=== PATIENT | male | born 1955 | race Caucasian/White ===

== ENCOUNTER → 2024-02-01 | Outpatient (CLI) | payer MEDICARE, SELFPAY ==
[2024-02-01 12:58] LABS: ALB/GLOB Ratio 1.1 RATIO (0.9-2.4); AST(SGOT) 21 U/L (15-37); Alanine Aminotransfer ALT/SGPT 21 U/L (16-61); Albumin, Serum 3.7 g/dL (3.2-5.0); Alkaline Phosphatase 78 U/L (45-117); Anion Gap 8 (5-15); BUN 16 mg/dL (7-18); BUN/Creat Ratio 15.5 RATIO (10-20); Calcium,Total 9.4 mg/dL (8.5-10.1); Chloride 104 mmol/L (98-107); Creatinine, Serum 1.03 mg/dL (0.70-1.30); EST Glomerular Filtration Rate 76 mL/min (>60); Est Glom Filt Rate - Afr Amer 92 mL/min (>60); Globulin 3.3 g/dL (2.2-4.2); Glucose 179 mg/dL (74-106); PSA,Total- Diagnostic 0.05 ng/mL (0.0-4.0); Potassium 4.8 mmol/L (3.5-5.1); Sodium Level 139 mmol/L (136-145)
== END | disposition home or self-care (01) ==
LOC: BIMLAB 09:24
PROVIDERS: PCP Family Medicine; Visit Provider Family Medicine
DX: C61 Malignant neoplasm of prostate (principal); E11.9 Type 2 diabetes mellitus without complications
CPT/HCPCS: 36415; 80053; 84153

== ENCOUNTER → 2024-11-14 | Outpatient (CLI) | payer MEDICARE, SELFPAY ==
[2024-11-14 13:26] LABS: Cholesterol 179 mg/dL (<=200); High Density Lipoprotein 81 mg/dL; Low Density Lipoprotein Calc. 87 mg/dL; Triglycerides 54 mg/dL; Very Low Density Lipoprotein 11 mg/dL (5-40)
[2024-11-14 13:30] LABS: ALB/GLOB Ratio 1.4 RATIO (0.9-2.4); AST(SGOT) 35 U/L (<=37); Alanine Aminotransfer ALT/SGPT 36 U/L (<=46); Albumin, Serum 4.3 g/dL (3.4-4.8); Alkaline Phosphatase 103 U/L (40-129); Anion Gap 11 (5-15); BUN 16 mg/dL (4-19); BUN/Creat Ratio 18.5 RATIO (10-20); Calcium,Total 9.2 mg/dL (7.6-11.0); Carbon Dioxide 23.4 mmol/L (21.0-32.0); Chloride 103 mmol/L (98-108); Creatinine, Serum 0.88 mg/dL (0.70-1.20); EST Glomerular Filtration Rate 94 (>60); Globulin 3.1 g/dL (2.2-4.2); Glucose 186 mg/dL (70-99); Potassium 4.5 mmol/L (3.3-5.1); Protein, Total 7.4 g/dL (5.9-8.4); Sodium Level 137 mmol/L (133-145); Total Bilirubin 0.53 mg/dL (0.00-1.30)
== END | disposition home or self-care (01) ==
LOC: BIMLAB 10:29
PROVIDERS: Physician Assistant; PCP Family Medicine; Referring Provider Family Medicine; Visit Provider Family Medicine
DX: E03.9 Hypothyroidism, unspecified (principal); E11.9 Type 2 diabetes mellitus without complications; Z79.4 Long term (current) use of insulin
CPT/HCPCS: 36415; 80053; 80061; 84439; 84443

== ENCOUNTER → 2025-02-13 | Outpatient (CLI) | payer MEDICARE, SELFPAY ==
[2025-02-13 17:16] LABS: PSA,Total- Diagnostic 0.23 ng/mL (0.00-4.00)
--- OUTSIDE RECORDS SUMMARY | 2025-02-13 23:16 | XMS RPT_ITS | CCD ---
Author Organization [facility] Care Team Providers Care Rn Clinical Research Name Role Phone Wojciech CARRION, Nahun Carrillo Primary Care Provider [phone] URIEL BARRAGAN Referring Unavailable WOJCIECH, NAHUN Carrillo Primary Care Unavailable Wojciech CARRION, Nahun Carrillo Primary Care Provider [phone] NAHUN JEFFREY Primary Care Unavailable KAMRAN GORDON JR Referring Unavaila LEIGH Miramontes Attending Unavailable WOJCIECH, NAHUN Carrillo Primary Care Unavailable WOJCIECH, NAHUN Carrillo Primary Care Unavailable KAMRAN GORDON JR Referring Unavaila ble NAHUN JEFFREY Attending Unavailable WOJCIECH, NAHUN Carrillo Primary Care Unavailable WOJCIECH, NAHUN Carrillo Referring Unavailable WOJCIECH, NAHUN Carrillo Primary Care Unavailable WOJCIECH, NAHUN Carrillo Primary Care Unavailable KAMRAN GORDON JR Referring Unavaila ble WOJCIECH, NAHUN Carrillo Primary Care Unavailable WOJCIECH, NAHUN Carrillo Attending Unavailable WOJCIECH, NAHUN Carrillo Primary Care Unavailable WOJCIECH, NAHUN Carrillo Attending Unavailable WOJCIECH, NAHUN Carrillo Primary Care Unavailable WOJCIECH, NAHUN Carrillo Referring Unavailable WOJCIECH, NAHUN Carrillo Primary Care Unavailable URIEL BARRAGAN Referring Unavailable WOJCIECH, NAHUN Carrillo Primary Care Unavailable URIEL BARRAGAN Referring Unavailable NAHUN JEFFREY Attending Unavailable WOJCIECH, NAHUN Carrillo Primary Care Unavailable WOJCIECH, NAHUN Carrillo Referring Unavailable WOJCIECH, NAHUN Carrillo Primary Care Unavailable KAMRAN GORDON JR Attending Unavaila KAMRAN Grullon JR Referring Unavaila ble KAMRAN GORDON JR Admitting Unavaila ble WOJCIECH, NAHUN Carrillo Primary Care Unavailable KAMRAN GORDON JR Attending Unavaila ble JEFFREY, NAHUN Carrillo Primary Care Unavailable WOJCIECH, NAHUN Carrillo Primary Care Unavailable GANGEL JR, KAMRAN GENE Attending Unavaila ble WOJCIECH, JESSICA Primary Care Unavailable HEIDI JR, KAMRAN GENE Attending Unavaila ble HEIDI JR, KAMRAN GENE Referring Unavaila ble WOJCIECH, JESSICA Primary Care Unavailable HEIDI JR, KAMRAN GENE Attending Unavaila ble JEFFREY, JESSICA Primary Care Unavailable Mohit Pittman DO Primary Care Provider Zain TERRY, Dr. Mohit Castro Primary Care Provider Dr. Mohit Pittman DO Attending Provider [phone] Dr. Mohit Pittman DO Referring Provider [phone] Brown, Mohit R Referring Unavailable Brown, Mohit R Attending Unavailable Brown, Mohit R Primary Care Unavailable Brown, Mohit R Referring Unavailable Brown, Mohit R Attending Unavailable Brown, Mohit R Primary Care Unavailable Brown, Mohit R Referring Unavailable Brown, Mohit R Attending Unavailable Brown, Mohit R Primary Care Unavailable Brown, Mohit R Referring Unavailable Brown, Mohit R Attending Unavailable Zain, Mohit Castro Primary Care Unavailable Zain TERRY, Dr. Mohit Castro Primary Care Provider [phone] Dr. Mohit Pittman DO Attending Provider [phone] Dr. Mohit Pittman DO Referring Provider [phone] Allergies Allergy Classification Reported Allergen(s) Allergy Type Date of Onset Reaction(s) Facility (20 sources) peanut; Translations: [PEANUTS] Food Intolerance 3 Vomiting [facility] Work Phone: (9 sources) Penicillins; Translations: [PENICILLINS] Drug Intolerance 3 Other: See Comments [facility] Work Phone: (20 sources) tamsulosin; Translations: [TAMSULOSIN] Drug Allergy 0 Mental Status Change [facility] Work Phone: (20 sources) Bee Sting; Translations: [BEE STING] Allergy to substance 3 Anaphylaxis, Angioedema [facility] Work Phone: (20 sources) Penicillins Drug Intolerance 3 Other: See Comments [facility] Work Phone: (20 sources) empagliflozin; Translations: [EMPAGLIFLOZIN] Drug Allergy 3 Other: See Comments [facility] (2 sources) Penicillins Propensity to adverse reactions 5 headaches [facility] (1 source) Penicillins Drug allergy (disorder) 5 [facility] Repository Medications Current Medications Medication Drug Class(es) Dates Sig (Normalized) Sig (Original) acetaminophen 325 mg / oxyCODONE hydrochloride 5 mg oral tablet (4 sources) Opioid Agonist Start: 11-30-2022 End: 12-05-2022 take 1 tablet by mouth every six hours as needed oxyCODONE-acetam inophen (PERCOCET) 5-325 mg tablet Indications: Prostate cancer (HCC) Take 1 tablet by mouth every 6 hours as needed for up to 5 days. 20 tablet 0 11/30/2022 12/05/2022 Active Comment on above: Take 1 tablet by michelle th every 6 hours as needed for up to 5 days. amLODIPine 10 mg oral tablet (20 sources) Dihydropyridine Calcium Channel Gabbi Start: 06-07-2023 End: 11-28-2024 take 1 tablet by mouth once daily Amlodipine 10 mg tablet Active 10 mg PO daily November 28, 2024 8:27am Start: 12-29-2021 End: 01-05-2023 take 1 tablet by mouth once daily amLODIPine (NORVASC) 10 mg tablet Indications: Essential hypertension Take 1 tablet by mouth once daily. 90 tablet 3 01/05/2023 Active Start: 11-03-2021 End: 12-29-2021 take 2 tablets by mouth once daily amLODIPine (NORVASC) 5 mg tablet Indications: Essential hypertension Take 2 tablets by mouth once daily. 3 11/03/2021 12/29/2021 Discontinued Comment on above: Take 2 tablets by mo uth once daily. Take 1 tablet by michelle th once daily. atorvastatin 20 mg oral tablet (20 sources) HMG-CoA Reductase Inhibitor Start: 4 End: 5 take 1 tablet by mouth at bedtime Atorvastatin 20 mg tablet Active 20 mg PO AT BEDTIME November 28, 2024 8:27am Start: 01-05-2023 End: 10-21-2023 take 1 tablet by mouth once daily at bedtime for hyperlipidemia atorvastatin (LIPITOR) 20 mg tablet Indications: Familial combined hyperlipidemia Take 1 tablet by mouth daily at bedtime. For cholesterol. 90 tablet 1 10/22/2023 Active Comment on above: Take 1 tablet by michelle th daily at bedtime. For cholesterol. Blood-Glucose Meter (ONETOUCH ULTRA2 METER) monitoring kit (20 sources) Start: 06-27-2021 Blood-Glucose Meter (ONETOUCH ULTRA2 METER) monitoring kit 1 Each as needed. One Touch Meter Kit Diagnosis: Type 2 DM - Uncontrolled E11.65 1 Each 06/27/2021 Active Start: 06-27-2021 Blood-Glucose Meter (ONETOUCH ULTRA2 METER) monitoring kit 1 Each as needed. One Touch Meter Kit Diagnosis: Type 2 DM - Uncontrolled E11.65 1 Each 0 06/27/2021 Active Comment on above: 1 Each as needed. On e Touch Meter Kit Diagnosis: Type 2 DM - Uncontrolled E11.65 docusate sodium 100 mg oral capsule (8 sources) Start: 2022 End: 2022 take 1 capsule by mouth twice daily docusate sodium (COLACE) 100 mg capsule Take 1 capsule by mouth twice daily. 60 capsule 0 11/30/2022 12/30/2022 Active Comment on above: Take 1 capsule by mo [facility] twice daily. 0.5 ml dulaglutide 1.5 mg/ml auto-injector (5 sources) GLP-1 Receptor Agonist Start: 2022 End: 2022 inject 0.75 mg by subcutaneous injection every week dulaglutide (TRULICITY) 0.75 mg/0.5 mL pen injector Indications: Type 2 diabetes mellitus with hyperglycemia, without long-term current use of insulin (HCC) Inject 0.75 mg subcutaneously one time a week. Inject dose once per week. Discard Pen After 4 Each 5 01/05/2023 03/20/2023 Discontinued Comment on above: Inject 0.75 mg subcu taneously one time a week. Inject dose once per week. Discard Pen After 2 ml gentamicin 40 mg/ml injection (1 source) Start: 2021 End: 2021 gentamicin 40 mg/mL 127 mg injection glimepiride 4 mg oral tablet (20 sources) Sulfonylurea Start: 2021 End: 2022 take 1 tablet by mouth once daily at mealtime glimepiride (AMARYL) 4 mg tablet Indications: 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d by mild nonproliferative retinopathy without macular edema, without long-term current use of insulin ([facility]) Take 1 tablet by mouth every evening. With food. 0 08/06/2022 03/20/2023 Discontinued (Clinical Decision) Start: 06-24-2020 End: 05-07-2022 take 1 tablet by mouth twice daily at mealtime glimepiride (AMARYL) 4 mg tablet Take 1 tablet by mouth twice daily with meals. 180 tablet 3 12/29/2021 05/07/2022 Discontinued Comment on above: Take 1 tablet by michelle th twice daily with meals. Take 1 tablet by michelle th daily with breakfast. Take 1 tablet by michelle th every evening. With food. 3 ml insulin glargine 100 unt/ml pen injector (20 sources) Insulin Analog Start: 02-01-2024 End: 01-30-2025 Insulin Glargine (Lantus Solostar U-100 Insulin) 100 unit/mL (3 mL) insulin pen Active 15 U SC EVERY EVENING 3 January 30, 2025 9:26am Start: 12-23-2023 End: 02-01-2024 Insulin Glargine (Lantus Hue ostar U-100 Insulin) 100 unit/mL (3 mL) insulin pen Discontinued 10 U SC EVERY EVENING 3 January 26, 2024 5:09pm February 01, 2024 9:35am Start: 04-14-2023 End: 04-19-2024 inject 10 [IU] by subcutaneous injection once daily at bedtime insulin glargine (LANTUS SOLOSTAR U-100 INSULIN) 100 unit/mL (3 mL) Indications: Type 2 diabetes mellitus with hyperglycemia, without long-term current use of insulin (HCC) Inject 10 Units subcutaneously daily at bedtime. 9 mL 1 10/22/2023 Active Start: 03-12-2023 End: 10-11-2023 inject 10 [IU] by subcutaneous injection once daily at bedtime insulin glargine (LANTUS SOLOSTAR U-100 INSULIN) 100 unit/mL (3 mL) Indications: Type 2 diabetes mellitus with hyperglycemia, without long-term current use of insulin (HCC) Inject 10 Units subcutaneously daily at bedtime. 9 mL 1 04/14/2023 10/11/2023 Active Comment on above: Inject 10 Units subc utaneously daily at bedtime. 3 ml insulin lispro 100 unt/ml pen injector (20 sources) Insulin Analog Start: 12-01-2023 End: 01-30-2025 Insulin Lispro 100 unit/mL insulin pen Active 0 .ROUTE .COMPLEX January 30, 2025 12:58pm INJECT 5 UNITSUNDER THE SKIN WITH BREAKFAST AND LUNCH, 20 UNITS UNDER THE SKIN WITH DINNER Start: 04-13-2023 End: 04-19-2024 inject 5 [IU] by subcutaneous injection once daily at breakfast, then inject 5 [IU] by subcutaneous injection once daily at lunch, then inject 10 [IU] by subcutaneous injection once daily at dinner insulin lispro (HUMALOG KWIKPEN INSULIN) 100 unit/mL Indications: Type 2 diabetes mellitus with hyperglycemia, without long-term current use of insulin (HCC) Inject 5 Units subcutaneously daily with breakfast AND 5 Units daily with lunch AND 10 Units daily with dinner. 18 mL 1 10/22/2023 Active Start: 03-20-2023 inject 10 [IU] by casper bcutaneous injection once daily at dinner insulin lispro (HUMALOG KWIKPEN INSULIN) 100 unit/mL Indications: Type 2 diabetes mellitus with hyperglycemia, without long-term current use of insulin (HCC) Inject 10 Units subcutaneously daily with dinner. 15 mL 2 03/20/2023 Active Comment on above: Inject 10 Units subc utaneously daily with dinner. Inject 5 Units subcu taneously daily with breakfast AND 5 Units daily with lunch AND 10 Units daily with dinner. isopropyl alcohol 0.7 ml/ml medicated pad (20 sources) Start: 02-13-2025 Alcohol Swabs (Bd Alcohol Swabs) pads, medicated Active NMA TOPICAL THREE TIMES A DAY February 13, 2025 11:37am As directed 3 times daily dx: E11.9 Insulin dependent Start: 12-01-2023 End: 02-13-2025 Alcohol Swabs (Bd Alcohol Sw abs) pads, medicated Discontinued NMA TOPICAL TWICE A DAY December 01, 2023 12:00am February 13, 2025 11:37am Start: 04-14-2023 alcohol swabs (ALCOHOL PADS) Test blood sugar(s) 4 times daily. Dx: Type 2 DM - Controlled E11.9 Insulin: yes 300 Each 1 04/14/2023 Active Start: 04-03-2022 End: 04-14-2023 alcohol swabs (ALCOHOL PADS) Test blood sugar(s) 2 times daily. Dx: Type 2 DM - Controlled E11.9 Insulin: No 200 Each 1 04/03/2022 04/14/2023 Discontinued Comment on above: Test blood sugar(s) 2 times daily. Dx: Type 2 DM - Controlled E11.9 Insulin: No Test blood sugar(s) 4 times daily. Dx: Type 2 DM - Controlled E11.9 Insulin: yes levoFLOXacin 500 mg oral tablet (1 source) Quinolone Antimicrobial Start: 12-03-19 End: 12-03-19 levoFLOXacin 500 mg tab(s) (LEVAQUIN) levothyroxine sodium 0.025 mg oral tablet (20 sources) l-Thyroxine Start: 09-13-19 End: 11-29-19 take 1 tablet by mouth once daily Levothyroxine (Synthroid) 25 mcg tablet Active 25 ug PO DAILY November 28, 2024 8:28am Comment on above: Take 1 tablet by michelle th daily before breakfast. LORazepam 0.5 mg oral tablet (4 sources) Benzodiazepine Start: 11-30-19 End: 12-06-19 LORazepam (ATIVAN) 0.5 mg Indications: Anxiety about health One tablet one hour prior to procedure. Repeat 30 minutes prior to procedure as needed. Do not start before November 29, 2021. 2 tablet 0 11/29/2021 12/05/2021 Active Comment on above: One tablet one hour prior to procedure. Repeat 30 minutes prior to procedure as needed. Do not start before November 29, 2021. one touch ultra 2 pen injector (3 sources) Start: 02-14-20 one touch ultra 2 pen injector Active 0 .Route .MEDSUPPLY February 13, 2025 11:36am As directed As directed 3 times daily dx: E11.9 Insulin dependent Start: 09-21-2024 End: 02-13-2025 one touch ultra 2 pen inject or Discontinued 0 .Route .MEDSUPPLY September 21, 2024 1:00am February 13, 2025 11:37am As directed Start: 09-21-2024 one touch ultr a 2 pen injector Active 0 .Route .MEDSUPPLY September 21, 2024 1:00am As directed 24 hr oxybutynin chloride 10 mg extended release oral tablet (14 sources) Cholinergic Muscarinic Antagonist Start: 12-01-2022 End: 03-20-2023 take 1 tablet by mouth once daily oxybutynin ER (DITROPAN XL) 10 mg 24 hr tablet Indications: Urinary incontinence, unspecified type Take 1 tablet by mouth once daily. 0 01/05/2023 03/20/2023 Discontinued Comment on above: Take 1 tablet by michelle th once daily for 14 days. Take 1 tablet by michelle th once daily. Semaglutide (8 sources) Start: 11-29-2024 Semaglutide (Ozempic) 0.25 mg or 0.5 mg (2 mg/3 mL) pen injector Active 0.25 mg SC EVERY WEEK 3 November 29, 2024 12:40pm 0.25 mg once per week Start: 11-28-2024 End: 11-29-2024 Semaglutide (Ozempic) 0.25 m g or 0.5 mg (2 mg/3 mL) pen injector Discontinued 0.25 mg SC EVERY WEEK 3 November 28, 2024 8:27am November 29, 2024 12:40pm 0.25 mg once per week Start: 01-26-2024 End: 11-28-2024 Semaglutide (Ozempic) 0.25 m g or 0.5 mg (2 mg/3 mL) pen injector Discontinued 0.25 mg SC EVERY WEEK 3 January 26, 2024 5:09pm November 28, 2024 8:28am 0.25 mg once per week Start: 01-26-2024 Semaglutide (O zempic) 0.25 mg or 0.5 mg (2 mg/3 mL) pen injector Active 0.25 mg SC EVERY WEEK 3 January 26, 2024 5:09pm 0.25 mg once per week Start: 12-23-2023 End: 01-26-2024 Semaglutide (Ozempic) 0.25 m g or 0.5 mg (2 mg/3 mL) pen injector Discontinued 0.25 mg SC EVERY WEEK 3 December 23, 2023 10:22am January 26, 2024 5:10pm 0.25 mg once per week Start: 12-01-2023 End: 12-23-2023 Semaglutide (Ozempic) 0.25 m g or 0.5 mg (2 mg/3 mL) pen injector Discontinued mg SC December 01, 2023 12:00am December 23, 2023 10:24am semaglutide (OZEMPIC) 0.25 m g or 0.5 mg (2 mg/3 mL) pen (7 sources) Start: 11-22-2023 semaglutide (O ZEMPIC) 0.25 mg or 0.5 mg (2 mg/3 mL) pen Indications: Type 2 diabetes mellitus with hyperglycemia, without long-term current use of insulin (HCC) Inject 0.25 mg subcutaneously one time a week. Ordering for 1 box with 1 rf. 5 Each 1 11/22/2023 Active Start: 11-11-2023 End: 11-22-2023 semaglutide (OZEMPIC) 0.25 m g or 0.5 mg (2 mg/3 mL) pen Indications: Type 2 diabetes mellitus with hyperglycemia, without long-term current use of insulin (HCC) Inject 0.25 mg subcutaneously one time a week. 12 mL 1 11/11/2023 11/22/2023 Discontinued Start: 11-11-2023 semaglutide (O ZEMPIC) 0.25 mg or 0.5 mg (2 mg/3 mL) pen Indications: Type 2 diabetes mellitus with hyperglycemia, without long-term current use of insulin (HCC) Inject 0.25 mg subcutaneously one time a week. 12 mL 1 11/11/2023 Active Comment on above: Inject 0.25 mg subcu taneously one time a week. Inject 0.25 mg subcu taneously one time a week. Ordering for 1 box with 1 rf. sildenafil 100 mg oral tablet (20 sources) Phosphodiesterase 5 Inhibitor Start: 12-01-19 End: 11-15-19 take 1 tablet by mouth once as needed Sildenafil 100 mg tablet Active 100 mg PO ONCE as needed for intercourse November 14, 2024 10:24am Start: 10-17-2020 End: 05-14-2023 take 1 tablet by mouth once daily as needed sildenafil (VIAGRA) 100 mg tablet Indications: ED (erectile dysfunction) of organic origin Take 1 tablet PO daily as needed for erectile dysfunction 20 tablet 1 05/14/2023 Active Comment on above: Take 1 tablet PO yovanny ly as needed for erectile dysfunction Completed/Discontinued Medications Medication Drug Class(es) Dates Sig (Normalized) Sig (Original) empagliflozin 10 mg oral tablet (20 sources) Sodium-Glucose Cotransporter 2 Inhibitor Start: 05-07-2022 End: 01-05-2023 take 1 tablet by mouth once daily, then take 1 tablet by mouth once daily in the morning empagliflozin (JARDIANCE) 10 mg tablet Indications: 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d by mild nonproliferative retinopathy without macular edema, without long-term current use of insulin (HCC) Take 1 tablet by mouth once daily. Take 1 tablet once daily in the morning 90 tablet 1 06/02/2022 01/05/2023 Discontinued (Side Effects) Comment on above: Take 1 tablet by michelle th once daily. Take 1 tablet once daily in the morning iv contrast (will be provided with radiology test) (8 sources) Start: 12-05-2021 End: 08-06-2022 iv contrast (will be provided with radiology test) MRI Prostate Inject, intravenously, once for 1 dose. No IV access, insert saline lock prior to the beginning of sedation, infusion, injection of imaging exam. Discontinue saline lock post exam. If Pt. has a central line or IVAD, may access for administration according to line specific nursing protocol. Once exam is complete flush line and de-access according to line specific nursing protocol in the MR contrast administration guidelines link. 1 Each 0 12/05/2021 08/06/2022 Discontinued Start: 12-05-2021 iv contrast (w ill be provided with radiology test) MRI Prostate Inject, intravenously, once for 1 dose. No IV access, insert saline lock prior to the beginning of sedation, infusion, injection of imaging exam. Discontinue saline lock post exam. If Pt. has a central line or IVAD, may access for administration according to line specific nursing protocol. Once exam is complete flush line and de-access according to line specific nursing protocol in the MR contrast administration guidelines link. 1 Each 0 12/05/2021 Active Comment on above: MRI Prostate Inject, intravenously, once for 1 dose. No IV access, insert saline lock prior to the beginning of sedation, infusion, injection of imaging exam. Discontinue saline lock post exam. If Pt. has a central line or IVAD, may access for administration according to line specific nursing protocol. Once exam is complete flush line and de-access according to line specific nursing protocol in the MR contrast administration guidelines link. 24 hr metFORMIN hydrochloride 500 mg extended release oral tablet (20 sources) Biguanide Start: 12-01-2023 End: 05-03-2024 Metformin 500 mg tablet extended release 24 hr Discontinued 1000 mg PO .QID December 01, 2023 10:23am May 03, 2024 9:31am Start: 06-07-2023 End: 12-01-2023 Metformin 500 mg tablet exte nded release 24 hr Discontinued 1000 mg PO TWICE A DAY December 01, 2023 12:00am December 01, 2023 10:23am Start: 10-07-2021 End: 08-06-2022 take 2 tablets by mouth twice daily before mealtime metFORMIN ER (GLUCOPHAGE XR) 500 mg 24 hr tablet Indications: 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d by mild nonproliferative retinopathy without macular edema, without long-term current use of insulin (HCC) Take 2 tablets by mouth twice daily before meals. 360 tablet 3 08/06/2022 Active Comment on above: Take 2 tablets by mo [facility] twice daily before meals. Take 2 tablets by mo [facility] two times a day before meals. pravastatin sodium 40 mg oral tablet (20 sources) HMG-CoA Reductase Inhibitor Start: 2 End: 3 take 1 tablet by mouth once daily pravastatin (PRAVACHOL) 40 mg tablet Take 1 tablet by mouth once daily. 90 tablet 3 08/06/2022 01/05/2023 Discontinued (Changing Therapy/Dosage Form) Comment on above: Take 1 tablet by [facility] once daily. Problems Active Problems Problem Classification Problem Date Documented Date Episodic/Chronic Cancer of prostate (20 sources) Malignant tumor of prostate; Translations: [Malignant neoplasm of prostate] Onset: 12-04-2022 Chronic Cancer of prostate (7 sources) History of malignant neoplasm of prostate; Translations: [Personal history of malignant neoplasm of prostate] Onset: 11-14-2024 08-08-2024 Episodic Diabetes mellitus with complications (20 sources) Type 2 diabetes mellitus; Translations: [Type 2 diabetes mellitus with mild nonproliferative diabetic retinopathy without macular edema, bilateral] Onset: 02-08-2017 Resolved: 07-17-2020 02-27-2019 Chronic Diabetes mellitus without complication (7 sources) Diabetes mellitus; Translations: [Type 2 diabetes mellitus without complications] Onset: 09-05-2014 Resolved: 07-17-2020 10-21-2015 Chronic Disorders of lipid metabolism (20 sources) Familial combined hyperlipidemia; Translations: [Other hyperlipidemia] Onset: 07-29-2015 07-29-2015 Chronic Essential hypertension (20 sources) Hypertensive disorder; Translations: [Essential (primary) hypertension] Onset: 09-05-2014 Resolved: 10-21-2015 Chronic Genitourinary symptoms and ill-defined conditions (20 sources) Urinary incontinence; Translations: [Unspecified urinary incontinence] Onset: 01-05-2023 Chronic Other aftercare (1 source) exterminator (current) use of insulin; Translations: [exterminator (current) use of insulin] Onset: 11-14-2024 Episodic Other male genital disorders (20 sources) Secondary erectile dysfunction; Translations: [Male erectile dysfunction, unspecified] Onset: 10-18-2020 10-18-2020 Chronic Other male genital disorders (6 sources) Male erectile dysfunction, unspecified; Translations: [Erectile dysfunction] Onset: 11-14-2024 11-14-2024 Chronic Thyroid disorders (20 sources) Acquired hypothyroidism; Translations: [Hypothyroidism, unspecified] Onset: 10-21-2015 10-21-2015 Chronic Past or Other Problems Problem Classification Problem Date Documented Da te Episodic/Chronic Allergic reactions (2 sources) Contact dermatitis due to Genus Toxicodendron; Translations: [Unspecified contact dermatitis due to plants, except food] Onset: 03-16-2018 Resolved: 07-17-2020 07-17-2020 Episodic Immunizations and screening for infectious disease (4 sources) Needs influenza immunization; Translations: [Encounter for immunization] Onset: 08-08-2024 Episodic Nonspecific chest pain (2 sources) Atypical chest pain; Translations: [Other chest pain] Onset: 09-05-2014 Resolved: 10-21-2015 10-21-2015 Episodic Other and unspecified benign neoplasm (20 sources) History of polyp of colon; Translations: [Personal history of colonic polyps] Onset: 02-20-2016 02-20-2016 Episodic Other connective tissue disease (20 sources) Adhesive capsulitis of left shoulder; Translations: [Adhesive capsulitis of left shoulder] Onset: 05-07-2022 Resolved: 05-13-2023 Episodic Other screening for suspected conditions (not mental disorders or infectious disease) (20 sources) Raised prostate specific antigen; Translations: [Elevated prostate specific antigen [PSA]] Onset: 09-26-2019 Resolved: 12-04-2022 07-18-2020 Episodic Residual codes; unclassified (20 sources) Family history of ischemic heart disease; Translations: [Family history of ischemic heart disease and other diseases of the circulatory system] Onset: 09-05-2014 09-05-2014 Episodic Unclassified (2 sources) Type 2 diabetes mellitus without complication; Translations: [Uncontrolled type 2 diabetes mellitus without complication, without long-term current use of insulin] Onset: 03-16-2018 Resolved: 07-17-2020 07-17-2020 Results Test Name Value Interpretation Reference Range Facility T4 Free Directon 11-15-2024 T4 FREE DIRECT 1.50 ng/dL High 0.76-1.46 [facility] Comment on above: Performed By: #### L [id number] #### [facility] [place], [address] Anion gap in Serum or Plasma Ordered By: Mohit Pittman on 11-14-2024 Anion gap [Moles/Vol] 11 mmol/L - [facility] BUN/creatinine ratioOrdered By: Mohit Pittman on 11-14-2024 Urea nitrogen/Creatinine [Mass ratio] 18.5 mg/mg - [facility] Bilirubin, totalOrdered By: Mohit Pittman on 11-14-2024 Bilirubin [Mass/Vol] 0.53 mg/dL 0.00-1.30 [facility] Calculated very low density lipoprotein (VLDL) cholesterol measurementOrdered By: Mohit Pittman on 11-14-2024 Calculated very low density lipoprotein (VLDL) cholesterol measurement 11 mg/dL - [facility] VLDL Cholesterol 11 mg/dL - [facility] Carbon dioxide, total [Moles /volume] in Central venous bloodOrdered By: Mohit Pittman on 11-14-2024 CO2 [Moles/Vol] 23.4 mmol/L 21.0-32.0 [facility] Chloride assayOrdered By: Do teresa Pittman on 11-14-2024 Chloride [Moles/Vol] 103 mmol/L 98-108 [facility] Comprehensive Metabolic Prof ilon 11-14-2024 Albumin [Mass/Vol] 4.3 g/dL Normal 3.4-4.8 [facility] Comment on above: Performed By: #### L 501.9520, L500.4100, L500.4050 #### [facility] [address] [place], [address] Albumin/Globulin [Mass ratio] 1.4 {ratio} Normal 0.9-2.4 [facility] Comment on above: Performed By: #### L 501.9520, L500.4100, L500.4050 #### [facility] [address] [place], [address] ALK PHOS 103 U/L Normal 40-129 [facility] Comment on above: Performed By: #### L 501.9520, L500.4100, L500.4050 #### [facility] [address] [place], [address] ALT [Catalytic activity/Vol] 36 U/L Normal <=46 [facility] Comment on above: Performed By: #### L 501.9520, L500.4100, L500.4050 #### [facility] [address] [place], [address] AST [Catalytic activity/Vol] 35 U/L Normal <=37 [facility] Comment on above: Performed By: #### L 501.9520, L500.4100, L500.4050 #### [facility] [address] [place], [address] Bilirubin [Mass/Vol] 0.53 mg/dL Normal 0.00-1.30 [facility] Comment on above: Performed By: #### L 501.9520, L500.4100, L500.4050 #### [facility] [address] [place], [address] BUN/CRE 18.5 RATIO Normal 10-20 [facility] Comment on above: Performed By: #### L 501.9520, L500.4100, L500.4050 #### [facility] [address] [place], [address] Calcium [Mass/Vol] 9.2 mg/dL Normal 7.6-11.0 [facility] Comment on above: Performed By: #### L 501.9520, L500.4100, L500.4050 #### [facility] [address] [place], [address] Chloride [Moles/Vol] 103 mmol/L Normal 98-108 [facility] Comment on above: Performed By: #### L 501.9520, L500.4100, L500.4050 #### [facility] [address] [place], [address] CO2 [Moles/Vol] 23.4 mmol/L Normal 21.0-32.0 [facility] Comment on above: Performed By: #### L 501.9520, L500.4100, L500.4050 #### [facility] [address] [place], [address] Creatinine [Mass/Vol] 0.88 mg/dL Normal 0.70-1.20 [facility] Comment on above: Performed By: #### L 501.9520, L500.4100, L500.4050 #### [facility] [address] [place], [address] GAP 11 Normal 5-15 [facility] Comment on above: Performed By: #### L 501.9520, L500.4100, L500.4050 #### [facility] [address] [place], [address] GFR/1.73 sq M.predicted among non-blacks MDRD (S/P/Bld) [Vol rate/Area] 94 mL/min/{1.73_m2} Normal >60 [facility] Comment on above: Result Comment: mL/m in/1.73m2 CKD-EPI Creatinine Equation (2020) Performed By: #### L 501.9520, L500.4100, L500.4050 #### [facility] [address] [place], [address] Globulin (S) [Mass/Vol] 3.1 g/dL Normal 2.2-4.2 [facility] Comment on above: Performed By: #### L 501.9520, L500.4100, L500.4050 #### [facility] [address] [place], [address] Glucose [Mass/Vol] 186 mg/dL High 70-99 [facility] Comment on above: Performed By: #### L 501.9520, L500.4100, L500.4050 #### [facility] [address] [place], [address] Potassium [Moles/Vol] 4.5 mmol/L Normal 3.3-5.1 [facility] Comment on above: Performed By: #### L 501.9520, L500.4100, L500.4050 #### [facility] [address] [place], [address] Sodium [Moles/Vol] 137 mmol/L Normal 133-145 [facility] Comment on above: Performed By: #### L 501.9520, L500.4100, L500.4050 #### [facility] [address] [place], [address] T PROT 7.4 g/dL Normal 5.9-8.4 [facility] Comment on above: Performed By: #### L 501.9520, L500.4100, L500.4050 #### [facility] [address] [place], [address] Urea nitrogen [Mass/Vol] 16 mg/dL Normal 4-19 [facility] Comment on above: Performed By: #### L 501.9520, L500.4100, L500.4050 #### [facility] [address] [place], [address] GFR/1.73 sq M.predicted arturo g non-blacks MDRD (S/P/Bld) [Vol rate/Area]Ordered By: Mohit Pittman on 11-14-2024 Estimated GFR (MDRD) Non-Af Amer 94 >60 [facility] Comment on above: mL/min/1.73m2 CKD-EP I Creatinine Equation (2020) Glomerular filtration rate ( GFR) estimation/1.73 sq m using serum, plasma, or whole bOrdered By: Mohit Pittman on 11-14-2024 GFR/1.73 sq M.predicted among non-blacks MDRD (S/P/Bld) [Vol rate/Area] 94 mL/min/{1.73_m2} >60 [facility] Comment on above: mL/min/1.73m2 CKD-EP I Creatinine Equation (2020) Internal Medicine Office Vis gayathri 11-14-2024 Internal Medicine Office Visit [facility] [address] [place] [address] [place] [address] OFFICE VISIT Date of Service: 11/14/24 MR#: [id number] Acct: [id number] Name: TUAN VALLEJO Rep #: [id number] : 1955 Provider: Dr. Mohit proctor, DO Age/Sex: 69/M Location: [facility] Status: Signed Intake Vital Signs 08/08/24 10:32 11/14/24 10:03 Height 5 ft 7 in 5 ft 7 in Weight: 175 lb 174 lb 2 oz BMI 27.3 27.2 BP 122/74 H 154/78 H Blood Pressure Location Lt brachial Rt brachial Position Sitting Sitting Respiration 14 16 Pulse 57 L 77 Pulse Source Monitor Monitor Temp 97.5 F L 96 F L Temp Source Temporal Temporal Pulse Oximetry (%) 97 96 Oxygen Delivery Method room air room air Intake Visit Reasons: 3 M FU Chief Complaint: follow up Receptionist Airline Lounge Required: No Accompanied by: Self Is patient in pain?: No Allergies Penicillins Adverse Reaction (Mild, Verified 11/14/24 09:57) headaches Medications ???Medication ???Instructions ???Recorded ???Confirmed ???Type alcohol swabs (BD Alcohol Swabs) pad topical BID 12/01/23 11/14/24 History semaglutide 0.25 mg or 0.5 mg (2 0.25 mg (0.368 mL) subcut QWEEK 4 01/26/24 11/14/24 Rx mg/3 mL) subcutaneous pen injector weeks #3 mL (Ozempic) amlodipine 10 mg tablet 10 mg PO QDAY #90 tabs 06/02/24 Rx atorvastatin 20 mg tablet 20 mg PO QHS cholesterol #90 tabs 06/05/24 11/14/24 Rx pen needle, diabetic 32 gauge x #1,200 ea 06/29/24 11/14/24 Rx 5/32 (BD Sirisha 2nd Gen Pen Needle) insulin glargine 100 unit/mL (3 15 unit (0.15 mL) subcut QPM DMII 07/11/24 11/14/24 Rx mL) subcutaneous pen (Lantus (E11.9) #3 mL Solostar U-100 Insulin) insulin lispro 100 unit/mL 5 unit (0.05 mL) subcut TIDWMEAL 1 09/13/23 11/14/24 Rx subcutaneous pen DMII #15 mL lancets 33 gauge (OneTouch Delica #100 ea 08/08/24 11/14/24 Rx Plus Lancet) blood sugar diagnostic (OneTouch #300 ea 08/31/24 11/14/24 Rx Ultra Test strips) one touch ultra 2 pen injector #1 ea 09/21/24 11/14/24 Rx levothyroxine 25 mcg tablet 25 mcg PO DAILY #30 TABLETS 11/14/24 Rx (Synthroid) sildenafil 100 mg tablet 100 mg PO ONCE PRN intercourse #20 11/14/24 11/14/24 Rx tabs Have you fallen in the past year?: No PFSH Medical History Prostate cancer High cholesterol High blood pressure Diabetes Skin cancer Surgical History H/O prostatectomy H/O hernia repair Family History Father Cancer lung Myocardial infarction Diabetes Brother Cancer lung Diabetes Mother Diabetes Sister Diabetes Social History housing: house current occupational status: retired Smoking Status: Former smoker Tobacco: How many years used: 22 alcohol intake: never substance use type: does not use what type of physical activity do you participate in: walking and weight training frequency: 5-6 times per week duration: 30-45 minutes/day seatbelt use: always do you feel safe at home: Yes HPI HPI Chief Complaint: follow up Details: TUAN VALLEJO, is a 69 M who presents to the office today for a regular diabetic checkup. He checks his sugars many times a day, exercises on a regular basis and is quite faithful in following his diet. In reviewing his glucose meter his average blood sugars in the last 2 weeks are 125, showing exceptional blood sugar control. ROS Const Constitutional: No body ache, excessive sweating, fatigue, fever(s), frequent falls, headache(s), snoring, weakness, weight change, sleep problems or change in appetite Eyes Eyes: No blurry vision, change in vision, eye pain or Light sensitivity ENT ENT: No abnormal hearing, ear or mastoid pain, tinnitus, nasal congestion, headache(s), neck pain or sore throat Resp Respiratory: No cough, shortness of breath, snoring or wheezing Cardio Cardiology: No chest pain at rest, chest pain with exertion, excessive sweating, shortness of breath, dyspnea on exertion, lightheadedness, orthopnea or palpitations Gastro GI: No abdominal pain, change in bowel habits, constipation, cramping, diarrhea, nausea/dyspepsia or vomiting Genitourinary Male: No burning urination, painful urination, urinary incontinence, urinary frequency or blood in urine Musc Musculoskeletal: No abnormal gait, joint pain, back pain, limited range of motion, neck pain, numbness, stiffness, tingling or Arthritis Skin Skin: No dry skin, redness, lesions, itchy eyes, rash or wounds Neuro Neurology: No abnormal gait, abnormal hearing, abnormal speech, dizziness, weakness, frequent falls, headache(s), memory loss, numbness or tingling Psych Psychiatri (more content not included)... Normal [facility] LDL calc ser/plasOrdered By: Mohit Pittman on 11-14-2024 Cholesterol in LDL [Mass/Vol] 87 mg/dL [facility] Comment on above: Gxaylzpgys=845-056 m g/dL & Higher Izgt=115 mg/dL or greater LDL Cholesterol, Calculated 87 mg/dL [facility] Comment on above: Enbtstssjb=356-162 m g/dL & Higher Fpri=322 mg/dL or greater Laboratory - Chemistry and C hemistry - challengeOrdered By: Mohit Pittman on 11-14-2024 AST [Catalytic activity/Vol] 35 U/L <38 [facility] - Hematology and Cell countsOrdered By: Mohit Pittman on 11-14-2024 HbA1c (Bld) [Mass fraction] 6.7 % High 4.2-6.3 [facility] Lipid Profileon 11-14-2024 CHOL:HDL 2.20 Normal [facility] Comment on above: Performed By: #### L 501.9520, L500.4100, L500.4050 #### [facility] [address] [place], [address] Cholesterol [Mass/Vol] 179 mg/dL Normal <=200 [facility] Comment on above: Result Comment: Chol esterol level, Desirable <200 mg/dL Borderline high cholesterol 200-239 mg/dL High cholesterol >=240 mg/dL Recommendations of the NCEP Adult Treatment Panel for the following risk-cutoff thresholds for the [place] population. Performed By: #### L 501.9520, L500.4100, L500.4050 #### [facility] [address] [place], [address] Cholesterol in HDL [Mass/Vol] 81 mg/dL Normal [facility] Comment on above: Result Comment: Amanda onal Cholesterol Education Program (NCEP) guidelines: <40 mg/dL: Low HDL-cholesterol (major risk factor for CHD) >= 60 mg/dL: High HDL-cholesterol (negative risk factor for CHD) HDL-cholesterol is affected by a number of factors, e.g. smoking, exercise, hormones, sex and age. Performed By: #### L 501.9520, L500.4100, L500.4050 #### [facility] [address] [place], [address] Cholesterol in LDL [Mass/Vol] 87 mg/dL Normal [facility] Comment on above: Result Comment: Bord dqoken=022-485 mg/dL Higher Bsxf=373 mg/dL or greater Performed By: #### L 501.9520, L500.4100, L500.4050 #### [facility] [address] [place], [address] Cholesterol in VLDL [Mass/Vol] 11 mg/dL Normal 5-40 [facility] Comment on above: Performed By: #### L 501.9520, L500.4100, L500.4050 #### [facility] [address] [place], [address] Triglyceride [Mass/Vol] 54 mg/dL Normal [facility] Comment on above: Result Comment: The drugs N-Acetylcysteine and Metamizole may falsely depress this assay. Normal range: <150 mg/dL Borderline High: 150-199 mg/dL High: 200-499 mg/dL Very High: >500 mg/dL Performed By: #### L 501.9520, L500.4100, L500.4050 #### [facility] [address] [place], [address] Potassium (Unsp spec) [Mass/ Vol]Ordered By: Mohit Pittman on 11-14-2024 Potassium [Moles/Vol] 4.5 mmol/L 3.3-5.1 [facility] Potassium measurement (mass/ volume)Ordered By: Mohit Pittman on 11-14-2024 Potassium (Unsp spec) [Mass/Vol] 4.5 mmol/L 3.3-5.1 [facility] Screening total cholesterol/ high density lipoprotein (HDL) cholesterol ratioOrdered By: Mohit Pittman on 11-14-2024 Cholesterol.total/Cho lesterol in HDL [Mass ratio] 2.20 {ratio} [facility] Serum creatinine measurement (mass/volume)Ordered By: Mohit Pittman on 11-14-2024 Creatinine [Mass/Vol] 0.88 mg/dL 0.70-1.20 [facility] Serum globulin measurementOr dered By: Mohit Pittman on 11-14-2024 Globulin (S) [Mass/Vol] 3.1 g/dL 2.2-4.2 [facility] Serum glucose measurement (m ass/volume)Ordered By: Mohit Pittman on 11-14-2024 Glucose [Mass/Vol] 186 mg/dL High 70-99 [facility] Serum or plasma alanine alcazar otransferase (ALT) measurementOrdered By: Mohit Pittman on 11-14-2024 ALT [Catalytic activity/Vol] 36 U/L <47 [facility] Serum or plasma albumin klaus urement (mass/volume)Ordered By: Mohit Pittman on 11-14-2024 Albumin [Mass/Vol] 4.3 g/dL 3.4-4.8 [facility] Serum or plasma albumin/glob ulin mass ratioOrdered By: Mohit Pittman 11-14-2024 Albumin/Globulin [Mass ratio] 1.4 {ratio} 0.9-2.4 [facility] Serum or plasma alkaline william sphatase measurementOrdered By: Mohit Pittman 11-14-2024 ALP [Catalytic activity/Vol] 103 U/L 40-129 [facility] Serum or plasma calcium klaus urement (mass/volume)Ordered By: Mohit Pittman on 11-14-2024 Calcium [Mass/Vol] 9.2 mg/dL 7.6-11.0 [facility] Serum or plasma cholesterol in HDL measurement (mass/volume)Ordered By: Mohit Pittman on 11-14-2024 Cholesterol in HDL [Mass/Vol] 81 mg/dL >40 [facility] Comment on above: National Cholesterol Education Program (NCEP) guidelines:<40 mg/dL: Low HDL-cholesterol (major risk factor for CHD)>= 60 mg/dL: High HDL-cholesterol (negative risk factor for CHD)HDL-cholesterol is affected by a number of factors, e.g. smoking, exercise, hormones, sex and age. Serum or plasma cholesterol measurement (mass/volume)Ordered By: Mohit Pittman on 11-14-2024 Cholesterol [Mass/Vol] 179 mg/dL <201 [facility] Comment on above: Cholesterol level, D esirable <200 mg/dLBorderline high cholesterol 200-239 mg/dLHigh cholesterol >=240 mg/dLRecommendations of the NCEP Adult Treatment Panel for the following risk-cutoff thresholds for the [place] population. Serum or plasma urea nitroge n measurement (mass/volume)Ordered By: Mohit Pittman on 11-14-2024 Urea nitrogen [Mass/Vol] 16 mg/dL 4-19 [facility] Sodium levelOrdered By: Andrew Pittman on 11-14-2024 Sodium [Moles/Vol] 137 mmol/L 133-145 [facility] T4 freeOrdered By: Ruslan griffin on 11-14-2024 Free T4 [Mass/Vol] 1.50 ng/dL High 0.76-1.46 [facility] TSH DL <= 0.005 mIU/L QnOrde red By: Mohit Pittman on 11-14-2024 Thyroid Stimulating Hormone (TSH) 1.180 uIU/mL 0.300-4.200 [facility] TSH Qn 1.180 uIU/mL 0.300-4.200 [facility] Thyroid Stim Hormone (TSH)on 11-14-2024 TSH 1.180 uIU/mL Normal 0.300-4.200 [facility] Comment on above: Performed By: #### L 501.9574, L500.4100, L500.4050 #### [facility] [address] [place], [address] Total proteinOrdered By: Edward Pittman on 11-14-2024 Protein [Mass/Vol] 7.4 g/dL 5.9-8.4 [facility] Triglycerides measurementOrd ered By: Mohit Pittman on 11-14-2024 Triglyceride [Mass/Vol] 54 mg/dL <199 [facility] Comment on above: The drugs N-Acetylcy steine and Metamizole may falsely depress this assay. Normal range: <150 mg/dLBorderline High: 150-199 mg/dLHigh: 200-499 mg/dLVery High: >500 mg/dL Internal Medicine Office Vis gayathri 08-08-2024 Internal Medicine Office Visit [facility] [address] [place] [address] OFFICE VISIT Date of Service: 08/08/24 MR#: [id number] Acct: [id number] Name: TUAN VALLEJO Rep #: [id number] : 1955 Provider: Dr. Mohit Arvizu own, DO Age/Sex: 69/M Location: [facility] Status: Signed Intake Vital Signs 05/03/24 09:32 08/08/24 10:32 Height 5 ft 7 in 5 ft 7 in Weight: 170 lb 175 lb BMI 26.6 27.3 BP 130/82 H 122/74 H Blood Pressure Location Lt brachial Lt brachial Position Sitting Sitting Respiration 16 14 Pulse 68 57 L Pulse Source Monitor Monitor Temp 97.2 F L 97.5 F L Temp Source Temporal Temporal Pulse Oximetry (%) 97 97 Oxygen Delivery Method room air room air Intake Visit Reasons: 3 m Chief Complaint: follow up on diabetes Receptionist Airline Lounge Required: No Is patient in pain?: No Allergies Penicillins Adverse Reaction (Mild, Verified 08/08/24 10:21) headaches Medications ???Medication ???Instructions ???Recorded ???Confirmed ???Type alcohol swabs (BD Alcohol Swabs) pad topical BID 12/01/23 08/08/24 History sildenafil 100 mg tablet 100 mg PO PRN intercourse 12/01/23 08/08/24 History semaglutide 0.25 mg or 0.5 mg (2 0.25 mg (0.368 mL) subcut QWEEK 4 01/26/24 08/08/24 Rx mg/3 mL) subcutaneous pen injector weeks #3 mL (Ozempic) amlodipine 10 mg tablet 10 mg PO QDAY #90 tabs 06/02/24 08/08/24 Rx blood sugar diagnostic (OneTouch #200 ea 06/02/24 08/08/24 Rx Ultra Test strips) atorvastatin 20 mg tablet 20 mg PO QHS cholesterol #90 tabs 06/05/24 08/08/24 Rx levothyroxine 25 mcg tablet 25 mcg PO QDAY #90 tabs 06/27/24 08/08/24 Rx (Synthroid) pen needle, diabetic 32 gauge x #1,200 ea 06/29/24 08/08/24 Rx /32 (BD Sirisha 2nd Gen Pen Needle) insulin glargine 100 unit/mL (3 15 unit (0.15 mL) subcut QPM DMII 07/11/24 08/08/24 Rx mL) subcutaneous pen (Lantus (E11.9) #3 mL Solostar U-100 Insulin) insulin lispro 100 unit/mL 5 unit (0.05 mL) subcut TIDWMEAL 07/14/24 08/08/24 Rx subcutaneous pen DMII #15 mL lancets 33 gauge (OneTouch Delica #100 ea 08/08/24 08/08/24 Rx Plus Lancet) Have you fallen in the past year?: No PFSH Medical History Prostate cancer High cholesterol High blood pressure Diabetes Skin cancer Surgical History H/O prostatectomy H/O hernia repair Family History Father Cancer lung Myocardial infarction Diabetes Brother Cancer lung Diabetes Mother Diabetes Sister Diabetes Social History housing: house current occupational status: retired Smoking Status: Former smoker Tobacco: How many years used: 22 alcohol intake: never substance use type: does not use what type of physical activity do you participate in: walking and weight training frequency: 5-6 times per week duration: 30-45 minutes/day seatbelt use: always do you feel safe at home: Yes HPI HPI Chief Complaint: follow up on diabetes Details: TUAN VALLEJO, is a 69 M who presents to the office today for ROS Const Constitutional: No body ache, chills, excessive sweating, fatigue, fever(s), frequent falls, headache(s), snoring, weakness, sleep problems or change in appetite Eyes Eyes: No blurry vision, change in vision, eye pain or Light sensitivity ENT ENT: No abnormal hearing, ear or mastoid pain, tinnitus, nasal congestion, headache(s), neck pain or sore throat Resp Respiratory: No cough, shortness of breath, snoring or wheezing Cardio Cardiology: No chest pain at rest, chest pain with exertion, excessive sweating, shortness of breath, dyspnea on exertion, lightheadedness, orthopnea or palpitations Gastro GI: No abdominal pain, change in bowel habits, constipation, cramping, diarrhea, nausea/dyspepsia or vomiting Genitourinary Male: No burning urination, painful urination, urinary incontinence or urinary frequency Musc Musculoskeletal: No abnormal gait, joint pain, back pain, limited range of motion, neck pain or numbness Skin Skin: No dry skin, redness, lesions, itchy eyes, rash or wounds Neuro Neurology: No abnormal gait, abnormal hearing, weakness, frequent falls, headache(s), memory loss or numbness Psych Psychiatric: No anxiety, No change in appetite, No depression, No memory loss and No Thoughts of harming yourself/Others Endo Endocrine: No cold intolerance, excessive sweating, fatigue, flushing, heat intolerance, increased thirst/drinking or increased hunger Aller/Imm Allergy/Immunologic: No itchy eyes, seasonal allergy symptoms, hives or wheezing Stephane/Lymp Hematologic/Lymphatic: No easy bleeding, easy bruising, e (more content not included)... Normal [facility] - Hematology and Cell countson 08-08-2024 HbA1c (Bld) [Mass fraction] 6.0 % 4.2-6.3 [facility] Internal Medicine Office Vis itoana cristina 05-03-2024 Internal Medicine Office Visit [facility] [address] [place] [address] [place] [address] OFFICE VISIT Date of Service: 05/03/24 MR#: [id number] Acct: [id number] Name: TUAN VALLEJO Rep #: [id number] : 1955 Provider: Dr. Mohit proctor, DO Age/Sex: 69/M Location: [facility] Status: Signed Intake Vital Signs 02/01/24 08:57 05/03/24 09:32 Height 5 ft 7 in 5 ft 7 in Weight: 168 lb 170 lb BMI 26.3 26.6 BP 140/80 H 130/82 H Blood Pressure Location Lt brachial Lt brachial Position Sitting Sitting Respiration 14 16 Pulse 62 68 Pulse Source Monitor Monitor Temp 98.6 F 97.2 F L Temp Source Temporal Temporal Pulse Oximetry (%) 98 97 Oxygen Delivery Method room air room air Intake Visit Reasons: 3 M FU Chief Complaint: follow up on diabetes Receptionist Airline Lounge Required: No Is patient in pain?: No Allergies Penicillins Adverse Reaction (Mild, Verified 05/03/24 09:24) headaches Medications ???Medication ???Instructions ???Recorded ???Confirmed ???Type alcohol swabs (BD Alcohol Swabs) pad topical BID 12/01/23 05/03/24 History sildenafil 100 mg tablet 100 mg PO PRN intercourse 12/01/23 05/03/24 History atorvastatin 20 mg tablet 20 mg PO QHS cholesterol 12/23/23 05/03/24 History lancets 33 gauge (OneTouch Deljack #100 ea 12/23/23 05/03/24 Rx Plus Lancet) levothyroxine 25 mcg tablet 25 mcg PO QDAY #90 tabs 12/23/23 05/03/24 Rx (Synthroid) pen needle, diabetic 32 gauge x #1,200 ea 12/23/23 05/03/24 History (BD Sirisha 2nd Gen Pen Needle) semaglutide 0.25 mg or 0.5 mg (2 0.25 mg (0.368 mL) subcut QWEEK 4 01/26/24 05/03/24 Rx mg/3 mL) subcutaneous pen injector weeks #3 mL (Ozempic) insulin glargine 100 unit/mL (3 15 unit (0.15 mL) subcut QPM DMII 02/01/24 05/03/24 Rx mL) subcutaneous pen (Lantus (E11.9) #3 mL Solostar U-100 Insulin) amlodipine 10 mg tablet 10 mg PO QDAY #90 tabs 03/31/24 05/03/24 Rx blood sugar diagnostic (OneTouch #200 ea 03/31/24 05/03/24 Rx Ultra Test strips) insulin lispro 100 unit/mL 5 unit (0.05 mL) subcut TIDWMEAL 05/03/24 05/03/24 Rx subcutaneous pen DMII #15 mL Have you fallen in the past year?: No Nurse's Note: needs refills on rian needles 3 box of 90, synthroid, norvasc, and atorvastatin. dc'd metformin pharmacy told him to stop taking it and it was messing his stomach up. [facility] Medical History Prostate cancer High cholesterol High blood pressure Diabetes Skin cancer Surgical History H/O prostatectomy H/O hernia repair Family History Father Cancer lung Myocardial infarction Diabetes Brother Cancer lung Diabetes Mother Diabetes Sister Diabetes Social History housing: house current occupational status: retired Smoking Status: Former smoker Tobacco: How many years used: 22 alcohol intake: never substance use type: does not use what type of physical activity do you participate in: walking and weight training frequency: 5-6 times per week duration: 30-45 minutes/day seatbelt use: always do you feel safe at home: Yes HPI HPI Chief Complaint: follow up on diabetes Details: TUAN VALLEJO, is a 69 M who presents to the office today for a diabetic recheck. This patient truly follows a good diabetic diet. He comes carbohydrates and he has a very varied diet including fruits and vegetables and protein but all in limited quantities. In addition to that he is physically very active walks a lot works out at the gym and when I check his monitor his average blood sugars are 130. ROS Const Constitutional: No body ache, chills, excessive sweating, fatigue, fever(s), frequent falls, headache(s), snoring, weakness, sleep problems or change in appetite Eyes Eyes: No blurry vision, change in vision, eye pain or Light sensitivity ENT ENT: No abnormal hearing, ear or mastoid pain, tinnitus, nasal congestion, headache(s), neck pain or sore throat Resp Respiratory: No cough, shortness of breath, snoring or wheezing Cardio Cardiology: No chest pain at rest, chest pain with exertion, excessive sweating, shortness of breath, dyspnea on exertion, lightheadedness, orthopnea or palpitations Gastro GI: No abdominal pain, change in bowel habits, constipation, cramping, diarrhea, nausea/dyspepsia or vomiting Genitourinary Male: No burning urination, painful urination, urinary incontinence or urinary frequency Musc Musculoskeletal: No abnormal gait, joint pain, back pain, limited range of motion, neck pain or numbness Skin Skin: No dry skin, redness, lesions, itchy eyes, rash or wounds Neuro Neurology: No abnorma (more content not included)... Normal [facility] Office Vis iton 03-15-2024 Internal Medicine Office Visit [facility] [address] [place] [address] [place] [address] OFFICE VISIT Date of Service: 05/03/24 MR#: [id number] Acct: [id number] Name: TUAN VALLEJO Rep #: [id number] : 1955 Provider: Dr. Mohit proctor, DO Age/Sex: 69/M Location: [facility] Status: Signed Intake Vital Signs 02/01/24 08:57 Height 5 ft 7 in Weight: 168 lb BMI 26.3 BP 140/80 H Blood Pressure Location Lt brachial Position Sitting Respiration 14 Pulse 62 Pulse Source Monitor Temp 98.6 F Temp Source Temporal Pulse Oximetry (%) 98 Oxygen Delivery Method room air Intake Visit Reasons: 3 M FU Chief Complaint: follow up on diabetes Allergies Penicillins Adverse Reaction (Mild, Verified 02/01/24 08:51) headaches Have you fallen in the past year?: No PFSH Medical History Prostate cancer High cholesterol High blood pressure Diabetes Skin cancer Surgical History H/O prostatectomy H/O hernia repair Family History Father Cancer lung Myocardial infarction Diabetes Brother Cancer lung Diabetes Mother Diabetes Sister Diabetes Social History housing: house current occupational status: retired Smoking Status: Former smoker Tobacco: How many years used: 22 alcohol intake: never substance use type: does not use what type of physical activity do you participate in: walking and weight training frequency: 5-6 times per week duration: 30-45 minutes/day seatbelt use: always do you feel safe at home: Yes HPI HPI Chief Complaint: follow up on diabetes Details: TUAN VALLEJO, is a 69 M who presents to the office today for Coding Level of Care Code No Charge Diagnoses Type 2 diabetes mellitus E11.9 Assessment and Plan Assessment and Plan (1) Type 2 diabetes mellitus: Status: Acute Clinical Quality Measures Falls Risk Screening/Assistive Devices Have you fallen in the past year?: No 04/19/24 0835 Date Mohit Pittman DO [facility] Signature: Date (if applicable) [facility]: [facility] TUAN VALLEJO ([id number]) 1955 M Date Time Provider Department 11/18/23 8:00 AM KAMRAN GORDON JR [facility] During your visit today, we recorded the following information about you: Pulse Blood pressure 69/minute 150/92 Kamran Gordon Jr., MD 11/18/2023 9:34 AM Signed ESTABLISHED PATIENT OFFICE VISIT HPI Tuan Vallejo is a 68 year old male who presents s/p RALP with bilateral PLND on 11/30/22 who presents for postoperative follow up visit. On 12/07/22, patient had his Allred catheter removed. 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 States that he is having issues with incontinence. Going through 3 pads everyday. Worse with physical activity. Denies any issues with erections. 04/01/23 - 3 months sp ralp. Doing great. + arabella but improving. Psa 0.02. no fever. No uti. 06/30/23 - 6 months sp ralp. Psa 0.02. arabella much improved. Still some leakage with exercise. No erections. No fever. Co urgency 11/18/23 - 1 yr sp ralp. Psa <0.03. min arabella. No fever. No uti. Feels well otherwise. LAB: Creatinine Date Value Ref Range Status 11/05/2023 0.90 0.73 - 1.22 mg/dL Final PSA (ng/mL) Date Value 09/09/2023 0.03 06/17/2023 0.02 03/29/2023 0.02 12/31/2022 0.14 08/03/2022 32.22 10/27/2021 12.95 07/13/2020 6.02 04/06/2020 6.23 09/26/2019 4.04 PSA Screening (ng/mL) Date Value 03/27/2019 4.05 Glucose, Urine (mg/dL) Date Value 03/27/2019 50 Bilirubin, Urine (no units) Date Value 03/27/2019 Negative Ketones, Urine (no units) Date Value 03/27/2019 Negative Specific [place], Ur (no units) Date Value 03/27/2019 1.014 Hemoglobin/Blood,Ur ( ) Date Value 03/27/2019 Negative pH, Urine (no units) Date Value 03/27/2019 6.0 Protein, Urine (mg/dL) Date Value 03/27/2019 Negative Nitrites (no units) Date Value 03/27/2019 Negative WBC, Urine (/HPF) Date Value 03/27/2019 0-5 MEDICATIONS: semaglutide (OZEMPIC) 0.25 mg or 0.5 mg (2 mg/3 mL) pen Inject 0.25 mg subcutaneously one time a week. insulin lispro (HUMALOG KWIKPEN INSULIN) 100 unit/mL Inject 5 Units subcutaneously daily with breakfast AND 5 Units daily with lunch AND 10 Units daily with dinner. atorvastatin (LIPITOR) 20 mg tablet Take 1 tablet by mouth daily at bedtime. For cholesterol. insulin glargine (LANTUS SOLOSTAR U-100 INSULIN) 100 unit/mL (3 mL) Inject 10 Units subcutaneously daily at bedtime. metFORMIN ER (GLUCOPHAGE XR) 500 mg 24 hr tablet Take 2 tablets by mouth two times a day before meals. levothyroxine (SYNTHROID) 25 mcg tablet Take 1 tablet by mouth daily before breakfast. amLODIPine (NORVASC) 10 mg tablet Take 1 tablet by mouth once daily. sildenafil (VIAGRA) 100 mg tablet Take 1 tablet PO daily as needed for erectile dysfunction Insulin Monaca, Disposable, (BD ULTRA-FINE SIRISHA PEN NEEDLE) 32 gauge x 32 Use one needle for each dose. 4x/day. blood sugar diagnostic (BLOOD GLUCOSE TEST) test strip Pt has One Touch Ultra Meter. Test blood sugar(s) 3 times daily. Dx: Type 2 DM - Controlled E11.9 Insulin: Yes blood sugar diagnostic (BLOOD GLUCOSE TEST) test strip Pt has One Touch Ultra Meter. Test blood sugar(s) 4 times daily. Dx: Type 2 DM - Controlled E11.9 Insulin: Yes lancets (ONETOUCH DELICA LANCETS) 30 gauge testing 4 times daily DX E11.65 Insulin Yes blood sugar diagnostic (BLOOD GLUCOSE TEST) test strip Patient has one touch ultra glucometer. Test blood sugar(s) 4 times daily. Dx: Type 2 DM - Controlled E11.9 Insulin: yes alcohol swabs (ALCOHOL PADS) Test blood sugar(s) 4 times daily. Dx: Type 2 DM - Controlled E11.9 Insulin: yes Blood-Glucose Meter (ONETOUCH ULTRA2 METER) monitoring kit 1 Each as needed. One Touch Meter Kit Diagnosis: Type 2 DM - Uncontrolled E11.65 REVIEW OF SYSTEMS Review of Systems Constitutional: Negative. Respiratory: Negative. Cardiovascular: Negative. Gastrointestinal: Negative. Genitourinary: Negative. Skin: Negative. Neurological: Negative. Psychiatric/Behavioral: Negative. HISTORIES PAST MEDICAL HISTORY Diagnosis Date Acquired hypothyroidism 10/21/2015 Adhesive capsulitis of left shoulder 05/07/2022 Arthritis Back pain ED (erectile dysfunction) of organic origin 10/18/2020 Essential hypertension 09/05/2014 Familial combined hyperlipidemia 07/29/2015 Onychomycosis of multiple toenails with type 2 diabetes mellitus (HCC) (HCC) 02/08/2017 Personal history of colonic polyps 02/20/2016 Prostate cancer (HCC) PSA elevation 09/26/2019 Skin cancer unknown type 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d by mild nonproliferative retinopathy without macular edema, without long-term current use of insulin ([facility]) 02/27/2019 Exam 02/10/[address] Fuentes. Type 2 diabetes mellitus without complication ([facility]) 07/29/2015 FAMILY HISTORY Problem Relation (more content not included)... Normal [facility] UA DIP, URINE (POC)on 2023 BILIRUBIN UA (POCT) Negative Negative [facility] CLARITY UA (POCT) [facility] COLOR UA (POCT) Yellow [facility] GLUCOSE UA (POCT) Negative Negative mg/dL [facility] Hemoglobin Ql (U) Negative Negative [facility] KETONE UA (POCT) Negative Negative mg/dL [facility] LEUKOCYTES UA (POCT) Negative Negative [facility] NITRITE UA (POCT) Negative Negative [facility] PH UA (POCT) 5.5 4.5 - 8.0 [facility] Protein Ql (U) Trace Abnormal Negative mg/dL [facility] SPECIFIC GRAVITY UA (POCT) 1.020 1.005 - 1.030 [facility] UROBILINOGEN UA (POCT) 0.2 E.U./dL Normal E.U./dL [facility] CNPNon 11-12-2023 DAMIÁNN Telephone (UROLAE) TUAN VALLEJO ([id number]) 1955 M Date Time Provider Department 11/12/23 KAMRAN GORDON JR During your visit today, we recorded the following information about you: Solomon Gilbert MA 11/12/2023 10:13 AM Signed Pt spouse called in saying pt is having lower back pain 7 out of 10. No fever no chill. Pt spouse called in asking do you wanna order any imaging before up coming appointment, pt has appointment with you on 11-18-2023. Please advise DAYNA Cannon Michael Gene Jr., MD 11/12/2023 10:29 AM Signed Nothing for me Have them call pcp and ask Solomon Gilbert MA 11/12/2023 11:34 AM Signed Spoke with pt spouse message released Allergies As of Date: 11/12/2023 Noted Allergy Reaction BEE STING 02/24/2013 10 - Anaphylaxis 18 - Angioedema PEANUTS 02/24/2013 11 - Vomiting TAMSULOSIN 07/17/2020 1 - Mental Status Change PENICILLINS 02/24/2013 14 - Other: See Comments Comments: headaches- childhood JARDIANCE (EMPAGLIFLOZIN) 11/13/2022 14 - Other: See Comments Comments: Dizziness and lightheadedness Date Reviewed: 11/11/2023 Reviewed by: Joan Townsend LPN - Fully Assessed Reason for Visit: Patient Update [1234] Orders [681] Prescriptions as of 11/12/2023 - semaglutide (OZEMPIC) 0.25 mg or 0.5 mg (2 mg/3 mL) pen Inject 0.25 mg subcutaneously one time a week. - insulin lispro (HUMALOG KWIKPEN INSULIN) 100 unit/mL Inject 5 Units subcutaneously daily with breakfast AND 5 Units daily with lunch AND 10 Units daily with dinner. - atorvastatin (LIPITOR) 20 mg tablet Take 1 tablet by mouth daily at bedtime. For cholesterol. - insulin glargine (LANTUS SOLOSTAR U-100 INSULIN) 100 unit/mL (3 mL) Inject 10 Units subcutaneously daily at bedtime. - metFORMIN ER (GLUCOPHAGE XR) 500 mg 24 hr tablet Take 2 tablets by mouth two times a day before meals. - levothyroxine (SYNTHROID) 25 mcg tablet Take 1 tablet by mouth daily before breakfast. - amLODIPine (NORVASC) 10 mg tablet Take 1 tablet by mouth once daily. - sildenafil (VIAGRA) 100 mg tablet Take 1 tablet PO daily as needed for erectile dysfunction - Insulin Monaca, Disposable, (BD ULTRA-FINE SIRISHA PEN NEEDLE) 32 gauge x 5/32 Use one needle for each dose. 4x/day. - blood sugar diagnostic (BLOOD GLUCOSE TEST) test strip Pt has One Touch Ultra Meter. Test blood sugar(s) 3 times daily. Dx: Type 2 DM - Controlled E11.9 Insulin: Yes - blood sugar diagnostic (BLOOD GLUCOSE TEST) test strip Pt has One Touch Ultra Meter. Test blood sugar(s) 4 times daily. Dx: Type 2 DM - Controlled E11.9 Insulin: Yes - lancets (ONETOUCH DELICA LANCETS) 30 gauge testing 4 times daily DX E11.65 Insulin Yes - blood sugar diagnostic (BLOOD GLUCOSE TEST) test strip Patient has one touch ultra glucometer. Test blood sugar(s) 4 times daily. Dx: Type 2 DM - Controlled E11.9 Insulin: yes - alcohol swabs (ALCOHOL PADS) Test blood sugar(s) 4 times daily. Dx: Type 2 DM - Controlled E11.9 Insulin: yes - Blood-Glucose Meter (ONETOUCH ULTRA2 METER) monitoring kit 1 Each as needed. One Touch Meter Kit Diagnosis: Type 2 DM - Uncontrolled E11.65 Problem List As Of Date 11/12/2023 Noted Resolved Diabetes (HCC) [E11.9] 09/05/2014 10/21/2015 Essential hypertension [I10] 09/05/2014 Atypical chest pain [R07.89] 09/05/2014 10/21/2015 Family history of ischemic heart disease [Z82.4*09/05/2014 Familial combined hyperlipidemia [E78.49] 07/29/2015 Essential hypertension [I10] 07/29/2015 10/21/2015 Type 2 diabetes mellitus without complication (*07/29/2015 07/17/2020 Acquired hypothyroidism [E03.9] 10/21/2015 Personal history of colonic polyps [Z86.010] 02/20/2016 Onychomycosis of multiple toenails with type 2 *02/08/2017 07/17/2020 Well adult exam [Z00.00] 06/07/2017 07/17/2020 Uncontrolled type 2 diabetes mellitus without c*03/16/2018 07/17/2020 Rhus dermatitis [L25.5] 03/16/2018 07/17/2020 Type 2 diabetes mellitus without complication, *09/16/2018 07/17/2020 Type 2 diabetes mellitus with hyperglycemia, wi*02/27/2019 PSA elevation [R97.20] 09/26/2019 12/04/2022 ED (erectile dysfunction) of organic origin [N5*10/18/2020 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] 05/07/2022 05/13/2023 Preop testing [Z01.818] 11/13/2022 01/05/2023 Prostate cancer (HCC) [C61] 12/04/2022 Urinary incontinence [R32] 01/05/2023 Encounter Status:Closed by SOLOMON GILBERT on 11/12/23 [facility] Gabe 11-11-2023 CNOV Office Visit (INTMWS ) TUAN VALLEJO ([id number]) 1955 M Date Time Provider Department 11/11/23 1:40 PM NAHUN JEFFREY INTMWS During your visit today, we recorded the following information about you: Temperature Pulse Respiration Blood pressure 97.6 degrees 64/minute 18/minute 164/84 Weight 76.1 kg Nahun Jeffrey MD 11/11/2023 4:14 PM Signed This note was created using [employer]. Subjective Tuan Vallejo is a 68 year old male was here for follow up with his . Diabetes, hypertension, and weight were all up. He stopped Trulicity few months ago, because his glucose was not coming down, and the injection site hurt. Review of Systems Constitutional: Positive for unexpected weight change. Negative for fatigue and fever. Respiratory: Negative for cough and shortness of breath. Cardiovascular: Negative for chest pain, palpitations and leg swelling. Gastrointestinal: Negative for abdominal pain, constipation, diarrhea, nausea and vomiting. Genitourinary: Negative for difficulty urinating and dysuria. Neurological: Negative for dizziness and headaches. ACTIVE PROBLEM LIST Essential Hypertension Family History of Ischemic Heart Disease Familial Combined Hyperlipidemia Acquired Hypothyroidism Personal History of Colonic Polyps Type 2 Diabetes Mellitus With Hyperglycemia, Without Long-Term Current Use of Insulin (Hcc) Ed (Erectile Dysfunction) of Organic Origin Prostate Cancer (Hcc) Urinary Incontinence Social History Tobacco Use Smoking status: Former Packs/day: 2.00 Years: 35.00 Additional pack years: 0.00 Total pack years: 70.00 Types: Cigarettes Quit date: 02/24/2002 Years since quittin.7 Smokeless tobacco: Never Tobacco comments: started 8 years old Vaping Use Vaping Use: Never used Substance Use Topics Alcohol use: Yes Alcohol/week: 7.0 standard drinks of alcohol Types: 7 Glasses of Wine (5oz) per week Comment: Pt drinks 1 glass of wine a day Drug use: No Current Outpatient Medications Medication Sig insulin lispro (HUMALOG KWIKPEN INSULIN) 100 unit/mL Inject 5 Units subcutaneously daily with breakfast AND 5 Units daily with lunch AND 10 Units daily with dinner. atorvastatin (LIPITOR) 20 mg tablet Take 1 tablet by mouth daily at bedtime. For cholesterol. insulin glargine (LANTUS SOLOSTAR U-100 INSULIN) 100 unit/mL (3 mL) Inject 10 Units subcutaneously daily at bedtime. metFORMIN ER (GLUCOPHAGE XR) 500 mg 24 hr tablet Take 2 tablets by mouth two times a day before meals. levothyroxine (SYNTHROID) 25 mcg tablet Take 1 tablet by mouth daily before breakfast. amLODIPine (NORVASC) 10 mg tablet Take 1 tablet by mouth once daily. sildenafil (VIAGRA) 100 mg tablet Take 1 tablet PO daily as needed for erectile dysfunction Insulin Monaca, Disposable, (BD ULTRA-FINE SIRISHA PEN NEEDLE) 32 gauge x 5/32 Use one needle for each dose. 4x/day. lancets (Hyasynth BioUCH DELICA LANCETS) 30 gauge testing 4 times daily DX E11.65 Insulin Yes blood sugar diagnostic (BLOOD GLUCOSE TEST) test strip Patient has one touch ultra glucometer. Test blood sugar(s) 4 times daily. Dx: Type 2 DM - Controlled E11.9 Insulin: yes alcohol swabs (ALCOHOL PADS) Test blood sugar(s) 4 times daily. Dx: Type 2 DM - Controlled E11.9 Insulin: yes Blood-Glucose Meter (ONETOUCH ULTRA2 METER) monitoring kit 1 Each as needed. One Touch Meter Kit Diagnosis: Type 2 DM - Uncontrolled E11.65 blood sugar diagnostic (BLOOD GLUCOSE TEST) test strip Pt has One Touch Ultra Meter. Test blood sugar(s) 3 times daily. Dx: Type 2 DM - Controlled E11.9 Insulin: Yes blood sugar diagnostic (BLOOD GLUCOSE TEST) test strip Pt has One Touch Ultra Meter. Test blood sugar(s) 4 times daily. Dx: Type 2 DM - Controlled E11.9 Insulin: Yes No current facility-administered medications for this visit. Objective BP (P) 162/82 (BP Site: Left Arm, BP Position: Sitting, BP Cuff Size: Large Adult) Pulse (P) 64 Temp 36.4 ?C (97.6 ?F) (Temporal) Resp 18 Wt 76.1 kg (167 lb 12.8 oz) BMI 26.28 kg/m? Physical Exam Constitutional: General: He is not in acute distress. Appearance: He is not ill-appearing. Eyes: General: No scleral icterus. Conjunctiva/sclera: Conjunctivae normal. Cardiovascular: Rate and Rhythm: Normal rate and regular rhythm. Heart sounds: No murmur heard. No gallop. Pulmonary: Effort: No respiratory distress. Breath sounds: No wheezing or rales. Abdominal: Tenderness: There is no abdominal tenderness. Musculoskeletal: Right lower leg: No edema. Left lower leg: No edema. Neurological: Mental Status: He is alert. Feet:Shoes and socks removed, No deformities, ulcers, calluses, normal distal pulses, and sensitive to 10 gm monofilament Glucose meter data or glucose log was reviewed for the past month. Range: 111-258. Average: 144. Patient was testing BID. (more content not included)... Normal [facility] ALBUMIN/CREAT RATIO RND URon 11-05-2023 Albumin DL <= 20 mg/L (U) [Mass/Vol] 180.0 mg/L Normal [facility] Comment on above: Order Comment: Kasia pulido Type: BLOOD SPECIMEN Ordering Facility: [facility] Address: [address] [place] [address] Performed By: #### 2 857-1 #### [facility] CLIA [id number] [address] [facility] [address] [place] Albumin/Creatinine (U) [Mass ratio] 132 mg/g High <30 [facility] Comment on above: Order Comment: Kasia pulido Type: BLOOD SPECIMEN Ordering Facility: [facility] Address: [address] [place] [address] Result Comment: Adul t Male and Female Nephrotic Criteria: <30 mg/g is considered normal to mildly increased 30-300 mg/g is considered moderately increased >300 mg/g is considered severely increased KDIGO. (2013). KDIGO 2012 Clinical Practice Guideline for the Evaluation and Management of Chronic Kidney Disease. Official Journal of the International Society of Nephrology, 3(1), 1-150. Performed By: #### 2 857-1 #### [facility] CLIA [id number] [address] [place] [address] [place] Creatinine (U) [Mass/Vol] 136.4 mg/dL Normal 20.0-300.0 [facility] Comment on above: Order Comment: Speci men Type: BLOOD SPECIMEN Ordering Facility: [facility] Address: [address] [address] Performed By: #### 2 857-1 #### [facility] CLIA [id number] [address] [place] [address] [place] CBC panel Auto (Bld)on 11-04 Erythrocyte distribution width (RBC) [Ratio] 12.3 % Normal 11.5-15.0 [facility] Comment on above: Order Comment: Speci men Type: BLOOD SPECIMEN Ordering Facility: [facility] Address: [address] [address] Performed By: #### 2 857-1 #### [facility] CLIA [id number] [address] [place] [address] [place] Hematocrit (Bld) [Volume fraction] 43.5 % Normal 39.0-51.0 [facility] Comment on above: Order Comment: Speci men Type: BLOOD SPECIMEN Ordering Facility: [facility] Address: [address] [address] Performed By: #### 2 857-1 #### [facility] CLIA [id number] [address] [place] [address] [place] Hemoglobin (Bld) [Mass/Vol] 14.3 g/dL Normal 13.0-17.0 [facility] Comment on above: Order Comment: Speci men Type: BLOOD SPECIMEN Ordering Facility: [facility] Address: [address] Performed By: #### 2 857-1 #### [facility] CLIA [id number] [address] [place] [address] MCH (RBC) [Entitic mass] 31.9 pg Normal 26.0-34.0 [facility] Comment on above: Order Comment: Speci men Type: BLOOD SPECIMEN Ordering Facility: [facility] Address: [address] Performed By: #### 2 857-1 #### [facility] CLIA [id number] [address] [place] [address] [place] MCHC (RBC) [Mass/Vol] 32.9 g/dL Normal 30.5-36.0 [facility] Comment on above: Order Comment: Speci men Type: BLOOD SPECIMEN Ordering Facility: [facility] Address: [address] Performed By: #### 2 857-1 #### [facility] CLIA [id number] [address] [place] [address] [place] MCV (RBC) [Entitic vol] 97.1 fL Normal 80.0-100.0 [facility] Comment on above: Order Comment: Speci men Type: BLOOD SPECIMEN Ordering Facility: [facility] Address: [address] Performed By: #### 2 857-1 #### [facility] CLIA [id number] [address] [place] [address] [place] Nucleated RBC (Bld) [#/Vol] 10*3/uL Normal <0.01 [facility] Comment on above: Order Comment: Speci men Type: BLOOD SPECIMEN Ordering Facility: [facility] Address: [address] Performed By: #### 2 857-1 #### [facility] CLIA [id number] [address] [place] [address] [place] Platelet mean volume (Bld) [Entitic vol] 10.3 fL Normal 9.0-12.7 [facility] Comment on above: Order Comment: Speci men Type: BLOOD SPECIMEN Ordering Facility: [facility] Address: [address] [place], [place] [address] Performed By: #### 2 857-1 #### [facility] CLIA [id number] [address] [place] [address] [place] Platelets (Bld) [#/Vol] 265 10*3/uL Normal 150-400 [facility] Comment on above: Order Comment: Speci men Type: BLOOD SPECIMEN Ordering Facility: [facility] Address: [address] [place], [place] [address] Performed By: #### 2 857-1 #### [facility] CLIA [id number] [address] [place] [address] [place] RBC (Bld) [#/Vol] 4.48 10*6/uL Normal 4.20-6.00 [facility] Comment on above: Order Comment: Speci men Type: BLOOD SPECIMEN Ordering Facility: [facility] Address: [address] [place], [place] [address] Performed By: #### 2 857-1 #### [facility] CLIA [id number] [address] [place] [address] [place] WBC (Bld) [#/Vol] 5.27 10*3/uL Normal 3.70-11.00 [facility] Comment on above: Order Comment: Speci men Type: BLOOD SPECIMEN Ordering Facility: [facility] Address: [address] [place], [place] [address] Performed By: #### 2 857-1 #### [facility] CLIA [id number] [address] [place] [address] [place] Comprehensive metabolic 2000 panelon 03-01-2024 Albumin [Mass/Vol] 4.2 g/dL Normal 3.9-4.9 [facility] Comment on above: Order Comment: Speci men Type: BLOOD SPECIMENOrdering Facility: [facility] Address: [address] [place] [address] Performed By: #### 2 4323-8, 3016-3, 39622-7 ####[facility] [id number] [place] [address] [place] ALP [Catalytic activity/Vol] 94 U/L Normal 38-113 [facility] Comment on above: Order Comment: Speci men Type: BLOOD SPECIMENOrdering Facility: [facility] Address: [address] [place] [address] Performed By: #### 2 4323-8, 3016-3, 26092-0 ####[facility] [id number] [place] [address] [place] ALT [Catalytic activity/Vol] 16 U/L Normal 10-54 [facility] Comment on above: Order Comment: Speci men Type: BLOOD SPECIMENOrdering Facility: [facility] Address: [address] [place] [address] Performed By: #### 2 4323-8, 3016-3, 45084-6 ####[facility] [id number] [place] [address] [place] Anion gap [Moles/Vol] 9 mmol/L Normal 9-18 [facility] Comment on above: Order Comment: Speci men Type: BLOOD SPECIMENOrdering Facility: [facility] Address: [address] [place] [address] Performed By: #### 2 4323-8, 3016-3, 76008-8 ####[facility] [id number] [place] [id number] [place] AST [Catalytic activity/Vol] 22 U/L Normal 14-40 [facility] Comment on above: Order Comment: Speci men Type: BLOOD SPECIMENOrdering Facility: [facility] Address: [address] [place] [address] Performed By: #### 2 4323-8, 3015-3, 31625-4 ####[facility] [id number] [address] [address] [place] Bilirubin [Mass/Vol] 0.4 mg/dL Normal 0.2-1.3 [facility] Comment on above: Order Comment: Speci men Type: BLOOD SPECIMENOrdering Facility: [facility] Address: [address] [place] [address] Performed By: #### 2 4323-8, 3015-3, 27388-0 ####[facility] [id number] [place] [address] [place] Calcium [Mass/Vol] 9.6 mg/dL Normal 8.5-10.2 [facility] Comment on above: Order Comment: Speci men Type: BLOOD SPECIMENOrdering Facility: [facility] Address: [address] [place] [address] Performed By: #### 2 4323-8, 3, ####[facility] [id number] [place] [id number] [place] Chloride [Moles/Vol] 106 mmol/L High 97-105 [facility] Comment on above: Order Comment: Speci men Type: BLOOD SPECIMENOrdering Facility: [facility] Address: [address] [place] [address] Performed By: #### 2 4323-8, 3, ####[facility] [id number] [address] [address] [place] CO2 [Moles/Vol] 27 mmol/L Normal 22-30 [facility] Comment on above: Order Comment: Speci men Type: BLOOD SPECIMENOrdering Facility: [facility] Address: [address] [place] [address] Performed By: #### 2 4323-8, 6-3, 75207-1 ####[facility] [id number] [address] [address] [place] Creatinine [Mass/Vol] 0.90 mg/dL Normal 0.73-1.22 [facility] Comment on above: Order Comment: Thuyi men Type: BLOOD SPECIMENOrdering Facility: [facility] Address: [address] [place] [address] Performed By: #### 2 4323-8, 3015-3, ####[facility]IA [id number] [place] [address] [place] Creatinine and Glomerular filtration rate.predicted panel (S/P/Bld) 94 mL/min/1.73m??? Normal >=60 [facility] Comment on above: Order Comment: Kasia tess Type: BLOOD SPECIMENOrdering Facility: [facility] Address: [address] [place] [address] Result Comment: Katerina mated Glomerular Filtration Rate (eGFR) is calculated using the 2020 CKD-EPI creatinine equation. This equation utilizes serum creatinine, sex, and age as parameters. The creatinine assay has traceable calibration to isotope dilution-mass spectrometry. Refer to KDIGO guidelines for clinical interpretation. In patients with unstable renal function, e.g. those with acute kidney injury, the eGFR may not accurately reflect actual GFR. Performed By: #### 2 4323-8, 3015-3, ####[facility] [id number] [place] [id number] [place] Glucose [Mass/Vol] 132 mg/dL High 74-99 [facility] Comment on above: Order Comment: Kasia pulido Type: BLOOD SPECIMENOrdering Facility: [facility] Address: [address] [place] [address] Result Comment: The [place] Diabetes Association (ADA) provides guidance for cutoff values for fasting glucose and random glucose. The ADA defines fasting as no caloric intake for at least 8 hours. Fasting plasma glucose results between 100 to 125 mg/dL indicate increased risk for diabetes (prediabetes). Fasting plasma glucose results greater than or equal to 126 mg/dL meet the criteria for diagnosis of diabetes. In the absence of unequivocal hyperglycemia, results should be confirmed by repeat testing. In a patient with classic symptoms of hyperglycemia or hyperglycemic crisis, random plasma glucose results greater than or equal to 200 mg/dL meet the criteria for diagnosis of diabetes. Reference: Standards of Medical Care in Diabetes 2016, [place] Diabetes Association. Diabetes Care. 2016.39(Suppl 1). Performed By: #### 2 4323-8, 3016-3, 48725-3 ####[facility]IA [id number] [place] [address] [place] Potassium [Moles/Vol] 4.3 mmol/L Normal 3.7-5.1 [facility] Comment on above: Order Comment: Speci men Type: BLOOD SPECIMENOrdering Facility: [facility] Address: [address] [place] [address] Performed By: #### 2 4323-8, 3015-3, 78731-7 ####[facility]IA [id number] [place] [address] [place] Protein [Mass/Vol] 7.2 g/dL Normal 6.3-8.0 [facility] Comment on above: Order Comment: Speci men Type: BLOOD SPECIMENOrdering Facility: [facility] Address: [address] [place] [id number] Performed By: #### 2 4323-8, 6-3, 93718-8 ####[facility]IA [id number] [place] [address] [place] Sodium [Moles/Vol] 142 mmol/L Normal 136-144 [facility] Comment on above: Order Comment: Speci men Type: BLOOD SPECIMENOrdering Facility: [facility] Address: [address] [place] [address] Performed By: #### 2 4323-8, 3016-3, 52103-1 ####[facility] [id number] [place] [address] [place] Urea nitrogen [Mass/Vol] 15 mg/dL Normal 9-24 [facility] Comment on above: Order Comment: Kasia pulido Type: BLOOD SPECIMENOrdering Facility: [facility] Address: [address] [place] [address] Performed By: #### 2 4323-8, 3016-3, 63903-4 ####[facility] [id number] [place] [address] [place] HbA1c (Bld)on 11-05-2023 Average glucose Estimated from glycated hemoglobin (Bld) [Mass/Vol] 123 mg/dL Normal [facility] Comment on above: Order Comment: Kasia [facility] Type: BLOOD SPECIMEN Order[facility] Address: [address] [place] [address] Result Comment: eAG: (Estimated average glucose) is a calculated value from HgbA1c and is indirect sales representative of the average blood glucose level in the last 2-3 month period. Performed By: #### 5 5454-3 #### [facility] CLIA [id number] [address] [place] [address] [place] HbA1c (Bld) [Mass fraction] 5.9 % High 4.3-5.6 [facility] Comment on above: Order Comment: Kasia pulido Type: BLOOD SPECIMEN Ordering Facility: [facility] Address: [address] [place] [address] Result Comment: Amer [place] Diabetes Association guidelines indicate that patients with HgbA1c in the range 5.7-6.4% are at increased risk for development of diabetes, and intervention by lifestyle modification may be beneficial. HgbA1c greater or equal to 6.5% is considered diagnostic of diabetes. Performed By: #### 5 5454-3 #### [facility] CLIA [id number] [address] [place] [address] [place] Lipid 1996 panelon 4 Cholesterol [Mass/Vol] 194 mg/dL Normal <200 [facility] Comment on above: Order Comment: Thuyi men Type: BLOOD SPECIMENOrdering Facility: [facility] Address: [address] [place] [address] Result Comment: <200 mg/dL, Desirable 200-239 mg/dL, Borderline high >239 mg/dL, High Performed By: #### 2 4323-8, 3016-3, 35995-2 ####[facility] [id number] [place] [address] [place] Cholesterol in HDL [Mass/Vol] 73 mg/dL Normal >39 [facility] Comment on above: Order Comment: Kasia pulido Type: BLOOD SPECIMENOrdering Facility: [facility] Address: [address] [place] [address] Result Comment: 40-5 9 mg/dL, Acceptable >59 mg/dL, High: Negative risk factor for coronary heart disease <40 mg/dL, Low: Positive risk factor for coronary heart disease Performed By: #### 2 4323-8, 3016-3, 39585-8 ####[facility] [id number] [place] [address] [place] Cholesterol in LDL [Mass/Vol] 107 mg/dL High <100 [facility] Comment on above: Order Comment: Speci men Type: BLOOD SPECIMENOrdering Facility: [facility] Address: [address] [place] [address] Result Comment: <100 mg/dL, Optimal 100-129 mg/dL, Near optimal/above optimal 130-159 mg/dL, Borderline high 160-189 mg/dL, High >189 mg/dL, Very high Secondary prevention optimal LDL Cholesterol levels are recommended to be < 70 mg/dL Performed By: #### 2 4323-8, 3016-3, 53435-5 ####[facility] [id number] [place] [id number] [place] Cholesterol in LDL/Cholesterol in HDL [Mass ratio] 1.47 {ratio} Normal <2.54 [facility] Comment on above: Order Comment: Kasia tess Type: BLOOD SPECIMENOrdering Facility: [facility] Address: [address] [place] [address] Result Comment: Keny hughes: 1. National Cholesterol Education Program ATP III Guideline At-A-Glance Quick Desk Reference: National Heart, Lung, and Blood Waldo. National Institutes of Health. 2001: NIH Publication No. 01-3305. 2. An International Atherosclerosis Society position paper: global recommendations for the management of dyslipidemia: executive summary, Atherosclerosis. 2014: 232(2):410-413. Performed By: #### 2 4323-8, 3015-3, 11951-4 ####[facility] [id number] [address] [place] Cholesterol in VLDL [Mass/Vol] 14 mg/dL Normal <30 [facility] Comment on above: Order Comment: Kasia tess Type: BLOOD SPECIMENOrdering Facility: [facility] Address: [address] [place] [address] Performed By: #### 2 4323-8, 3015-3, 43435-9 ####[facility] [id number] [address] [place] Cholesterol non HDL [Mass/Vol] 121 mg/dL Normal <130 [facility] Comment on above: Order Comment: Thuyemma pulido Type: BLOOD SPECIMENOrdering Facility: [facility] Address: [address] [place] [address] Result Comment: <130 mg/dL, Optimal 130-159 mg/dL, Near optimal/above optimal 160-189 mg/dL, Borderline high 190-219 mg/dL, High >219 mg/dL, Very high Secondary prevention optimal non HDL Cholesterol levels are recommended to be <100 mg/dL Performed By: #### 2 4323-8, 6-3, 09868-8 ####[facility] [id number] [address] [place] Cholesterol.total/Cho lesterol in HDL [Mass ratio] 2.66 {ratio} Normal <5.10 [facility] Comment on above: Order Comment: Speci men Type: BLOOD SPECIMENOrdering Facility: [facility] Address: [address] [place] [address] Performed By: #### 2 4323-8, 3016-3, 71350-0 ####[facility] [id number] [address] [place] FASTING TIME 12 hrs Normal [facility] Comment on above: Order Comment: Speci men Type: BLOOD SPECIMENOrdering Facility: [facility] Address: [address] [place] [address] Performed By: #### 2 4323-8, 3015-3, 37283-5 ####[facility]CLIA [id number] [place] [address] [place] Triglyceride [Mass/Vol] 68 mg/dL Normal <150 [facility] Comment on above: Order Comment: Speci men Type: BLOOD SPECIMENOrdering Facility: [facility] Address: [address] [place] [address] Result Comment: <150 mg/dL, Normal 150-199 mg/dL, Borderline high 200-499 mg/dL, High >499 mg/dL, Very high Performed By: #### 2 4323-8, 6-3, 28067-9 ####[facility]IA [id number] [place] [address] [place] TSH SerPl-aCncon 11-05-2023 TSH Qn 1.590 m[IU]/L Normal 0.270-4.200 [facility] Comment on above: Order Comment: Speci men Type: BLOOD SPECIMENOrdering Facility: [facility] Address: [address] [place] [address] Performed By: #### 2 4323-8, 6-3, 41465-9 ####[facility]CLIA [id number] BETINA DECKERKINDRED HOSPITALJean-Pierre [id number] [place], [place] [id number] [place] Marcial 09-14-2023 RICARDO Telephone (AKURFL) SEDA VALLEJOON Biju ([id number]) 1955 M Date Time Provider Department 09/14/23 KAMRAN GORDON JR AKURF During your visit today, we recorded the following information about you: Bonnie Peterson 09/14/2023 8:40 AM Signed Pt has an appointment with Dr. Gordon next week and pt has some questions regarding his most recent lab work. Elke Newby OCCA 09/14/2023 9:09 AM Signed Called and spoke with pt's . Questions have been answered and appointment on 09/23/23 was confirmed. PATRICK Silverio Allergies As of Date: 09/14/2023 Noted Allergy Reaction BEE STING 02/24/2013 10 - Anaphylaxis 18 - Angioedema PEANUTS 02/24/2013 11 - Vomiting TAMSULOSIN 07/17/2020 1 - Mental Status Change PENICILLINS 02/24/2013 14 - Other: See Comments Comments: headaches- childhood JARDIANCE (EMPAGLIFLOZIN) 11/13/2022 14 - Other: See Comments Comments: Dizziness and lightheadedness Date Reviewed: 08/19/2023 Reviewed by: Leigh Lima, CLINICAL RESEARCH TECHNICIAN.AUTOMOTIVE GLASS TECHNICIAN - Fully Assessed Reason for Visit: Patient Question [8654] Prescriptions as of 09/14/2023 - metFORMIN ER (GLUCOPHAGE XR) 500 mg 24 hr tablet Take 2 tablets by mouth two times a day before meals. - levothyroxine (SYNTHROID) 25 mcg tablet Take 1 tablet by mouth daily before breakfast. - amLODIPine (NORVASC) 10 mg tablet Take 1 tablet by mouth once daily. - atorvastatin (LIPITOR) 20 mg tablet Take 1 tablet by mouth daily at bedtime. For cholesterol. - sildenafil (VIAGRA) 100 mg tablet Take 1 tablet PO daily as needed for erectile dysfunction - Insulin Monaca, Disposable, (BD ULTRA-FINE SIRISHA PEN NEEDLE) 32 gauge x 5/32 Use one needle for each dose. 4x/day. - blood sugar diagnostic (BLOOD GLUCOSE TEST) test strip Pt has One Touch Ultra Meter. Test blood sugar(s) 3 times daily. Dx: Type 2 DM - Controlled E11.9 Insulin: Yes - blood sugar diagnostic (BLOOD GLUCOSE TEST) test strip Pt has One Touch Ultra Meter. Test blood sugar(s) 4 times daily. Dx: Type 2 DM - Controlled E11.9 Insulin: Yes - lancets (Hyasynth BioUCH DELICA LANCETS) 30 gauge testing 4 times daily DX E11.65 Insulin Yes - insulin lispro (HUMALOG KWIKPEN INSULIN) 100 unit/mL Inject 5 Units subcutaneously daily with breakfast AND 5 Units daily with lunch AND 10 Units daily with dinner. - blood sugar diagnostic (BLOOD GLUCOSE TEST) test strip Patient has one touch ultra glucometer. Test blood sugar(s) 4 times daily. Dx: Type 2 DM - Controlled E11.9 Insulin: yes - alcohol swabs (ALCOHOL PADS) Test blood sugar(s) 4 times daily. Dx: Type 2 DM - Controlled E11.9 Insulin: yes - insulin glargine (LANTUS SOLOSTAR U-100 INSULIN) 100 unit/mL (3 mL) Inject 10 Units subcutaneously daily at bedtime. - Blood-Glucose Meter (ONETOUCH ULTRA2 METER) monitoring kit 1 Each as needed. 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] 07/29/2015 Essential hypertension [I10] 07/29/2015 10/21/2015 Type 2 diabetes mellitus without complication (*07/29/2015 07/17/2020 Acquired hypothyroidism [E03.9] 10/21/2015 Personal history of colonic polyps [Z86.010] 02/20/2016 Onychomycosis of multiple toenails with type 2 *02/08/2017 07/17/2020 Well adult exam [Z00.00] 06/07/2017 07/17/2020 Uncontrolled type 2 diabetes mellitus without c*03/16/2018 07/17/2020 Rhus dermatitis [L25.5] 03/16/2018 07/17/2020 Type 2 diabetes mellitus without complication, *09/16/2018 07/17/2020 Type 2 diabetes mellitus with hyperglycemia, wi*02/27/2019 PSA elevation [R97.20] 09/26/2019 12/04/2022 ED (erectile dysfunction) of organic origin [N5*10/18/2020 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] 05/07/2022 05/13/2023 Preop testing [Z01.818] 11/13/2022 01/05/2023 Prostate cancer (HCC) [C61] 12/04/2022 Urinary incontinence [R32] 01/05/2023 Encounter Status:Closed by BONNIE PETERSON on 09/14/23 Normal [facility] PSA SerPl-mCncon 09-09-2023 Prostate specific Ag [Mass/Vol] 0.03 ng/mL Normal <2.60 [facility] Comment on above: Order Comment: Speci men Type: BLOOD SPECIMENOrdering Facility: [facility] Address: [address] [place] [address] Result Comment: Tota l PSA test methodology used is the Electrochemiluminescence Immunoassay by [employer]. Total PSA values by differing methodologies cannot be interchanged. Performed By: #### 2 857-1 ####[facility]IA [id number] [place] [address] [place] CNPMarissa 07-01-2023 CNPN Telephone (UROLAE) TUAN VALLEJO ([id number]) 1955 M Date Time Provider Department 07/01/23 KAMRAN GORDON JR During your visit today, we recorded the following information about you: Bety Lake MA 07/01/2023 12:33 PM Signed Patient's called stating that she would like to speak to someone that knows exactly what the plans are for the patient's care from this point on. Says they were told in office by Dr. 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 She is requesting a call back from Dr. Esquivel's MA ([place]) so that he can explain more in depth due to being more closely involved. Please clarify with Patient's spouse. DAYNA Dinh Michael Gene Jr., MD 07/01/2023 1:17 PM Signed As stated yesterday - he may need radiation in the future, he does not need it now He is to try to do PFT Then fu in 3 months with a psa prior to reassess Mariluz Ewing RN 07/02/2023 9:05 AM Signed called back regarding explanation about radiation therapy. Dr Gordon's words that at this point he does not need any radiation and he will see PSA results in 3 months to determine course of action. Discussed pelvic floor therapy and that this most likely will be covered by insurance as it is therapy. went on about can they cancel the appointment in 3 months if his PSA is normal. They don't want to drive all the way to [place] and pay a co-pay for nothing. I told her that when they get the results then can ask if Dr. Gordon needs to see him in the office or can that visit be cancelled. I told her that cancer care is not something to blow off and need to keep on top of it. Verbalized understanding. Janelle Ewing RN Allergies As of Date: 07/01/2023 Noted Allergy Reaction BEE STING 02/24/2013 10 - Anaphylaxis 18 - Angioedema PEANUTS 02/24/2013 11 - Vomiting TAMSULOSIN 07/17/2020 1 - Mental Status Change PENICILLINS 02/24/2013 14 - Other: See Comments Comments: headaches- childhood JARDIANCE (EMPAGLIFLOZIN) 11/13/2022 14 - Other: See Comments Comments: Dizziness and lightheadedness Date Reviewed: 06/30/2023 Reviewed by: Kamran Gordon Jr., MD - Fully Assessed Reason for Visit: Patient Question [1477] Prescriptions as of 07/02/2023 - metFORMIN ER (GLUCOPHAGE XR) 500 mg 24 hr tablet Take 2 tablets by mouth two times a day before meals. - levothyroxine (SYNTHROID) 25 mcg tablet Take 1 tablet by mouth daily before breakfast. - amLODIPine (NORVASC) 10 mg tablet Take 1 tablet by mouth once daily. - atorvastatin (LIPITOR) 20 mg tablet Take 1 tablet by mouth daily at bedtime. For cholesterol. - sildenafil (VIAGRA) 100 mg tablet Take 1 tablet PO daily as needed for erectile dysfunction - Insulin Monaca, Disposable, (BD ULTRA-FINE SIRISHA PEN NEEDLE) 32 gauge x 5/32 Use one needle for each dose. 4x/day. - blood sugar diagnostic (BLOOD GLUCOSE TEST) test strip Pt has One Touch Ultra Meter. Test blood sugar(s) 3 times daily. Dx: Type 2 DM - Controlled E11.9 Insulin: Yes - blood sugar diagnostic (BLOOD GLUCOSE TEST) test strip Pt has One Touch Ultra Meter. Test blood sugar(s) 4 times daily. Dx: Type 2 DM - Controlled E11.9 Insulin: Yes - lancets (Hyasynth BioUCH DELICA LANCETS) 30 gauge testing 4 times daily DX E11.65 Insulin Yes - insulin lispro (HUMALOG KWIKPEN INSULIN) 100 unit/mL Inject 5 Units subcutaneously daily with breakfast AND 5 Units daily with lunch AND 10 Units daily with dinner. - blood sugar diagnostic (BLOOD GLUCOSE TEST) test strip Patient has one touch ultra glucometer. Test blood sugar(s) 4 times daily. Dx: Type 2 DM - Controlled E11.9 Insulin: yes - alcohol swabs (ALCOHOL PADS) Test blood sugar(s) 4 times daily. Dx: Type 2 DM - Controlled E11.9 Insulin: yes - insulin glargine (LANTUS SOLOSTAR U-100 INSULIN) 100 unit/mL (3 mL) Inject 10 Units subcutaneously daily at bedtime. - Blood-Glucose Meter (Hyasynth BioUCH ULTRA2 METER) monitoring kit 1 Each as needed. 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 Normal [facility] CNPN Telephone (UROLAG) TUAN VALLEJO ([id number]) 1955 M Date Time Provider Department 07/01/23 KAMRAN GORDON JR During your visit today, we recorded the following information about you: Charisma Nevarez RN 07/01/2023 8:30 AM Signed Pts spouse, Jennifer, called this morning. They are a little confused after the appointment yesterday. They are wanting to know why pt needs to have radiation now and his surgery was back in November. She also stated that they aren't able to get into PFT until September, and that is if pts insurance will cover it. Please advise. Jennifer gamble, . ISSA Cope Michael Gene Jr., MD 07/01/2023 9:25 AM Signed He does not need radiation now Ok to wait till September to do PFT Charisma Nevarez RN 07/01/2023 9:27 AM Signed Spoke with Jennifer and informed of the message below. Jennifer verbalized understanding. Charisma Nevarez RN Allergies As of Date: 07/01/2023 Noted Allergy Reaction BEE STING 02/24/2013 10 - Anaphylaxis 18 - Angioedema PEANUTS 02/24/2013 11 - Vomiting TAMSULOSIN 07/17/2020 1 - Mental Status Change PENICILLINS 02/24/2013 14 - Other: See Comments Comments: headaches- childhood JARDIANCE (EMPAGLIFLOZIN) 11/13/2022 14 - Other: See Comments Comments: Dizziness and lightheadedness Date Reviewed: 06/30/2023 Reviewed by: Kamran Gordon Jr., MD - Fully Assessed Reason for Visit: Patient Question [4517] Prescriptions as of 07/01/2023 - metFORMIN ER (GLUCOPHAGE XR) 500 mg 24 hr tablet Take 2 tablets by mouth two times a day before meals. - levothyroxine (SYNTHROID) 25 mcg tablet Take 1 tablet by mouth daily before breakfast. - amLODIPine (NORVASC) 10 mg tablet Take 1 tablet by mouth once daily. - atorvastatin (LIPITOR) 20 mg tablet Take 1 tablet by mouth daily at bedtime. For cholesterol. - sildenafil (VIAGRA) 100 mg tablet Take 1 tablet PO daily as needed for erectile dysfunction - Insulin Monaca, Disposable, (BD ULTRA-FINE SIRISHA PEN NEEDLE) 32 gauge x 5/32 Use one needle for each dose. 4x/day. - blood sugar diagnostic (BLOOD GLUCOSE TEST) test strip Pt has One Touch Ultra Meter. Test blood sugar(s) 3 times daily. Dx: Type 2 DM - Controlled E11.9 Insulin: Yes - blood sugar diagnostic (BLOOD GLUCOSE TEST) test strip Pt has One Touch Ultra Meter. Test blood sugar(s) 4 times daily. Dx: Type 2 DM - Controlled E11.9 Insulin: Yes - lancets (ONETOUCH DELICA LANCETS) 30 gauge testing 4 times daily DX E11.65 Insulin Yes - insulin lispro (HUMALOG KWIKPEN INSULIN) 100 unit/mL Inject 5 Units subcutaneously daily with breakfast AND 5 Units daily with lunch AND 10 Units daily with dinner. - blood sugar diagnostic (BLOOD GLUCOSE TEST) test strip Patient has one touch ultra glucometer. Test blood sugar(s) 4 times daily. Dx: Type 2 DM - Controlled E11.9 Insulin: yes - alcohol swabs (ALCOHOL PADS) Test blood sugar(s) 4 times daily. Dx: Type 2 DM - Controlled E11.9 Insulin: yes - insulin glargine (LANTUS SOLOSTAR U-100 INSULIN) 100 unit/mL (3 mL) Inject 10 Units subcutaneously daily at bedtime. - Blood-Glucose Meter (ONETOUCH ULTRA2 METER) monitoring kit 1 Each as needed. 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] 07/29/2015 Essential hypertension [I10] 07/29/2015 10/21/2015 Type 2 diabetes mellitus without complication (*07/29/2015 07/17/2020 Acquired hypothyroidism [E03.9] 10/21/2015 Personal history of colonic polyps [Z86.010] 02/20/2016 Onychomycosis of multiple toenails with type 2 *02/08/2017 07/17/2020 Well adult exam [Z00.00] 06/07/2017 07/17/2020 Uncontrolled type 2 diabetes mellitus without c*03/16/2018 07/17/2020 Rhus dermatitis [L25.5] 03/16/2018 07/17/2020 Type 2 diabetes mellitus without complication, *09/16/2018 07/17/2020 Type 2 diabetes mellitus with hyperglycemia, wi*02/27/2019 PSA elevation [R97.20] 09/26/2019 12/04/2022 ED (erectile dysfunction) of organic origin [N5*10/18/2020 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] 05/07/2022 05/13/2023 Preop testing [Z01.818] 11/13/2022 01/05/2023 Prostate cancer (HCC) [C61] 12/04/2022 Urinary incontinence [R32] 01/05/2023 Encounter Status:Closed by CHARISMA NEVAREZ [facility]/01/23 [facility] (AKURFL ) TUAN VALLEJO ([id number]) 1955 M Date Time Provider Department 06/30/23 1:45 PM KAMRAN GORDON JR During your visit today, we recorded the following information about you: Pulse Blood pressure 63/minute 122/80 Kamran Gordon Jr., MD 06/30/2023 2:06 PM Signed ESTABLISHED PATIENT OFFICE VISIT HPI Tuan Biju Genevieve is a 68 year old male who presents s/p RALP with bilateral PLND on 11/30/22 who presents for postoperative follow up visit. On 12/07/22, patient had his Allred catheter removed. 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 States that he is having issues with incontinence. Going through 3 pads everyday. Worse with physical activity. Denies any issues with erections. 04/01/23 - 3 months sp ralp. Doing great. + arabella but improving. Psa 0.02. no fever. No uti. 06/30/23 - 6 months sp ralp. Psa 0.02. arabella much improved. Still some leakage with exercise. No erections. No fever. Co urgency LAB: Creatinine Date Value Ref Range Status 05/04/2023 0.92 0.73 - 1.22 mg/dL Final PSA (ng/mL) Date Value 06/17/2023 0.02 03/29/2023 0.02 12/31/2022 0.14 08/03/2022 32.22 10/27/2021 12.95 07/13/2020 6.02 04/06/2020 6.23 09/26/2019 4.04 PSA Screening (ng/mL) Date Value 03/27/2019 4.05 Glucose, Urine (mg/dL) Date Value 03/27/2019 50 Bilirubin, Urine (no units) Date Value 03/27/2019 Negative Ketones, Urine (no units) Date Value 03/27/2019 Negative Specific [place], Ur (no units) Date Value 03/27/2019 1.014 Hemoglobin/Blood,Ur ( ) Date Value 03/27/2019 Negative pH, Urine (no units) Date Value 03/27/2019 6.0 Protein, Urine (mg/dL) Date Value 03/27/2019 Negative Nitrites (no units) Date Value 03/27/2019 Negative WBC, Urine (/HPF) Date Value 03/27/2019 0-5 MEDICATIONS: metFORMIN ER (GLUCOPHAGE XR) 500 mg 24 hr tablet Take 2 tablets by mouth two times a day before meals. levothyroxine (SYNTHROID) 25 mcg tablet Take 1 tablet by mouth daily before breakfast. amLODIPine (NORVASC) 10 mg tablet Take 1 tablet by mouth once daily. atorvastatin (LIPITOR) 20 mg tablet Take 1 tablet by mouth daily at bedtime. For cholesterol. sildenafil (VIAGRA) 100 mg tablet Take 1 tablet PO daily as needed for erectile dysfunction Insulin Monaca, Disposable, (BD ULTRA-FINE SIRISHA PEN NEEDLE) 32 gauge x 32 Use one needle for each dose. 4x/day. blood sugar diagnostic (BLOOD GLUCOSE TEST) test strip Pt has One Touch Ultra Meter. Test blood sugar(s) 3 times daily. Dx: Type 2 DM - Controlled E11.9 Insulin: Yes blood sugar diagnostic (BLOOD GLUCOSE TEST) test strip Pt has One Touch Ultra Meter. Test blood sugar(s) 4 times daily. Dx: Type 2 DM - Controlled E11.9 Insulin: Yes lancets (ONETOUCH DELICA LANCETS) 30 gauge testing 4 times daily DX E11.65 Insulin Yes insulin lispro (HUMALOG KWIKPEN INSULIN) 100 unit/mL Inject 5 Units subcutaneously daily with breakfast AND 5 Units daily with lunch AND 10 Units daily with dinner. blood sugar diagnostic (BLOOD GLUCOSE TEST) test strip Patient has one touch ultra glucometer. Test blood sugar(s) 4 times daily. Dx: Type 2 DM - Controlled E11.9 Insulin: yes alcohol swabs (ALCOHOL PADS) Test blood sugar(s) 4 times daily. Dx: Type 2 DM - Controlled E11.9 Insulin: yes insulin glargine (LANTUS SOLOSTAR U-100 INSULIN) 100 unit/mL (3 mL) Inject 10 Units subcutaneously daily at bedtime. Blood-Glucose Meter (ONETOUCH ULTRA2 METER) monitoring kit 1 Each as needed. One Touch Meter Kit Diagnosis: Type 2 DM - Uncontrolled E11.65 REVIEW OF SYSTEMS Review of Systems Constitutional: Negative. Respiratory: Negative. Cardiovascular: Negative. Gastrointestinal: Negative. Genitourinary: Negative. Skin: Negative. Neurological: Negative. Psychiatric/Behavioral: Negative. HISTORIES PAST MEDICAL HISTORY Diagnosis Date Acquired hypothyroidism 10/21/2015 Adhesive capsulitis of left shoulder 05/07/2022 Arthritis Back pain ED (erectile dysfunction) of organic origin 10/18/2020 Essential hypertension 09/05/2014 Familial combined hyperlipidemia 07/29/2015 Onychomycosis of multiple toenails with type 2 diabetes mellitus (HCC) 02/08/2017 Personal history of colonic polyps 02/20/2016 Prostate cancer ([facility]) PSA elevation 09/26/2019 Skin cancer unknown type 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d by mild nonproliferative retinopathy without macular edema, without long-term current use of insulin ([facility]) 02/27/2019 Exam 02/10/[address] Fuentes. Type 2 diabetes mellitus without complication ([facility]) 07/29/2015 FAMILY HISTORY Problem Relation Age of Onset Dementia Mother Kidney Disease Mother other (hypoglycemia) Mother Heart Father of [place] Diabetes Father Lung Cancer Father lung cancer Diabetes Sister Diabetes Sister Diabetes Brot (more content not included)... Normal [facility] UA DIP, URINE (POC)on 2022 BILIRUBIN UA (POCT) Negative Negative [facility] CLARITY UA (POCT) Clear [facility] COLOR UA (POCT) Yellow [facility] GLUCOSE UA (POCT) Negative Negative mg/dL [facility] Hemoglobin Ql (U) Negative Negative [facility] KETONE UA (POCT) Negative Negative mg/dL [facility] LEUKOCYTES UA (POCT) Negative Negative [facility] NITRITE UA (POCT) Negative [facility] ([facility]) 7.0 4.5 - 8.0 [facility] Protein Ql (U) Negative Negative mg/dL [facility] SPECIFIC GRAVITY UA (POCT) 1.020 1.005 - 1.030 [facility] UROBILINOGEN UA (POCT) 0.2 E.U./dL Normal E.U./dL [facility] PSA SerPl-mCncon 06-17-2023 Prostate specific Ag [Mass/Vol] 0.02 ng/mL Normal <2.60 [facility] Comment on above: Order Comment: Speci men Type: BLOOD SPECIMEN Ordering Facility: [facility] Address: [address] [place], [place] [id number] Result Comment: Tota l PSA test methodology used is the Electrochemiluminescence Immunoassay by [employer]. Total PSA values by differing methodologies cannot be interchanged. Performed By: #### 2 857-1 #### [facility] CLIA [id number] [facility] [id number] [place] [address] CNPMarissa 05-14-2023 [facility] Telephone (INTMWS) TUAN VALLEJO ([id number]) 1955 Date Time Provider Department 05/14/23 NAHUN JEFFREY INTWS During your visit today, we recorded the following information about you: Bonnie Miles 05/14/2023 12:13 PM Signed Jennifer is calling on behalf of Tuan. Sildenafil was called in for him yesterday for 5 tablets. However, the bloom for 5 was the same for the bloom for 20 tablet, which was prescribed before, so they are asking if the script can be changed for a quantity of 20. Please call her back at [phone] Allergies As of Date: 05/14/2023 Noted Allergy Reaction BEE STING 02/24/2013 10 - Anaphylaxis 18 - Angioedema PEANUTS 02/24/2013 11 - Vomiting TAMSULOSIN 07/17/2020 1 - Mental Status Change PENICILLINS 02/24/2013 14 - Other: See Comments Comments: headaches- childhood JARDIANCE (EMPAGLIFLOZIN) 11/13/2022 14 - Other: See Comments Comments: Dizziness and lightheadedness Date Reviewed: 05/13/2023 Reviewed by: Joan Townsend LPN - Fully Assessed Reason for Visit: Medication Request [138] Visit Diagnosis:ED (erectile dysfunction) of organic origin [N52.9] Order(s):sildenafil (VIAGRA) 100 mg tabletTake 1 tablet PO daily as needed for erectile dysfunctionDisp: 20 tabletRfl: 1 Prescriptions as of 05/14/2023 - sildenafil (VIAGRA) 100 mg tablet Take 1 tablet PO daily as needed for erectile dysfunction - Insulin Monaca, Disposable, (BD ULTRA-FINE SIRISHA PEN NEEDLE) 32 gauge x 32 Use one needle for each dose. 4x/day. - blood sugar diagnostic (BLOOD GLUCOSE TEST) test strip Pt has One Touch Ultra Meter. Test blood sugar(s) 3 times daily. Dx: Type 2 DM - Controlled E11.9 Insulin: Yes - blood sugar diagnostic (BLOOD GLUCOSE TEST) test strip Pt has One Touch Ultra Meter. Test blood sugar(s) 4 times daily. Dx: Type 2 DM - Controlled E11.9 Insulin: Yes - lancets ([employer] DELICA LANCETS) 30 gauge testing 4 times daily DX E11.65 Insulin Yes - insulin lispro (HUMALOG KWIKPEN INSULIN) 100 unit/mL Inject 5 Units subcutaneously daily with breakfast AND 5 Units daily with lunch AND 10 Units daily with dinner. - blood sugar diagnostic (BLOOD GLUCOSE TEST) test strip Patient has one touch ultra glucometer. Test blood sugar(s) 4 times daily. Dx: Type 2 DM - Controlled E11.9 Insulin: yes - alcohol swabs (ALCOHOL PADS) Test blood sugar(s) 4 times daily. Dx: Type 2 DM - Controlled E11.9 Insulin: yes - insulin glargine (LANTUS SOLOSTAR U-100 INSULIN) 100 unit/mL (3 mL) Inject 10 Units subcutaneously daily at bedtime. - amLODIPine (NORVASC) 10 mg tablet Take 1 tablet by mouth once daily. - atorvastatin (LIPITOR) 20 mg tablet Take 1 tablet by mouth daily at bedtime. For cholesterol. - levothyroxine (SYNTHROID) 25 mcg tablet Take 1 tablet by mouth daily before breakfast. - metFORMIN ER (GLUCOPHAGE XR) 500 mg 24 hr tablet Take 2 tablets by mouth twice daily before meals. - Blood-Glucose Meter (ONETOUCH ULTRA2 METER) monitoring kit 1 Each as needed. One Touch Meter Kit Diagnosis: Type 2 DM - Uncontrolled E11.65 Problem List As Of Date 05/14/2023 Noted Resolved Diabetes (HCC) [E11.9] 09/05/2014 10/21/2015 Essential hypertension [I10] 09/05/2014 Atypical chest pain [R07.89] 09/05/2014 10/21/2015 Family history of ischemic heart disease [Z82.4*09/05/2014 Familial combined hyperlipidemia [E78.49] 07/29/2015 Essential hypertension [I10] 07/29/2015 10/21/2015 Type 2 diabetes mellitus without complication (*07/29/2015 07/17/2020 Acquired hypothyroidism [E03.9] 10/21/2015 Personal history of colonic polyps [Z86.010] 02/20/2016 Onychomycosis of multiple toenails with type 2 *02/08/2017 07/17/2020 Well adult exam [Z00.00] 06/07/2017 07/17/2020 Uncontrolled type 2 diabetes mellitus without c*03/16/2018 07/17/2020 Rhus dermatitis [L25.5] 03/16/2018 07/17/2020 Type 2 diabetes mellitus without complication, *09/16/2018 07/17/2020 Type 2 diabetes mellitus with hyperglycemia, wi*02/27/2019 PSA elevation [R97.20] 09/26/2019 12/04/2022 ED (erectile dysfunction) of organic origin [N5*10/18/2020 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] 05/07/2022 05/13/2023 Preop testing [Z01.818] 11/13/2022 01/05/2023 Prostate cancer (HCC) [C61] 12/04/2022 Urinary incontinence [R32] 01/05/2023 Prescriptions ordered this encounter Disp Refills Start End SILDENAFIL 100 MG TABLET 20 t* 1 05/14/2023 Sig: Take 1 tablet PO daily as needed for erectile dysfunction Medications Discontinued During This Encounter Prescriptions - sildenafil (VIAGRA) 100 mg tablet (Discontinued) Take 1 tablet PO daily as needed for erectile dysfunction Encounter Status:Closed by NAHUN JEFFREY on 05/14/23 [facility] CNOVles 05-13-2023 CNOV Office Visit (INTMWS ) TUAN VALLEJO ([id number]) 1955 M Date Time Provider Department 05/13/23 1:00 PM NAHUN JEFFREY INTMWS During your visit today, we recorded the following information about you: Temperature Pulse Respiration Blood pressure 97.6 degrees 60/minute 16/minute 126/72 Weight Height 67.1 kg 1.702 m Nahun Jeffrey MD 05/13/2023 7:32 PM Signed Taun Vallejo is a 68 year old male here for a Medicare wellness visit. Health Risk Assessment In general, health is: Good Concerns with balance:Not at all Concerns with teeth or dentures:Not at all Concerns with sexual function:More than half the days Donie anxious, stressed, angry, irritable, lonely, isolated, or had thoughts of hurting themself: Not at all Has little interest or pleasure in doing things: Not at all Bothered by feeling down, depressed, or hopeless: Not at all Needs help with grocery shopping, cooking, housework, bathing, grooming, dressing, eating, sitting or standing, walking, using the toilet, handling finances, taking medications, using the telephone, or driving: No Following safety precautions in the home environment and vehicle: removed throw rugs from floors, installed grab bars in the bathroom, handrails in stairwells, having adequate lighting, wearing seatbelt at all times?: Yes Smokes cigarettes, vapes, or chew tobacco: No Eats healthy foods including fruits, vegetables, whole grains, and fiber-rich foods: More than half the days Number of days per week engages in exercise: 7 days Average alcohol consumption: 4 or more times a week Current Providers Specialists: I have reviewed specialist-related care of the patient in the medical record. Current care team: Patient Care Team: Nahun eJffrey MD as PCP - General (Internal Medicine) Outside specialists seen: Johnathon Fuentes OD. Dr. Rebekah Gordon urology. Medical/Family history review Reviewed and updated problem list, medical/surgical/family/soc ial history, medications, and allergies. Opioid use review Patient is not currently using opioids. Depression screening Depression Screening PHQ-2 Score 01/05/2023 0 Depression screening tool completed and reviewed. Based on score and interview, patient is not at risk for depression. Screening tool discussed with patient, and I recommended no further intervention at this time. Cognitive screening Mini Cog Score: 5 Functional Observation Was the patient's timed Up AND Go test unsteady or ? 12 seconds? No Advance Care Planning End of Life planning discussed, including patient's advanced directive wishes: Yes Measurements BP 126/72 Pulse 60 Temp (Src) 97.6 (Temporal) Resp 16 Ht 5' 7 (1.70m) Wt 148 lb (67.1kg) BMI 23.17 kg/(m2). Visual acuity (required for Welcome to Medicare): follows with optometry/ophthalmology and Right: 20/40 Left: 20/ 50 Both: 20/25 Hearing Evaluation: within normal limits Assessment/Plan Medicare annual wellness visit, subsequent (Z00.00) - Counseled on healthy diet and regular exercise - Fall avoidance - Vaccines recommended Pneumococcal and Influenza - Depression screening - Alcohol misuse screening and counseling Nahun Jeffrey MD 05/13/2023 7:32 PM Signed This note was created using [employer]. Subjective Tuan Vallejo is a 68 year old male. He still had urine incontinence and ED since prostate surgery. He was still trying Viagra, so far with no result. His diabetes mellitus, hypertension, and lipids were stable. Review of Systems Constitutional: Negative for fatigue and fever. Respiratory: Negative for cough and shortness of breath. Cardiovascular: Negative for chest pain, palpitations and leg swelling. Gastrointestinal: Negative for constipation, diarrhea, nausea and vomiting. Genitourinary: Negative for difficulty urinating and dysuria. Musculoskeletal: Negative. Neurological: Negative for dizziness and headaches. ACTIVE PROBLEM LIST Essential Hypertension Family History of Ischemic Heart Disease Familial Combined Hyperlipidemia Acquired Hypothyroidism Personal History of Colonic Polyps Type 2 Diabetes Mellitus With Hyperglycemia, Without Long-Term Current Use of Insulin (Hcc) Ed (Erectile Dysfunction) of Organic Origin Prostate Cancer (Hcc) Urinary Incontinence Current Outpatient Medications Medication Sig Insulin Monaca, Disposable, (BD ULTRA-FINE SIRISHA PEN NEEDLE) 32 gauge x /32 Use one needle for each dose. 4x/day. lancets (Hyasynth BioUCH DELApeniMED LANCETS) 30 gauge testing 4 times daily DX E11.65 Insulin Yes insulin lispro (HUMALOG KWIKPEN INSULIN) 100 unit/mL Inject 5 Units subcutaneously daily with breakfast AND 5 Units daily with lunch AND 10 Units daily with dinner. alcohol swabs (ALCOHOL PADS) Test blood sugar(s) 4 times daily. Dx: Type 2 DM - Controlled E11.9 Insulin: yes insulin glargine (LANTUS HUE (more content not included)... Normal [facility] Basic metabolic 2000 panelon 05-04-2023 Anion gap [Moles/Vol] 10 mmol/L Normal 9-18 [facility] Comment on above: Order Comment: Speci men Type: BLOOD SPECIMENOrdering Facility: [facility] Address: [address] [place] [address] Performed By: #### 2 4331-1, 01642-7 ####[facility] LABIA [id number] [place] [address] [place] Calcium [Mass/Vol] 9.4 mg/dL Normal 8.5-10.2 [facility] Comment on above: Order Comment: Speci men Type: BLOOD SPECIMENOrdering Facility: [facility] Address: [address] [address] Performed By: #### 2 4331-1, 13591-0 ####[facility] LABCLIA [id number] [place] [address] [place] Chloride [Moles/Vol] 106 mmol/L High 97-105 [facility] Comment on above: Order Comment: Speci men Type: BLOOD SPECIMENOrdering Facility: [facility] Address: [address] [address] Performed By: #### 2 4331-1, 45833-7 ####[facility] LABCLIA [id number] [address] [id number] [address] [place] CO2 [Moles/Vol] 26 mmol/L Normal 22-30 [facility] Comment on above: Order Comment: Speci men Type: BLOOD SPECIMENOrdering Facility: [facility] Address: [address] [place] [address] Performed By: #### 2 4331-1, 19679-1 ####[facility] LABCLIA [id number] [place] [address] [place] Creatinine [Mass/Vol] 0.92 mg/dL Normal 0.73-1.22 [facility] Comment on above: Order Comment: Speci men Type: BLOOD SPECIMENOrdering Facility: [facility] Address: [address] [place] [address] Performed By: #### 2 4331-1, 32764-0 ####[facility] LABCLIA [id number] [address] [facility] Creatinine and Glomerular filtration rate.predicted panel (S/P/Bld) 91 mL/min/1.73m??? Normal >=60 [facility] Comment on above: Order Comment: Kasia pulido Type: BLOOD SPECIMENOrdering Facility: [facility] Address: [address] [place] [address] Result Comment: Katerina mated Glomerular Filtration Rate (eGFR) is calculated using the 2020 CKD-EPI creatinine equation. This equation utilizes serum creatinine, sex, and age as parameters. The creatinine assay has traceable calibration to isotope dilution-mass spectrometry. Refer to KDIGO guidelines for clinical interpretation. In patients with unstable renal function, e.g. those with acute kidney injury, the eGFR may not accurately reflect actual GFR. Performed By: #### 2 4331-1, 47966-9 ####[facility] LABCLIA [id number] [place] [address] [place] Glucose [Mass/Vol] 81 mg/dL Normal 74-99 [facility] Comment on above: Order Comment: Speci men Type: BLOOD SPECIMENOrdering Facility: [facility] Address: [address] [id number] Result Comment: The [place] Diabetes Association (ADA) provides guidance for cutoff values for fasting glucose and random glucose. The ADA defines fasting as no caloric intake for at least 8 hours. Fasting plasma glucose results between 100 to 125 mg/dL indicate increased risk for diabetes (prediabetes). Fasting plasma glucose results greater than or equal to 126 mg/dL meet the criteria for diagnosis of diabetes. In the absence of unequivocal hyperglycemia, results should be confirmed by repeat testing. In a patient with classic symptoms of hyperglycemia or hyperglycemic crisis, random plasma glucose results greater than or equal to 200 mg/dL meet the criteria for diagnosis of diabetes. Reference: Standards of Medical Care in Diabetes 2016, [place] Diabetes Association. Diabetes Care. 2016.39(Suppl 1). Performed By: #### 2 4331-1, 53168-6 ####[facility] LABCLIA [id number] [place] [address] [place] Potassium [Moles/Vol] 5.0 mmol/L Normal 3.7-5.1 [facility] Comment on above: Order Comment: Speci men Type: BLOOD SPECIMENOrdering Facility: [facility] Address: [address] [address] Performed By: #### 2 4331-1, 31227-0 ####[facility] LABCLIA [id number] [place] [address] [place] Sodium [Moles/Vol] 142 mmol/L Normal 136-144 [facility] Comment on above: Order Comment: Speci men Type: BLOOD SPECIMENOrdering Facility: [facility] Address: [address] Performed By: #### 2 4331-1, 71570-9 ####[facility] LABCLIA [id number] [place] [address] [place] Urea nitrogen [Mass/Vol] 18 mg/dL Normal 9-24 [facility] Comment on above: Order Comment: Speci men Type: BLOOD SPECIMENOrdering Facility: [facility] Address: [address] [phone] Performed By: #### 2 4331-1, 35060-6 ####[facility] ROSALBA [id number] [address] [place] [address] [place] CNPMarissa 05-04-2023 CNPN Telephone (FAMPWS) TUAN VALLEJO ([id number]) 1955 M Date Time Provider Department 05/04/23 NAHUN JEFFREY FAMPWS During your visit today, we recorded the following information about you: Flores Dumont, ISSA 05/04/2023 1:36 PM Signed Pt's Jennifer calling as she states she got a phone call as well as a letter telling her that [facility] is needing prior authorizations on both the One Touch 30G lancets and One Touch test strips. [facility] phone # is [phone]. Bobbi Zheng Ma 05/04/2023 2:45 PM Signed Tried to complete PA through covermymeds but advised NDC # could not be found. Called [facility] and completed PA over the phone for test strips/lancets Test strips case # [id number] Lancets case # [id number] Jaclyn Scott Ma, LPN 05/05/2023 8:54 AM Signed Rec'd approved for onetouch delica plus 30 g lancet qty 200. Approved [id number] approved from to 04/29/24. Also rec'd approved for onetouch ultra test strip qty 200 approved from 02/02/23 to 05/03/2024. Approval number [id number]. This was sent to [employer]. Allergies As of Date: 05/04/2023 Noted Allergy Reaction BEE STING 02/24/2013 10 - Anaphylaxis 18 - Angioedema PEANUTS 02/24/2013 11 - Vomiting TAMSULOSIN 07/17/2020 1 - Mental Status Change PENICILLINS 02/24/2013 14 - Other: See Comments Comments: headaches- childhood JARDIANCE (EMPAGLIFLOZIN) 11/13/2022 14 - Other: See Comments Comments: Dizziness and lightheadedness Date Reviewed: 04/01/2023 Reviewed by: Kamran Gordon Jr., MD - Fully Assessed Reason for Visit: Insurance Authorization [[id number]] Visit Diagnosis:Type 2 diabetes mellitus with hyperglycemia, without long-term current use of insulin (HCC) [E11.65] Prescriptions as of 05/05/2023 - blood sugar diagnostic (BLOOD GLUCOSE TEST) test strip Pt has One Touch Ultra Meter. Test blood sugar(s) 3 times daily. Dx: Type 2 DM - Controlled E11.9 Insulin: Yes - blood sugar diagnostic (BLOOD GLUCOSE TEST) test strip Pt has One Touch Ultra Meter. Test blood sugar(s) 4 times daily. Dx: Type 2 DM - Controlled E11.9 Insulin: Yes - lancets (Hyasynth BioUCH DELICA LANCETS) 30 gauge testing 4 times daily DX E11.65 Insulin Yes - insulin lispro (HUMALOG KWIKPEN INSULIN) 100 unit/mL Inject 5 Units subcutaneously daily with breakfast AND 5 Units daily with lunch AND 10 Units daily with dinner. - blood sugar diagnostic (BLOOD GLUCOSE TEST) test strip Patient has one touch ultra glucometer. Test blood sugar(s) 4 times daily. Dx: Type 2 DM - Controlled E11.9 Insulin: yes - alcohol swabs (ALCOHOL PADS) Test blood sugar(s) 4 times daily. Dx: Type 2 DM - Controlled E11.9 Insulin: yes - insulin glargine (LANTUS SOLOSTAR U-100 INSULIN) 100 unit/mL (3 mL) Inject 10 Units subcutaneously daily at bedtime. - insulin needles, DISPOSABLE, 31 gauge x 5/16 Use one needle per dose 4 times a day - amLODIPine (NORVASC) 10 mg tablet Take 1 tablet by mouth once daily. - atorvastatin (LIPITOR) 20 mg tablet Take 1 tablet by mouth daily at bedtime. For cholesterol. - levothyroxine (SYNTHROID) 25 mcg tablet Take 1 tablet by mouth daily before breakfast. - metFORMIN ER (GLUCOPHAGE XR) 500 mg 24 hr tablet Take 2 tablets by mouth twice daily before meals. - sildenafil (VIAGRA) 100 mg tablet Take 1 tablet PO daily as needed for erectile dysfunction - Blood-Glucose Meter (ONETOUCH ULTRA2 METER) monitoring kit 1 Each as needed. One Touch Meter Kit Diagnosis: Type 2 DM - Uncontrolled E11.65 Problem List As Of Date 05/04/2023 Noted Resolved Diabetes (HCC) [E11.9] 09/05/2014 10/21/2015 Essential hypertension [I10] 09/05/2014 Atypical chest pain [R07.89] 09/05/2014 10/21/2015 Family history of ischemic heart disease [Z82.4*09/05/2014 Familial combined hyperlipidemia [E78.49] 07/29/2015 Essential hypertension [I10] 07/29/2015 10/21/2015 Type 2 diabetes mellitus without complication (*07/29/2015 07/17/2020 Acquired hypothyroidism [E03.9] 10/21/2015 Personal history of colonic polyps [Z86.010] 02/20/2016 Onychomycosis of multiple toenails with type 2 *02/08/2017 07/17/2020 Well adult exam [Z00.00] 06/07/2017 07/17/2020 Uncontrolled type 2 diabetes mellitus without c*03/16/2018 07/17/2020 Rhus dermatitis [L25.5] 03/16/2018 07/17/2020 Type 2 diabetes mellitus without complication, *09/16/2018 07/17/2020 Type 2 diabetes mellitus with hyperglycemia, wi*02/27/2019 PSA elevation [R97.20] 09/26/2019 12/04/2022 ED (erectile dysfunction) of organic origin [N5*10/18/2020 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] 05/07/2022 Preop testing [Z01.818] 11/13/2022 01/05/2023 Prostate cancer (HCC) [C61] 12/04/2022 Urinary incontinence [R32] 01/05/2023 Encounter Status:Closed by JACLYN METCALF LPN on 05/05/23 Normal [facility] HbA1c (Bld)on 05-04-2023 Average glucose Estimated from glycated hemoglobin (Bld) [Mass/Vol] 134 mg/dL Normal [facility] Comment on above: Order Comment: Speci men Type: BLOOD SPECIMEN [facility] Address: [address] [address] Result Comment: eAG: (Estimated average glucose) is a calculated value from HgbA1c and is indirect sales representative of the average blood glucose level in the last 2-3 month period. Performed By: #### 2 857-1 #### [facility] LAB CLIA [id number] [address] [place] [address] [place] HbA1c (Bld) [Mass fraction] 6.3 % High 4.3-5.6 [facility] Comment on above: Order Comment: Thuyi men Type: BLOOD SPECIMEN [facility] Address: [address] [place] [address] Result Comment: Amer [place] Diabetes Association guidelines indicate that patients with HgbA1c in the range 5.7-6.4% are at increased risk for development of diabetes, and intervention by lifestyle modification may be beneficial. HgbA1c greater or equal to 6.5% is considered diagnostic of diabetes. Performed By: #### 2 857-1 #### [facility] LAB CLIA [id number] [address] [place] [address] [place] Lipid 1996 panelon 3 Cholesterol [Mass/Vol] 184 mg/dL Normal <200 [facility] Comment on above: Order Comment: Speci men Type: BLOOD SPECIMENOrdering Facility: [facility] Address: [address] [place] [address] Result Comment: <200 mg/dL, Desirable 200-239 mg/dL, Borderline high >239 mg/dL, High Performed By: #### 2 4331-1, 73796-0 ####[facility] LABCLIA [id number] [place] [address] [place] Cholesterol in HDL [Mass/Vol] 74 mg/dL Normal >39 [facility] Comment on above: Order Comment: Thuyi men Type: BLOOD SPECIMENOrdering Facility: [facility] Address: [address] [place] [address] Result Comment: 40-5 9 mg/dL, Acceptable >59 mg/dL, High: Negative risk factor for coronary heart disease <40 mg/dL, Low: Positive risk factor for coronary heart disease Performed By: #### 2 4331-1, 34926-7 ####[facility] LABCLIA [id number] [address] [address] [place] Cholesterol in LDL [Mass/Vol] 98 mg/dL Normal <100 [facility] Comment on above: Order Comment: Speci men Type: BLOOD SPECIMENOrdering Facility: [facility] Address: [address] [place] [address] Result Comment: <100 mg/dL, Optimal 100-129 mg/dL, Near optimal/above optimal 130-159 mg/dL, Borderline high 160-189 mg/dL, High >189 mg/dL, Very high Secondary prevention optimal LDL Cholesterol levels are recommended to be < 70 mg/dL Performed By: #### 2 4331-1, 34313-8 ####[facility] LABCLIA [id number] [place] [address] [place] Cholesterol in LDL/Cholesterol in HDL [Mass ratio] 1.32 {ratio} Normal <2.54 [facility] Comment on above: Order Comment: Speci men Type: BLOOD SPECIMENOrdering Facility: [facility] Address: [address] [place] [address] Result Comment: Refe rence: 1. National Cholesterol Education Program ATP III Guideline At-A-Glance Quick Desk Reference: National Heart, Lung, and Blood Waldo. National Institutes of Health. 2001: NIH Publication No. 01-3305. 2. An International Atherosclerosis Society position paper: global recommendations for the management of dyslipidemia: executive summary, Atherosclerosis. 2014: 232(2):410-413. Performed By: #### 2 4331-1, 39119-3 ####[facility] LABCLIA [id number] [place] [address] [place] Cholesterol in VLDL [Mass/Vol] 12 mg/dL Normal <30 [facility] Comment on above: Order Comment: Speci men Type: BLOOD SPECIMENOrdering Facility: [facility] Address: [address] [address] Performed By: #### 2 4331-1, 88033-7 ####[facility] LABCLIA [id number] [place] [address] [place] Cholesterol non HDL [Mass/Vol] 110 mg/dL Normal <130 [facility] Comment on above: Order Comment: Speci men Type: BLOOD SPECIMENOrdering Facility: [facility] Address: [address] [address] Result Comment: <130 mg/dL, Optimal 130-159 mg/dL, Near optimal/above optimal 160-189 mg/dL, Borderline high 190-219 mg/dL, High >219 mg/dL, Very high Secondary prevention optimal non HDL Cholesterol levels are recommended to be <100 mg/dL Performed By: #### 2 433-1, 38290-8 ####[facility] LABCLIA [id number] [place] [address] [place] Cholesterol.total/Cho lesterol in HDL [Mass ratio] 2.49 {ratio} Normal <5.10 [facility] Comment on above: Order Comment: Speci men Type: BLOOD SPECIMENOrdering Facility: [facility] Address: [address] Performed By: #### 2 433-1, 20794-1 ####[facility] LABCLIA [id number] [place] [address] [place] FASTING TIME 17 hrs Normal [facility] Comment on above: Order Comment: Speci men Type: BLOOD SPECIMENOrdering Facility: [facility] Address: [address] Performed By: #### 2 433-1, 14597-9 ####[facility] LABCLIA [id number] [place] [address] [place] Triglyceride [Mass/Vol] 60 mg/dL Normal <150 [facility] Comment on above: Order Comment: Speci men Type: BLOOD SPECIMENOrdering Facility: [facility] Address: [address] [place] [address] Result Comment: <150 mg/dL, Normal 150-199 mg/dL, Borderline high 200-499 mg/dL, High >499 mg/dL, Very high Performed By: #### 2 4331-1, 99478-4 ####[facility] LABCLIA [id number] [address] [id number] [address] [facility] CNPNon 04-21-2023 CNPN Telephone (INTMWS) TUAN VALLEJO ([id number]) 1955 M Date Time Provider Department 04/21/23 NAHUN JEFFREY INTWS During your visit today, we recorded the following information about you: Barbie Meyer, ISSA 04/21/2023 10:24 AM Signed Pts called in and reports that [facility] called her and told him that they had been trying to reach the provider. They said there was information they needed and provider was not getting back to them. I told her he had sent all the medications in, he changed him to checking his BS 4x a day, and the lancets to the One Touch Delcia. She didn't know what they needed to know. She was going to call [facility] back and find out, and will call us back when she knows. The # they gave her was [phone], but they didn't know if it was a fax of phone. Did not know if providers office had received a fax from them. Barbie Meyer, ISSA 04/22/2023 9:16 AM Signed Called Pt to see if they had talked to pharmacy to see what else need to be sent. He said his had called them and he thinks they had everything they needed. He will have her call back if necessary. Allergies As of Date: 04/21/2023 Noted Allergy Reaction BEE STING 02/24/2013 10 - Anaphylaxis 18 - Angioedema PEANUTS 02/24/2013 11 - Vomiting TAMSULOSIN 07/17/2020 1 - Mental Status Change PENICILLINS 02/24/2013 14 - Other: See Comments Comments: headaches- childhood JARDIANCE (EMPAGLIFLOZIN) 11/13/2022 14 - Other: See Comments Comments: Dizziness and lightheadedness Date Reviewed: 04/01/2023 Reviewed by: Kamran Gordon Jr., MD - Fully Assessed Reason for Visit: Medication Problem [65] Prescriptions as of 04/22/2023 - lancets (Hyasynth BioUCH DELApeniMED LANCETS) 30 gauge testing 4 times daily DX E11.65 Insulin Yes - insulin lispro (HUMALOG KWIKPEN INSULIN) 100 unit/mL Inject 5 Units subcutaneously daily with breakfast AND 5 Units daily with lunch AND 10 Units daily with dinner. - blood sugar diagnostic (BLOOD GLUCOSE TEST) test strip Patient has one touch ultra glucometer. Test blood sugar(s) 4 times daily. Dx: Type 2 DM - Controlled E11.9 Insulin: yes - alcohol swabs (ALCOHOL PADS) Test blood sugar(s) 4 times daily. Dx: Type 2 DM - Controlled E11.9 Insulin: yes - insulin glargine (LANTUS SOLOSTAR U-100 INSULIN) 100 unit/mL (3 mL) Inject 10 Units subcutaneously daily at bedtime. - insulin needles, DISPOSABLE, 31 gauge x 5/16 Use one needle per dose 4 times a day - amLODIPine (NORVASC) 10 mg tablet Take 1 tablet by mouth once daily. - atorvastatin (LIPITOR) 20 mg tablet Take 1 tablet by mouth daily at bedtime. For cholesterol. - levothyroxine (SYNTHROID) 25 mcg tablet Take 1 tablet by mouth daily before breakfast. - metFORMIN ER (GLUCOPHAGE XR) 500 mg 24 hr tablet Take 2 tablets by mouth twice daily before meals. - sildenafil (VIAGRA) 100 mg tablet Take 1 tablet PO daily as needed for erectile dysfunction - Blood-Glucose Meter (Hyasynth BioUCH ULTRA2 METER) monitoring kit 1 Each as needed. 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] 07/29/2015 Essential hypertension [I10] 07/29/2015 10/21/2015 Type 2 diabetes mellitus without complication (*07/29/2015 07/17/2020 Acquired hypothyroidism [E03.9] 10/21/2015 Personal history of colonic polyps [Z86.010] 02/20/2016 Onychomycosis of multiple toenails with type 2 *02/08/2017 07/17/2020 Well adult exam [Z00.00] 06/07/2017 07/17/2020 Uncontrolled type 2 diabetes mellitus without c*03/16/2018 07/17/2020 Rhus dermatitis [L25.5] 03/16/2018 07/17/2020 Type 2 diabetes mellitus without complication, *09/16/2018 07/17/2020 Type 2 diabetes mellitus with hyperglycemia, wi*02/27/2019 PSA elevation [R97.20] 09/26/2019 12/04/2022 ED (erectile dysfunction) of organic origin [N5*10/18/2020 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] 05/07/2022 Preop testing [Z01.818] 11/13/2022 01/05/2023 Prostate cancer (HCC) [C61] 12/04/2022 Urinary incontinence [R32] 01/05/2023 Encounter Status:Closed by BARBIE MEYER on 04/22/23 [facility] Marcial 04-16-2023 [facility] Tele[facility] (INTMWS) TUAN VALLEJO ([id number]) 1955 M Date Time Provider Department 04/16/23 NAHUN JEFFREY During your visit today, we recorded the following information about you: Gina Bennett EMELYN 04/16/2023 10:56 AM Signed [facility] pharmacy calling the wrong lancets were sent to pharmacy for the patient. Patient uses One touch Delica lancets. Pending rx to file. Please advise Patient has been identified by name and date of : Pharmacy phones for refill(s): Requested Prescriptions Pending Prescriptions Disp Refills lancets (ONETOUCH DELICA LANCETS) 30 gauge 200 Each 3 Sig: testing 4 times daily DX E11.65 Insulin Yes Date of last office visit in primary care: 03/20/2023, has appt 05/13/2023 Last 2 Encounter Wt Readings: Date: Wt: 03/20/2023 62.6 kg (138 lb) 01/05/2023 64 kg (141 lb) Previous labs/tests for medication: Diabetes: Hemoglobin A1C (%) Date Value 08/03/2022 6.1 04/29/2022 6.0 10/27/2021 6.4 01/11/2021 7.0 Hemoglobin A1C (POCT) (%) Date Value 01/05/2023 6.2 05/06/2021 6.2 Please advise. Thank you. Gina Bennett EMELYN Allergies As of Date: 04/16/2023 Noted Allergy Reaction BEE STING 02/24/2013 10 - Anaphylaxis 18 - Angioedema PEANUTS 02/24/2013 11 - Vomiting TAMSULOSIN 07/17/2020 1 - Mental Status Change PENICILLINS 02/24/2013 14 - Other: See Comments Comments: headaches- childhood JARDIANCE (EMPAGLIFLOZIN) 11/13/2022 14 - Other: See Comments Comments: Dizziness and lightheadedness Date Reviewed: 04/01/2023 Reviewed by: Kamran Gordon Jr., MD - Fully Assessed Reason for Visit: wrong lancet rx sent to pharmacy [Other] Primary Visit Diagnosis:Type 2 diabetes mellitus with hyperglycemia, without long-term current use of insulin (HCC) [E11.65] Order(s):lancets (ONETOUCH DELICA LANCETS) 30 gaugetesting 4 times daily DX E11.65 Insulin YesDisp: 200 EachRfl: 3 Prescriptions as of 04/16/2023 - lancets (roomlinxTOUCH DELICA LANCETS) 30 gauge testing 4 times daily DX E11.65 Insulin Yes - insulin lispro (HUMALOG KWIKPEN INSULIN) 100 unit/mL Inject 5 Units subcutaneously daily with breakfast AND 5 Units daily with lunch AND 10 Units daily with dinner. - blood sugar diagnostic (BLOOD GLUCOSE TEST) test strip Patient has one touch ultra glucometer. Test blood sugar(s) 4 times daily. Dx: Type 2 DM - Controlled E11.9 Insulin: yes - alcohol swabs (ALCOHOL PADS) Test blood sugar(s) 4 times daily. Dx: Type 2 DM - Controlled E11.9 Insulin: yes - insulin glargine (LANTUS SOLOSTAR U-100 INSULIN) 100 unit/mL (3 mL) Inject 10 Units subcutaneously daily at bedtime. - insulin needles, DISPOSABLE, 31 gauge x 5/16 Use one needle per dose 4 times a day - amLODIPine (NORVASC) 10 mg tablet Take 1 tablet by mouth once daily. - atorvastatin (LIPITOR) 20 mg tablet Take 1 tablet by mouth daily at bedtime. For cholesterol. - levothyroxine (SYNTHROID) 25 mcg tablet Take 1 tablet by mouth daily before breakfast. - metFORMIN ER (GLUCOPHAGE XR) 500 mg 24 hr tablet Take 2 tablets by mouth twice daily before meals. - sildenafil (VIAGRA) 100 mg tablet Take 1 tablet PO daily as needed for erectile dysfunction - Blood-Glucose Meter (ONETOUCH ULTRA2 METER) monitoring kit 1 Each as needed. 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] 07/29/2015 Essential hypertension [I10] 07/29/2015 10/21/2015 Type 2 diabetes mellitus without complication (*07/29/2015 07/17/2020 Acquired hypothyroidism [E03.9] 10/21/2015 Personal history of colonic polyps [Z86.010] 02/20/2016 Onychomycosis of multiple toenails with type 2 *02/08/2017 07/17/2020 Well adult exam [Z00.00] 06/07/2017 07/17/2020 Uncontrolled type 2 diabetes mellitus without c*03/16/2018 07/17/2020 Rhus dermatitis [L25.5] 03/16/2018 07/17/2020 Type 2 diabetes mellitus without complication, *09/16/2018 07/17/2020 Type 2 diabetes mellitus with hyperglycemia, wi*02/27/2019 PSA elevation [R97.20] 09/26/2019 12/04/2022 ED (erectile dysfunction) of organic origin [N5*10/18/2020 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] 05/07/2022 Preop testing [Z01.818] 11/13/2022 01/05/2023 Prostate cancer (HCC) [C61] 12/04/2022 Urinary incontinence [R32] 01/05/2023 Prescriptions ordered this encounter Disp Refills Start End LANCETS 30 GAUGE 200 * 3 04/16/2023 Sig: testing 4 times daily DX E11.65 Insulin Yes Medications Discontinued During This Encounter Prescriptions - Lancets (ONETOUCH ULTRASOFT LANCETS) lancets (Discontinued) Test blood sugar(s) 4 times daily. Dx: Type 2 DM - Uncontrolled E11.65 , Insul (more content not included)... Normal [facility] Marcial 04-13-2023 [facility] Tele[facility] (FAMPWS) TUAN VALLEJO ([id number]) 1955 M Date Time Provider Department 04/13/23 LEIGH CLEMENTS During your visit today, we recorded the following information about you: Codi Ayala LPN 04/13/2023 10:29 AM Signed Pt is currently getting Humalog 10mg daily. Jennifer states pt's BS are high through out the day AND his insurance recommended that pt call to ask if he can use Humalog 3X daily with his 3 meals? Pt uses [facility]. Please notify pt/ with response. Leigh Weaver LPN, APRN.DAMIÁN 04/13/2023 10:52 AM Signed Start Humalog 5 units with breakfast and lunch and continue with Humalog 10 units with supper. Call for any low blood sugars Leigh Clements APRN.DAMIÁN Panda Soni Calvin 04/13/2023 10:59 AM Signed Left message to call office. 04/13/2023 10:59 AM Bere Stringer LPN 04/13/2023 12:25 PM Signed Pt's notified of Humalog dose. reports she needs a 3 month supply rx sent to [facility]. Please fill in quantity and refills to rx. Cassia Sandoval LPN, LPN 04/13/2023 12:32 PM Signed called back and needs to know how many times pt should check his sugar. He was doing this twice a day. He is now on medication three times a day. Do you want him to test three times a day. If he needs to do three times a day he will need more test strips sent to the Pharmacy, [facility]. asking for a 90 day supply of insulin and test strips. Please advise . Leigh Flores LPN, APRN.DAMIÁN 04/14/2023 7:39 AM Signed He can continue to check twice a day. He just had a 90 day supply of Humalog sent on 03/20 Leigh Clements APRN.Joan Torres LPN 04/14/2023 7:50 AM Signed Below left on identified vm. Joan Townsend LPN Allergies As of Date: 04/13/2023 Noted Allergy Reaction BEE STING 02/24/2013 10 - Anaphylaxis 18 - Angioedema PEANUTS 02/24/2013 11 - Vomiting TAMSULOSIN 07/17/2020 1 - Mental Status Change PENICILLINS 02/24/2013 14 - Other: See Comments Comments: headaches- childhood JARDIANCE (EMPAGLIFLOZIN) 11/13/2022 14 - Other: See Comments Comments: Dizziness and lightheadedness Date Reviewed: 04/01/2023 Reviewed by: Kamran Gordon Jr., MD - Fully Assessed Reason for Visit: Med Change Request [3823] Visit Diagnosis:Type 2 diabetes mellitus with hyperglycemia, without long-term current use of insulin (HCC) [E11.65] Order(s):insulin glargine (LANTUS SOLOSTAR U-100 INSULIN) 100 unit/mL (3 mL)Inject 10 Units subcutaneously daily at bedtime.Disp: 15 mLRfl: 0 insulin lispro (HUMALOG KWIKPEN INSULIN) 100 unit/mLInject 5 Units subcutaneously daily with breakfast AND 5 Units daily with lunch AND 10 Units daily with dinner.Disp: Rfl: Prescriptions as of 04/14/2023 - insulin glargine (LANTUS SOLOSTAR U-100 INSULIN) 100 unit/mL (3 mL) Inject 10 Units subcutaneously daily at bedtime. - insulin lispro (HUMALOG KWIKPEN INSULIN) 100 unit/mL Inject 5 Units subcutaneously daily with breakfast AND 5 Units daily with lunch AND 10 Units daily with dinner. - insulin needles, DISPOSABLE, (PEN NEEDLE) 31 gauge x 5/16 Use one needle per dose. 1 per day. - blood sugar diagnostic (BLOOD GLUCOSE TEST) test strip Patient has one touch ultra glucometer. Test blood sugar(s) 2 times daily. Dx: Type 2 DM - Controlled E11.9 Insulin: No - amLODIPine (NORVASC) 10 mg tablet Take 1 tablet by mouth once daily. - Lancets (ONETOUCH ULTRASOFT LANCETS) lancets Test blood sugar(s) 1-2 times daily. Dx: Type 2 DM - Uncontrolled E11.65 , Insulin: No - atorvastatin (LIPITOR) 20 mg tablet Take 1 tablet by mouth daily at bedtime. For cholesterol. - levothyroxine (SYNTHROID) 25 mcg tablet Take 1 tablet by mouth daily before breakfast. - metFORMIN ER (GLUCOPHAGE XR) 500 mg 24 hr tablet Take 2 tablets by mouth twice daily before meals. - sildenafil (VIAGRA) 100 mg tablet Take 1 tablet PO daily as needed for erectile dysfunction - alcohol swabs (ALCOHOL PADS) Test blood sugar(s) 2 times daily. Dx: Type 2 DM - Controlled E11.9 Insulin: No - Blood-Glucose Meter (ONETOUCH ULTRA2 METER) monitoring kit 1 Each as needed. 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 [facility] TUAN VAL[facility] ([id number]) 1955 M Date Time Provider Department 04/13/23 NAHUN JEFFREY During your visit today, we recorded the following information about you: Nivia Del Rosario RN 04/13/2023 5:18 PM Signed patients spouse is calling in stating that faxes should be coming from insurance co for patient to be able to get his rx for insulin via mail order pharmacy so it will be cheaper. please complete faxes and return to the insurnace/mail order pharmacy Flores Dumont RN 04/14/2023 11:19 AM Signed See refill encounter of 04/14. Insulin and supplies can be escripted to [facility] pharmacy. Allergies As of Date: 04/13/2023 Noted Allergy Reaction BEE STING 02/24/2013 10 - Anaphylaxis 18 - Angioedema PEANUTS 02/24/2013 11 - Vomiting TAMSULOSIN 07/17/2020 1 - Mental Status Change PENICILLINS 02/24/2013 14 - Other: See Comments Comments: headaches- childhood JARDIANCE (EMPAGLIFLOZIN) 11/13/2022 14 - Other: See Comments Comments: Dizziness and lightheadedness Date Reviewed: 04/01/2023 Reviewed by: Kamran Gordon Jr., MD - Fully Assessed Reason for Visit: Medication Update [9092] Cmt: insulin Prescriptions as of 04/14/2023 - insulin glargine (LANTUS SOLOSTAR U-100 INSULIN) 100 unit/mL (3 mL) Inject 10 Units subcutaneously daily at bedtime. - insulin lispro (HUMALOG KWIKPEN INSULIN) 100 unit/mL Inject 5 Units subcutaneously daily with breakfast AND 5 Units daily with lunch AND 10 Units daily with dinner. - insulin needles, DISPOSABLE, (PEN NEEDLE) 31 gauge x 5/16 Use one needle per dose. 1 per day. - blood sugar diagnostic (BLOOD GLUCOSE TEST) test strip Patient has one touch ultra glucometer. Test blood sugar(s) 2 times daily. Dx: Type 2 DM - Controlled E11.9 Insulin: No - amLODIPine (NORVASC) 10 mg tablet Take 1 tablet by mouth once daily. - Lancets (roomlinxTOUCH ULTRASOFT LANCETS) lancets Test blood sugar(s) 1-2 times daily. Dx: Type 2 DM - Uncontrolled E11.65 , Insulin: No - atorvastatin (LIPITOR) 20 mg tablet Take 1 tablet by mouth daily at bedtime. For cholesterol. - levothyroxine (SYNTHROID) 25 mcg tablet Take 1 tablet by mouth daily before breakfast. - metFORMIN ER (GLUCOPHAGE XR) 500 mg 24 hr tablet Take 2 tablets by mouth twice daily before meals. - sildenafil (VIAGRA) 100 mg tablet Take 1 tablet PO daily as needed for erectile dysfunction - alcohol swabs (ALCOHOL PADS) Test blood sugar(s) 2 times daily. Dx: Type 2 DM - Controlled E11.9 Insulin: No - Blood-Glucose Meter (ONETOUCH ULTRA2 METER) monitoring kit 1 Each as needed. 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] 07/29/2015 Essential hypertension [I10] 07/29/2015 10/21/2015 Type 2 diabetes mellitus without complication (*07/29/2015 07/17/2020 Acquired hypothyroidism [E03.9] 10/21/2015 Personal history of colonic polyps [Z86.010] 02/20/2016 Onychomycosis of multiple toenails with type 2 *02/08/2017 07/17/2020 Well adult exam [Z00.00] 06/07/2017 07/17/2020 Uncontrolled type 2 diabetes mellitus without c*03/16/2018 07/17/2020 Rhus dermatitis [L25.5] 03/16/2018 07/17/2020 Type 2 diabetes mellitus without complication, *09/16/2018 07/17/2020 Type 2 diabetes mellitus with hyperglycemia, wi*02/27/2019 PSA elevation [R97.20] 09/26/2019 12/04/2022 ED (erectile dysfunction) of organic origin [N5*10/18/2020 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] 05/07/2022 Preop testing [Z01.818] 11/13/2022 01/05/2023 Prostate cancer (HCC) [C61] 12/04/2022 Urinary incontinence [R32] 01/05/2023 Encounter Status:Closed by FLORES DUMONT on 04/14/23 [facility] Gabe 04-01-2023 CNOV Office Visit (AKURFL ) TUAN VALLEJO ([id number]) 1955 M Date Time Provider Department 04/01/23 2:45 PM GANGEL JR, KAMRAN GENE AKURFL During your visit today, we recorded the following information about you: Pulse Blood pressure Height 14/minute 130/80 1.702 m Kamran Gordon Jr., MD 04/02/2023 9:38 AM Signed ESTABLISHED PATIENT OFFICE VISIT HPI Tuan Vallejo is a 68 year old male who presents s/p RALP with bilateral PLND on 11/30/22 who presents for postoperative follow up visit. On 12/07/22, patient had his Allred catheter removed. 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 States that he is having issues with incontinence. Going through 3 pads everyday. Worse with physical activity. Denies any issues with erections. 04/01/23 - 3 months sp ralp. Doing great. + arabella but improving. Psa 0.02. no fever. No uti. LAB: Creatinine Date Value Ref Range Status 12/31/2022 0.91 0.73 - 1.22 mg/dL Final PSA (ng/mL) Date Value 03/29/2023 0.02 12/31/2022 0.14 08/03/2022 32.22 10/27/2021 12.95 07/13/2020 6.02 04/06/2020 6.23 09/26/2019 4.04 PSA Screening (ng/mL) Date Value 03/27/2019 4.05 Glucose, Urine (mg/dL) Date Value 03/27/2019 50 Bilirubin, Urine (no units) Date Value 03/27/2019 Negative Ketones, Urine (no units) Date Value 03/27/2019 Negative Specific [place], Ur (no units) Date Value 03/27/2019 1.014 Hemoglobin/Blood,Ur ( ) Date Value 03/27/2019 Negative pH, Urine (no units) Date Value 03/27/2019 6.0 Protein, Urine (mg/dL) Date Value 03/27/2019 Negative Nitrites (no units) Date Value 03/27/2019 Negative WBC, Urine (/HPF) Date Value 03/27/2019 0-5 MEDICATIONS: insulin lispro (HUMALOG KWIKPEN INSULIN) 100 unit/mL Inject 10 Units subcutaneously daily with dinner. insulin glargine (LANTUS SOLOSTAR U-100 INSULIN) 100 unit/mL (3 mL) Inject 10 Units subcutaneously daily at bedtime. amLODIPine (NORVASC) 10 mg tablet Take 1 tablet by mouth once daily. atorvastatin (LIPITOR) 20 mg tablet Take 1 tablet by mouth daily at bedtime. For cholesterol. levothyroxine (SYNTHROID) 25 mcg tablet Take 1 tablet by mouth daily before breakfast. metFORMIN ER (GLUCOPHAGE XR) 500 mg 24 hr tablet Take 2 tablets by mouth twice daily before meals. sildenafil (VIAGRA) 100 mg tablet Take 1 tablet PO daily as needed for erectile dysfunction insulin needles, DISPOSABLE, (PEN NEEDLE) 31 gauge x 5/16 Use one needle per dose. 1 per day. blood sugar diagnostic (BLOOD GLUCOSE TEST) test strip Patient has one touch ultra glucometer. Test blood sugar(s) 2 times daily. Dx: Type 2 DM - Controlled E11.9 Insulin: No Lancets (ONETOUCH ULTRASOFT LANCETS) lancets Test blood sugar(s) 1-2 times daily. Dx: Type 2 DM - Uncontrolled E11.65 , Insulin: No alcohol swabs (ALCOHOL PADS) Test blood sugar(s) 2 times daily. Dx: Type 2 DM - Controlled E11.9 Insulin: No Blood-Glucose Meter (ONETOUCH ULTRA2 METER) monitoring kit 1 Each as needed. One Touch Meter Kit Diagnosis: Type 2 DM - Uncontrolled E11.65 REVIEW OF SYSTEMS Review of Systems Constitutional: Negative. Respiratory: Negative. Cardiovascular: Negative. Gastrointestinal: Negative. Genitourinary: Negative. Skin: Negative. Neurological: Negative. Psychiatric/Behavioral: Negative. HISTORIES PAST MEDICAL HISTORY Diagnosis Date Acquired hypothyroidism 10/21/2015 Arthritis Back pain ED (erectile dysfunction) of organic origin 10/18/2020 Essential hypertension 09/05/2014 Familial combined hyperlipidemia 07/29/2015 Onychomycosis of multiple toenails with type 2 diabetes mellitus (HCC) 02/08/2017 Personal history of colonic polyps 02/20/2016 Prostate cancer ([facility]) PSA elevation 09/26/2019 Skin cancer unknown type 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d by mild nonproliferative retinopathy without macular edema, without long-term current use of insulin ([facility]) 02/27/2019 Exam 02/10/[address] Fuentes. Type 2 diabetes mellitus without complication ([facility]) 07/29/2015 FAMILY HISTORY Problem Relation Age of Onset Dementia Mother Kidney Disease Mother other (hypoglycemia) Mother Heart Father of [place] Diabetes Father Lung Cancer Father lung cancer Diabetes Sister Diabetes Sister Diabetes Brother type 1 diabetes Lung Cancer Brother No Known Problems Brother Diabetes Brother SOCIAL HISTORY Social History Tobacco Use Smoking status: Former Packs/day: 2.00 Years: 35.00 Total pack years: 70.00 Types: Cigarettes Quit date: 02/24/2002 Years since quittin.1 Smokeless tobacco: Never Tobacco comments: started 8 years old Vaping Use Vaping Use: Never used Substance Use Topics Alcohol use: Yes Alcohol/week: 17.5 standard drinks of alcohol Types: 7 Glasses of Wine (5oz) per week Comment: Pt drinks 1 glass of wine a d (more content not included)... Normal [facility] UA DIP, URINE (POC)on 2022 BILIRUBIN UA (POCT) Negative Negative [facility] CLARITY UA (POCT) Clear [facility] COLOR UA (POCT) Yellow [facility] GLUCOSE UA (POCT) Negative Negative mg/dL [facility] HEMOGLOBIN/BLOOD UA (POCT) Negative Negative [facility] KETONE UA (POCT) Negative Negative mg/dL [facility] LEUKOCYTES UA (POCT) Trace Abnormal Negative [facility] NITRITE UA (POCT) Negative Negative [facility] PH UA (POCT) 7.0 4.5 - 8.0 [facility] Protein Ql (U) Negative Negative mg/dL [facility] SPECIFIC GRAVITY UA (POCT) 1.020 1.005 - 1.030 [facility] UROBILINOGEN UA (POCT) 0.2 E.U./dL Normal E.U./dL [facility] PSA SerPl-ncon 03-29-2023 Prostate specific Ag [Mass/Vol] 0.02 ng/mL Normal <2.60 [facility] Comment on above: Order Comment: Speci men Type: BLOOD SPECIMEN Ordering Facility: [facility] Address: [address] [place], [place] [id number] Result Comment: Tota pablo PSA test methodology used is the Electrochemiluminescence Immunoassay by [employer]. Total PSA values by differing methodologies cannot be interchanged. Performed By: #### 2 [id number] #### [facility] CLIA [id number] [facility] [address] [place] CNOVon 03-20-2023 CNOV Office Visit (INTMWS ) TUAN VALLEJO ([id number]) 1955 M Date Time Provider Department 03/20/23 9:20 AM NAHUN JEFFREY INTMWS During your visit today, we recorded the following information about you: Pulse Respiration Blood pressure Weight 60/minute 16/minute 110/64 62.6 kg Nahun Jeffrey MD 03/20/2023 9:46 AM Signed This note was created using [employer]. Subjective Tuan Vallejo is a 68 year old male here with his . He wanted to increase the variety of his diet. His glucoses have been shooting up after his main meal which was dinner. Fasting glucoses have been good. We tried Trulicity, but he found the injection painful, and he lost his appetite. He started bedtime insulin and this was better tolerated. They were now interested in adding fast acting insulin. Review of Systems Constitutional: Positive for appetite change and unexpected weight change. Respiratory: Negative for shortness of breath. Cardiovascular: Negative for chest pain. Gastrointestinal: Negative for abdominal pain, diarrhea, nausea and vomiting. 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 insulin needles, DISPOSABLE, (PEN NEEDLE) 31 gauge x 5/16 Use one needle per dose. 1 per day. blood sugar diagnostic (BLOOD GLUCOSE TEST) test strip Patient has one touch ultra glucometer. Test blood sugar(s) 2 times daily. Dx: Type 2 DM - Controlled E11.9 Insulin: No amLODIPine (NORVASC) 10 mg tablet Take 1 tablet by mouth once daily. Lancets (ONETOUCH ULTRASOFT LANCETS) lancets Test blood sugar(s) 1-2 times daily. Dx: Type 2 DM - Uncontrolled E11.65 , Insulin: No atorvastatin (LIPITOR) 20 mg tablet Take 1 tablet by mouth daily at bedtime. For cholesterol. levothyroxine (SYNTHROID) 25 mcg tablet Take 1 tablet by mouth daily before breakfast. metFORMIN ER (GLUCOPHAGE XR) 500 mg 24 hr tablet Take 2 tablets by mouth twice daily before meals. glimepiride (AMARYL) 4 mg tablet Take 1 tablet by mouth every evening. With food. sildenafil (VIAGRA) 100 mg tablet Take 1 tablet PO daily as needed for erectile dysfunction alcohol swabs (ALCOHOL PADS) Test blood sugar(s) 2 times daily. Dx: Type 2 DM - Controlled E11.9 Insulin: No Blood-Glucose Meter (ONETOUCH ULTRA2 METER) monitoring kit 1 Each as needed. One Touch Meter Kit Diagnosis: Type 2 DM - Uncontrolled E11.65 oxybutynin ER (DITROPAN XL) 10 mg 24 hr tablet Take 1 tablet by mouth once daily. (Patient not taking: Reported on 03/20/2023) dulaglutide (TRULICITY) 0.75 mg/0.5 mL pen injector Inject 0.75 mg subcutaneously one time a week. Inject dose once per week. Discard Pen After (Patient not taking: Reported on 03/20/2023) No current facility-administered medications for this visit. Objective BP 110/64 (BP Site: Left Arm, BP Position: Sitting, BP Cuff Size: Large Adult) Pulse 60 Resp 16 Wt 62.6 kg (138 lb) BMI 21.61 kg/m? Physical Exam Constitutional: General: He is not in acute distress. Appearance: He is not ill-appearing. Pulmonary: Effort: Pulmonary effort is normal. Neurological: General: No focal deficit present. Mental Status: He is alert and oriented to person, place, and time. Gait: Gait normal. Glucose meter data or log was reviewed for the past month. Range: 99-434. Average: n/a. Patient was testing BID. Higher frequency of testing needed: yes. Reason: medication adjustment, uncontrolled DM, labile blood sugars. Assessment and Plan 1. Type 2 diabetes mellitus with hyperglycemia, without long-term current use of insulin ([facility]) - ICD9: 250.00, 790.29, ICD10: E11.65 Labile. Side effects from TRULICITY. - Stop glimepiride - Stop dulaglutide (Trulicity) - Start INSULIN LISPRO (U-100) 100 UNIT/ML SUBCUTANEOUS PEN. 10 units with supper. Call for hypoglycemia. - Continue METFORMIN ER and LANTUS at bedtime. Patient and spouse indicated understanding and willingness to follow recommendations. Nahun Jeffrey MD Allergies As of Date: 03/20/2023 Noted Allergy Reaction BEE STING 02/24/2013 10 - Anaphylaxis 18 - Angioedema PEANUTS 02/24/2013 11 - Vomiting TAMSULOSIN 07/17/2020 1 - Mental Status Change PENICILLINS 02/24/2013 14 - Other: See Comments Comments: headaches- childhood JARDIANCE (EMPAGLIFLOZIN) 11/13/2022 14 - Other: See Comments Comments: Dizziness and lightheadedness Date Reviewed: 03/20/2023 Re (more content not included)... [facility] TUAN VALLEJO ([id number]) 1955 Date Time Provider Department 03/15/23 NAHUN JEFFREY During your visit today, we recorded the following information about you: Yoana Wynn LPN 03/15/2023 8:25 AM Signed Pt's calling states pt never picked up trulicity because it does no Good . She states they are asking for a fast acting insulin.She also states when the Lantus solo star was just sent in it was sent in for ayaan 1 pen with no refills. Pt uses [facility] here in town. Christiana Miner RN 03/15/2023 10:28 AM Signed Patient's calls back, see telephone encounter for 03/12/2023 in regards to insulin requests. Christiana Miner RN Allergies As of Date: 03/15/2023 Noted Allergy Reaction BEE STING 02/24/2013 10 - Anaphylaxis 18 - Angioedema PEANUTS 02/24/2013 11 - Vomiting TAMSULOSIN 07/17/2020 1 - Mental Status Change PENICILLINS 02/24/2013 14 - Other: See Comments Comments: headaches- childhood JARDIANCE (EMPAGLIFLOZIN) 11/13/2022 14 - Other: See Comments Comments: Dizziness and lightheadedness Date Reviewed: 01/05/2023 Reviewed by: Joan Townsend LPN - Fully Assessed Reason for Visit: Refill Request [94] Prescriptions as of 03/15/2023 - insulin glargine (LANTUS SOLOSTAR U-100 INSULIN) 100 unit/mL (3 mL) Inject 10 Units subcutaneously daily at bedtime. - insulin needles, DISPOSABLE, (PEN NEEDLE) 31 gauge x 5/16 Use one needle per dose. 1 per day. - blood sugar diagnostic (BLOOD GLUCOSE TEST) test strip Patient has one touch ultra glucometer. Test blood sugar(s) 2 times daily. Dx: Type 2 DM - Controlled E11.9 Insulin: No - amLODIPine (NORVASC) 10 mg tablet Take 1 tablet by mouth once daily. - Lancets (ONETOUCH ULTRASOFT LANCETS) lancets Test blood sugar(s) 1-2 times daily. Dx: Type 2 DM - Uncontrolled E11.65 , Insulin: No - oxybutynin ER (DITROPAN XL) 10 mg 24 hr tablet Take 1 tablet by mouth once daily. - atorvastatin (LIPITOR) 20 mg tablet Take 1 tablet by mouth daily at bedtime. For cholesterol. - dulaglutide (TRULICITY) 0.75 mg/0.5 mL pen injector Inject 0.75 mg subcutaneously one time a week. Inject dose once per week. Discard Pen After - levothyroxine (SYNTHROID) 25 mcg tablet Take 1 tablet by mouth daily before breakfast. - metFORMIN ER (GLUCOPHAGE XR) 500 mg 24 hr tablet Take 2 tablets by mouth twice daily before meals. - glimepiride (AMARYL) 4 mg tablet Take 1 tablet by mouth every evening. With food. - sildenafil (VIAGRA) 100 mg tablet Take 1 tablet PO daily as needed for erectile dysfunction - alcohol swabs (ALCOHOL PADS) Test blood sugar(s) 2 times daily. Dx: Type 2 DM - Controlled E11.9 Insulin: No - Blood-Glucose Meter (ONETOUCH ULTRA2 METER) monitoring kit 1 Each as needed. One Touch Meter Kit Diagnosis: Type 2 DM - Uncontrolled E11.65 Problem List As Of Date 03/15/2023 Noted Resolved Diabetes (HCC) [E11.9] 09/05/2014 10/21/2015 Essential hypertension [I10] 09/05/2014 Atypical chest pain [R07.89] 09/05/2014 10/21/2015 Family history of ischemic heart disease [Z82.4*09/05/2014 Familial combined hyperlipidemia [E78.49] 07/29/2015 Essential hypertension [I10] 07/29/2015 10/21/2015 Type 2 diabetes mellitus without complication (*07/29/2015 07/17/2020 Acquired hypothyroidism [E03.9] 10/21/2015 Personal history of colonic polyps [Z86.010] 02/20/2016 Onychomycosis of multiple toenails with type 2 *02/08/2017 07/17/2020 Well adult exam [Z00.00] 06/07/2017 07/17/2020 Uncontrolled type 2 diabetes mellitus without c*03/16/2018 07/17/2020 Rhus dermatitis [L25.5] 03/16/2018 07/17/2020 Type 2 diabetes mellitus without complication, *09/16/2018 07/17/2020 Type 2 diabetes mellitus with hyperglycemia, wi*02/27/2019 PSA elevation [R97.20] 09/26/2019 12/04/2022 ED (erectile dysfunction) of organic origin [N5*10/18/2020 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] 05/07/2022 Preop testing [Z01.818] 11/13/2022 01/05/2023 Prostate cancer (HCC) [C61] 12/04/2022 Urinary incontinence [R32] 01/05/2023 Encounter Status:Closed by CHRISTIANA MINER on 03/15/23 [facility] Marcial 03-12-2023 [facility] Telephone (INTMWS) TUAN VALLEJO ([id number]) 1955 M Date Time Provider Department 03/12/23 NAHUN JEFFREY INTMWS During your visit today, we recorded the following information about you: Christiana Miner RN 03/12/2023 11:42 AM Signed Patient's calls and is concerned because patient's fasting blood sugars have been elevated. Patient was started on Trulicity on 01/05/2023. reports that patient has been eating salads and grilled chicken. Patient's fasting blood sugars have been 300s. Patient's family has a history of Diabetes. is concerned that Trulicity is not working for patient. Patient's brothers are diabetic and they had told patient and that patient should be on a long acting insulin such as Lantus to better control patient's blood sugars. asking if provider can send in order for insulin to [facility]. Please review and advise, ISSA Evangelista MD 03/12/2023 5:45 PM Signed Patient's request for medication is as follows Requested Prescriptions Signed Prescriptions Disp Refills insulin glargine (LANTUS SOLOSTAR U-100 INSULIN) 100 unit/mL (3 mL) 15 mL 0 Sig: Inject 10 Units subcutaneously daily at bedtime. Authorizing Provider: NAHUN JEFFREY insulin needles, DISPOSABLE, (PEN NEEDLE) 31 gauge x 5/16 50 Each 2 Sig: Use one needle per dose. 1 per day. Authorizing Provider: NAHUN JEFFREY Follow up with me or Leigh in 1-2 weeks.. MD Calvin Terrell Ma 03/15/2023 9:26 AM Signed Left message to call office. 03/15/2023 9:26 AM Christiana Miner RN 03/15/2023 10:27 AM Signed Patient's calls back and is notified that prescription was sent in to pharmacy as well as that patient needs to set up appointment to see provider in regards to discussing blood sugar issues. Appointment set up for 03/20/2023. is still concerned about patient's insulins. states that patient needs to either have Humalog or Novolog short acting insulins to help patient better control sugars. asking if provider can send in a prescription for this? Advised that this would be discussed during appointment. asking if this can be sent in prior to appointment? Please review and advise, ISSA Evangelista MD 03/15/2023 6:30 PM Signed No other medication changes till reevaluation. Bring glucose meter for appointment. Joan Townsend LPN 03/15/2023 6:38 PM Signed notified of below recommendation, verbalized understanding. Joan Townsend LPN Allergies As of Date: 03/12/2023 Noted Allergy Reaction BEE STING 02/24/2013 10 - Anaphylaxis 18 - Angioedema PEANUTS 02/24/2013 11 - Vomiting TAMSULOSIN 07/17/2020 1 - Mental Status Change PENICILLINS 02/24/2013 14 - Other: See Comments Comments: headaches- childhood JARDIANCE (EMPAGLIFLOZIN) 11/13/2022 14 - Other: See Comments Comments: Dizziness and lightheadedness Date Reviewed: 01/05/2023 Reviewed by: Joan Townsend LPN - Fully Assessed Reason for Visit: Patient Update [1234] Primary Visit Diagnosis:Type 2 diabetes mellitus with hyperglycemia, without long-term current use of insulin (HCC) [E11.65] Order(s):insulin glargine (LANTUS SOLOSTAR U-100 INSULIN) 100 unit/mL (3 mL)Inject 10 Units subcutaneously daily at bedtime.Disp: 15 mLRfl: 0 insulin needles, DISPOSABLE, (PEN NEEDLE) 31 gauge x 5/16Use one needle per dose. 1 per day.Disp: 50 EachRfl: 2 Prescriptions as of 03/15/2023 - insulin glargine (LANTUS SOLOSTAR U-100 INSULIN) 100 unit/mL (3 mL) Inject 10 Units subcutaneously daily at bedtime. - insulin needles, DISPOSABLE, (PEN NEEDLE) 31 gauge x 5/16 Use one needle per dose. 1 per day. - blood sugar diagnostic (BLOOD GLUCOSE TEST) test strip Patient has one touch ultra glucometer. Test blood sugar(s) 2 times daily. Dx: Type 2 DM - Controlled E11.9 Insulin: No - amLODIPine (NORVASC) 10 mg tablet Take 1 tablet by mouth once daily. - Lancets (ONETOUCH ULTRASOFT LANCETS) lancets Test blood sugar(s) 1-2 times daily. Dx: Type 2 DM - Uncontrolled E11.65 , Insulin: No - oxybutynin ER (DITROPAN XL) 10 mg 24 hr tablet Take 1 tablet by mouth once daily. - atorvastatin (LIPITOR) 20 mg tablet Take 1 tablet by mouth daily at bedtime. For cholesterol. - dulaglutide (TRULICITY) 0.75 mg/0.5 mL pen injector Inject 0.75 mg subcutaneously one time a week. Inject dose once per week. Discard Pen After - levothyroxine (SYNTHROID) 25 mcg tablet Take 1 tablet by mouth daily before breakfast. - metFORMIN ER (GLUCOPHAGE XR) 500 mg 24 hr tablet Take 2 tablets by mouth twice daily before meals. - glimepiride (AMARYL) 4 mg tablet Take 1 tablet by mouth every evening. With food. - sildenafil (VIAGRA) 100 mg tablet Take 1 tablet PO daily as needed for erectile dysfunction - alcohol swabs (ALCOHOL PADS) Test blood sugar(s) 2 times daily. (more content not included)... Normal [facility] CNOVon 01-05-2023 CNOV Office Visit (INTMWS ) TUAN VALLEJO Biju ([id number]) 1955 M Date Time Provider Department 01/05/23 8:40 AM NAHUN JEFFREY INTMWS During your visit today, we recorded the following information about you: Pulse Respiration Blood pressure Weight 76/minute 16/minute 126/70 64 kg Nahun Jeffrey MD 01/05/2023 9:34 AM Signed This note was created using [employer]. Subjective Tuan Vallejo is a 67 year old male. His glucose had been elevated since he was diagnosed with cancer. He tried Jardiance but had orthostatic dizziness that was intolerable. He was now on medication for urinary incontinence following prostate cancer surgery. Review of Systems Constitutional: Negative for chills and fever. Respiratory: Negative for shortness of breath. Cardiovascular: Negative for chest pain, palpitations and leg swelling. Gastrointestinal: Negative for abdominal pain, nausea and vomiting. Genitourinary: Negative for difficulty urinating. Psychiatric/Behavioral: Negative for dysphoric mood. 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 pravastatin (PRAVACHOL) 40 mg tablet Take 1 tablet by mouth once daily. levothyroxine (SYNTHROID) 25 mcg tablet Take 1 tablet by mouth daily before breakfast. blood sugar diagnostic (BLOOD GLUCOSE TEST) test strip Patient has one touch ultra glucometer. Test blood sugar(s) 2 times daily. Dx: Type 2 DM - Controlled E11.9 Insulin: No metFORMIN ER (GLUCOPHAGE XR) 500 mg 24 hr tablet Take 2 tablets by mouth twice daily before meals. glimepiride (AMARYL) 4 mg tablet Take 1 tablet by mouth every evening. With food. sildenafil (VIAGRA) 100 mg tablet Take 1 tablet PO daily as needed for erectile dysfunction alcohol swabs (ALCOHOL PADS) Test blood sugar(s) 2 times daily. Dx: Type 2 DM - Controlled E11.9 Insulin: No amLODIPine (NORVASC) 10 mg tablet Take 1 tablet by mouth once daily. Blood-Glucose Meter (ONETOUCH ULTRA2 METER) monitoring kit 1 Each as needed. One Touch Meter Kit Diagnosis: Type 2 DM - Uncontrolled E11.65 Lancets (ONETOUCH ULTRASOFT LANCETS) lancets Test blood sugar(s) 1-2 times daily. Dx: Type 2 DM - Uncontrolled E11.65 , Insulin: No empagliflozin (JARDIANCE) 10 mg tablet Take 1 tablet by mouth once daily. Take 1 tablet once daily in the morning (Patient not taking: No sig reported) No current facility-administered medications for this visit. Objective BP 126/70 (BP Site: Right Arm, BP Position: Sitting, BP Cuff Size: Large Adult) Pulse 76 Resp 16 Wt 64 kg (141 lb) BMI 22.08 kg/m? Physical Exam Constitutional: Appearance: He is not ill-appearing. Pulmonary: Effort: Pulmonary effort is normal. Musculoskeletal: Right lower leg: No edema. Left lower leg: No edema. Neurological: Mental Status: He is alert. Depression Screening 01/14/2021 05/07/2022 08/06/2022 01/05/2023 PHQ-2 Score 0 0 0 0 Depression screening tool completed and reviewed. Based on score and interview, patient is not at risk for depression. Screening tool discussed with patient, and I recommended no further intervention at this time. Component Latest Ref Rng AND Units 12/31/2022 Glucose 74 - 99 mg/dL 192 (H) BUN 9 - 24 mg/dL 22 Creatinine 0.73 - 1.22 mg/dL 0.91 Sodium 136 - 144 mmol/L 136 Potassium 3.7 - 5.1 mmol/L 4.7 Chloride 97 - 105 mmol/L 101 CO2 22 - 30 mmol/L 24 Anion Gap 9 - 18 mmol/L 11 Calcium 8.5 - 10.2 mg/dL 9.7 eGFR >=60 mL/min/1.73mA? 93 Cholesterol, Total <200 mg/dL 234 (H) Triglyceride <150 mg/dL 109 HDL Cholesterol >39 mg/dL 56 Non HDL Cholesterol <130 mg/dL 178 (H) Fasting Time hrs 13 VLDL Cholesterol <30 mg/dL 22 TC:HDL Ratio <5.10 4.18 LDL Cholesterol <100 mg/dL 156 (H) LDL:HDL Ratio <2.54 2.79 (H) Creatinine, Ur Random (UCRR) 20.0 - 300.0 mg/dL 123.1 Albumin, Urine Random mg/L 118.7 Albumin/Creat Ratio <30 mg/g 96 (H) TSH 0.270 - 4.200 mIU/L 2.160 PSA <2.60 ng/mL 0.14 Hemoglobin A1C (%) Date Value 10/27/2021 6.4 Hemoglobin A1C (POCT) (%) Date Value 01/05/2023 6.2 Assessment and Plan 1. Familial combined hyperlipidemia - ICD9: 272.2, ICD10: E78.49 (primary diagnosis) - DC Pravastatin. - ATORVASTATIN 20 MG TABLET - LIPID PANEL BASIC 2. Essential hypertension - ICD9: 401.9, ICD10: I10 - good control - AMLODIPINE 10 MG TABLET 3. Type 2 diabetes mellitus with hyperglycemia, without long-term current use of insulin ( (more content not included)... Normal [facility] HEMOGLOBIN A1C (POC)on 01-05 HbA1c (Bld) [Mass fraction] 6.2 % 4.2 - 5.6 % [facility] ALBUMIN/CREAT RATIO RND URon 12-31-2022 Albumin DL <= 20 mg/L (U) [Mass/Vol] 118.7 mg/L Normal [facility] Comment on above: Order Comment: Specemma pulido Type: BLOOD SPECIMEN Ordering Facility: [facility] Address: [address] [place] [address] Performed By: #### 2 857-1 #### [facility] CLIA [id number] [address] [place] [address] [place] Albumin/Creatinine (U) [Mass ratio] 96 mg/g High <30 [facility] Comment on above: Order Comment: Kasia pulido Type: BLOOD SPECIMEN Ordering Facility: [facility] Address: [address] [place] [address] Result Comment: Adul t Male and Female Nephrotic Criteria: <30 mg/g is considered normal to mildly increased 30-300 mg/g is considered moderately increased >300 mg/g is considered severely increased KDIGO. (2013). KDIGO 2012 Clinical Practice Guideline for the Evaluation and Management of Chronic Kidney Disease. Official Journal of the International Society of Nephrology, 3(1), 1-150. Performed By: #### 2 857-1 #### [facility] CLIA [id number] [address] [place] [address] [place] Creatinine (U) [Mass/Vol] 123.1 mg/dL Normal 20.0-300.0 [facility] Comment on above: Order Comment: Kasia pulido Type: BLOOD SPECIMEN Ordering Facility: [facility] Address: [address] [place] [address] Performed By: #### 2 857-1 #### [facility] CLIA [id number] [address] [id number] [place] Basic metabolic 2000 panelon 12-31-2022 Anion gap [Moles/Vol] 11 mmol/L Normal 9-18 [facility] Comment on above: Order Comment: Speci men Type: BLOOD SPECIMEN Ordering Facility: [facility] Address: [address] Performed By: #### 2 857-1 #### [facility] CLIA [id number] [address] [place] [address] [place] Calcium [Mass/Vol] 9.7 mg/dL Normal 8.5-10.2 [facility] Comment on above: Order Comment: Speci men Type: BLOOD SPECIMEN Ordering Facility: [facility] Address: [address] [place], [place] [address] Performed By: #### 2 857-1 #### [facility] CLIA [id number] [address] [place] [address] [place] Chloride [Moles/Vol] 101 mmol/L Normal 97-105 [facility] Comment on above: Order Comment: Speci men Type: BLOOD SPECIMEN Ordering Facility: [facility] Address: [address] [place], [place] [address] Performed By: #### 2 857-1 #### [facility] CLIA [id number] [address] [place] [address] [place] CO2 [Moles/Vol] 24 mmol/L Normal 22-30 [facility] Comment on above: Order Comment: Speci men Type: BLOOD SPECIMEN Ordering Facility: [facility] Address: [address] [place], [place] [address] Performed By: #### 2 857-1 #### [facility] CLIA [id number] [address] [id number] [place] Creatinine [Mass/Vol] 0.91 mg/dL Normal 0.73-1.22 [facility] Comment on above: Order Comment: Kasia pulido Type: BLOOD SPECIMEN Ordering Facility: [facility] Address: [address] [id number] Performed By: #### 2 857-1 #### [facility] CLIA [id number] [address] [place] [address] [place] ESTIMATED GLOMERULAR FILTRATION RATE 93 mL/min/1.73m??? Normal >=60 [facility] Comment on above: Order Comment: Kasia pulido Type: BLOOD SPECIMEN Ordering Facility: [facility] Address: [address] [id number] Result Comment: Katerina mated Glomerular Filtration Rate (eGFR) is calculated using the 2020 CKD-EPI creatinine equation. This equation utilizes serum creatinine, sex, and age as parameters. The creatinine assay has traceable calibration to isotope dilution-mass spectrometry. Refer to KDIGO guidelines for clinical interpretation. In patients with unstable renal function, e.g. those with acute kidney injury, the eGFR may not accurately reflect actual GFR. Performed By: #### 2 857-1 #### [facility] CLIA [id number] [address] [place] [address] [place] Glucose [Mass/Vol] 192 mg/dL High 74-99 [facility] Comment on above: Order Comment: Kasia pulido Type: BLOOD SPECIMEN Ordering Facility: [facility] Address: [address] [id number] Result Comment: The [place] Diabetes Association (ADA) provides guidance for cutoff values for fasting glucose and random glucose. The ADA defines fasting as no caloric intake for at least 8 hours. Fasting plasma glucose results between 100 to 125 mg/dL indicate increased risk for diabetes (prediabetes). Fasting plasma glucose results greater than or equal to 126 mg/dL meet the criteria for diagnosis of diabetes. In the absence of unequivocal hyperglycemia, results should be confirmed by repeat testing. In a patient with classic symptoms of hyperglycemia or hyperglycemic crisis, random plasma glucose results greater than or equal to 200 mg/dL meet the criteria for diagnosis of diabetes. Reference: Standards of Medical Care in Diabetes 2016, [place] Diabetes Association. Diabetes Care. 2016.39(Suppl 1). Performed By: #### 2 857-1 #### [facility] CLIA [id number] [facility] [place] [address] [place] Potassium [Moles/Vol] 4.7 mmol/L Normal 3.7-5.1 [facility] Comment on above: Order Comment: Speci men Type: BLOOD SPECIMEN Ordering Facility: [facility] Address: [address] [address] Performed By: #### 2 857-1 #### [facility] CLIA [id number] [address] [place] [address] [place] Sodium [Moles/Vol] 136 mmol/L Normal 136-144 [facility] Comment on above: Order Comment: Speci men Type: BLOOD SPECIMEN Ordering Facility: [facility] Address: [address] [place] [address] Performed By: #### 2 857-1 #### [facility] CLIA [id number] [address] [place] [address] [place] Urea nitrogen [Mass/Vol] 22 mg/dL Normal 9-24 [facility] Comment on above: Order Comment: Speci men Type: BLOOD SPECIMEN Ordering Facility: [facility] Address: [address] [place] [address] Performed By: #### 2 857-1 #### [facility] CLIA [id number] [address] [place] [address] [place] Lipid 1996 panelon 3 Cholesterol [Mass/Vol] 234 mg/dL High <200 [facility] Comment on above: Order Comment: Speci men Type: BLOOD SPECIMEN Ordering Facility: [facility] Address: [address] [address] Result Comment: <200 mg/dL, Desirable 200-239 mg/dL, Borderline high >239 mg/dL, High Performed By: #### 2 857-1 #### [facility] CLIA [id number] [address] Cholesterol in HDL [Mass/Vol] 56 mg/dL Normal >39 [facility] Comment on above: Order Comment: Kasia pulido Type: BLOOD SPECIMEN Ordering Facility: [facility] Address: [address] [address] Result Comment: 40-5 9 mg/dL, Acceptable >59 mg/dL, High: Negative risk factor for coronary heart disease <40 mg/dL, Low: Positive risk factor for coronary heart disease Performed By: #### 2 857-1 #### [facility] CLIA [id number] [address] Cholesterol in LDL [Mass/Vol] 156 mg/dL High <100 [facility] Comment on above: Order Comment: Kasia pulido Type: BLOOD SPECIMEN Ordering Facility: [facility] Address: [address] [address] Result Comment: <100 mg/dL, Optimal 100-129 mg/dL, Near optimal/above optimal 130-159 mg/dL, Borderline high 160-189 mg/dL, High >189 mg/dL, Very high Secondary prevention optimal LDL Cholesterol levels are recommended to be < 70 mg/dL Performed By: #### 2 857-1 #### [facility] CLIA [id number] [address] Cholesterol in LDL/Cholesterol in HDL [Mass ratio] 2.79 {ratio} High <2.54 [facility] Comment on above: Order Comment: Kasia tess Type: BLOOD SPECIMEN Ordering Facility: [facility] Address: [address] [address] Result Comment: Refangel hughes: 1. National Cholesterol Education Program ATP III Guideline At-A-Glance Quick Desk Reference: National Heart, Lung, and Blood Waldo. National Institutes of Health. 2001: NIH Publication No. 01-3305. 2. An International Atherosclerosis Society position paper: global recommendations for the management of dyslipidemia: executive summary, Atherosclerosis. 2014: 232(2):410-413. Performed By: #### 2 857-1 #### [facility] CLIA [id number] [address] [place] [address] [place] Cholesterol in VLDL [Mass/Vol] 22 mg/dL Normal <30 [facility] Comment on above: Order Comment: Speci men Type: BLOOD SPECIMEN Ordering Facility: [facility] Address: [address] [place] [address] Performed By: #### 2 857-1 #### [facility] CLIA [id number] [address] [place] [address] [place] Cholesterol non HDL [Mass/Vol] 178 mg/dL High <130 [facility] Comment on above: Order Comment: Speci men Type: BLOOD SPECIMEN Ordering Facility: [facility] Address: [address] [place] [address] Result Comment: <130 mg/dL, Optimal 130-159 mg/dL, Near optimal/above optimal 160-189 mg/dL, Borderline high 190-219 mg/dL, High >219 mg/dL, Very high Secondary prevention optimal non HDL Cholesterol levels are recommended to be <100 mg/dL Performed By: #### 2 857-1 #### [facility] CLIA [id number] [address] [place] [address] [place] Cholesterol.total/Cho lesterol in HDL [Mass ratio] 4.18 {ratio} Normal <5.10 [facility] Comment on above: Order Comment: Speci men Type: BLOOD SPECIMEN Ordering Facility: [facility] Address: [address] [address] Performed By: #### 2 857-1 #### [facility] CLIA [id number] [address] [place] [address] [place] FASTING TIME 13 hrs Normal [facility] Comment on above: Order Comment: Speci men Type: BLOOD SPECIMEN Ordering Facility: [facility] Address: [address] [place] [address] Performed By: #### 2 857-1 #### [facility] CLIA [id number] [address] [place] [address] [place] Triglyceride [Mass/Vol] 109 mg/dL Normal <150 [facility] Comment on above: Order Comment: Speci men Type: BLOOD SPECIMEN Ordering Facility: [facility] Address: [address] [place], [place] [address] Result Comment: <150 mg/dL, Normal 150-199 mg/dL, Borderline high 200-499 mg/dL, High >499 mg/dL, Very high Performed By: #### 2 857-1 #### [facility] CLIA [id number] [address] [place] [address] [place] PSA SerPl-mCncon 12-31-2022 Prostate specific Ag [Mass/Vol] 0.14 ng/mL Normal <2.60 [facility] Comment on above: Order Comment: Speci men Type: BLOOD SPECIMEN Ordering Facility: [facility] Address: [address] [place] [address] Result Comment: Tota l PSA test methodology used is the Electrochemiluminescence Immunoassay by [employer]. Total PSA values by differing methodologies cannot be interchanged. Performed By: #### 2 857-1 #### [facility] CLIA [id number] [address] [place] [address] [place] TSH SerPl-aCncon 12-31-2022 TSH Qn 2.160 m[IU]/L Normal 0.270-4.200 [facility] Comment on above: Order Comment: Speci men Type: BLOOD SPECIMENOrdering Facility: [facility] Address: [address] [place], [place] [address] Performed By: #### 3 016-3, 66289-3, 44197-0 ####[facility] [id number] [place] [address] [place] CNPNon 12-17-2022 CNPN Telephone (AKURFL) TUAN VALLEJO ([id number]) 1955 M Date Time Provider Department 12/17/22 HEIDI STOVALL, KAMRAN CABELLO During your visit today, we recorded the following information about you: Kamran Gordon Jr, MD 12/17/2022 11:32 PM Signed sent Allergies As of Date: 12/17/2022 Noted Allergy Reaction BEE STING 02/24/2013 10 - Anaphylaxis 18 - Angioedema PEANUTS 02/24/2013 11 - Vomiting TAMSULOSIN 07/17/2020 1 - Mental Status Change PENICILLINS 02/24/2013 14 - Other: See Comments Comments: headaches- childhood JARDIANCE (EMPAGLIFLOZIN) 11/13/2022 14 - Other: See Comments Comments: Dizziness and lightheadedness Date Reviewed: 12/09/2022 Reviewed by: Karman Gordon Jr., MD - Fully Assessed Reason for Visit: Orders [681] Order(s):oxybutynin ER (DITROPAN XL) 10 mg 24 hr tabletTake 1 tablet by mouth once daily for 14 days.Disp: 30 tabletRfl: 3 Prescriptions as of 12/17/2022 - oxybutynin ER (DITROPAN XL) 10 mg 24 hr tablet Take 1 tablet by mouth once daily for 14 days. - docusate sodium (COLACE) 100 mg capsule Take 1 capsule by mouth twice daily. - pravastatin (PRAVACHOL) 40 mg tablet Take 1 tablet by mouth once daily. - levothyroxine (SYNTHROID) 25 mcg tablet Take 1 tablet by mouth daily before breakfast. - blood sugar diagnostic (BLOOD GLUCOSE TEST) test strip Patient has one touch ultra glucometer. Test blood sugar(s) 2 times daily. Dx: Type 2 DM - Controlled E11.9 Insulin: No - metFORMIN ER (GLUCOPHAGE XR) 500 mg 24 hr tablet Take 2 tablets by mouth twice daily before meals. - glimepiride (AMARYL) 4 mg tablet Take 1 tablet by mouth every evening. With food. - empagliflozin (JARDIANCE) 10 mg tablet Take 1 tablet by mouth once daily. Take 1 tablet once daily in the morning - sildenafil (VIAGRA) 100 mg tablet Take 1 tablet PO daily as needed for erectile dysfunction - alcohol swabs (ALCOHOL PADS) Test blood sugar(s) 2 times daily. Dx: Type 2 DM - Controlled E11.9 Insulin: No - amLODIPine (NORVASC) 10 mg tablet Take 1 tablet by mouth once daily. - Blood-Glucose Meter (ONETOUCH ULTRA2 METER) monitoring kit 1 Each as needed. One Touch Meter Kit Diagnosis: Type 2 DM - Uncontrolled E11.65 - Lancets (ONETOUCH ULTRASOFT LANCETS) lancets Test blood sugar(s) 1-2 times daily. 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] 07/29/2015 Essential hypertension [I10] 07/29/2015 10/21/2015 Type 2 diabetes mellitus without complication (*07/29/2015 07/17/2020 Acquired hypothyroidism [E03.9] 10/21/2015 Personal history of colonic polyps [Z86.010] 02/20/2016 Onychomycosis of multiple toenails with type 2 *02/08/2017 07/17/2020 Well adult exam [Z00.00] 06/07/2017 07/17/2020 Uncontrolled type 2 diabetes mellitus without c*03/16/2018 07/17/2020 Rhus dermatitis [L25.5] 03/16/2018 07/17/2020 Type 2 diabetes mellitus without complication, *09/16/2018 07/17/2020 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*02/27/2019 PSA elevation [R97.20] 09/26/2019 12/04/2022 ED (erectile dysfunction) of organic origin [N5*10/18/2020 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] 05/07/2022 Preop testing [Z01.818] 11/13/2022 Prostate cancer (HCC) [C61] 12/04/2022 Prescriptions ordered this encounter Disp Refills Start End OXYBUTYNIN CHLORIDE ER 10 MG TABLET,* 30 t* 3 12/17/2022 12/31/2022 Route: ORAL Sig: Take 1 tablet by mouth once daily for 14 days. Medications Discontinued During This Encounter Prescriptions - oxybutynin ER (DITROPAN XL) 10 mg 24 hr tablet (Discontinued) Take 1 tablet by mouth once daily for 14 days. Encounter Status:Closed by KAMRAN GORDON on 12/17/22 [facility] 12-16-2022 RICARD[facility] Telephone (UROLAG) TUAN VALLEJO ([id number]) 1955 M Date Time Provider Department 12/16/22 KAMRAN GORDON JR During your visit today, we recorded the following information about you: Archana Addison MA 12/16/2022 11:14 AM Signed Pt called stating that he would like a refill of Oxybutynin 10mg/request has beenP sent to Dr Heidi Addison MA Allergies As of Date: 12/16/2022 Noted Allergy Reaction BEE STING 02/24/2013 10 - Anaphylaxis 18 - Angioedema PEANUTS 02/24/2013 11 - Vomiting TAMSULOSIN 07/17/2020 1 - Mental Status Change PENICILLINS 02/24/2013 14 - Other: See Comments Comments: headaches- childhood JARDIANCE (EMPAGLIFLOZIN) 11/13/2022 14 - Other: See Comments Comments: Dizziness and lightheadedness Date Reviewed: 12/09/2022 Reviewed by: Kamran Gordon Jr., MD - Fully Assessed Reason for Visit: Patient Question [8773] Cmt: Pt called stating that he would like a refill of Oxybutynin 10mg/request has beenP sent to Dr Gordon Prescriptions as of 12/16/2022 - oxybutynin ER (DITROPAN XL) 10 mg 24 hr tablet Take 1 tablet by mouth once daily for 14 days. - docusate sodium (COLACE) 100 mg capsule Take 1 capsule by mouth twice daily. - pravastatin (PRAVACHOL) 40 mg tablet Take 1 tablet by mouth once daily. - levothyroxine (SYNTHROID) 25 mcg tablet Take 1 tablet by mouth daily before breakfast. - blood sugar diagnostic (BLOOD GLUCOSE TEST) test strip Patient has one touch ultra glucometer. Test blood sugar(s) 2 times daily. Dx: Type 2 DM - Controlled E11.9 Insulin: No - metFORMIN ER (GLUCOPHAGE XR) 500 mg 24 hr tablet Take 2 tablets by mouth twice daily before meals. - glimepiride (AMARYL) 4 mg tablet Take 1 tablet by mouth every evening. With food. - empagliflozin (JARDIANCE) 10 mg tablet Take 1 tablet by mouth once daily. Take 1 tablet once daily in the morning - sildenafil (VIAGRA) 100 mg tablet Take 1 tablet PO daily as needed for erectile dysfunction - alcohol swabs (ALCOHOL PADS) Test blood sugar(s) 2 times daily. Dx: Type 2 DM - Controlled E11.9 Insulin: No - amLODIPine (NORVASC) 10 mg tablet Take 1 tablet by mouth once daily. - Blood-Glucose Meter (ONETOUCH ULTRA2 METER) monitoring kit 1 Each as needed. One Touch Meter Kit Diagnosis: Type 2 DM - Uncontrolled E11.65 - Lancets (ONETOUCH ULTRASOFT LANCETS) lancets Test blood sugar(s) 1-2 times daily. 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] 07/29/2015 Essential hypertension [I10] 07/29/2015 10/21/2015 Type 2 diabetes mellitus without complication (*07/29/2015 07/17/2020 Acquired hypothyroidism [E03.9] 10/21/2015 Personal history of colonic polyps [Z86.010] 02/20/2016 Onychomycosis of multiple toenails with type 2 *02/08/2017 07/17/2020 Well adult exam [Z00.00] 06/07/2017 07/17/2020 Uncontrolled type 2 diabetes mellitus without c*03/16/2018 07/17/2020 Rhus dermatitis [L25.5] 03/16/2018 07/17/2020 Type 2 diabetes mellitus without complication, *09/16/2018 07/17/2020 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*02/27/2019 PSA elevation [R97.20] 09/26/2019 12/04/2022 ED (erectile dysfunction) of organic origin [N5*10/18/2020 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] 05/07/2022 Preop testing [Z01.818] 11/13/2022 Prostate cancer (HCC) [C61] 12/04/2022 Encounter Status:Closed by ARCHANA ADDISON on 12/16/22 [facility] CNOVon 12-09-2022 CNOV Office Visit (AKURFL ) TUAN VALLEJO ([id number]) 1955 M Date Time Provider Department 12/09/22 12:30 PM KAMRAN GORDON JR AKURFL During your visit today, we recorded the following information about you: Blood pressure Weight Height 132/84 65.8 kg 1.702 m Kamran Gordon Jr, MD 12/09/2022 1:04 PM Signed ESTABLISHED PATIENT OFFICE VISIT HPI Tuan Ivy Genevieve is a 67 year old male s/p RALP with bilateral PLND on 11/30/22 who presents for postoperative follow up visit. On 12/07/22, patient had his Allred catheter removed. 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 States that he is having issues with incontinence. Going through 3 pads everyday. Worse with physical activity. Denies any issues with erections. MEDICATIONS: oxybutynin ER (DITROPAN XL) 10 mg 24 hr tablet Take 1 tablet by mouth once daily for 14 days. docusate sodium (COLACE) 100 mg capsule Take 1 capsule by mouth twice daily. pravastatin (PRAVACHOL) 40 mg tablet Take 1 tablet by mouth once daily. levothyroxine (SYNTHROID) 25 mcg tablet Take 1 tablet by mouth daily before breakfast. blood sugar diagnostic (BLOOD GLUCOSE TEST) test strip Patient has one touch ultra glucometer. Test blood sugar(s) 2 times daily. Dx: Type 2 DM - Controlled E11.9 Insulin: No metFORMIN ER (GLUCOPHAGE XR) 500 mg 24 hr tablet Take 2 tablets by mouth twice daily before meals. glimepiride (AMARYL) 4 mg tablet Take 1 tablet by mouth every evening. With food. sildenafil (VIAGRA) 100 mg tablet Take 1 tablet PO daily as needed for erectile dysfunction alcohol swabs (ALCOHOL PADS) Test blood sugar(s) 2 times daily. Dx: Type 2 DM - Controlled E11.9 Insulin: No amLODIPine (NORVASC) 10 mg tablet Take 1 tablet by mouth once daily. Blood-Glucose Meter (ONETOUCH ULTRA2 METER) monitoring kit 1 Each as needed. One Touch Meter Kit Diagnosis: Type 2 DM - Uncontrolled E11.65 Lancets (ONETOUCH ULTRASOFT LANCETS) lancets Test blood sugar(s) 1-2 times daily. Dx: Type 2 DM - Uncontrolled E11.65 , Insulin: No empagliflozin (JARDIANCE) 10 mg tablet Take 1 tablet by mouth once daily. Take 1 tablet once daily in the morning (Patient not taking: Reported on 12/09/2022) Review of Systems HISTORIES PAST MEDICAL HISTORY Diagnosis Date Acquired hypothyroidism 10/21/2015 Arthritis Back pain ED (erectile dysfunction) of organic origin 10/18/2020 Essential hypertension 09/05/2014 Familial combined hyperlipidemia 07/29/2015 Onychomycosis of multiple toenails with type 2 diabetes mellitus (HCC) 02/08/2017 Personal history of colonic polyps 02/20/2016 Prostate cancer (HCC) PSA elevation 09/26/2019 Skin cancer unknown type 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d by mild nonproliferative retinopathy without macular edema, without long-term current use of insulin (HCC) 02/27/2019 Exam 02/10/[address] Fuentes. Type 2 diabetes mellitus without complication ([facility]) 07/29/2015 FAMILY HISTORY Problem Relation Age of Onset Dementia Mother Kidney Disease Mother other (hypoglycemia) Mother Heart Father of [place] Diabetes Father Lung Cancer Father lung cancer Diabetes Sister Diabetes Sister Diabetes Brother type 1 diabetes Lung Cancer Brother No Known Problems Brother Diabetes Brother SOCIAL HISTORY Social History Tobacco Use Smoking status: Former Packs/day: 2.00 Years: 35.00 Pack years: 70.00 Types: Cigarettes Quit date: 02/24/2002 Years since quittin.8 Smokeless tobacco: Never Tobacco comments: started 8 years old Vaping Use Vaping Use: Never used Substance Use Topics Alcohol use: Yes Alcohol/week: 17.5 standard drinks Types: 7 Glasses of Wine (5oz) per week Comment: Pt drinks 1 glass of wine a day Drug use: No PHYSICAL EXAMINATION BP 132/84 Ht 170.2 cm (5' 7) Wt 65.8 kg (145 lb) BMI 22.71 kg/m? General appearance: Well appearing, alert, in no acute distress, and well-hydrated, well nourished Skin: Skin color, texture, turgor normal, no suspicious rashes or lesions HEENT: NCAT. Sclera anicteric. Respiratory: no increased work of breathing Cardiovascular: no cyanosis Gastrointestinal: Normal abdominal exam, Abdomen soft, non-tender ASSESSMENT 67 year old male with pT3b prostate cancer s/p RALP and PLND on 11/30/2022. PLAN -Reviewed pathologic stage of prostate cancer with patient and spouse; patient is at high-risk for requiring radiation therapy in the near future -Follow up in approximately 3 months with PSA prior Naseem Hayden PGY-3, Urology December 09, 2022 Pager #[phone] I saw and evaluated the patient. Discussed with resident and agree with resident's findings and plan as documented in the resident's note. Kamran Gordon Jr, MD Referring Provider: SELF [[id number]] Allergies As of Date: 12/09/2022 Noted Allergy Reaction BEE STING 02/24/2013 10 - Anaphy (more content not included)... Normal [facility] UA DIP, URINE (POC)on 2022 BILIRUBIN UA (POCT) Negative Negative [facility] CLARITY UA (POCT) Clear [facility] COLOR UA (POCT) Yellow [facility] GLUCOSE UA (POCT) Negative Negative mg/dL [facility] HEMOGLOBIN/BLOOD UA (POCT) Moderate Abnormal Negative [facility] KETONE UA (POCT) Negative Negative mg/dL [facility] LEUKOCYTES UA (POCT) Negative [facility] NITRITE UA (POCT) [facility] PH UA (POCT) 5.5 4.5 - 8.0 [facility] Protein Ql (U) 30 mg/dL Abnormal Negative mg/dL [facility] SPECIFIC GRAVITY UA (POCT) 1.025 1.005 - 1.030 [facility] UROBILINOGEN UA (POCT) 0.2 E.U./dL Normal E.U./dL [facility] CNNURSEon 12-07-2022 CNNURSE Nurse Visit (JULIANAURFL) TUAN VALLEJO ([id number]) 1955 M Date Time Provider Department 12/07/22 8:30 AM NURSE UROL [facility] During your visit today, we recorded the following information about you: Barbie Castro 12/07/2022 8:47 AM Signed Patient is in today for a catheter removal. Balloon deflated and catheter removed intact without difficulty. Patient has no co pain or discomfort after removal. Patient advised to continue drinking fluids. If patient starts having pain/discomfort, contact this office ([phone]) during normal working hours (08:00 to 16:00). If after working hours, go to the ED for assessment and treatment. Patient voiced understanding of all directions. Barbie Castro RN Referring Provider: SELF [[id number]] Allergies As of Date: 12/07/2022 Noted Allergy Reaction BEE STING 02/24/2013 10 - Anaphylaxis 18 - Angioedema PEANUTS 02/24/2013 11 - Vomiting TAMSULOSIN 07/17/2020 1 - Mental Status Change PENICILLINS 02/24/2013 14 - Other: See Comments Comments: headaches- childhood JARDIANCE (EMPAGLIFLOZIN) 11/13/2022 14 - Other: See Comments Comments: Dizziness and lightheadedness Date Reviewed: 11/30/2022 Reviewed by: Regi Adam RN - Fully Assessed Reason for Visit: Catheter Removal [2826] Primary Visit Diagnosis:Prostate cancer (HCC) [C61] Prescriptions as of 12/07/2022 - oxybutynin ER (DITROPAN XL) 10 mg 24 hr tablet Take 1 tablet by mouth once daily for 14 days. - docusate sodium (COLACE) 100 mg capsule Take 1 capsule by mouth twice daily. - pravastatin (PRAVACHOL) 40 mg tablet Take 1 tablet by mouth once daily. - levothyroxine (SYNTHROID) 25 mcg tablet Take 1 tablet by mouth daily before breakfast. - blood sugar diagnostic (BLOOD GLUCOSE TEST) test strip Patient has one touch ultra glucometer. Test blood sugar(s) 2 times daily. Dx: Type 2 DM - Controlled E11.9 Insulin: No - metFORMIN ER (GLUCOPHAGE XR) 500 mg 24 hr tablet Take 2 tablets by mouth twice daily before meals. - glimepiride (AMARYL) 4 mg tablet Take 1 tablet by mouth every evening. With food. - empagliflozin (JARDIANCE) 10 mg tablet Take 1 tablet by mouth once daily. Take 1 tablet once daily in the morning - sildenafil (VIAGRA) 100 mg tablet Take 1 tablet PO daily as needed for erectile dysfunction - alcohol swabs (ALCOHOL PADS) Test blood sugar(s) 2 times daily. Dx: Type 2 DM - Controlled E11.9 Insulin: No - amLODIPine (NORVASC) 10 mg tablet Take 1 tablet by mouth once daily. - Blood-Glucose Meter (ONETOUCH ULTRA2 METER) monitoring kit 1 Each as needed. One Touch Meter Kit Diagnosis: Type 2 DM - Uncontrolled E11.65 - Lancets (ONETOUCH ULTRASOFT LANCETS) lancets Test blood sugar(s) 1-2 times daily. 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] 07/29/2015 Essential hypertension [I10] 07/29/2015 10/21/2015 Type 2 diabetes mellitus without complication (*07/29/2015 07/17/2020 Acquired hypothyroidism [E03.9] 10/21/2015 Personal history of colonic polyps [Z86.010] 02/20/2016 Onychomycosis of multiple toenails with type 2 *02/08/2017 07/17/2020 Well adult exam [Z00.00] 06/07/2017 07/17/2020 Uncontrolled type 2 diabetes mellitus without c*03/16/2018 07/17/2020 Rhus dermatitis [L25.5] 03/16/2018 07/17/2020 Type 2 diabetes mellitus without complication, *09/16/2018 07/17/2020 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*02/27/2019 PSA elevation [R97.20] 09/26/2019 12/04/2022 ED (erectile dysfunction) of organic origin [N5*10/18/2020 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] 05/07/2022 Preop testing [Z01.818] 11/13/2022 Prostate cancer (HCC) [C61] 12/04/2022 Visit Notes: >> Barbie Castro Mon Dec 07, 2022 8:46 AM Status: Signed Patient is in today for a catheter removal. Balloon deflated and catheter removed intact without difficulty. Patient has no co pain or discomfort after removal. Patient advised to continue drinking fluids. If patient starts having pain/discomfort, contact this office ([phone]) during normal working hours (08:00 to 16:00). If after working hours, go to the ED for assessment and treatment. Patient voiced understanding of all directions. Barbie Castro RN Encounter Status:Closed by BABRIE CASTRO on 12/07/22 [facility] 12-04-2022 [facility] Tele[facility] (UROZootRockE) GENEVIEVETUAN ([id number]) 1955 M Date Time Provider Department 12/04/22 KAMRAN GORDON JR During your visit today, we recorded the following information about you: Mariluz Ewing RN 12/04/2022 11:21 AM Signed called because patient has bruising on his back behind left hip area. I instructed that this can happen from pooling of fluid from the surgery. Instructed to use warm heat in increments no longer than 20 minutes at a time. Patient denies fever or chills. Instructed to continue fluids. They were wondering if you were going to call about the pathology. I told them that because he knows he has prostate cancer that most likely you would wait the go over results and plan at the office appointment as patient needs time to heal so nothing can be started before that time. Verbalized understanding. Please advise. Janelle Gordon Jr, MD 12/04/2022 11:25 AM Signed Sounds good I will discuss pathology at fu visit Allergies As of Date: 12/04/2022 Noted Allergy Reaction BEE STING 02/24/2013 10 - Anaphylaxis 18 - Angioedema PEANUTS 02/24/2013 11 - Vomiting TAMSULOSIN 07/17/2020 1 - Mental Status Change PENICILLINS 02/24/2013 14 - Other: See Comments Comments: headaches- childhood JARDIANCE (EMPAGLIFLOZIN) 11/13/2022 14 - Other: See Comments Comments: Dizziness and lightheadedness Date Reviewed: 11/30/2022 Reviewed by: Regi Adam RN - Fully Assessed Reason for Visit: Patient Update [1234] Prescriptions as of 12/04/2022 - oxybutynin ER (DITROPAN XL) 10 mg 24 hr tablet Take 1 tablet by mouth once daily for 14 days. - docusate sodium (COLACE) 100 mg capsule Take 1 capsule by mouth twice daily. - oxyCODONE-acetaminophen (PERCOCET) 5-325 mg tablet Take 1 tablet by mouth every 6 hours as needed for up to 5 days. - pravastatin (PRAVACHOL) 40 mg tablet Take 1 tablet by mouth once daily. - levothyroxine (SYNTHROID) 25 mcg tablet Take 1 tablet by mouth daily before breakfast. - blood sugar diagnostic (BLOOD GLUCOSE TEST) test strip Patient has one touch ultra glucometer. Test blood sugar(s) 2 times daily. Dx: Type 2 DM - Controlled E11.9 Insulin: No - metFORMIN ER (GLUCOPHAGE XR) 500 mg 24 hr tablet Take 2 tablets by mouth twice daily before meals. - glimepiride (AMARYL) 4 mg tablet Take 1 tablet by mouth every evening. With food. - empagliflozin (JARDIANCE) 10 mg tablet Take 1 tablet by mouth once daily. Take 1 tablet once daily in the morning - sildenafil (VIAGRA) 100 mg tablet Take 1 tablet PO daily as needed for erectile dysfunction - alcohol swabs (ALCOHOL PADS) Test blood sugar(s) 2 times daily. Dx: Type 2 DM - Controlled E11.9 Insulin: No - amLODIPine (NORVASC) 10 mg tablet Take 1 tablet by mouth once daily. - Blood-Glucose Meter (ONETOUCH ULTRA2 METER) monitoring kit 1 Each as needed. One Touch Meter Kit Diagnosis: Type 2 DM - Uncontrolled E11.65 - Lancets (ONETOUCH ULTRASOFT LANCETS) lancets Test blood sugar(s) 1-2 times daily. 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] 07/29/2015 Essential hypertension [I10] 07/29/2015 10/21/2015 Type 2 diabetes mellitus without complication (*07/29/2015 07/17/2020 Acquired hypothyroidism [E03.9] 10/21/2015 Personal history of colonic polyps [Z86.010] 02/20/2016 Onychomycosis of multiple toenails with type 2 *02/08/2017 07/17/2020 Well adult exam [Z00.00] 06/07/2017 07/17/2020 Uncontrolled type 2 diabetes mellitus without c*03/16/2018 07/17/2020 Rhus dermatitis [L25.5] 03/16/2018 07/17/2020 Type 2 diabetes mellitus without complication, *09/16/2018 07/17/2020 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*02/27/2019 PSA elevation [R97.20] 09/26/2019 ED (erectile dysfunction) of organic origin [N5*10/18/2020 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] 05/07/2022 Preop testing [Z01.818] 11/13/2022 Encounter Status:Closed by MARILUZ EWING on 12/04/22 [facility] CNPNon 12-01-2022 CNPN Telephone (UROLMD) TUAN VALLEJO ([id number]) 1955 M Date Time Provider Department 12/01/22 KAMRAN GORDON JR UROLMD During your visit today, we recorded the following information about you: Kamran Gordon Jr, MD 12/01/2022 8:42 AM Signed [facility] or 11/30/22 Cath removal with nursing Wednesday Fu with ut 2-3 weeks Lashae Pazi PSS 12/01/2022 11:31 AM Signed Cath removal schedule with the nurse on 12/07/22. Follow up scheduled with Dr. Gordon on 12/24/22. Lashae Erin PSS Allergies As of Date: 12/01/2022 Noted Allergy Reaction BEE STING 02/24/2013 10 - Anaphylaxis 18 - Angioedema PEANUTS 02/24/2013 11 - Vomiting TAMSULOSIN 07/17/2020 1 - Mental Status Change PENICILLINS 02/24/2013 14 - Other: See Comments Comments: headaches- childhood JARDIANCE (EMPAGLIFLOZIN) 11/13/2022 14 - Other: See Comments Comments: Dizziness and lightheadedness Date Reviewed: 11/30/2022 Reviewed by: Regi Shandra Ailes, RN - Fully Assessed Reason for Visit: Appointment [186] Prescriptions as of 12/01/2022 - oxybutynin ER (DITROPAN XL) 10 mg 24 hr tablet Take 1 tablet by mouth once daily for 14 days. - docusate sodium (COLACE) 100 mg capsule Take 1 capsule by mouth twice daily. - oxyCODONE-acetaminophen (PERCOCET) 5-325 mg tablet Take 1 tablet by mouth every 6 hours as needed for up to 5 days. - pravastatin (PRAVACHOL) 40 mg tablet Take 1 tablet by mouth once daily. - levothyroxine (SYNTHROID) 25 mcg tablet Take 1 tablet by mouth daily before breakfast. - blood sugar diagnostic (BLOOD GLUCOSE TEST) test strip Patient has one touch ultra glucometer. Test blood sugar(s) 2 times daily. Dx: Type 2 DM - Controlled E11.9 Insulin: No - metFORMIN ER (GLUCOPHAGE XR) 500 mg 24 hr tablet Take 2 tablets by mouth twice daily before meals. - glimepiride (AMARYL) 4 mg tablet Take 1 tablet by mouth every evening. With food. - empagliflozin (JARDIANCE) 10 mg tablet Take 1 tablet by mouth once daily. Take 1 tablet once daily in the morning - sildenafil (VIAGRA) 100 mg tablet Take 1 tablet PO daily as needed for erectile dysfunction - alcohol swabs (ALCOHOL PADS) Test blood sugar(s) 2 times daily. Dx: Type 2 DM - Controlled E11.9 Insulin: No - amLODIPine (NORVASC) 10 mg tablet Take 1 tablet by mouth once daily. - Blood-Glucose Meter (ONETOUCH ULTRA2 METER) monitoring kit 1 Each as needed. One Touch Meter Kit Diagnosis: Type 2 DM - Uncontrolled E11.65 - Lancets (ONETOUCH ULTRASOFT LANCETS) lancets Test blood sugar(s) 1-2 times daily. 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] 07/29/2015 Essential hypertension [I10] 07/29/2015 10/21/2015 Type 2 diabetes mellitus without complication (*07/29/2015 07/17/2020 Acquired hypothyroidism [E03.9] 10/21/2015 Personal history of colonic polyps [Z86.010] 02/20/2016 Onychomycosis of multiple toenails with type 2 *02/08/2017 07/17/2020 Well adult exam [Z00.00] 06/07/2017 07/17/2020 Uncontrolled type 2 diabetes mellitus without c*03/16/2018 07/17/2020 Rhus dermatitis [L25.5] 03/16/2018 07/17/2020 Type 2 diabetes mellitus without complication, *09/16/2018 07/17/2020 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*02/27/2019 PSA elevation [R97.20] 09/26/2019 ED (erectile dysfunction) of organic origin [N5*10/18/2020 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] 05/07/2022 Preop testing [Z01.818] 11/13/2022 Encounter Status:Closed by KAMRAN GORDON on 12/01/22 [facility] Telephone (AKURFL) TUAN VALLEJO ([id number]) 1955 M Date Time Provider Department 12/01/22 KAMRAN GORDON JR GENE AKURFL During your visit today, we recorded the following information about you: Barbie Castro 12/01/2022 8:36 AM Signed Pt's called and states he is having severe bladder spasms after surgery yesterday. They would like a medication sent to [facility] in [place]. Pt encouraged to continue drinking fluids. ISSA Santiago Jr, MD 12/01/2022 8:44 AM Signed sent Barbie Castro 12/01/2022 8:52 AM Signed Pt called and notified of rx sent to pharmacy. Barbie Castro RN Allergies As of Date: 12/01/2022 Noted Allergy Reaction BEE STING 02/24/2013 10 - Anaphylaxis 18 - Angioedema PEANUTS 02/24/2013 11 - Vomiting TAMSULOSIN 07/17/2020 1 - Mental Status Change PENICILLINS 02/24/2013 14 - Other: See Comments Comments: headaches- childhood JARDIANCE (EMPAGLIFLOZIN) 11/13/2022 14 - Other: See Comments Comments: Dizziness and lightheadedness Date Reviewed: 11/30/2022 Reviewed by: Regi Adam RN - Fully Assessed Reason for Visit: Patient Question [9079] Order(s):oxybutynin ER (DITROPAN XL) 10 mg 24 hr tabletTake 1 tablet by mouth once daily for 14 days.Disp: 14 tabletRfl: 0 Prescriptions as of 12/01/2022 - oxybutynin ER (DITROPAN XL) 10 mg 24 hr tablet Take 1 tablet by mouth once daily for 14 days. - docusate sodium (COLACE) 100 mg capsule Take 1 capsule by mouth twice daily. - oxyCODONE-acetaminophen (PERCOCET) 5-325 mg tablet Take 1 tablet by mouth every 6 hours as needed for up to 5 days. - pravastatin (PRAVACHOL) 40 mg tablet Take 1 tablet by mouth once daily. - levothyroxine (SYNTHROID) 25 mcg tablet Take 1 tablet by mouth daily before breakfast. - blood sugar diagnostic (BLOOD GLUCOSE TEST) test strip Patient has one touch ultra glucometer. Test blood sugar(s) 2 times daily. Dx: Type 2 DM - Controlled E11.9 Insulin: No - metFORMIN ER (GLUCOPHAGE XR) 500 mg 24 hr tablet Take 2 tablets by mouth twice daily before meals. - glimepiride (AMARYL) 4 mg tablet Take 1 tablet by mouth every evening. With food. - empagliflozin (JARDIANCE) 10 mg tablet Take 1 tablet by mouth once daily. Take 1 tablet once daily in the morning - sildenafil (VIAGRA) 100 mg tablet Take 1 tablet PO daily as needed for erectile dysfunction - alcohol swabs (ALCOHOL PADS) Test blood sugar(s) 2 times daily. Dx: Type 2 DM - Controlled E11.9 Insulin: No - amLODIPine (NORVASC) 10 mg tablet Take 1 tablet by mouth once daily. - Blood-Glucose Meter (ONETOUCH ULTRA2 METER) monitoring kit 1 Each as needed. One Touch Meter Kit Diagnosis: Type 2 DM - Uncontrolled E11.65 - Lancets (ONETOUCH ULTRASOFT LANCETS) lancets Test blood sugar(s) 1-2 times daily. 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] 07/29/2015 Essential hypertension [I10] 07/29/2015 10/21/2015 Type 2 diabetes mellitus without complication (*07/29/2015 07/17/2020 Acquired hypothyroidism [E03.9] 10/21/2015 Personal history of colonic polyps [Z86.010] 02/20/2016 Onychomycosis of multiple toenails with type 2 *02/08/2017 07/17/2020 Well adult exam [Z00.00] 06/07/2017 07/17/2020 Uncontrolled type 2 diabetes mellitus without c*03/16/2018 07/17/2020 Rhus dermatitis [L25.5] 03/16/2018 07/17/2020 Type 2 diabetes mellitus without complication, *09/16/2018 07/17/2020 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*02/27/2019 PSA elevation [R97.20] 09/26/2019 ED (erectile dysfunction) of organic origin [N5*10/18/2020 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] 05/07/2022 Preop testing [Z01.818] 11/13/2022 Prescriptions ordered this encounter Disp Refills Start End OXYBUTYNIN CHLORIDE ER 10 MG TABLET,* 14 t* 0 12/01/2022 12/15/2022 Route: ORAL Sig: Take 1 tablet by mouth once daily for 14 days. Encounter Status:Closed by BARBIE CASTRO on 12/01/22 [facility] CNPN Telephone (AKURFL) TUAN VALLEJO ([id number]) 1955 M Date Time Provider Department 12/01/22 KAMRAN GORDON JR During your visit today, we recorded the following information about you: Bonnie Vela 12/01/2022 8:43 AM Signed December 01, 2022 8:41 AM Patients called to schedule post up and allred removal. Please advise. Bonnie Vela Allergies As of Date: 12/01/2022 Noted Allergy Reaction BEE STING 02/24/2013 10 - Anaphylaxis 18 - Angioedema PEANUTS 02/24/2013 11 - Vomiting TAMSULOSIN 07/17/2020 1 - Mental Status Change PENICILLINS 02/24/2013 14 - Other: See Comments Comments: headaches- childhood JARDIANCE (EMPAGLIFLOZIN) 11/13/2022 14 - Other: See Comments Comments: Dizziness and lightheadedness Date Reviewed: 11/30/2022 Reviewed by: Regi Adam RN - Fully Assessed Reason for Visit: Post Op [174] Prescriptions as of 12/01/2022 - docusate sodium (COLACE) 100 mg capsule Take 1 capsule by mouth twice daily. - oxyCODONE-acetaminophen (PERCOCET) 5-325 mg tablet Take 1 tablet by mouth every 6 hours as needed for up to 5 days. - pravastatin (PRAVACHOL) 40 mg tablet Take 1 tablet by mouth once daily. - levothyroxine (SYNTHROID) 25 mcg tablet Take 1 tablet by mouth daily before breakfast. - blood sugar diagnostic (BLOOD GLUCOSE TEST) test strip Patient has one touch ultra glucometer. Test blood sugar(s) 2 times daily. Dx: Type 2 DM - Controlled E11.9 Insulin: No - metFORMIN ER (GLUCOPHAGE XR) 500 mg 24 hr tablet Take 2 tablets by mouth twice daily before meals. - glimepiride (AMARYL) 4 mg tablet Take 1 tablet by mouth every evening. With food. - empagliflozin (JARDIANCE) 10 mg tablet Take 1 tablet by mouth once daily. Take 1 tablet once daily in the morning - sildenafil (VIAGRA) 100 mg tablet Take 1 tablet PO daily as needed for erectile dysfunction - alcohol swabs (ALCOHOL PADS) Test blood sugar(s) 2 times daily. Dx: Type 2 DM - Controlled E11.9 Insulin: No - amLODIPine (NORVASC) 10 mg tablet Take 1 tablet by mouth once daily. - Blood-Glucose Meter (ONETOUCH ULTRA2 METER) monitoring kit 1 Each as needed. One Touch Meter Kit Diagnosis: Type 2 DM - Uncontrolled E11.65 - Lancets (ONETOUCH ULTRASOFT LANCETS) lancets Test blood sugar(s) 1-2 times daily. 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] 07/29/2015 Essential hypertension [I10] 07/29/2015 10/21/2015 Type 2 diabetes mellitus without complication (*07/29/2015 07/17/2020 Acquired hypothyroidism [E03.9] 10/21/2015 Personal history of colonic polyps [Z86.010] 02/20/2016 Onychomycosis of multiple toenails with type 2 *02/08/2017 07/17/2020 Well adult exam [Z00.00] 06/07/2017 07/17/2020 Uncontrolled type 2 diabetes mellitus without c*03/16/2018 07/17/2020 Rhus dermatitis [L25.5] 03/16/2018 07/17/2020 Type 2 diabetes mellitus without complication, *09/16/2018 07/17/2020 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*02/27/2019 PSA elevation [R97.20] 09/26/2019 ED (erectile dysfunction) of organic origin [N5*10/18/2020 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] 05/07/2022 Preop testing [Z01.818] 11/13/2022 Encounter Status:Closed by VELASTEFBONNIE on 12/01/22 [facility] ANES POSTPROC EVALon 023 ANES POSTPROC EVAL HNO ID: [id number] Author: Naseem Finley MD Service: Anesthesiology Author Type: Physician Type: Anesthesia Postprocedure Evaluation Filed: 12/01/2022 7:50 AM Note Text: POST ANESTHESIA EVALUATION NOTE : 1955 Procedure Summary Date: 11/30/22 Room / Location: [facility] OR Anesthesia Start: 802 Anesthesia Stop: 1131 Procedures: XI ROBOTIC LAPAROSCOPIC RETROPUBIC RADICAL PROSTATECTOMY W/ NERVE SPARING (Prostate) XI ROBOTIC LAPAROSCOPIC SURGICAL W/BILATERAL TOTAL PELVIC LYMPHADENECTOMY (Bilateral: Pelvis) Diagnosis: Prostate cancer (HCC) (Prostate cancer (HCC) [C61]) Surgeons: Kamran Gordon Jr., MD Responsible Provider: Naseem Finley MD Anesthesia Type: general ASA Status: 3 Anesthesia Type: general Airway Type: ETT Last Vitals Vitals Value Taken Time BP 118/73 11/30/22 1400 Temp 36 ?C (96.8 ?F) 11/30/22 1230 HR SpO2 75 11/30/22 1404 Resp 19 11/30/22 1405 SpO2 96 % 11/30/22 1404 Vitals shown include unvalidated device data. Post Anesthesia Patient Status Anticipated Disposition: phase 2 then home. Neurological Status: aware and responsive. Pulmonary Status: breathing comfortably on room air Airway Control: returned to baseline unsupported. Cardiovascular Status: stable. Pain Management: clinically adequate Postoperative Hydration: acceptable. Intraoperative Events: no significant anesthesia events Post Operative Nausea/Vomiting Status: no significant post operative nausea or vomiting Recommendation: further care per PACU/ICU/floor team. Anesthesia Observations No Documentation SIGNATURE: Naseem Finley MD PATIENT NAME: Tuan Vallejo DATE: December 01, 2022 TIME: 7:49 AM CSN: [id number] [facility] ANES PRE-OPon 11-30-2022 ANES PRE-OP HNO ID: [id number] Author: Naseem Finley MD Service: Anesthesiology Author Type: Physician Type: Anesthesia Preprocedure Evaluation Filed: 11/30/2022 7:57 AM Note Text: ANESTHESIOLOGY DAY OF SURGERY NOTE : 1955 Procedure Information Date/Time: 11/30/22 0800 Procedures: XI ROBOTIC LAPAROSCOPIC RETROPUBIC RADICAL PROSTATECTOMY W/ NERVE SPARING (Prostate) XI ROBOTIC LAPAROSCOPIC SURGICAL W/BILATERAL TOTAL PELVIC LYMPHADENECTOMY (Bilateral: Pelvis) Location: [facility] / [facility] Surgeons: Kamran Gordon Jr., MD Estimated body mass index is 22.68 kg/m? as calculated from the following: Height as of 11/16/22: 170.2 cm (5' 7). Weight as of 11/16/22: 65.7 kg (144 lb 12.8 oz). Most recent hematocrit and potassium results: Hematocrit 43.7 11/16/2022 Potassium 5.2 11/16/2022 Relevant Problems CARDIO (+) Essential hypertension ENDO (+) Acquired hypothyroidism (+) 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d by mild nonproliferative retinopathy without macular edema, without long-term current use of insulin (HCC) NEURO-PSYCH (+) Personal history of colonic polyps Other (+) Adhesive capsulitis of left shoulder I - PHYSICAL EVALUATION AIRWAY Patient intubated: No. Tracheostomy tube not present Mallampati: II. TM distance: >3 FB. Neck ROM: full ROM without neurological symptoms. Mouth opening: adequate. Short neck: no. Thick neck: no Proctor present: no DENTAL Dental findings: edentulous. Additional exam findings: no II - ANESTHESIA PLAN ASA Score: 3 Anesthetic Plan: general Airway type: ETT NPO Status: adequate Beta Gabbi Monitoring Plan Monitoring plan: standard ASA. Post Procedure Analgesic Plan Postoperative analgesic plan: parenteral or oral opioids and multimodal analgesia. Informed Consent Anesthetic risks, benefits, alternatives, personnel and consent discussed: yes. Patient / Responsible Democrat agrees to proceed: yes Patient / Surrogate agrees to blood products: Yes Significant changes in the patient condition since the History and Physical, not otherwise documented in primary service progress note: no. Vitals Value Taken Time BP 155/90 11/30/22 07 Pulse 82 11/30/22 07 Resp 16 11/30/22 07 Temp 36 ?C (96.8 ?F) 11/30/22 07 SpO2 97 % 11/30/22702 Facility-Administered Medications as of 11/30/2022 Medication Dose Route Frequency - lidocaine 10 mg/mL (1 %) 1-2 mg injection (XYLOCAINE) 0.1-0.2 mL INTRADERMAL PRN - lactated ringers iv infusion 5-30 mL/hr INTRAVENOUS CONTINUOUS - NaCl 0.9% iv flush bag 20 mL INTRAVENOUS PRN - [COMPLETED] acetaminophen 975 mg tab(s) (TYLENOL) 975 mg ORAL Pre-Op Once - [COMPLETED] celecoxib 400 mg cap(s) (CeleBREX) 400 mg ORAL Pre-Op Once - [COMPLETED] gabapentin 300 mg cap(s) (NEURONTIN) 300 mg ORAL Pre-Op Once - vancomycin iv piggyback 1 g in D5W 200 mL (VANCOCIN) 1 g INTRAVENOUS Pre-Op Once - [START ON 12/01/2022] gentamicin 80 mg in NaCl (iso-osmotic) 100 mL 80 mg INTRAVENOUS Base Wad Operator Adjuster to OR Outpatient Medications as of 11/30/2022 Medication Sig - pravastatin (PRAVACHOL) 40 mg tablet Take 1 tablet by mouth once daily. - levothyroxine (SYNTHROID) 25 mcg tablet Take 1 tablet by mouth daily before breakfast. - metFORMIN ER (GLUCOPHAGE XR) 500 mg 24 hr tablet Take 2 tablets by mouth twice daily before meals. - glimepiride (AMARYL) 4 mg tablet Take 1 tablet by mouth every evening. With food. - amLODIPine (NORVASC) 10 mg tablet Take 1 tablet by mouth once daily. - blood sugar diagnostic (BLOOD GLUCOSE TEST) test strip Patient has one touch ultra glucometer. Test blood sugar(s) 2 times daily. Dx: Type 2 DM - Controlled E11.9 Insulin: No - empagliflozin (JARDIANCE) 10 mg tablet Take 1 tablet by mouth once daily. Take 1 tablet once daily in the morning (Patient not taking: Reported on 11/16/2022) - sildenafil (VIAGRA) 100 mg tablet Take 1 tablet PO daily as needed for erectile dysfunction - alcohol swabs (ALCOHOL PADS) Test blood sugar(s) 2 times daily. Dx: Type 2 DM - Controlled E11.9 Insulin: No - Blood-Glucose Meter (ONETOUCH ULTRA2 METER) monitoring kit 1 Each as needed. One Touch Meter Kit Diagnosis: Type 2 DM - Uncontrolled E11.65 - Lancets (ONETOUCH ULTRASOFT LANCETS) lancets Test blood sugar(s) 1-2 times daily. Dx: Type 2 DM - Uncontrolled E11.65 , Insulin: No I have interviewed and examined the patient. I have reviewed the medical record and/or the pre-anesthesia evaluation, pertinent labs, and test results. This contains updated information obtained within 48 hours of Surgery/Procedure. SIGNATURE: Naseem Finley MD PATIENT NAME: Tuan Vallejo DATE: November 30, 2022 TIME: 7:42 AM CSN: [id number] [facility] BRIEF OP NOTon 11-30-2022 BRIEF OP NOT HNO ID: [id number] Author: Donald Cheung MD Service: Urology Author Type: Resident Type: Brief Op Note Filed: 11/30/2022 12:18 PM Note Text: Attestation signed by Kamran Gordon Jr., MD at 11/30/2022 12:33 PM I was present for the entire procedure and directly participated in the critical and toussaint portions of the surgery. I was immediately available to provide assistance throughout the entire case. Kamran Gordon Jr, MD BRIEF OPERATIVE / PROCEDURE NOTE LOG ID: [id number] Surgery/Procedure Date: 11/30/2022 Incision/Procedure Start Time: 8:41 AM Incision Close/Procedure End Time: 11:19 AM Surgeon(s)/Proceduralist(s) and Staking Press Operator(s): Surgeon(s) and Role: * Kamran Gordon Jr., MD - Primary * Donald Cheung MD - Resident - Assisting Senior Grant Writer: Herminio Elena SA Procedure(s): Robotic assisted laparoscopic prostatectomy, bilateral pelvic lymph node dissection Anesthesia: General Findings: medium sized gland w/ small median lobe, floseal and snow applied to the pelvic gutters at the end Estimated Blood Loss: 150cc Specimens: prostate w/ seminal vesicles, bilateral pelvic lymph nodes Complications: None Pre-Op/Pre-Procedure Diagnosis: Prostate cancer Post-Op/Post-Procedure Diagnosis: Same SIGNATURE: Donald Cheung MD PATIENT NAME: Tuan Vallejo DATE: November 30, 2022 TIME: 12:16 PM PAGER/CONTACT #: [phone] [facility] OPERATIVE NOon 11-30-2022 OPERATIVE NO HNO ID: [id number] Author: Donald Cheung MD Service: Urology Author Type: Resident Type: Operative Report Filed: 11/30/2022 6:05 PM Note Text: Attestation signed by Kamran Gordon Jr., MD at 12/01/2022 8:29 AM I was present for the entire procedure and directly participated in the critical and toussaint portions of the surgery. I was immediately available to provide assistance throughout the entire case. Kamran Gordon Jr, MD OPERATIVE/PROCEDURE REPORT LOG ID: [id number] Surgery/Procedure Date: 11/30/2022 Incision/Procedure Start Time: 8:41 AM Incision Close/Procedure End Time: 11:19 AM Surgeon(s)/Proceduralist(s) and Staking Press Operator(s): Surgeon(s) and Role: * Kamran Gordon Jr., MD - Primary * Donald Cheung MD - Resident - Assisting Senior Grant Writer: Herminio Elena SA Procedure(s): XI ROBOTIC LAPAROSCOPIC RETROPUBIC RADICAL PROSTATECTOMY W/ NERVE SPARING on left XI ROBOTIC LAPAROSCOPIC SURGICAL W/BILATERAL TOTAL PELVIC LYMPHADENECTOMY Anesthesia: General Pre-Op/Pre-Procedure Diagnosis: Pre-Op Diagnosis Codes: * Prostate cancer (HCC) [C61] Post-Op/Post-Procedure Diagnosis: Same Estimated Blood Loss: 150 mls Specimens: prostate and lymph nodes Implantable Devices: None Drains: 20 fr allred catheter Complications: None Procedure Details: OPERATIVE INDICATIONS: The patient is a 67 year old gentleman who has been diagnosed with prostate cancer. 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 Various options were discussed and the patient elected to proceed with robotic radical prostatectomy and bilateral pelvic lymph node dissection after being described and understanding the risks, benefits and alternatives. OPERATIVE PROCEDURE: The patient was brought to the operating room. A time-out was called. All pressure points were padded. He was prepped and draped in the usual fashion for robotic radical prostatectomy. A Allred catheter was inserted into the bladder. A midline vertical incision was made 2 finger breadths about the umbilicus. A Veress needle was then inserted and pneumoperitoneum obtained to 20 mmHg. An 8mm port was then inserted and the 0 degree camera used to inspect the abdomen. There were no adhesions nor injuries. 4 additional 8mm ports (1 Airseal) and a 5mm conventions assistant port were then placed under direct vision. The patient was placed into Trendelenburg position and pneumo dropped to 12 mmHg. The robot was docked. The bladder was then dropped from the anterior abdominal wall after bilateral medial umbilical ligaments were cauterized. The prostate was then defatted. Endopelvic fascia was incised with cold cut and the levator muscles were dissected off of the prostate. Bilateral puboprostatic ligaments were incised and the superficial DVC was controlled with cautery. Next, attention was paid to the pelvic lymph nodes. Starting with the right side, the external iliac vein was identified and lymph nodes in the obturator fossa were dissected out. Care was taken to avoid injury to the obturator nerve. The same was performed on the left side and these were sent for pathology. Next, attention was paid to the bladder neck. The anterior bladder neck was incised down to the catheter. The balloon was deflated and catheter held anteriorly for better exposure. There was presence of a small median lobe. The mucosa was incised and median lobe dissected out. Dissection was carried out posteriorly and bilateral vas deferens were identified. These were cut and the seminal vesicles dissected out. The posterior plane was then created by incising Denonvillier's fascia. Dissection was carried out through perirectal fat towards the apex of the prostate. Bilateral pedicles were identified and controlled with a combination of electrocautery and hemolock clips. Dissection was continued both caudal and laterally along the prostate. A left sided intrafascial nerve sparing procedure was performed since the disease was all on the right side. The DVC was divided using electrocautery, the urethra was then transected, and the rectourethralis muscle was cut until the prostate was freed. #0 V-loc was then used to oversew the DVC. No evidence of any rectal injury identified. There was minimal bleeding at this point with pneumo at 5 mmHg so attention was paid to the urethrovesical anastomosis. First, a Patrice stitch was thrown just posterior to the urethra and bladder neck in order to bring the two closer together. Using the same 3-0 V-loc double armed suture, the anastomosis was completed in running fashion.The 20fr allred and 20 cc was instilled in the balloon under direct visualization, the anastomosis was tested and no ev (more content not included)... [facility] SURGICAL PATHOLOGYon 023 CASE REPORT [facility] Comment on above: Order Comment: Speci men Type: TISSUE SPECIMENOrdering Facility: [facility] Address: [address] [place] [phone] Result Comment: Surg [facility] Pathology Report Case: [id number] Authorizing Provider: Kamran Gordon Jr., Collected: 11/30/2022 10:52 AM Ordering Location: [facility] Received: 12/01/2022 06:09 AM Pathologist: Naseem Hassan MD Specimen: PROSTATE RADICAL PROSTATECTOMY, BILATERAL PELVIC LYMPH NODES INCLUDED Performed By: #### S ####[facility] LABORATORYCLIA [id number] [place] [address] [place] CLINICAL HISTORY [facility] Comment on above: Order Comment: Speci men Type: TISSUE SPECIMENOrdering Facility: [facility] Address: [address] [address] Result Comment: Pre- op diagnosis: Prostate cancer (HCC) [C61] Performed By: #### S ####[facility]ITAL[facility] [id number] [address] [place] DIAGNOSIS COMMENT [facility] Comment on above: Order Comment: Speci men Type: TISSUE SPECIMENOrdering Facility: [facility] Address: [address] [address] Result Comment: Ther e are atypical glands present at the right bladder neck margin; immunohistochemical stains reveal these glands to lack [id number] basal cells, consistent with invasive adenocarcinoma, though without significant P504s staining of the neoplastic glands. A multiplex p40/P504s dual stain was utilized. The case was reviewed by Dr. Ferny Pollard, who agrees with this assessment. Laboratory Developed Test (LDT) Disclaimer: Performance characteristics of immunohistochemical, immunofluorescent and chromogenic in-situ hybridization tests have been determined by the performing laboratory within [facility]???s [facility] Pathology and Laboratory Medicine [place] ([facility], [facility], [facility], [facility], [facility], or [facility]) in a manner consistent with CLIA requirements. One or more of these tests have not been cleared or approved by the FDA. [facility] is regulated under CLIA as qualified to perform high-complexity testing. These tests are used for clinical purposes. They should not be regarded as investigational or for research. Positive and negative controls stain appropriately. Performed By: #### S ####[facility] LABORATORYIA [id number] [address] OF [place] FINAL DIAGNOSIS [facility] Comment on above: Order Comment: Speci men Type: TISSUE SPECIMENOrdering Facility: [facility] Address: [address] [address] Result Comment: A. P rostate and bilateral pelvic lymph nodes, radical prostatectomy: - Prostatic acinar adenocarcinoma, Miguel score 3+4=7 (Grade group 2), (see comment and synoptic report). - There is non-focal extraprostatic extension (right anterior and lateral) and invasion of the right bladder neck and right seminal vesicle. - Tumor is present focally at the right bladder neck margin, (see comment). - Three (3) benign lymph nodes (0/3). Performed By: #### S ####[facility] LABORATORYCLIA [id number] [address] FINAL PERFORMING LAB [facility] Comment on above: Order Comment: Speci men Type: TISSUE SPECIMENOrdering Facility: [facility] Address: [address] [place] [address] Result Comment: Diag nostic interpretation performed at [facility], [address] [place] [address] CLIA# [id number] Special Programs Director: Aristeo Angel M.D. Performed By: #### S ####[facility] LABORATORYCLIA [id number] [address] GROSS DESCRIPTION Normal [facility] Comment on above: Order Comment: Speci men Type: TISSUE SPECIMENOrdering Facility: [facility] Address: [address] [place] [address] Result Comment: A. P ROSTATE RADICAL PROSTATECTOMY Received in formalin labeled as prostatectomy with bilateral pelvic lymph nodes is a specimen consists of a prostate gland with attached seminal vesicles and portions of vas deferens. It measures 5.0 cm (transversely) x 3.5 cm (anterior to posterior) x 4.0 cm (craniocaudally). It weighs 64 gm with attached seminal vesicles and 58 gms without seminal vesicles. The apex of the gland is inverted. The capsular surface is smooth with attached soft tissue along the posterior aspect. On palpation an area of firmness is not. The gland is inked blue on the right and yellow on the left. The gland is dipped in alcohol to fix the ink and is been fixed in formalin for 24 hours. After fixation, a bladder neck section is obtained and the gland was cut from apex to base transversely at 3 mm intervals. The cross-sections do reveal a mass lesion which is white, solid and measures 3.5 x 3.2 x 2.0 cm. The mass does extend to the periphery of the specimen in the right posterior portion of the gland 9 mm from the apex. Other firm masses are not present. Rubbery nodularity is present. The seminal vesicles are unremarkable. Segments of vas deferens are also unremarkable. Also received in the same container are multiple segments of yellow fibrofatty tissue aggregating to 5.5 x 4.0 x 1.0 cm. Palpation reveals 3 yellow firm nodules, resembling lymph nodes, ranging in size from 1.0-4.5 cm in greatest dimension. Premix Operator Concentrate sections are submitted in formalin as: A1-A2 apex right, perpendicular A3-A4 apex left, perpendicular A5-A6 bladder neck right, perpendicular A7-A8 bladder neck left, perpendicular A9-A23 sections of right side of gland from apex towards bladder neck A24-A34 sections of left side of gland from apex towards bladder neck A35- seminal vesicles right A36- seminal vesicles left A37- two possible lymph nodes A38- one lymph node bisected Gross examination performed at [facility], [address] [place] [address] CLIA#[id number] [facility] December 01, 2022 10:46 AM Performed By: #### S ####[facility] LABORATORYCLIA [id number] [place] [address] [place] SYNOPTIC REPORT Normal [facility] Comment on above: Order Comment: Speci men Type: TISSUE SPECIMENOrdering Facility: [facility] Address: [address] [place], [place] [id number] Result Comment: PROS PEÑALOZA GLAND: Radical Prostatectomy PROSTATE GLAND: RESECTION - All Specimens 8th Edition - Protocol posted: 07/16/2021 SPECIMEN Procedure: Radical prostatectomy TUMOR Histologic Type: Acinar adenocarcinoma Histologic Grade: Grade: Grade group 2 (Memphis Score 3 + 4 = 7) Minor Tertiary Pattern 5 (less than 5%): Not applicable Percentage of Pattern 4: Less than or equal to 5% Intraductal Carcinoma (IDC): Not identified Cribriform Glands: Not identified Treatment Effect: No known presurgical therapy TUMOR QUANTITATION: Estimated Percentage of Prostate Involved by Tumor: 21 - 30% Extraprostatic Extension (EPE): Present, nonfocal Location of Extraprostatic Extension: Right anterior Location of Extraprostatic Extension: Right lateral Urinary Bladder Neck Invasion: Present Seminal Vesicle Invasion: Present, right Lymphovascular Invasion: Not Identified Perineural Invasion: Present MARGINS Margin Status: Invasive carcinoma present at margin Linear Length of Margin(s) Involved by Carcinoma: Less than 3 mm (limited) Focality of Margin Involvement: Unifocal Margin(s) Involved by Invasive Carcinoma: Right bladder neck REGIONAL LYMPH NODES Regional Lymph Node Status: : All regional lymph nodes negative for tumor Number of Lymph Nodes Examined: 3 PATHOLOGIC STAGE CLASSIFICATION (pTNM, AJCC 8th Edition) Reporting of pT, pN, and (when applicable) pM categories is based on information available to the pathologist at the time the report is issued. As per the AJCC (Chapter 1, 8th Ed.) it is the managing physician???s responsibility to establish the final pathologic stage based upon all pertinent information, including but potentially not limited to this pathology report. Primary Tumor (pT): pT3b pN Category: pN0 Performed By: #### S ####[facility] LABORATORYCLIA [id number] [address] Marcial 11-25-2022 RICARDO Telephone (UROLMD) TUAN VALLEJO ([id number]) 1955 Date Time Provider Department 11/25/22 KAMRAN GORDON JR UROLMBiju During your visit today, we recorded the following information about you: Ced Valentine 11/25/2022 8:05 AM Signed called on behalf of the patient Requesting to speak with the office regarding the results of the bone scan Please contact patient and his , they can be reached at [phone] Bonnie Peterson 11/25/2022 9:17 AM Signed Pt called again and stated that she missed the call from this office and is returning the call. Please see note below. Thanks! Adrien Maki RN 11/25/2022 9:32 AM Signed Called patient and answered questions and they verbalized understanding. Allergies As of Date: 11/25/2022 Noted Allergy Reaction BEE STING 02/24/2013 10 - Anaphylaxis 18 - Angioedema PEANUTS 02/24/2013 11 - Vomiting TAMSULOSIN 07/17/2020 1 - Mental Status Change PENICILLINS 02/24/2013 14 - Other: See Comments Comments: headaches- childhood JARDIANCE (EMPAGLIFLOZIN) 11/13/2022 14 - Other: See Comments Comments: Dizziness and lightheadedness Date Reviewed: 11/19/2022 Reviewed by: Meagan Delacruz RT(R) - Partially Assessed Reason for Visit: Results [95] Prescriptions as of 11/25/2022 - pravastatin (PRAVACHOL) 40 mg tablet Take 1 tablet by mouth once daily. - levothyroxine (SYNTHROID) 25 mcg tablet Take 1 tablet by mouth daily before breakfast. - blood sugar diagnostic (BLOOD GLUCOSE TEST) test strip Patient has one touch ultra glucometer. Test blood sugar(s) 2 times daily. Dx: Type 2 DM - Controlled E11.9 Insulin: No - metFORMIN ER (GLUCOPHAGE XR) 500 mg 24 hr tablet Take 2 tablets by mouth twice daily before meals. - glimepiride (AMARYL) 4 mg tablet Take 1 tablet by mouth every evening. With food. - empagliflozin (JARDIANCE) 10 mg tablet Take 1 tablet by mouth once daily. Take 1 tablet once daily in the morning - sildenafil (VIAGRA) 100 mg tablet Take 1 tablet PO daily as needed for erectile dysfunction - alcohol swabs (ALCOHOL PADS) Test blood sugar(s) 2 times daily. Dx: Type 2 DM - Controlled E11.9 Insulin: No - amLODIPine (NORVASC) 10 mg tablet Take 1 tablet by mouth once daily. - Blood-Glucose Meter (ONETOUCH ULTRA2 METER) monitoring kit 1 Each as needed. One Touch Meter Kit Diagnosis: Type 2 DM - Uncontrolled E11.65 - Lancets (ONETOUCH ULTRASOFT LANCETS) lancets Test blood sugar(s) 1-2 times daily. 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] 07/29/2015 Essential hypertension [I10] 07/29/2015 10/21/2015 Type 2 diabetes mellitus without complication (*07/29/2015 07/17/2020 Acquired hypothyroidism [E03.9] 10/21/2015 Personal history of colonic polyps [Z86.010] 02/20/2016 Onychomycosis of multiple toenails with type 2 *02/08/2017 07/17/2020 Well adult exam [Z00.00] 06/07/2017 07/17/2020 Uncontrolled type 2 diabetes mellitus without c*03/16/2018 07/17/2020 Rhus dermatitis [L25.5] 03/16/2018 07/17/2020 Type 2 diabetes mellitus without complication, *09/16/2018 07/17/2020 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*02/27/2019 PSA elevation [R97.20] 09/26/2019 ED (erectile dysfunction) of organic origin [N5*10/18/2020 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 TECHNIQUE: 23.1 mCi technetium 99m MDP IV. Whole body planar imaging followed in 3-4 hours, both in anterior and posterior views. Additional static images of the skull, ribs, and pelvis were obtained. COMPARISON: No prior bone scans comparison. Correlation with prostate MR dated 09/22/2022 RESULT: Whole-body and static images show no abnormal focal or segmental uptake to suggest osseous metastases. Increased uptake within the bilateral acromioclavicular joints, sternoclavicular, thoracic and lumbar spine are likely due to degenerative/arthritic changes. IMPRESSION: No scintigraphic evidence of osseous metastatic disease. Mobile Web Application Developer: [email or web address] Transcribe Date/Time: Nov 19 2022 3:46P Dictated by : SABA CARLIN, DO This examination was interpreted and the report reviewed and electronically signed by: OFE RAHMAN MD on Nov 19 2022 5:54PM EST [id number] Normal [facility] MRI PROSTATE W/WO CONTRASTon 09-22-2022 MRI PROSTATE W/WO CONTRAST * * *Final Report* * * DATE OF EXAM: Sep 22 2022 9:21AM [facility] 0751 - MRI PROSTATE W/WO CONTRAST / PROCEDURE REASON: Elevated prostate specific antigen (PSA) * * * * Physician Interpretation * * * * EXAMINATION: MRI PELVIS WITHOUT AND WITH IV CONTRAST (MULTIPARAMETRIC PROSTATE MRI) IV CONTRAST CLINICAL HISTORY: 67 years old with elevated PSA Previous biopsy: Negative, 12/02/2021 PSA: 32.2 ng/mL (07/26/2022) ; Prior therapy: None. COMPARISON: None TECHNIQUE: Multiparametric MRI of the prostate and pelvis performed utilizing phase pelvic coil. Sequences obtained: multiplanar T2-WI with small FOV; Axial DWI with multiple B-values and creation of ADC-maps; DCE T1-weighted images through the prostate obtained before, during and after the administration of intravenous gadolinium; prostate dimensions and volume were obtained using a semi-automated software ([employer]). CONTRAST: IV: 12 cc of (Dotarem). RESULT: Prostate: Dimensions: 5.1 x 4.1 x 4.4 cm corresponding to a volume of approximately 50 cc. Post biopsy hemorrhage: Punctate T1 hyperintensities scattered in the posttraumatic parenchyma, likely post biopsy blood products. Peripheral zone: Linear and/or wedge-shaped T2/ADC map hypointensities (PI-RADS 2). Transition zone: There is transition zone hypertrophy. Suspicious focal abnormality discussed below. Lesion #1: Location: right apex/mid anterior transition zone Greatest dimension: 1.8-cm (series:6; image:17) T2-WI: Lenticular or non-circumscribed, homogenous, moderately hypointense focus/mass (score 5) DWI/ADC: Focal markedly hypointense on ADC and markedly hyperintense on high b-value DWI (score 5) DCE: Positive Extra-prostatic extension: Equivocal (capsule/AFM contact > or 1.5 cm, OR irregularity or bulge) PI-RADS assessment category: 5 Neurovascular bundle: Unremarkable. Seminal vesicles: Unremarkable. Adjacent Organ Involvement: Not applicable. Lymph nodes: No enlarged pelvic lymph nodes. Bladder: Unremarkable. Pelvic bones: No suspicious pelvic osseous lesions. Other Findings: An indeterminant 2.3 x 0.8 cm lobulated soft tissue nodule in the presacral region at approximately S3 level (3/17, 7/39) demonstrating intermediate T1 and T2 signal without restricted diffusion or enhancement, resembling red marrow signal, could represent a focus of extra osseous hematopoietic tissue?! IMPRESSION: 1. PIRADS 5 right transition zone prostatic lesion (very high likelihood of clinically significant cancer), with equivocal extraprostatic extension. 2. No suspicious lymphadenopathy. 3. Prostatomegaly. 4. Indeterminate nonenhancing presacral lobulated soft tissue lesion resembling the red marrow signal, may represent a focus of extraosseous hematopoiesis. Attention on follow-up is recommended. Number of targets created for MR/US fusion biopsy: Peripheral zone: 0 Transition zone: 1 If present, targets were numbered in order of level of suspicion for clinically significant prostate cancer (Memphis score 3 + 4 or higher). PI-RADS v2.1 Assessment Categories: PI-RADS 1: Clinically significant cancer is highly unlikely PI-RADS 2: Clinically significant cancer is unlikely PI-RADS 3: Clinically significant cancer is equivocal PI-RADS 4: Clinically significant cancer is likely PI-RADS 5: Clinically significant cancer is highly likely (V.) A copy of this report was faxed to the referring physician shortly after this dictation. Mobile Web Application Developer: PSCB Transcribe Date/Time: Sep 23 2022 11:15A Dictated by : MAGED SWIFT MD This examination was interpreted and the report reviewed and electronically signed by: MAGED SWIFT MD on Sep 23 2022 11:46AM EST [id number] Normal [facility] UA DIP, URINE (POC)on 2021 BILIRUBIN UA (POCT) Negative Negative [facility] CLARITY UA (POCT) Clear [facility] COLOR UA (POCT) Yellow [facility] GLUCOSE UA (POCT) Negative Negative mg/dL [facility] HEMOGLOBIN/BLOOD UA (POCT) Negative Negative [facility] KETONE UA (POCT) 40 mg/dL Abnormal Negative mg/dL [facility] LEUKOCYTES U[facility] (POCT) Negative [facility] NITRITE UA (POCT) Negative Negative [facility] PH UA (POCT) 5.5 4.5 - 8.0 [facility] Protein Ql (U) Trace Abnormal Negative mg/dL [facility] SPECIFIC GRAVITY UA (POCT) 1.025 1.005 - 1.030 [facility] UROBILINOGEN UA (POCT) 0.2 E.U./dL Normal E.U./dL [facility] Vital Signs Date Time Vital Sign Value Performing Clinician Facility 02-13-2025 11:39-0400 Body height 170.[address] Mohit Pittman DO Work Phone: [facility] 02-13-2025 11:39-0400 Body mass index (BMI) [Ratio] 26.4 kg/m2 Dr. Mohit Pittman DO Work Phone: [facility] 02-13-2025 11:39-0400 Body temperature 97.7 [degF] Dr. Mohit Pittman DO Work Phone: [facility] 02-13-2025 11:39-0400 Body weight 76.[address] Mohit Pittman DO Work Phone: [facility] 02-13-2025 11:39-0400 Diastolic blood pressure 64 mm[Hg] Dr. Mohit Pittman DO Work Phone: [facility] 02-13-2025 11:39-0400 Heart rate 62 /min Dr. Mohit Pittman DO Work Phone: [facility] 02-13-2025 11:39-0400 Respiratory rate 16 /min Dr. Mohit Pittman DO Work Phone: [facility] 02-13-2025 11:39-0400 SaO2% (BldA) [Mass fraction] 96 % Dr. Mohit Pittman DO Work Phone: [facility] 02-13-2025 11:39-0400 Systolic blood pressure 126 mm[Hg] Dr. Mohit Pittman DO Work Phone: [facility] 11-14-2024 10:03-0400 Body height 170.[address] Mohit Pittman DO Work Phone: [facility] 11-14-2024 10:03-0400 Body mass index (BMI) [Ratio] 27.2 kg/m2 Dr. Mohit Pittman DO Work Phone: [facility] 11-14-2024 10:03-0400 Body temperature 96 [degF] Dr. Mohit Pittman DO Work Phone: [facility] 11-14-2024 10:03-0400 Body weight 78.[address] Mohit Pittman DO Work Phone: [facility] 11-14-2024 10:03-0400 Diastolic blood pressure 78 mm[Hg] Dr. Mohit Pittman DO Work Phone: [facility] 11-14-2024 10:03-0400 Heart rate 77 /min Dr. Mohit Pittman DO Work Phone: [facility] 11-14-2024 10:03-0400 Respiratory rate 16 /min Dr. Mohit Pittman DO Work Phone: [facility] 11-14-2024 10:03-0400 SaO2% (BldA) [Mass fraction] 96 % Dr. Mohit Pittman DO Work Phone: [facility] 11-14-2024 10:03-0400 Systolic blood pressure 154 mm[Hg] Dr. Mohit Pittman DO Work Phone: [facility] 08-08-2024 10:32-0500 Body mass index (BMI) [Ratio] 27.3 kg/m2 Dr. Mohit Pittman DO Work Phone: [facility] 08-08-2024 10:32-0500 Body temperature 97.5 [degF] Dr. Mohit Pittman DO Work Phone: [facility] 08-08-2024 10:32-0500 Body weight 79.[address] Mohit Pittman DO Work Phone: [facility] 08-08-2024 10:32-0500 Diastolic blood pressure 74 mm[Hg] Dr. Mohit Pittman DO Work Phone: [facility] 08-08-2024 10:32-0500 Heart rate 57 /min Dr. Mohit Pittman DO Work Phone: [facility] 08-08-2024 10:32-0500 Respiratory rate 14 /min Dr. Mohit Pittman DO Work Phone: [facility] 08-08-2024 10:32-0500 SaO2% (BldA) [Mass fraction] 97 % Dr. Mohit Pittman DO Work Phone: [facility] 08-08-2024 10:32-0500 Systolic blood pressure 122 mm[Hg] Dr. Mohit Pittman DO Work Phone: [facility] 11-18-2023 07:48-0400 Diastolic blood pressure 92 mm[Hg] Kamran Gordon Jr., MD Work Phone: [facility] 11-18-2023 07:48-0400 Heart rate 69 /min Kamran Gordon Jr., MD Work Phone: [facility] 11-18-2023 07:48-0400 SaO2% (BldA) [Mass fraction] 96 % Kamran Gordon Jr., MD Work Phone: [facility] 11-18-2023 07:48-0400 Systolic blood pressure 150 mm[Hg] Kamran Gordon Jr., MD Work Phone: [facility] 11-11-2023 13:26-0500 Body temperature 97.59 [degF] Nahun Jeffrey MD Work Phone: [facility] 11-11-2023 13:26-0500 Body weight 76.11 kg Nahun Jeffrey MD Work Phone: [facility] 11-11-2023 13:26-0500 Diastolic blood pressure 84 mm[Hg] Nahun Jeffrey MD Work Phone: [facility] 11-11-2023 13:26-0500 Heart rate 64 /min Nahun Jeffrey MD Work Phone: [facility] 11-11-2023 13:26-0500 Respiratory rate 18 /min Nahun Jeffrey MD Work Phone: [facility] 11-11-2023 13:26-0500 Systolic blood pressure 164 mm[Hg] Nahun Jeffrey MD Work Phone: [facility] 06-30-2023 13:26-0400 Diastolic blood pressure 80 mm[Hg] Kamran Gordon Jr., MD Work Phone: [facility] 06-30-2023 13:26-0400 Heart rate 63 /min Kamran Gordon Jr., MD Work Phone: [facility] 06-30-2023 13:26-0400 SaO2% (BldA) [Mass fraction] 97 % Kamran Gordon Jr., MD Work Phone: [facility] 06-30-2023 13:26-0400 Systolic blood pressure 122 mm[Hg] Kamran Gordon Jr., MD Work Phone: [facility] 05-13-2023 12:57-0400 Body height 170.2 cm Nahun Jeffrey MD Work Phone: [facility] 05-13-2023 12:57-0400 Body temperature 97.59 [degF] Nahun Jeffrey MD Work Phone: [facility] 05-13-2023 12:57-0400 Body weight 67.13 kg Nahun Jeffrey MD Work Phone: [facility] 05-13-2023 12:57-0400 Diastolic blood pressure 72 mm[Hg] Nahun Jeffrey MD Work Phone: [facility] 05-13-2023 12:57-0400 Heart rate 60 /min Nahun Jeffrey MD Work Phone: [facility] 05-13-2023 12:57-0400 Respiratory rate 16 /min Nahun Jeffrey MD Work Phone: [facility] 05-13-2023 12:57-0400 Systolic blood pressure 126 mm[Hg] Nahun Jeffrey MD Work Phone: [facility] 04-01-2023 14:08-0400 Body height 170.2 cm Kamran Gordon Jr., MD Work Phone: [facility] 04-01-2023 14:08-0400 Diastolic blood pressure 80 mm[Hg] Kamran Gordon Jr., MD Work Phone: [facility] 04-01-2023 14:08-0400 Heart rate 14 /min Kamran Gordon Jr., MD Work Phone: [facility] 04-01-2023 14:08-0400 Systolic blood pressure 130 mm[Hg] Kamran Gordon Jr., MD Work Phone: [facility] 03-20-2023 09:11-0400 Body weight 62.6 kg Nahun Jeffrey MD Work Phone: [facility] 03-20-2023 09:11-0400 Diastolic blood pressure 64 mm[Hg] Nahun Jeffrey MD Work Phone: [facility] 03-20-2023 09:11-0400 Heart rate 60 /min Nahun Jeffrey MD Work Phone: [facility] 03-20-2023 09:11-0400 Respiratory rate 16 /min Nahun Jeffrey MD Work Phone: [facility] 03-20-2023 09:11-0400 Systolic blood pressure 110 mm[Hg] Nahun Jeffrey MD Work Phone: [facility] 01-05-2023 08:40-0400 Body weight 63.96 kg Nahun Jeffrey MD Work Phone: [facility] 01-05-2023 08:40-0400 Diastolic blood pressure 70 mm[Hg] Nahun Jeffrey MD Work Phone: [facility] 01-05-2023 08:40-0400 Heart rate 76 /min Nahun Jeffrey MD Work Phone: [facility] 01-05-2023 08:40-0400 Respiratory rate 16 /min Nahun Jeffrey MD Work Phone: [facility] 01-05-2023 08:40-0400 Systolic blood pressure 126 mm[Hg] Nahun Jeffrey MD Work Phone: [facility] 12-09-2022 12:07-0400 Body height 170.2 cm Kamran Gordon Jr., MD Work Phone: [facility] 12-09-2022 12:07-0400 Body weight 65.77 kg Kamran Gordon Jr., MD Work Phone: [facility] 12-09-2022 12:07-0400 Diastolic blood pressure 84 mm[Hg] Kamran Gordon Jr., MD Work Phone: [facility] 12-09-2022 12:07-0400 Systolic blood pressure 132 mm[Hg] Kamran Gordon Jr., MD Work Phone: [facility] 11-16-2022 09:35-0400 Body height 170.2 cm Pst 1 [facility] 11-16-2022 09:35-0400 Body temperature 98.1 [degF] Pst 1 [facility] 11-16-2022 09:35-0400 Body weight 65.68 kg Pst 1 [facility] 11-16-2022 09:35-0400 Diastolic blood pressure 75 mm[Hg] Pst 1 [facility] 11-16-2022 09:35-0400 Heart rate 74 /min Pst 1 [facility] 11-16-2022 09:35-0400 Respiratory rate 16 /min Pst 1 [facility] 11-16-2022 09:35-0400 SaO2% (BldA) [Mass fraction] 97 % Pst 1 [facility] 11-16-2022 09:35-0400 Systolic blood pressure 135 mm[Hg] Pst 1 [facility] 11-03-2022 10:59-0500 Body height 170.2 cm Uriel Barragan DO Work Phone: [facility] 11-03-2022 10:59-0500 Body weight 65.77 kg Uriel Barragan DO Work Phone: [facility] 11-03-2022 10:59-0500 Diastolic blood pressure 88 mm[Hg] Uriel Barragan DO Work Phone: [facility] 11-03-2022 10:59-0500 Systolic blood pressure 157 mm[Hg] Uriel Barragan DO Work Phone: [facility] 08-06-2022 09:33-0500 Body temperature 96.4 [degF] Nahun Jeffrey MD Work Phone: [facility] 08-06-2022 09:33-0500 Body weight 65.77 kg Nahun Jeffrey MD Work Phone: [facility] 08-06-2022 09:33-0500 Diastolic blood pressure 68 mm[Hg] Nahun Jeffrey MD Work Phone: [facility] 08-06-2022 09:33-0500 Heart rate 72 /min Nahun Jeffrey MD Work Phone: [facility] 08-06-2022 09:33-0500 Respiratory rate 16 /min Nahun Jeffrey MD Work Phone: [facility] 08-06-2022 09:33-0500 Systolic blood pressure 130 mm[Hg] Nahun Jeffrey MD Work Phone: [facility] 05-07-2022 09:22-0400 Body temperature 96.6 [degF] Nahun Jeffrey MD Work Phone: [facility] 05-07-2022 09:22-0400 Body weight 64.86 kg Nahun Jeffrey MD Work Phone: [facility] 05-07-2022 09:22-0400 Diastolic blood pressure 72 mm[Hg] Nahun Jeffrey MD Work Phone: [facility] 05-07-2022 09:22-0400 Heart rate 56 /min Nahun Jeffrey MD Work Phone: [facility] 05-07-2022 09:22-0400 Respiratory rate 56 /min Nahun Jeffrey MD Work Phone: [facility] 05-07-2022 09:22-0400 Systolic blood pressure 122 mm[Hg] Nahun Jeffrey MD Work Phone: [facility] 12-02-2021 08:25-0400 Body height 170.2 cm Salvadoryrkhadra LorenzoYung DO Work Phone: [facility] 12-02-2021 08:25-0400 Body weight 63.5 kg Jayram Yung DO Work Phone: [facility] 12-02-2021 08:25-0400 Diastolic blood pressure 76 mm[Hg] Jayram Yung DO Work Phone: [facility] 12-02-2021 08:25-0400 Systolic blood pressure 126 mm[Hg] Jayram Yung DO Work Phone: [facility] 12-01-2021 09:16-0400 Diastolic blood pressure 76 mm[Hg] Mi Nurse Work Phone: [facility] 12-01-2021 09:16-0400 Heart rate 62 /min Mi Nurse Work Phone: [facility] 12-01-2021 09:16-0400 Systolic blood pressure 124 mm[Hg] Mi Nurse Work Phone: [facility] Encounters Encounter Date Encounter Type Care Provider Facility Start: 02-13-2025 End: 02-13-[address] Mohit Pittman DO Work Phone: [facility] Work Phone: Start: 02-13-2025 End: 02-13-[address] Mohit Castro DO -[facility] Work Phone: Start: 11-14-2024 End: 11-14-[address] [facility] Work [facility]: Start: 11-14-2024 End: 11-14-[address] Mohit Pittman DO Work Phone: [facility] Work Phone: Start: 11-14-2024 End: 11-14-2024 ambulatory Mohit Pittman Facility:[facility] Start: 08-08-2024 End: 08-08-[address] [facility] Work Phone: Start: 08-08-2024 End: 08-08-2024 ambulatory Mohit Pittman Facility:[facility] Start: 06-01-2024 End: 06-02-2024 ambulatory Mohit Pittman DO Work Phone: [facility] Comment on above: Allied Health Visit (Medication Adherence Outreach ) Refill Request Start: 05-03-2024 End: 05-03-2024 ambulatory Mohit Pittman Facility:[facility] Start: 11-22-2023 Refill Nahun swanson MD Work Phone: [facility] Comment on above: Refill Request Start: 11-18-2023 End: 11-18-2023 ambulatory KAMRAN GORDON JR Facility:[facility] Start: 11-18-2023 End: 11-18-2023 Patient encounter procedure Kamran Gordon MD Work Phone: [facility] Comment on above: Prostate cancer (HCC ) (Primary Dx) Start: 11-12-2023 Telephone encounter Kamran Gordon MD Work Phone: Urology Comment on above: Patient Update; Orde rs Start: 11-11-2023 End: 11-11-2023 ambulatory NAHUN JEFFREY Facility:[facility] Start: 11-11-2023 End: 11-11-2023 Patient encounter procedure Nahun Jeffrey MD Work Phone: [facility] [place] Comment on above: Type 2 diabetes ronaldo itus with hyperglycemia, without long-term current use of insulin (HCC) (Primary Dx); Essential hypertension; Acquired hypothyroidism; Prostate cancer (HCC); Familial combined hyperlipidemia Start: 11-05-2023 End: 11-06-2023 ambulatory NAHUN JEFFREY Facility:[facility] Start: 10-21-2023 Refill Nahun swanson MD Work Phone: [facility] [place] Comment on above: Refill Request Start: 09-09-2023 End: 09-10-2023 ambulatory NAHUN JEFFREY Facility:[facility] Start: 08-19-2023 End: 08-19-2023 ambulatory LE[place] Facility:[facility] Start: 07-01-2023 Telephone encounter Kamran Gordon MD Work Phone: Urology Comment on above: Patient Question Start: 06-30-2023 End: 06-30-2023 ambulatory KAMRAN GORDON JR Facility:[facility] Start: 06-30-2023 End: 06-30-2023 Patient encounter procedure Kamran Gordon MD Work Phone: [facility] Comment on above: Prostate cancer (HCC ) (Primary Dx) Start: 06-17-2023 End: 06-18-2023 ambulatory NAHUN JEFFREY Facility:[facility] Start: 05-27-2023 Refill Nahun swanson MD Work Phone: [facility] [place] Comment on above: Refill Request Start: 05-21-2023 Refill Nahun swanson MD Work Phone: [facility] [place] Comment on above: Refill Request Start: 05-14-2023 Telephone encounter Nahun steinberg MD Work Phone: [facility] [place] Comment on above: Medication Request Start: 05-13-2023 End: 05-13-2023 ambulatory NAHUN JEFFREY Facility:[facility] Start: 05-13-2023 End: 05-13-2023 Patient encounter procedure Nahun Jeffrey MD Work Phone: [facility] [place] Comment on above: Medicare annual well ness visit, initial (Primary Dx); ED (erectile dysfunction) of organic origin; Need for influenza vaccination; Need for vaccination; Acquired hypothyroidism; Type 2 diabetes mellitus with hyperglycemia, without long-term current use of insulin (HCC); Essential hypertension Start: 05-05-2023 Refill Nahun swanson MD Work Phone: [facility] [place] Comment on above: Refill Request Start: 05-04-2023 End: 05-05-2023 ambulatory NAHUN JEFFREY Facility:[facility] Start: 04-26-2023 Refill Nahun swanson MD Work Phone: [facility] [place] Comment on above: Refill Request; Refi ll Request Start: 04-21-2023 Telephone encounter Nahun steinberg MD Work Phone: [facility] [place] Comment on above: Medication Problem Start: 04-16-2023 Telephone encounter Nahun steinberg MD Work Phone: [facility] [place] Comment on above: wrong lancet rx sent to pharmacy Start: 04-14-2023 Refill Nahun swanson MD Work Phone: [facility] [place] Comment on above: Refill Request Start: 04-14-2023 Refill Leigh Clements APRN, .CNP Work Phone: [facility] [place] Comment on above: Med Change Request Start: 04-12-2023 Refill Nahun swanson MD Work Phone: [facility] [place] Comment on above: Refill Request Start: 04-01-2023 End: 04-01-2023 ambulatory KAMRAN GORDON JR Facility:[facility] Start: 04-01-2023 End: 04-01-2023 Patient encounter procedure Kamran Gordon MD Work Phone: [facility] Comment on above: Prostate cancer (HCC ) (Primary Dx) Start: 03-29-2023 End: 03-30-2023 ambulatory NAHUN JEFFREY Facility:[facility] Start: 03-22-2023 Refill Nahun swanson MD Work Phone: [facility] [place] Comment on above: Refill Request Start: 03-20-2023 End: 03-20-2023 ambulatory NAHUN JEFFREY Facility:[facility] Start: 03-20-2023 End: 03-20-2023 Patient encounter procedure Nahun Jeffrey MD Work Phone: [facility] [place] Comment on above: Type 2 diabetes ronaldo itus with hyperglycemia, without long-term current use of insulin (HCC) (Primary Dx) Start: 03-15-2023 Telephone encounter Nahun steinberg MD Work Phone: [facility] [place] Comment on above: Refill Request Start: 03-12-2023 Telephone encounter Nahun steinberg MD Work Phone: [facility] [place] Comment on above: Patient Update Start: 02-04-2023 Refill Nahun swanson MD Work Phone: [facility] [place] Comment on above: Refill Request Start: 01-05-2023 End: 01-05-2023 ambulatory NAHUN JEFFREY Facility:[facility] Start: 01-05-2023 End: 01-05-2023 Patient encounter procedure Nahun Jeffrey MD Work Phone: [facility] [place] Comment on above: Familial combined hy perlipidemia (Primary Dx); Essential hypertension; Type 2 diabetes mellitus with hyperglycemia, without long-term current use of insulin (HCC); Urinary incontinence, unspecified type Start: 12-31-2022 End: 01-01-2023 ambulatory NAHUN JEFFREY Facility:[facility] Start: 12-17-2022 Telephone encounter Kamran Gordon MD Work Phone: [facility] Comment on above: Orders Start: 12-16-2022 Telephone encounter Kamran Gordon MD Work Phone: Urology Comment on above: Patient Question (Pt called stating that he would like a refill of Oxybutynin 10mg/request has beenP sent to Dr Gordon///) Refill Request (out of medication) Start: 12-09-2022 End: 12-09-2022 ambulatory KAMRAN GORDON JR Facility:[facility] Start: 12-09-2022 End: 12-09-2022 Patient encounter procedure Kamran Gordon MD Work Phone: [facility] Comment on above: Prostate cancer (HCC ) (Primary Dx) Start: 12-07-2022 End: 12-08-2022 ambulatory NAHUN JEFFREY Facility:[facility] Start: 12-04-2022 Telephone encounter Kamran Gordon MD Work Phone: Urology Comment on above: Patient Update Start: 12-01-2022 Telephone encounter Kamran Gordon MD Work Phone: [facility] Comment on above: Post Op Appointment Patient Question Start: 11-30-2022 End: 11-30-2022 ambulatory KAMRAN GORDON JR Facility:[facility] Start: 11-25-2022 Telephone encounter Kamran Gordon MD Work Phone: Urology Comment on above: Results Start: 11-19-2022 End: 11-19-2022 ambulatory JESSICA WOJCIECH Facility:[facility] Start: 11-16-2022 End: 11-16-2022 Admission to establishment [facility] [address] [facility] Start: 11-16-2022 End: 11-16-20[address] Pst 1 Pre Surgical Testing Comment on above: Preop testing (Prima ry Dx); Essential hypertension; Familial combined hyperlipidemia; 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d by mild nonproliferative retinopathy without macular edema, without long-term current use of insulin (HCC); Prostate cancer (HCC) [C61 (ICD-10-CM)] Start: 11-16-2022 End: 11-16-2022 Patient encounter status Pst 1 Pre Surgical Te sting Start: 11-13-2022 End: 01-05-2023 [facility] Work Phone: Start: 11-12-2022 ambulatory [facility] Work Phone: [facility] [employer] Comment on above: Medication Update (S tatin use review) Start: 11-10-2022 Telephone encounter Uriel davila DO Work Phone: Urology Comment on above: Imaging Question Start: 11-03-2022 End: 11-03-2022 Patient encounter procedure Uriel Barragan DO Work Phone: [facility] Comment on above: Prostate cancer (HCC ) (Primary Dx) Start: 10-23-2022 Telephone encounter Uriel davila DO Work Phone: Urology Comment on above: Results Start: 10-15-2022 Telephone encounter Mohit Baron MD Work Phone: [facility] Comment on above: Surgery Scheduled Start: 10-13-2022 End: 10-13-2022 ambulatory Mohit Baron MD Work Phone: [facility] Comment on above: PSA elevation (Prima ry Dx) Start: 10-13-2022 End: 10-13-2022 Telemedicine consultation with patient Mohit Baron MD Work Phone: [employer] Start: 10-01-2022 End: 10-01-2022 Patient encounter procedure Uriel Barragan DO Work Phone: Urology Comment on above: Elevated prostate sp ecific antigen (PSA) (Primary Dx) Start: 09-24-2022 Telephone encounter Uriel davila DO Work Phone: Urology Comment on above: Results Start: 09-22-2022 ambulatory URIEL BARRAGAN Facilit y:[id number] Start: 09-22-2022 End: 09-22-2022 Subsequent hospital visit by physician [facility] Work Phone: [facility] Comment on above: Elevated prostate sp ecific antigen (PSA) [R97.20] Start: 08-06-2022 End: 08-06-2022 Patient encounter procedure Nahun Jeffrey MD Work Phone: [facility] [place] Comment on above: PSA elevation (Prima ry Dx); Acquired hypothyroidism; 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d by mild nonproliferative retinopathy without macular edema, without long-term current use of insulin (HCC); Essential hypertension Start: 07-15-2022 Telephone encounter Nahun steinberg MD Work Phone: [facility] [place] Comment on above: Lab Orders Start: 06-01-2022 Refill Nahun swanson MD Work Phone: [facility] [place] Comment on above: Refill Request Start: 05-07-2022 End: 05-07-2022 Patient encounter procedure Nahun Jeffrey MD Work Phone: [facility] [place] Comment on above: Medicare annual well ness visit, initial (Primary Dx); ED (erectile dysfunction) of organic origin; Need for influenza vaccination; Essential hypertension; 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d by mild nonproliferative retinopathy without macular edema, without long-term current use of insulin (HCC); Acquired hypothyroidism; Adhesive capsulitis of left shoulder Start: 04-02-2022 Telephone encounter Nahun steinberg MD Work Phone: [facility] [place] Comment on above: Patient Question Start: 02-19-2022 Refill Nahun swanson MD Work Phone: [facility] [place] Comment on above: Refill Request Start: 12-29-2021 Refill Nahun swanson MD Work Phone: [facility] [place] Comment on above: Refill Request Start: 12-05-2021 Telephone encounter Uriel davila DO Work Phone: [facility] Comment on above: Results Start: 12-02-2021 End: 12-02-2021 Patient encounter procedure Uriel Barragan DO Work Phone: [facility] Comment on above: PSA elevation (Prima ry Dx) Start: 12-01-2021 Telephone encounter Nahun steinberg MD Work Phone: [facility] [place] Comment on above: Blood Pressure Check Start: 12-01-2021 End: 12-01-2021 Nursing evaluation of patient and report Mi Nurse Work Phone: [facility] [place] Comment on above: Hypertension goal BP (blood pressure) < 140/90 (Primary Dx) Start: 06-07-2017 End: 07-17-2020 Patient encounter status Mohit Pittman DO Work Phone: [facility] Procedures Date Procedure Procedure Detail Performing Clinician Start: 11-18-2023 Urnls dip stick/tabl et rgnt auto w/o microscopy Kamran Gordon MD Work Phone: Start: 06-30-2023 Urnls dip stick/tabl et rgnt auto w/o microscopy Kamran Gordon MD Work Phone: Start: 05-13-2023 INFLUENZA VACCINE, P RSV FREE, AGE 65+ YR, HIGH DOSE, QUADRIVALENT (FLUZONE HIGH-DOSE) Nahun Jeffrey MD Work Phone: Start: 04-01-2023 Urnls dip stick/tabl et rgnt auto w/o microscopy Kamran Gordon MD Work Phone: Start: 01-05-2023 Hemoglobin A1c/Hemoglobin.total in Blood Nahun Jeffrey MD Work Phone: Start: 12-09-2022 Urnls dip stick/tabl et rgnt auto w/o microscopy Kamran Gordon MD Work Phone: Start: 05-07-2022 INFLUENZA SEASONAL QUADRIVALENT HIGH DOSE AGE 65+ Nahun Jeffrey MD Work Phone: Start: 05-07-2022 Adult depression scr eening assessment Nahun Jeffrey MD Work Phone: Start: 12-02-2021 Us pelvic nonobstetr ic image dcmtn limited/f/u Uriel Barragan DO Work Phone: Start: 12-02-2021 Urnls dip stick/tabl et rgnt auto w/o microscopy Uriel Barragan DO Work Phone: Start: 01-14-2021 Adult depression scr eening assessment Mi Nurse Work Phone: Start: 03-11-2018 Colonoscopy Mi Nurse Work Phone: Plan of Treatment Date Care Activity Detail Author Start: 2031 RSV Vaccine (1 - 1-d ose 75+ series) RSV Vaccine (1 - 1-dose 75+ series) [facility] Start: 09-09-2028 Prostate specific antigen measurement Prostate Cancer Screening Discussion [facility] Start: 06-17-2028 Prostate Cancer Screening Discussion Prostate Cancer Screening Discussion [facility] Start: 03-29-2028 PROSTATE CANCER SCREENING DISCUSSION PROSTATE CANCER SCREENING DISCUSSION [facility] Start: 03-11-2028 Colonoscopy COLONOSCOPY [facility] Start: 03-11-2028 COLORECTAL CANCER SCREENING COLORECTAL CANCER SCREENING [facility] Start: 03-11-2028 Screening for malign ant neoplasm of colon [facility] Start: 01-01-2028 PROSTATE CANCER SCREENING DISCUSSION PROSTATE CANCER SCREENING DISCUSSION [facility] Start: 08-03-2027 PROSTATE CANCER SCREENING DISCUSSION PROSTATE CANCER SCREENING DISCUSSION [facility] Start: 10-27-2026 PROSTATE CANCER SCREENING DISCUSSION PROSTATE CANCER SCREENING DISCUSSION [facility] Start: 01-28-2026 Urine microalbumin profile [facility] Start: 11-10-2024 Annual PCP Team Welding [employer] katie Disease Visit Annual PCP Team Chronic Disease Visit [facility] Start: 11-10-2024 Covid-19 Vaccine () Covid-19 Vaccine () [facility] Comment on above: Postponed from 05/07 (Declined at this time) Start: 11-10-2024 Diabetic foot examination Diabetic Foot Exam [facility] Start: 11-04-2024 Hepatitis B screening Urine Al bumin:Creatinine Ratio [facility] Start: 11-04-2024 Hepatitis B surface antibody level LDL Cholesterol [facility] Start: 10-25-2024 Glaucoma screening Dilated Retinal E xam [facility] Start: 08-19-2024 Annual PCP Team Welding Machine [employer] katie Disease Visit Annual PCP Team Chronic Disease Visit [facility] Start: 05-20-2024 End: 08-19-2024 Prostate specific Ag [Mass/volume] in Serum or Plasma PSA/PROSTSPECAG DIAG Lab Routine Prostate cancer (HCC) Expected: 05/20/2024, Expires: 08/19/2024 [facility] Work Phone: Comment on above: Expected: 05/20/2024 , Expires: 08/19/2024 Start: 05-13-2024 ANNUAL PCP TEAM [employer] PL[employer] KATIE DISEASE VISIT ANNUAL PCP TEAM CHRONIC DISEASE VISIT [facility] Start: 05-13-2024 BP CONTROLLED (<130/80) BP CONTROLLE D (<130/80) [facility] Start: 05-07-2024 Covid-19 Vaccine () Covid-19 Vaccine () [facility] Start: 05-07-2024 Hemoglobin A1c measurement HbA1C [facility] Start: 05-07-2024 Influenza vaccination Influenza Vacc ine (#1) [facility] Start: 05-04-2024 Hepatitis B surface antibody level LDL CHOLESTEROL [facility] Start: 03-20-2024 ANNUAL PCP TEAM [place] PL[employer] KATIE DISEASE VISIT ANNUAL PCP TEAM CHRONIC DISEASE VISIT [facility] Start: 03-20-2024 BP CONTROLLED (<130/80) BP CONTROLLE D (<130/80) [facility] Start: 01-06-2024 ANNUAL PCP TEAM [place] PL[employer]NER KATIE DISEASE VISIT ANNUAL PCP TEAM CHRONIC DISEASE VISIT [facility] Start: 01-06-2024 BP CONTROLLED (<130/80) BP CONTROLLE D (<130/80) [facility] Start: 01-01-2024 Hepatitis B screening URINE AL BUMIN:CREATININE RATIO [facility] Start: 01-01-2024 Hepatitis B surface antibody level LDL CHOLESTEROL [facility] Start: 11-11-2023 End: 01-11-2024 ALBUMIN/CREAT RATIO RND UR ALBUMIN/CREAT RATIO RND UR Lab Routine Type 2 diabetes mellitus with hyperglycemia, without long-term current use of insulin (HCC) Expected: 11/11/2023, Expires: 01/11/2024 [facility] Work Phone: Comment on above: Expected: 11/11/2023 , Expires: 01/11/2024 Start: 11-11-2023 End: 01-11-2024 CBC panel - Blood by Automated count CBC Lab Routine Essential hypertension Expected: 11/11/2023, Expires: 01/11/2024 [facility] Work Phone: Comment on above: Expected: 11/11/2023 , Expires: 01/11/2024 Start: 11-11-2023 End: 01-11-2024 Comprehensive metabolic 2000 panel - Serum or Plasma COMP METABOLIC PANEL Lab Routine Type 2 diabetes mellitus with hyperglycemia, without long-term current use of insulin ([facility]) Expected: 11/11/2023, Expires: 01/11/2024 [facility] Work Phone: Comment on above: Expected: 11/11/2023 , Expires: 01/11/2024 Start: 11-11-2023 End: 01-11-2024 Hemoglobin A1c in Blood HGB A1C Lab Routine Type 2 diabetes mellitus with hyperglycemia, without long-term current use of insulin ([facility]) Expected: 11/11/2023, Expires: 01/11/2024 [facility] Work Phone: Comment on above: Expected: 11/11/2023 , Expires: 01/11/2024 Start: 11-11-2023 End: 01-11-2024 Lipid 1996 panel - Serum or Plasma LIPID PANEL BASIC Lab Routine Type 2 diabetes mellitus with hyperglycemia, without long-term current use of insulin ([facility]) Expected: 11/11/2023, Expires: 01/11/2024 [facility] Work Phone: Comment on above: Expected: 11/11/2023 , Expires: 01/11/2024 Start: 11-11-2023 End: 01-11-2024 Thyrotropin [Units/volume] in Serum or Plasma TSH BLD Lab Routine Acquired hypothyroidism Expected: 11/11/2023, Expires: 01/11/2024 [facility] Work Phone: Comment on above: Expected: 11/11/2023 , Expires: 01/11/2024 Start: 11-04-2023 Hemoglobin A1c measurement HbA1C [facility] Start: 11-04-2023 Hemoglobin A1c/Hemoglobin.total in Blood HBA1C [facility] Start: 10-16-2023 Glaucoma screening Dilated Retinal E xam [facility] Start: 10-16-2023 Hepatitis C antibody , confirmatory test DILATED RETINAL EXAM [facility] Start: 09-06-2023 Advance Directive Discussion Advance Directive Discussion [facility] Start: 09-06-2023 Depression Assessment Depression Ass essment [facility] Start: 08-06-2023 3 comp foot exam completed DIABETIC FOOT EXAM [facility] Start: 08-06-2023 ANNUAL PCP TEAM [employer] KATIE DISEASE VISIT ANNUAL PCP TEAM CHRONIC DISEASE VISIT [facility] Start: 08-06-2023 COVID-19 VACCINE (3 - Booster for [place] series) COVID-19 VACCINE (3 - Booster for [place] series) [facility] Comment on above: Postponed from 10/22 (Declined at this time) Start: 08-06-2023 Diabetic foot examination Diabetic Foot Exam [facility] Start: 07-08-2023 Hemoglobin A1c/Hemoglobin.total in Blood HBA1C [facility] Start: 07-02-2023 End: 09-01-2023 Prostate specific Ag [Mass/volume] in Serum or Plasma PSA/PROSTSPECAG DIAG Lab Routine Prostate cancer (HCC) Expected: 07/02/2023, Expires: 09/01/2023 [facility] Work Phone: Comment on above: Expected: 07/02/2023 , Expires: 09/01/2023 Start: 06-30-2023 End: 09-29-2023 Prostate specific Ag [Mass/volume] in Serum or Plasma PSA/PROSTSPECAG DIAG Lab Routine Prostate cancer (HCC) Expected: 06/30/2023, Expires: 09/29/2023 [facility] Work Phone: Comment on above: Expected: 06/30/2023 , Expires: 09/29/2023 Start: 05-08-2023 End: 07-08-2023 Basic metabolic 2000 panel - Serum or Plasma BASIC METABOLIC PNL Lab Routine Type 2 diabetes mellitus with hyperglycemia, without long-term current use of insulin (HCC) Expected: 05/08/2023, Expires: 07/08/2023 [facility] Work Phone: Comment on above: Expected: 05/08/2023 , Expires: 07/08/2023 Start: 05-08-2023 End: 07-08-2023 Hemoglobin A1c in Blood HGB A1C Lab Routine Type 2 diabetes mellitus with hyperglycemia, without long-term current use of insulin (HCC) Expected: 05/08/2023, Expires: 07/08/2023 [facility] Work Phone: Comment on above: Expected: 05/08/2023 , Expires: 07/08/2023 Start: 05-08-2023 End: 07-08-2023 Lipid 1996 panel - Serum or Plasma LIPID PANEL BASIC Lab Routine Familial combined hyperlipidemia Expected: 05/08/2023, Expires: 07/08/2023 [facility] Work Phone: Comment on above: Expected: 05/08/2023 , Expires: 07/08/2023 Start: 05-07-2023 Adult depression screening assessment DEPRESSION SCREENING [facility] Start: 05-07-2023 ANNUAL PCP TEAM [employer] KATIE DISEASE VISIT ANNUAL PCP TEAM CHRONIC DISEASE VISIT [facility] Start: 05-07-2023 BP CONTROLLED (<130/80) BP CONTROLLE D (<130/80) [facility] Start: 05-07-2023 Covid-19 Vaccine () Covid-19 Vaccine () [facility] Start: 05-07-2023 Influenza vaccination INFLUENZA (#1) [facility] Start: 04-29-2023 Hepatitis B surface antibody level LDL CHOLESTEROL [facility] Start: 03-10-2023 End: 05-10-2023 Prostate specific Ag [Mass/volume] in Serum or Plasma PSA/PROSTSPECAG DIAG Lab Routine Prostate cancer (HCC) Expected: 03/10/2023, Expires: 05/10/2023 [facility] Work Phone: Comment on above: Expected: 03/10/2023 , Expires: 05/10/2023 Start: 01-31-2023 Hemoglobin A1c/Hemoglobin.total in Blood HBA1C [facility] Start: 01-04-2023 End: 03-06-2023 ALBUMIN/CREAT RATIO RND UR ALBUMIN/CREAT RATIO RND UR Lab Routine 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d by mild nonproliferative retinopathy without macular edema, without long-term current use of insulin (HCC) Expected: 01/04/2023, Expires: 03/06/2023 [facility] Work Phone: Comment on above: Expected: 01/04/2023 , Expires: 03/06/2023 Start: 01-04-2023 End: 03-06-2023 Basic metabolic 2000 panel - Serum or Plasma BASIC METABOLIC PNL Lab Routine 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d by mild nonproliferative retinopathy without macular edema, without long-term current use of insulin (HCC) Expected: 01/04/2023, Expires: 03/06/2023 [facility] Work Phone: Comment on above: Expected: 01/04/2023 , Expires: 03/06/2023 Start: 01-04-2023 End: 03-06-2023 Lipid 1996 panel - Serum or Plasma LIPID PANEL BASIC Lab Routine 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d by mild nonproliferative retinopathy without macular edema, without long-term current use of insulin ([facility]) Expected: 01/04/2023, Expires: 03/06/2023 [facility] Work Phone: Comment on above: Expected: 01/04/2023 , Expires: 03/06/2023 Start: 01-04-2023 End: 03-06-2023 Thyrotropin [Units/volume] in Serum or Plasma TSH BLD Lab Routine Acquired hypothyroidism Expected: 01/04/2023, Expires: 03/06/2023 [facility] Work Phone: Comment on above: Expected: 01/04/2023 , Expires: 03/06/2023 Start: 12-09-2022 End: 02-08-2023 Prostate specific Ag [Mass/volume] in Serum or Plasma PSA/PROSTSPECAG DIAG Lab Routine Prostate cancer (HCC) Expected: 12/09/2022, Expires: 02/08/2023 [facility] Work Phone: Comment on above: Expected: 12/09/2022 , Expires: 02/08/2023 Start: 12-02-2022 BP CONTROLLED (<130/80) BP CONTROLLE D (<130/80) [facility] Start: 12-01-2022 BP CONTROLLED (<130/80) BP CONTROLLE D (<130/80) [facility] Start: 11-13-2022 End: 01-13-2023 CONFIRM BLOOD TYPE CONFIRM BLOOD TYPE Blood Bank Routine Preop testing Expected: 11/13/2022, Expires: 01/13/2023 [facility] Work Phone: Comment on above: Expected: 11/13/2022 , Expires: 01/13/2023 Start: 11-03-2022 ANNUAL PCP TEAM [employer] KATIE DISEASE VISIT ANNUAL PCP TEAM CHRONIC DISEASE VISIT [facility] Start: 10-30-2022 Hemoglobin A1c/Hemoglobin.total in Blood HBA1C [facility] Start: 10-27-2022 Hepatitis B screening URINE AL BUMIN:CREATININE RATIO [facility] Start: 10-27-2022 Hepatitis B surface antibody level LDL CHOLESTEROL [facility] Start: 09-06-2022 ADVANCE DIRECTIVE DISCUSSION ADVANCE DIRECTIVE DISCUSSION [facility] Start: 09-06-2022 DEPRESSION ASSESSMENT DEPRESSION ASS ESSMENT [facility] Start: 08-06-2022 End: 10-06-2022 Basic metabolic 2000 panel - Serum or Plasma BASIC METABOLIC PNL Lab Routine 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d by mild nonproliferative retinopathy without macular edema, without long-term current use of insulin (HCC) Expected: 08/06/2022, Expires: 10/06/2022 [facility] Work Phone: Comment on above: Expected: 08/06/2022 , Expires: 10/06/2022 Start: 08-06-2022 End: 10-06-2022 Hemoglobin A1c in Blood HGB A1C Lab Routine 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d by mild nonproliferative retinopathy without macular edema, without long-term current use of insulin (HCC) Expected: 08/06/2022, Expires: 10/06/2022 [facility] Work Phone: Comment on above: Expected: 08/06/2022 , Expires: 10/06/2022 Start: 08-06-2022 End: 10-06-2022 Prostate specific Ag [Mass/volume] in Serum or Plasma PSA/PROSTSPECAG DIAG Lab Routine Elevated PSA Expected: 08/06/2022 (Approximate), Expires: 10/06/2022 [facility] Work Phone: Comment on above: Expected: 08/06/2022 (Approximate), Expires: 10/06/2022 Start: 06-11-2022 FECAL OCCULT BLOOD FECAL OCCULT BLOO D [facility] Start: 06-11-2022 Screening for malign ant neoplasm of colon Fecal Occult Blood [facility] Start: 05-07-2022 Influenza vaccination INFLUENZA (#1) [facility] Start: 05-06-2022 PNEUMOCOCCAL: 65+ (2 - PCV) PNEUMOCOCCAL: 65+ (2 - PCV) [facility] Start: 04-26-2022 Hemoglobin A1c/Hemoglobin.total in Blood HBA1C [facility] Start: 01-14-2022 Adult depression screening assessment DEPRESSION SCREENING [facility] Start: 01-14-2022 BP CONTROLLED (<130/80) BP CONTROLLE D (<130/80) [facility] Start: 12-26-2021 COVID-19 VACCINE (3 - Booster for Anson series) COVID-19 VACCINE (3 - Booster for Anson series) [facility] Start: 12-05-2021 End: 02-04-2022 Prostate specific Ag [Mass/volume] in Serum or Plasma PSA/PROSTSPECAG DIAG Lab Routine Elevated prostate specific antigen (PSA) Expected: 12/05/2021, Expires: 02/04/2022 [facility] Work Phone: Comment on above: Expected: 12/05/2021 , Expires: 02/04/2022 Start: 11-29-2021 Hepatitis C antibody , confirmatory test DILATED RETINAL EXAM [facility] Start: 10-22-2021 COVID-19 VACCINE (3 - Booster for Anson series) COVID-19 VACCINE (3 - Booster for Anson series) [facility] Start: 09-06-2021 ADVANCE DIRECTIVE DISCUSSION ADVANCE DIRECTIVE DISCUSSION [facility] Start: 09-06-2021 DEPRESSION ASSESSMENT DEPRESSION ASS ESSMENT [facility] Start: 07-17-2021 3 comp foot exam completed DIABETIC FOOT EXAM [facility] Start: 2016 Hepatitis B Vaccine (1 of 3 - Risk 3-dose series) Hepatitis B Vaccine (1 of 3 - Risk 3-dose series) [facility] Start: 2016 RSV Vaccine (1 - 1-d ose 60+ series) RSV Vaccine (1 - 1-dose 60+ series) [facility] Start: 2001 COLOGUARD (FIT-DNA) COLOGUARD (FIT-D NA) [facility] Start: [address] [facility]: 2001 Screening for malign ant neoplasm of colon [facility] Start: 2001 SIGMOIDOSCOPY SIGMOIDOSCOPY [facility] Start: 1974 Anxiety Screening Anxiety Screening [facility] Start: 1974 Depression Screening Depression Scre ening [facility] End: 12-03-2023 Bone &/joint imaging whole body NM BONE WHOLE BODY Radiology Routine Prostate cancer (HCC) 1 Occurrences starting 11/03/2022 until 12/03/2023 [facility] Work Phone: Comment on above: 1 Occurrences starti ng 11/03/2022 until 12/03/2023 CONFIRM BLOOD TYPE CONFIRM BLOOD TYPE Blood Bank Routine Preop testing 11/16/2022 10:16 AM EDT [facility] Work Phone: End: 01-04-2023 Mri pelvis w/o & w/contrast material MRI PROSTATE WO/W IVCON Radiology Routine Elevated prostate specific antigen (PSA) 1 Occurrences starting 12/05/2021 until 01/04/2023 [facility] Work Phone: Comment on above: 1 Occurrences starti ng 12/05/2021 until 01/04/2023 End: 09-22-2022 Mri pelvis w/o & w/contrast material [facility] Work Phone: Comment on above: 1 Occurrences starti ng 09/22/2022 until 09/22/2022 Prostate specific antigen measurement [facility] SURGICAL PATHOLOGY SURGICAL PATH OLOGY Lab Routine PSA elevation Ordered: 12/01/2021 [facility] Work Phone: Comment on above: Ordered: 12/01/[address] [facility] [address] [facility] c [facility] c [facility] Immunizations Immunization Date Immunization Notes Care Provider Fa nathaniel 08-08-2024 Seasonal trivalent influenza vaccine, adjuvanted, preservative free Dr. Mohit Pittman DO Work Phone: [facility] 05-13-2023 influenza (HD-IIV4) vaccine, age 65+ yr, high dose, quadrivalent, PF (FLUZONE HIGH-DOSE) Nahun Jeffrey MD Work Phone: [facility] Work Phone: 05-13-2023 pneumococcal (PCV20) vaccine, 20 valent (PREVNAR 20) Nahun Jeffrey MD Work Phone: [facility] Work Phone: 05-13-2023 pneumococcal Conjuga te, unspecified formulation Nahun Jeffrey MD Work Phone: [facility] Work Phone: 05-13-2023 influenza virus vacc ine, unspecified formulation Mohit Pittman DO Work Phone: [facility] 05-07-2022 influenza, high-dose , quadrivalent vaccine (FLUZONE HIGH DOSE QUADRIVALENT) Nahun Jeffrey MD Work Phone: [facility] Work Phone: 11-03-2021 influenza, high-dose , quadrivalent vaccine (FLUZONE HIGH DOSE QUADRIVALENT) Mi Nurse Work Phone: [facility] Work Phone: 05-06-2021 pneumococcal polysaccharide vaccine, 23 valent Mi Nurse Work Phone: [facility] Work Phone: 07-17-2020 influenza, injectabl e, quadrivalent, contains preservative Mi Nurse Work Phone: [facility] Work Phone: 03-27-2019 zoster vaccine recombinant Mi Nurse Work Phone: [facility] 03-16-2018 zoster vaccine recombinant Mi Nurse Work Phone: [facility] Work Phone: 01-29-2016 pneumococcal polysaccharide vaccine, 23 valent Ks Nurse Work Phone: [facility] Work Phone: 01-29-2016 tetanus toxoid, redu koko diphtheria toxoid, and acellular pertussis vaccine, adsorbed Ks Nurse Work Phone: [facility] Work Phone: Payers Date Payer Category Payer Medicare [id number] 2024 Self-pay 2021 Unknown ANTHEM [facility] S AND BLUE [facility] ANTHEM [employer] O [id number] 2021-[facility] [phone] [address] [place] [address] [facility] [id number] 2021 Unknown [id number] 2021 Unknown [id number] Unknown [id number] Unknown [id number] Unknown [id number] Unknown [id number] Social History Date Type Detail Facility Start: 05-07-2022 End: 12-01-2023 Tobacco smoking status NMIS Ex-smoker [facility] Work Phone: Start: 02-24-1967 End: 02-24-2002 History of tobacco use Current smoker [facility] Work Phone: Start: 02-24-1967 End: 02-24-2002 History of tobacco use Cigarette Smoker [facility] Work Phone: Start: 12-01-2021 End: 11-18-2023 Alcohol intake Current drinker of alcohol (finding) [facility] Start: 12-01-2021 End: 04-01-2023 Alcohol intake [facility] Work Phone: Start: 07-17-2020 End: 05-07-2022 History SDOH Alcohol Frequency 5 [facility] Start: 07-17-2020 End: 05-07-2022 History SDOH Alcohol Std Drinks 1 [facility] Start: 02-24-2013 History SDOH Alcohol Comment Pt drinks 1 glass of wine a day [facility] Start: 07-17-2020 End: 05-07-2022 Tobacco Comment started 8 years old [facility] Start: 1955 Sex Assigned At Not on file [facility] Start: 11-11-2021 End: 08-06-2022 Exposure to SARS-CoV-2 (event) Not sure [facility] Start: 03-10-2022 End: 03-20-2022 Exposure to SARS-CoV-2 (event) Unable to assess [facility] Start: 05-07-2022 Tobacco use and exposure Smoke less tobacco non-user [facility] Work Phone: Start: 05-07-2022 History SDOH Alcohol Std Drinks 0 [facility] Start: 05-07-2022 History SDOH Physica l Activity DPW 7 [facility] Start: 05-07-2022 History SDOH Physica l Activity MPS 3 [facility] Start: 05-07-2022 End: 04-01-2023 Alcohol Use Disorder Identification Test - Consumption [AUDIT-C] [facility] Work Phone: How often to you hav e a drink containing alcohol? 4 or more times a week [facility] Work Phone: How many standard dr inks containing alcohol do you have on a typical day? Patient does not drink [facility] Work Phone: How often do you hav e 6 or more drinks on 1 occasion? Never [facility] Work Phone: How many standard dr inks containing alcohol do you have on a typical day? 1 or 2 [facility] Work Phone: Start: 11-22-2024 Sex Male (finding) [facility] Start: 1955 Sex Assigned At Male W [facility] Medical Equipment Procedure Code Equipment Code Equipment Origin al Text Equipment Identifier Dates [id number], [id number], [id number], [id number], [id number] Start: 06-27-2021 End: 05-06-2023 Comment on above: Patient has one touc h ultra glucometer. Test blood sugar(s) 2 times daily. Dx: Type 2 DM - Controlled E11.9 Insulin: No Test blood sugar(s) 1-2 times daily. Dx: Type 2 DM - Uncontrolled E11.65 , Insulin: No Use one needle per d ose. 1 per day. Patient has one touc h ultra glucometer. Test blood sugar(s) 4 times daily. Dx: Type 2 DM - Controlled E11.9 Insulin: yes Test blood sugar(s) 4 times daily. Dx: Type 2 DM - Uncontrolled E11.65 , Insulin: yes Use one needle per d ose. Use one needle per d ose 4 times a day testing 4 times moni y DX E11.65 Insulin Yes Pt has One Touch Ult ra Meter. Test blood sugar(s) 4 times daily. Dx: Type 2 DM - Controlled E11.9 Insulin: Yes Pt has One Touch Ult ra Meter. Test blood sugar(s) 3 times daily. Dx: Type 2 DM - Controlled E11.9 Insulin: Yes Use one needle for e ach dose. 4x/day. Blood Sugar Diagnostic (Onetouch Ultra Test) strip Start: 08-31-2024 Lancets (Onetouc h Delica Plus Lancet) [facility] Start: 08-08-2024 Pen Needle, Diabetic (Bd Sirisha 2nd Gen Pen Needle) 32 gauge x 5/32 needle Start: 06-29-2024 Blood Sugar Diagnostic (Onetouch Ultra Test) strip Start: 12-01-2023 End: 12-23-2023 Blood Sugar Diagnostic (Onetouch Ultra Test) strip Start: 12-23-2023 End: 01-04-2024 Blood Sugar Diagnostic (Onetouch Ultra Test) strip Start: 01-04-2024 End: 02-23-2024 Blood Sugar Diagnostic (Onetouch Ultra Test) strip Start: 02-23-2024 End: 02-23-2024 Blood Sugar Diagnostic (Onetouch Ultra Test) strip Start: 02-23-2024 End: 03-15-2024 Blood Sugar Diagnostic (Onetouch Ultra Test) strip Start: 03-15-2024 End: 03-31-2024 Blood Sugar Diagnostic (Onetouch Ultra Test) strip Start: 03-31-2024 End: 06-02-2024 Blood Sugar Diagnostic (Onetouch Ultra Test) strip Start: 06-02-2024 End: 08-31-2024 Lancets (Onetouc h Delica Plus Lancet) 33 gauge misc Start: 12-23-2023 End: 08-08-2024 Lancets misc Start: 12-01-2023 End: 12-23-2023 Pen Needle, Diabetic (Bd Sirisha 2nd Gen Pen Needle) 32 gauge x 5/32 needle Start: 12-01-2023 End: 12-23-2023 Pen Needle, Diabetic (Bd Sirisha 2nd Gen Pen Needle) 32 gauge x 5/32 needle Start: 12-23-2023 End: 06-29-2024 Pen Needle, Diabetic (Bd Ultra-Fine Short Pen Needle) 31 gauge x 5/16 needle Start: 12-01-2023 End: 12-23-2023 Blood Sugar Diagnostic (Onetouch Ultra Test) strip Start: 02-13-2025 Lancets (Onetouc h Delica Plus Lancet) 33 gauge misc Start: 01-10-2025 Pen Needle, Diabetic 32 gauge x 5/32 needle Start: 02-13-2025 Blood Sugar Diagnostic (Onetouch Ultra Test) strip Start: 12-01-2023 End: 12-23-2023 Blood Sugar Diagnostic (Onetouch Ultra Test) strip Start: 02-13-2025 End: 02-13-2025 Blood Sugar Diagnostic (Onetouch Ultra Test) strip Start: 12-23-2023 End: 01-04-2024 Blood Sugar Diagnostic (Onetouch Ultra Test) strip Start: 01-04-2024 End: 02-23-2024 Blood Sugar Diagnostic (Onetouch Ultra Test) strip Start: 02-23-2024 End: 02-23-2024 Blood Sugar Diagnostic (Onetouch Ultra Test) strip Start: 02-23-2024 End: 03-15-2024 Blood Sugar Diagnostic (Onetouch Ultra Test) strip Start: 03-15-2024 End: 03-31-2024 Blood Sugar Diagnostic (Onetouch Ultra Test) strip Start: 03-31-2024 End: 06-02-2024 Blood Sugar Diagnostic (Onetouch Ultra Test) strip Start: 06-02-2024 End: 08-31-2024 Blood Sugar Diagnostic (Onetouch Ultra Test) strip Start: 08-31-2024 End: 01-30-2025 Blood Sugar Diagnostic (Onetouch Ultra Test) strip Start: 01-30-2025 End: 02-13-2025 Lancets (Onetouc h Delica Plus Lancet) 33 gauge misc Start: 08-08-2024 End: 01-10-2025 Lancets (Onetouc h Delica Plus Lancet) 33 gauge misc Start: 12-23-2023 End: 08-08-2024 Lancets misc Start: 12-01-2023 End: 12-23-2023 Pen Needle, Diabetic (Bd Sirisha 2nd Gen Pen Needle) 32 gauge x 5/32 needle Start: 12-01-2023 End: 12-23-2023 Pen Needle, Diabetic (Bd Sirisha 2nd Gen Pen Needle) 32 gauge x 5/32 needle Start: 12-23-2023 End: 06-29-2024 Pen Needle, Diabetic (Bd Sirisha 2nd Gen Pen Needle) 32 gauge x 5/32 needle Start: 06-29-2024 End: 01-30-2025 Pen Needle, Diabetic (Bd Ultra-Fine Short Pen Needle) 31 gauge x 5/16 needle Start: 12-01-2023 End: 12-23-2023 Pen Needle, Diabetic 32 gauge x 5/32 needle Start: 01-30-2025 End: 02-13-2025 Clinical Notes 09-16-2018 to 11-14-2024 Note Date & Type Note Facility 11-14-2024 Evaluation note Diagnosis Onset Date Resolution Erectile dysfunction acute Herminio 2024 9:56am History of prostate cancer chronic November 14, 2024 9:56am Hypothyroid chronic November 14, 9:56am Type 2 diabetes mellitus chronic November 14, 2024 9:56am Erectile dysfunction acute February 13, 2025 11:23am History of prostate cancer chronic February 13, 2025 11:23am Hypothyroid chronic February 13 11:23am Type 2 diabetes mellitus chronic February 13, 2025 11:23am [facility] Work Phone: [phone]) 925-373112-03-2024 Evaluation note* Diagnosis Onset Date Resolution Status Admit Date History of prostate cancer chronic August 08, 2024 10:38am Hypothyroid chronic August 08, 2024 10:38am Type 2 diabetes mellitus chronic August 08, 2024 10:38am Erectile dysfunction acute Herminio 2024 9:56am History of prostate cancer chronic November 14, 2024 9:56am Hypothyroid chronic November 14, 9:56am Type 2 diabetes mellitus chronic November 14, 2024 9:56am [facility] Work Phone: 1(475) 221-774509-27-2024 Telephone encounter Note* Telephone Encounter - Yoana Wynn LPN - 06/02/2024 8:23 AM EDT Pt notified of such. [facility]09-27-2024 Miscellaneous Notes* Telephone Encounter - Yoana Wynn LPN - 06/02/2024 8:23 AM EDT Pt notified of such. * Telephone Encounter - Leigh Lima APRN.CNP - 06/02/2024 6:45 AM EDT Patient changed PCP to Dr. Mohit Pittman, patient will need to contact him for refills Leigh Lima APRN.CNP * Telephone Encounter - Alba Neri - 06/01/2024 2:09 PM EDT Patient reviewed for Population Health Medication Adherence Pended the following prescription(s) for review. Requested Prescriptions Pending Prescriptions Disp Refills atorvastatin (LIPITOR) 20 mg tablet 90 tablet 1 Sig: Take 1 tablet by mouth daily at bedtime. For cholesterol. No future appointments. Please review and refill if appropriate. Thank you. Alba Neri June 01, 2024 2:09 PM documented in this encounter[facility] Telephone encounter Note * Telephone Encounter - Leigh Lima APRN.CNP - 06/02/2024 6:45 AM EDT Patient changed PCP to Dr. Mohit Pittman, patient will need to contact him for refills Leigh Lima APRN.CNP [facility]09-26-2024 Telephone encounter Note* Telephone Encounter - Alba Neri - 06/01/2024 2:09 PM EDT Patient reviewed for Population Health Medication Adherence Pended the following prescription(s) for review. Requested Prescriptions Pending Prescriptions Disp Refills atorvastatin (LIPITOR) 20 mg tablet 90 tablet 1 Sig: Take 1 tablet by mouth daily at bedtime. For cholesterol. No future appointments. Please review and refill if appropriate. Thank you. Alba Neri June 01, 2024 2:09 PM [facility]09-26-2024 History of Present illness Narrative* Alba Neri - 06/01/2024 2:03 PM EDT Tuan Vallejo is identified through a medication adherence outreach initiative based on pharmacy claims data from [employer] (insurer) for Non-insulin DM medication(s) and Statin medication(s). Patient is reviewed 06/01/24 due to medication adherence concerns with the following medications (name, strength, sig): ozempic inj, 2mg/3ml, inject 0.25mg once weekly, atorvastatin 20mg, take 1 tablet daily Per data/report, last fill date and days supply: ozempic due 05/11/24, atorvastatin due 04/17/24 Per reconcile dispense, last fill date and days supply: ozempic filled 06/01/24 for 56 days, atorvastatin filled 01/18/24 for 90 days Per call to pharmacy, last picked up date and days supply: n/a Any need for new prescription (I.e. out of refills on most recent prescription) YES/NO/Active: Yes (atorvastatin out of refills) Outcome of review/outreach: (choose outcome source and status) - Filled later than 7 days after Next fill date per reconcile dispense Sent refill request to PCP for atorvastatin Alba Neri documented in this encounterProm[facility]03-[facility]24 Miscellaneous Notes* Telephone Encounter - Bere Stringer LPN - 11/22/2023 11:53 AM EDT Pt's is calling to report pt only got 1 pen of ozempic from the pharmacy. reports usuallythey get a box at a time and it is the same cost/co-pay. asking for new order to go to [facility]. Patient has been identified by name and date of : Yes, Provider Wojciech Spouse phones for refill(s): Requested Prescriptions Pending Prescriptions Disp Refills semaglutide (OZEMPIC) 0.25 mg or 0.5 mg (2 mg/3 mL) pen 5 Each 1 Sig: Inject 0.25 mg subcutaneously one time a week. Ordering for 1 box with 1 rf. Date of last office visit in primary care: 11/11/23 Date of next office visit in primary care: 01/11/24 Please advise. Thank you. Bere Stringer LPN. documented in this encounterPromedica [facility] Hospital03-14-2024 NoteHNO ID: [id number] Author: KAMRAN GORDON JR, MD Service: ? Author Type: Physician Type: Progress Notes Filed: 11/18/2023 09:34 Note Text: ESTABLISHED PATIENT OFFICE VISIT HPI Tuan Vallejo is a 68 year old male who presents s/p RALP with bilateral PLND on 11/30/22 who presents for postoperative follow up visit. On 12/07/22, patient had his Allred catheter removed. 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 States that he is having issues with incontinence. Going through 3 pads everyday. Worse with physical activity. Denies any issues with erections. 04/01/23 - 3 months sp ralp. Doing great. + arabella but improving. Psa 0.02. no fever. No uti. 06/30/23 - 6 months sp ralp. Psa 0.02. arabella much improved. Still some leakage with exercise. No erections. No fever. Co urgency 11/18/23 - 1 yr sp ralp. Psa <0.03. min arabella. No fever. No uti. Feels well otherwise. LAB: Creatinine Date Value Ref Range Status 11/05/2023 0.90 0.73 - 1.22 mg/dL Final PSA (ng/mL) Date Value 09/09/2023 0.03 06/17/2023 0.02 03/29/2023 0.02 12/31/2022 0.14 08/03/2022 32.22 10/27/2021 12.95 07/13/2020 6.02 04/06/2020 6.23 09/26/2019 4.04 PSA Screening (ng/mL) Date Value 03/27/2019 4.05 Glucose, Urine (mg/dL) Date Value 03/27/2019 50 Bilirubin, Urine (no units) Date Value 03/27/2019 Negative Ketones, Urine (no units) Date Value 03/27/2019 Negative Specific [place], Ur (no units) Date Value 03/27/2019 1.014 Hemoglobin/Blood,Ur ( ) Date Value 03/27/2019 Negative pH, Urine (no units) Date Value 03/27/2019 6.0 Protein, Urine (mg/dL) Date Value 03/27/2019 Negative Nitrites (no units) Date Value 03/27/2019 Negative WBC, Urine (/HPF) Date Value 03/27/2019 0-5 MEDICATIONS: semaglutide (OZEMPIC) 0.25 mg or 0.5 mg (2 mg/3 mL) pen Inject 0.25 mg subcutaneously one time a week. insulin lispro (HUMALOG KWIKPEN INSULIN) 100 unit/mL Inject 5 Units subcutaneously daily with breakfast AND 5 Units daily with lunch AND 10 Units daily with dinner. atorvastatin (LIPITOR) 20 mg tablet Take 1 tablet by mouth daily at bedtime. For cholesterol. insulin glargine (LANTUS SOLOSTAR U-100 INSULIN) 100 unit/mL (3 mL) Inject 10 Units subcutaneously daily at bedtime. metFORMIN ER (GLUCOPHAGE XR) 500 mg 24 hr tablet Take 2 tablets by mouth two times a day before meals. levothyroxine (SYNTHROID) 25 mcg tablet Take 1 tablet by mouth daily before breakfast. amLODIPine (NORVASC) 10 mg tablet Take 1 tablet by mouth once daily. sildenafil (VIAGRA) 100 mg tablet Take 1 tablet PO daily as needed for erectile dysfunction Insulin [place], Disposable, (BD ULTRA-FINE SIRISHA PEN NEEDLE) 32 gauge x Use one needle for each dose. 4x/day. blood sugar diagnostic (BLOOD GLUCOSE TEST) test strip Pt has One Touch Ultra Meter. Test blood sugar(s) 3 times daily. Dx: Type 2 DM - Controlled E11.9 Insulin: Yes blood sugar diagnostic (BLOOD GLUCOSE TEST) test strip Pt has One Touch Ultra Meter. Test blood sugar(s) 4 times daily. Dx: Type 2 DM - Controlled E11.9 Insulin: Yes lancets (ONETOUCH DELICA LANCETS) 30 gauge testing 4 times daily DX E11.65 Insulin Yes blood sugar diagnostic (BLOOD GLUCOSE TEST) test strip Patient has one touch ultra glucometer. Test blood sugar(s) 4 times daily. Dx: Type 2 DM - Controlled E11.9 Insulin: yes alcohol swabs (ALCOHOL PADS) Test blood sugar(s) 4 times daily. Dx: Type 2 DM - Controlled E11.9 Insulin: yes Blood-Glucose Meter (ONETOUCH ULTRA2 METER) monitoring kit 1 Each as needed. One Touch Meter Kit Diagnosis: Type 2 DM - Uncontrolled E11.65 REVIEW OF SYSTEMS Review of Systems Constitutional: Negative. Respiratory: Negative. Cardiovascular: Negative. Gastrointestinal: Negative. Genitourinary: Negative. Skin: Negative. Neurological: Negative. Psychiatric/Behavioral: Negative. HISTORIES PAST MEDICAL HISTORY Diagnosis Date Acquired hypothyroidism 10/21/2015 Adhesive capsulitis of left shoulder 05/07/2022 Arthritis Back pain ED (erectile dysfunction) of organic origin 10/18/2020 Essential hypertension 09/05/2014 Familial combined hyperlipidemia 07/29/2015 Onychomycosis of multiple toenails with type 2 diabetes mellitus (HCC) ([facility]) 02/08/2017 Personal history of colonic polyps 02/20/2016 Prostate cancer ([facility]) PSA elevation 09/26/2019 Skin cancer unknown type 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d by mild nonproliferative retinopathy without macular edema, without long-term current use of insulin ([facility]) 02/27/2019 Exam 02/10/[address] Fuentes. Type 2 diabetes mellitus without complication ([facility]) 07/29/2015 FAMILY HISTORY Problem Relation Age of Onset Dementia Mother Kidney Disease Mother other (hypoglycemia) Mother Heart Father of [place] Diabetes Father Lung Cancer Father lung cancer Diabetes Sister Diabetes Sister Diabetes Brother type 1 diabetes Lung (more content not included)...[facility]03-14-2024 History of Present illness Narrative* Kamran Gordon Jr., MD - 11/18/2023 9:33 AM EDT ESTABLISHED PATIENT OFFICE VISIT HPI Tuan Vallejo is a 68 year old male who presents s/p RALP with bilateral PLND on 11/30/22 who presents for postoperative follow up visit. On 12/07/22, patient had his Allred catheter removed. 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 States that he is having issues with incontinence. Going through 3 pads everyday. Worse with physical activity. Denies any issues with erections. 04/01/23 - 3 months sp ralp. Doing great. + arabella but improving. Psa 0.02. no fever. No uti. 06/30/23 - 6 months sp ralp. Psa 0.02. arabella much improved. Still some leakage with exercise. No erections. No fever. Co urgency 11/18/23 - 1 yr sp ralp. Psa <0.03. min arabella. No fever. No uti. Feels well otherwise. LAB: Creatinine Date Value Ref Range Status 11/05/2023 0.90 0.73 - 1.22 mg/dL Final PSA (ng/mL) Date Value 09/09/2023 0.03 06/17/2023 0.02 03/29/2023 0.02 12/31/2022 0.14 08/03/2022 32.22 10/27/2021 12.95 07/13/2020 6.02 04/06/2020 6.23 09/26/2019 4.04 PSA Screening (ng/mL) Date Value 03/27/2019 4.05 Glucose, Urine (mg/dL) Date Value 03/27/2019 50 Bilirubin, Urine (no units) Date Value 03/27/2019 Negative Ketones, Urine (no units) Date Value 03/27/2019 Negative Specific [place], Ur (no units) Date Value 03/27/2019 1.014 Hemoglobin/Blood,Ur ( ) Date Value 03/27/2019 Negative pH, Urine (no units) Date Value 03/27/2019 6.0 Protein, Urine (mg/dL) Date Value 03/27/2019 Negative Nitrites (no units) Date Value 03/27/2019 Negative WBC, Urine (/HPF) Date Value 03/27/2019 0-5 MEDICATIONS: semaglutide (OZEMPIC) 0.25 mg or 0.5 mg (2 mg/3 mL) pen Inject 0.25 mg subcutaneously one time a week. insulin lispro (HUMALOG KWIKPEN INSULIN) 100 unit/mL Inject 5 Units subcutaneously daily with breakfast AND 5 Units daily with lunch AND 10 Units daily with dinner. atorvastatin (LIPITOR) 20 mg tablet Take 1 tablet by mouth daily at bedtime. For cholesterol. insulin glargine (LANTUS SOLOSTAR U-100 INSULIN) 100 unit/mL (3 mL) Inject 10 Units subcutaneously daily at bedtime. metFORMIN ER (GLUCOPHAGE XR) 500 mg 24 hr tablet Take 2 tablets by mouth two times a day before meals. levothyroxine (SYNTHROID) 25 mcg tablet Take 1 tablet by mouth daily before breakfast. amLODIPine (NORVASC) 10 mg tablet Take 1 tablet by mouth once daily. sildenafil (VIAGRA) 100 mg tablet Take 1 tablet PO daily as needed for erectile dysfunction Insulin Monaca, Disposable, (BD ULTRA-FINE SIRISHA PEN NEEDLE) 32 gauge x 32 Use one needle for each dose. 4x/day. blood sugar diagnostic (BLOOD GLUCOSE TEST) test strip Pt has One Touch Ultra Meter. Test blood sugar(s) 3 times daily. Dx: Type 2 DM - Controlled E11.9 Insulin: Yes blood sugar diagnostic (BLOOD GLUCOSE TEST) test strip Pt has One Touch Ultra Meter. Test blood sugar(s) 4 times daily. Dx: Type 2 DM - Controlled E11.9 Insulin: Yes lancets (ONETOUCH DELICA LANCETS) 30 gauge testing 4 times daily DX E11.65 Insulin Yes blood sugar diagnostic (BLOOD GLUCOSE TEST) test strip Patient has one touch ultra glucometer. Testblood sugar(s) 4 times daily. Dx: Type 2 DM - Controlled E11.9 Insulin: yes alcohol swabs (ALCOHOL PADS) Test blood sugar(s) 4 times daily. Dx: Type 2 DM - Controlled E11.9 Insulin: yes Blood-Glucose Meter (ONETOUCH ULTRA2 METER) monitoring kit 1 Each as needed. One Touch Meter Kit Diagnosis: Type 2 DM - Uncontrolled E11.65 REVIEW OF SYSTEMS Review of Systems Constitutional: Negative. Respiratory: Negative. Cardiovascular: Negative. Gastrointestinal: Negative. Genitourinary: Negative. Skin: Negative. Neurological: Negative. Psychiatric/Behavioral: Negative. HISTORIES PAST MEDICAL HISTORY Diagnosis Date Acquired hypothyroidism 10/21/2015 Adhesive capsulitis of left shoulder 05/07/2022 Arthritis Back pain ED (erectile dysfunction) of organic origin 10/18/2020 Essential hypertension 09/05/2014 Familial combined hyperlipidemia 07/29/2015 Onychomycosis of multiple toenails with type 2 diabetes mellitus (HCC) ([facility]) 02/08/2017 Personal history of colonic polyps 02/20/2016 Prostate cancer ([facility]) PSA elevation 09/26/2019 Skin cancer unknown type 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d by mild nonproliferative retinopathy without macular edema, without long-term current use of insulin ([facility]) 02/27/2019 Exam 02/10/[address] Fuentes. Type 2 diabetes mellitus without complication ([facility]) 07/29/2015 FAMILY HISTORY Problem Relation Age of Onset Dementia Mother Kidney Disease Mother other (hypoglycemia) Mother Heart Father of [place] Diabetes Father Lung Cancer Father lung cancer Diabetes Sister Diabetes Sister Diabetes Brother type 1 diabetes Lung Cancer Brother No Known Problems Brother Diabetes Brother SOCIAL HISTORY Social History Tobacco Use Smoking status: Former Packs/day: 2.00 Years: 35.00 Additional pack years: 0.00 Total pack years: 70.00 Types: Cigarettes Quit date: 02/24/2002 Years since quittin.7 Smokeless tobacco: Never Tobacco comments: started 8 years old Vaping Use Vaping Use: Never used Substance Use Topics Alcohol use: Yes Alcohol/week: 7.0 standard drinks of alcohol Types: 7 Glasses of Wine (5oz) per week Comment: Pt drinks 1 glass of wine a day Drug use: No PHYSICAL EXAMINATION General appearance: Well appearing, alert, in no acute distress, and well- hydrated, well nourished Skin: Skin color, texture, turgor normal, no suspicious rashes or lesions Respiratory:+ effort Cardiovascular: Not examined GI: Normal abdominal exam, Abdomen soft, non-tender. No masses, organomegaly Musculoskeletal: Negative Neuro: Negative Genitourinary: not examined Impression: (C61) Prostate cancer (HCC) (primary encounter diagnosis) Plan: 6 months Psa prior Kamran Gordon Jr, MD 11/18/2023 documented [facility] Miscellaneous Notes* Telephone Encounter - Solomon Gilbert MA - 11/12/2023 11:34 AM EST Spoke with pt spouse message released * Telephone Encounter - Kamran Gordon Jr., MD - 11/12/2023 10:29 AM EST Nothing for me Have them call pcp and ask * Telephone Encounter - Solomon Gilbert MA - 11/12/2023 10:11 AM EST Pt spouse called in saying pt is having lower back pain 7 out of 10. No fever no chill. Pt spouse called in asking do you wanna order any imaging before up coming appointment, pt has appointment with you on 11-18-2023. Please advise Solomon Gilbert MA documented in this encounterPromedica [facility]03-07-2024 NoteHNO ID: [id number] Author: NAHUN JEFFREY MD Service: ? Author Type: Physician Type: Progress Notes Filed: 11/11/2023 16:14 Note Text: This note was created using [employer]. Subjective Taun Vallejo is a 68 year old male was here for follow up with his . Diabetes, hypertension, and weight were all up. He stopped Trulicity few months ago, because his glucose was not coming down, and the injection site hurt. Review of Systems Constitutional: Positive for unexpected weight change. Negative for fatigue and fever. Respiratory: Negative for cough and shortness of breath. Cardiovascular: Negative for chest pain, palpitations and leg swelling. Gastrointestinal: Negative for abdominal pain, constipation, diarrhea, nausea and vomiting. Genitourinary: Negative for difficulty urinating and dysuria. Neurological: Negative for dizziness and headaches. ACTIVE PROBLEM LIST Essential Hypertension Family History of Ischemic Heart Disease Familial Combined Hyperlipidemia Acquired Hypothyroidism Personal History of Colonic Polyps Type 2 Diabetes Mellitus With Hyperglycemia, Without Long-Term Current Use of Insulin (Hcc) Ed (Erectile Dysfunction) of Organic Origin Prostate Cancer (Hcc) Urinary Incontinence Social History Tobacco Use Smoking status: Former Packs/day: 2.00 Years: 35.00 Additional pack years: 0.00 Total pack years: 70.00 Types: Cigarettes Quit date: 02/24/2002 Years since quittin.7 Smokeless tobacco: Never Tobacco comments: started 8 years old Vaping Use Vaping Use: Never used Substance Use Topics Alcohol use: Yes Alcohol/week: 7.0 standard drinks of alcohol Types: 7 Glasses of Wine (5oz) per week Comment: Pt drinks 1 glass of wine a day Drug use: No Current Outpatient Medications Medication Sig insulin lispro (HUMALOG KWIKPEN INSULIN) 100 unit/mL Inject 5 Units subcutaneously daily with breakfast AND 5 Units daily with lunch AND 10 Units daily with dinner. atorvastatin (LIPITOR) 20 mg tablet Take 1 tablet by mouth daily at bedtime. For cholesterol. insulin glargine (LANTUS SOLOSTAR U-100 INSULIN) 100 unit/mL (3 mL) Inject 10 Units subcutaneously daily at bedtime. metFORMIN ER (GLUCOPHAGE XR) 500 mg 24 hr tablet Take 2 tablets by mouth two times a day before meals. levothyroxine (SYNTHROID) 25 mcg tablet Take 1 tablet by mouth daily before breakfast. amLODIPine (NORVASC) 10 mg tablet Take 1 tablet by mouth once daily. sildenafil (VIAGRA) 100 mg tablet Take 1 tablet PO daily as needed for erectile dysfunction Insulin Monaca, Disposable, (BD ULTRA-FINE SIRISHA PEN NEEDLE) 32 gauge x 5/32 Use one needle for each dose. 4x/day. lancets (SecureWaters DELApeniMED LANCETS) 30 gauge testing 4 times daily DX E11.65 Insulin Yes blood sugar diagnostic (BLOOD GLUCOSE TEST) test strip Patient has one touch ultra glucometer. Test blood sugar(s) 4 times daily. Dx: Type 2 DM - Controlled E11.9 Insulin: yes alcohol swabs (ALCOHOL PADS) Test blood sugar(s) 4 times daily. Dx: Type 2 DM - Controlled E11.9 Insulin: yes Blood-Glucose Meter (roomlinxTOUCH ULTRA2 METER) monitoring kit 1 Each as needed. One Touch Meter Kit Diagnosis: Type 2 DM - Uncontrolled E11.65 blood sugar diagnostic (BLOOD GLUCOSE TEST) test strip Pt has One Touch Ultra Meter. Test blood sugar(s) 3 times daily. Dx: Type 2 DM - Controlled E11.9 Insulin: Yes blood sugar diagnostic (BLOOD GLUCOSE TEST) test strip Pt has One Touch Ultra Meter. Test blood sugar(s) 4 times daily. Dx: Type 2 DM - Controlled E11.9 Insulin: Yes No current facility-administered medications for this visit. Objective BP (P) 162/82 (BP Site: Left Arm, BP Position: Sitting, BP Cuff Size: Large Adult) Pulse (P) 64 Temp 36.4 ?C (97.6 ?F) (Temporal) Resp 18 Wt 76.1 kg (167 lb 12.8 oz) BMI 26.28 kg/m? Physical Exam Constitutional: General: He is not in acute distress. Appearance: He is not ill-appearing. Eyes: General: No scleral icterus. Conjunctiva/sclera: Conjunctivae normal. Cardiovascular: Rate and Rhythm: Normal rate and regular rhythm. Heart sounds: No murmur heard. No gallop. Pulmonary: Effort: No respiratory distress. Breath sounds: No wheezing or rales. Abdominal: Tenderness: There is no abdominal tenderness. Musculoskeletal: Right lower leg: No edema. Left lower leg: No edema. Neurological: Mental Status: He is alert. Feet:Shoes and socks removed, No deformities, ulcers, calluses, normal distal pulses, and sensitive to 10 gm monofilament Glucose meter data or glucose log was reviewed for the past month. Range: 111-258. Average: 144. Patient was testing BID. Component Latest Ref Rng AND Units 11/05/2023 Protein, Total 6.3 - 8.0 g/dL 7.2 Albumin 3.9 - 4.9 g/dL 4.2 Calcium 8.5 - 10.2 mg/dL 9.6 Bilirubin, Total 0.2 - 1.3 mg/dL 0.4 Alkaline Phosphatase 38 - 113 U/L 94 AST 14 - 40 U/L 22 ALT 10 - 54 U/L 16 Glucose 74 - 99 mg/dL 132 (H) BUN 9 - 2 (more content not included)...[facility]03-07-2024 History of Present illness Narrative* Nahun Jeffrey MD - 11/11/2023 1:48 PM EST This note was created using [employer]. Subjective Tuan Vallejo is a 68 year old male was here for follow up with his . Diabetes, hypertension, and weight were all up. He stopped Trulicity few months ago, because his glucose was not coming down,and the injection site hurt. Review of Systems Constitutional: Positive for unexpected weight change. Negative for fatigue and fever. Respiratory: Negative for cough and shortness of breath. Cardiovascular: Negative for chest pain, palpitations and leg swelling. Gastrointestinal: Negative for abdominal pain, constipation, diarrhea, nausea and vomiting. Genitourinary: Negative for difficulty urinating and dysuria. Neurological: Negative for dizziness and headaches. ACTIVE PROBLEM LIST Essential Hypertension Family History of Ischemic Heart Disease Familial Combined Hyperlipidemia Acquired Hypothyroidism Personal History of Colonic Polyps Type 2 Diabetes Mellitus With Hyperglycemia, Without Long-Term Current Use of Insulin (Hcc) Ed (Erectile Dysfunction) of Organic Origin Prostate Cancer (Hcc) Urinary Incontinence Social History Tobacco Use Smoking status: Former Packs/day: 2.00 Years: 35.00 Additional pack years: 0.00 Total pack years: 70.00 Types: Cigarettes Quit date: 02/24/2002 Years since quittin.7 Smokeless tobacco: Never Tobacco comments: started 8 years old Vaping Use Vaping Use: Never used Substance Use Topics Alcohol use: Yes Alcohol/week: 7.0 standard drinks of alcohol Types: 7 Glasses of Wine (5oz) per week Comment: Pt drinks 1 glass of wine a day Drug use: No Current Outpatient Medications Medication Sig insulin lispro (HUMALOG KWIKPEN INSULIN) 100 unit/mL Inject 5 Units subcutaneously daily with breakfast AND 5 Units daily with lunch AND 10 Units daily with dinner. atorvastatin (LIPITOR) 20 mg tablet Take 1 tablet by mouth daily at bedtime. For cholesterol. insulin glargine (LANTUS SOLOSTAR U-100 INSULIN) 100 unit/mL (3 mL) Inject 10 Units subcutaneously daily at bedtime. metFORMIN ER (GLUCOPHAGE XR) 500 mg 24 hr tablet Take 2 tablets by mouth two times a day before meals. levothyroxine (SYNTHROID) 25 mcg tablet Take 1 tablet by mouth daily before breakfast. amLODIPine (NORVASC) 10 mg tablet Take 1 tablet by mouth once daily. sildenafil (VIAGRA) 100 mg tablet Take 1 tablet PO daily as needed for erectile dysfunction Insulin Monaca, Disposable, (BD ULTRA-FINE SIRISHA PEN NEEDLE) 32 gauge x Use one needle for each dose. 4x/day. lancets (SecureWaters DELApeniMED LANCETS) 30 gauge testing 4 times daily DX E11.65 Insulin Yes blood sugar diagnostic (BLOOD GLUCOSE TEST) test strip Patient has one touch ultra glucometer. Testblood sugar(s) 4 times daily. Dx: Type 2 DM - Controlled E11.9 Insulin: yes alcohol swabs (ALCOHOL PADS) Test blood sugar(s) 4 times daily. Dx: Type 2 DM - Controlled E11.9 Insulin: yes Blood-Glucose Meter (ONETOUCH ULTRA2 METER) monitoring kit 1 Each as needed. One Touch Meter Kit Diagnosis: Type 2 DM - Uncontrolled E11.65 blood sugar diagnostic (BLOOD GLUCOSE TEST) test strip Pt has One Touch Ultra Meter. Test blood sugar(s) 3 times daily. Dx: Type 2 DM - Controlled E11.9 Insulin: Yes blood sugar diagnostic (BLOOD GLUCOSE TEST) test strip Pt has One Touch Ultra Meter. Test blood sugar(s) 4 times daily. Dx: Type 2 DM - Controlled E11.9 Insulin: Yes No current facility-administered medications for this visit. Objective BP (P) 162/82 (BP Site: Left Arm, BP Position: Sitting, BP Cuff Size: Large Adult) Pulse (P) 64 Temp 36.4 C (97.6 F) (Temporal) Resp 18 Wt 76.1 kg (167 lb 12.8 oz) BMI 26.28 kg/m Physical Exam Constitutional: General: He is not in acute distress. Appearance: He is not ill-appearing. Eyes: General: No scleral icterus. Conjunctiva/sclera: Conjunctivae normal. Cardiovascular: Rate and Rhythm: Normal rate and regular rhythm. Heart sounds: No murmur heard. No gallop. Pulmonary: Effort: No respiratory distress. Breath sounds: No wheezing or rales. Abdominal: Tenderness: There is no abdominal tenderness. Musculoskeletal: Right lower leg: No edema. Left lower leg: No edema. Neurological: Mental Status: He is alert. Feet:Shoes and socks removed, No deformities, ulcers, calluses, normal distal pulses, and sensitiveto 10 gm monofilament Glucose meter data or glucose log was reviewed for the past month. Range: 111- 258. Average: 144. Patient was testing BID. Component Latest Ref Rng & Units 11/05/2023 Protein, Total 6.3 - 8.0 g/dL 7.2 Albumin 3.9 - 4.9 g/dL 4.2 Calcium 8.5 - 10.2 mg/dL 9.6 Bilirubin, Total 0.2 - 1.3 mg/dL 0.4 Alkaline Phosphatase 38 - 113 U/L 94 AST 14 - 40 U/L 22 ALT 10 - 54 U/L 16 Glucose 74 - 99 mg/dL 132 (H) BUN 9 - 24 mg/dL 15 Creatinine 0.73 - 1.22 mg/dL 0.90 Sodium 136 - 144 mmol/L 142 Potassium 3.7 - 5.1 mmol/L 4.3 Chloride 97 - 105 mmol/L 106 (H) CO2 22 - 30 mmol/L 27 Anion Gap 9 - 18 mmol/L 9 eGFR >=60 mL/min/1.73m 94 WBC 3.70 - 11.00 k/uL 5.27 RBC 4.20 - 6.00 m/uL 4.48 Hemoglobin 13.0 - 17.0 g/dL 14.3 Hematocrit 39.0 - 51.0 % 43.5 MCV 80.0 - 100.0 fL 97.1 MCH 26.0 - 34.0 pg 31.9 MCHC 30.5 - 36.0 g/dL 32.9 RDW-CV 11.5 - 15.0 % 12.3 Platelet Count 150 - 400 k/uL 265 MPV 9.0 - 12.7 fL 10.3 Absolute nRBC <0.01 k/uL <0.01 Cholesterol, Total <200 mg/dL 194 Triglyceride <150 mg/dL 68 HDL Cholesterol >39 mg/dL 73 Non HDL Cholesterol <130 mg/dL 121 Fasting Time hrs 12 VLDL Cholesterol <30 mg/dL 14 TC:HDL Ratio <5.10 2.66 LDL Cholesterol <100 mg/dL 107 (H) LDL:HDL Ratio <2.54 1.47 Creatinine, Ur Random (UCRR) 20.0 - 300.0 mg/dL 136.4 Albumin, Urine Random mg/L 180.0 Albumin/Creat Ratio <30 mg/g 132 (H) Hemoglobin A1C 4.3 - 5.6 % 5.9 (H) Estimated Average Glucose mg/dL 123 TSH 0.270 - 4.200 mIU/L 1.590 Assessment and Plan 1. Type 2 diabetes mellitus with hyperglycemia, without long-term current use of insulin (HCC) - ICD9: 250.00, 790.29, ICD10: E11.65 (primary diagnosis) - Worsening control - Continue current medications - Start semaglutide (Ozempic) - SEMAGLUTIDE 0.25 MG OR 0.5 MG (2 MG/3 ML) SUBCUTANEOUS PEN INJECTOR Discussed medication dosage, usage, goals of therapy, and side effects. 2. Essential hypertension - ICD9: 401.9, ICD10: I10 - Worsening control - Continue current medications - Recommend regular aerobic exercise - Discussed need for and benefit of weight loss. BMI 26.28 kg/(m^2) 3. Acquired hypothyroidism - ICD9: 244.9, ICD10: E03.9 - continue current dose of Synthroid. 4. Prostate cancer (HCC) - ICD9: 185, ICD10: C61 IDALIA. 5. Familial combined hyperlipidemia - ICD9: 272.2, ICD10: E78.49 - Controlled. - Continue atorvastatin. Nahun Jeffrey MD documented in this encounterPromed[facility]02-15-2024 Miscellaneous Notes* Telephone Encounter - Cassia Urena LPN - 10/21/2023 10:41 AM EST Patient has been identified by name and date of : Yes, Provider Dr. Jeffrey Date 10/21/23 Time 10:42 am Spouse phones for refill(s): Requested Prescriptions Pending Prescriptions Disp Refills insulin lispro (HUMALOG KWIKPEN INSULIN) 100 unit/mL 18 mL 1 Sig: Inject 5 Units subcutaneously daily with breakfast AND 5 Units daily with lunch AND 10 Units daily with dinner. atorvastatin (LIPITOR) 20 mg tablet 90 tablet 1 Sig: Take 1 tablet by mouth daily at bedtime. For cholesterol. insulin glargine (LANTUS SOLOSTAR U-100 INSULIN) 100 unit/mL (3 mL) 9 mL 1 Sig: Inject 10 Units subcutaneously daily at bedtime. Date of last office visit in primary care: 05/13/2023 Date of next office visit in primary care: 11/11/2023 Thank you. Cassia Urena LPN. documented in this encounterPromedica [facility] Hospital12-14-2023 NoteHNO ID: [id number] Author: Leigh Lima APRN.AUTOMOTIVE GLASS TECHNICIAN Service: ? Author Type: Nurse Practitioner Type: Progress Notes Filed: 08/19/2023 8:04 AM Note Text: This Team Access Model visit is a phone encounter. It required patient-provider interaction for the medical decision making as documented below. I have communicated my name and active licensure. The patient's identity and physical location were verified at the time of this visit. Either the patient or their legal indirect sales representative has been informed of the risks and benefits of -- and alternatives to -- treatment through a remote evaluation and consents to proceed with the evaluation remotely. Patient Location: [place] CC: Patient presents with: Covid19 Concern HPI: Tuan Vallejo is a 68 year old male who is contacted today for a phone visit. This is an established patient of Dr. Nahun Jeffrey MD. COVID positive test on 08/18/23, day 2 of symptoms. Symptoms are mild REVIEW OF SYSTEMS See HPI PAST MEDICAL HISTORY Diagnosis Date Acquired hypothyroidism 10/21/2015 Adhesive capsulitis of left shoulder 05/07/2022 Arthritis Back pain ED (erectile dysfunction) of organic origin 10/18/2020 Essential hypertension 09/05/2014 Familial combined hyperlipidemia 07/29/2015 Onychomycosis of multiple toenails with type 2 diabetes mellitus (HCC) 02/08/2017 Personal history of colonic polyps 02/20/2016 Prostate cancer (HCC) PSA elevation 09/26/2019 Skin cancer unknown type 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d by mild nonproliferative retinopathy without macular edema, without long-term current use of insulin (HCC) 02/27/2019 Exam 02/10/[address] Fuentes. Type 2 diabetes mellitus without complication (HCC) 07/29/2015 PAST SURGICAL HISTORY Procedure Laterality Date COLONOSCOPY FLX DX W/COLLJ SPEC WHEN PFRMD 03/11/2018 10 year follow-up COLSC FLX W/RMVL OF TUMOR POLYP LESION SNARE TQ 03/07/2013 5mm polyp adenomatous - 3 year follow up HERNIA REPAIR HX Bilateral 1982 bilateral inguinal PROSTATE BIOPSY 12/02/2021 PROSTATECTOMY RETROPUBIC W/WO NERVE SPARING 11/30/2022 ALLERGIES Bee Sting, Peanuts, Tamsulosin, Penicillins, and Jardiance [Empagliflozin] MEDICATIONS metFORMIN ER (GLUCOPHAGE XR) 500 mg 24 hr tablet Take 2 tablets by mouth two times a day before meals. levothyroxine (SYNTHROID) 25 mcg tablet Take 1 tablet by mouth daily before breakfast. amLODIPine (NORVASC) 10 mg tablet Take 1 tablet by mouth once daily. atorvastatin (LIPITOR) 20 mg tablet Take 1 tablet by mouth daily at bedtime. For cholesterol. sildenafil (VIAGRA) 100 mg tablet Take 1 tablet PO daily as needed for erectile dysfunction Insulin Monaca, Disposable, (BD ULTRA-FINE SIRISHA PEN NEEDLE) 32 gauge x 5/32 Use one needle for each dose. 4x/day. blood sugar diagnostic (BLOOD GLUCOSE TEST) test strip Pt has One Touch Ultra Meter. Test blood sugar(s) 3 times daily. Dx: Type 2 DM - Controlled E11.9 Insulin: Yes blood sugar diagnostic (BLOOD GLUCOSE TEST) test strip Pt has One Touch Ultra Meter. Test blood sugar(s) 4 times daily. Dx: Type 2 DM - Controlled E11.9 Insulin: Yes lancets (ONETOUCH DELICA LANCETS) 30 gauge testing 4 times daily DX E11.65 Insulin Yes insulin lispro (HUMALOG KWIKPEN INSULIN) 100 unit/mL Inject 5 Units subcutaneously daily with breakfast AND 5 Units daily with lunch AND 10 Units daily with dinner. blood sugar diagnostic (BLOOD GLUCOSE TEST) test strip Patient has one touch ultra glucometer. Test blood sugar(s) 4 times daily. Dx: Type 2 DM - Controlled E11.9 Insulin: yes alcohol swabs (ALCOHOL PADS) Test blood sugar(s) 4 times daily. Dx: Type 2 DM - Controlled E11.9 Insulin: yes insulin glargine (LANTUS SOLOSTAR U-100 INSULIN) 100 unit/mL (3 mL) Inject 10 Units subcutaneously daily at bedtime. Blood-Glucose Meter (ONETOUCH ULTRA2 METER) monitoring kit 1 Each as needed. One Touch Meter Kit Diagnosis: Type 2 DM - Uncontrolled E11.65 FAMILY HISTORY Problem Relation Age of Onset Dementia Mother Kidney Disease Mother other (hypoglycemia) Mother Heart Father of [place] Diabetes Father Lung Cancer Father lung cancer Diabetes Sister Diabetes Sister Diabetes Brother type 1 diabetes Lung Cancer Brother No Known Problems Brother Diabetes Brother Social History Tobacco Use Smoking status: Former Packs/day: 2.00 Years: 35.00 Additional pack years: 0.00 Total pack years: 70.00 Types: Cigarettes Quit date: 02/24/2002 Years since quittin.4 Smokeless tobacco: Never Tobacco comments: started 8 years old Vaping Use Vaping Use: Never used Substance Use Topics Alcohol use: Yes Alcohol/week: 7.0 standard drinks of alcohol Types: 7 Glasses of Wine (5oz) per week Comment: Pt drinks 1 glass of wine a day Drug use: No Exam Deferred physical exam as visit was completed over the phone Patient is speaking in complete sentences without obvious respiratory (more content not included)...[facility] Miscellaneous Notes * Telephone Encounter - Kamran Gordon Jr., MD - 07/01/2023 1:16 PM EDT As stated yesterday - he may need radiation in the future, he does not need it now He is to try to do PFT Then fu in 3 months with a psa prior to reassess * Telephone Encounter - Bety Lake MA - 07/01/2023 12:09 PM EDT Patient's called stating that she would like to speak to someone that knows exactly what the plans are for the patient's care from this point on. Says they were told in office by Dr. 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 She is requesting a call back from Dr. Esquivel's MA ([place]) so that he can explain more in depth due to being more closely involved. Please clarify with Patient's spouse. Bety Lake MA documented in this encounterPromedica [facility]10-26-2023 Miscellaneous Notes* Telephone Encounter - Charisma Nevarez RN - 07/01/2023 9:26 AM EDT Spoke with Jennifer and informed of the message below. Jennifer verbalized understanding. Charisma Nevarez RN * Telephone Encounter - Kamran Gordon Jr., MD - 07/01/2023 9:24 AM EDT He does not need radiation now Ok to wait till September to do PFT * Telephone Encounter - Charisma Nevarez RN - 07/01/2023 8:27 AM EDT Pts spouse, Jennifer, called this morning. They are a little confused after the appointment yesterday. They are wanting to know why pt needs to have radiation now and his surgery was back in November. She also stated that they aren't able to get into PFT until September, and that is if pts insurance will cover it. Please advise. Jennifer gamble, . Charisma Nevarez RN documented in this encounterPromedica Memorial Hospital10-25-2023 NoteHNO ID: [id number] Author: Kamran oGrdon Jr., MD Service: ? Author Type: Physician Type: Progress Notes Filed: 06/30/2023 2:06 PM Note Text: ESTABLISHED PATIENT OFFICE VISIT HPI Tuan Vallejo is a 68 year old male who presents s/p RALP with bilateral PLND on 11/30/22 who presents for postoperative follow up visit. On 12/07/22, patient had his Allred catheter removed. 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 States that he is having issues with incontinence. Going through 3 pads everyday. Worse with physical activity. Denies any issues with erections. 04/01/23 - 3 months sp ralp. Doing great. + arabella but improving. Psa 0.02. no fever. No uti. 06/30/23 - 6 months sp ralp. Psa 0.02. arabella much improved. Still some leakage with exercise. No erections. No fever. Co urgency LAB: Creatinine Date Value Ref Range Status 05/04/2023 0.92 0.73 - 1.22 mg/dL Final PSA (ng/mL) Date Value 06/17/2023 0.02 03/29/2023 0.02 12/31/2022 0.14 08/03/2022 32.22 10/27/2021 12.95 07/13/2020 6.02 04/06/2020 6.23 09/26/2019 4.04 PSA Screening (ng/mL) Date Value 03/27/2019 4.05 Glucose, Urine (mg/dL) Date Value 03/27/2019 50 Bilirubin, Urine (no units) Date Value 03/27/2019 Negative Ketones, Urine (no units) Date Value 03/27/2019 Negative Specific [place], Ur (no units) Date Value 03/27/2019 1.014 Hemoglobin/Blood,Ur ( ) Date Value 03/27/2019 Negative pH, Urine (no units) Date Value 03/27/2019 6.0 Protein, Urine (mg/dL) Date Value 03/27/2019 Negative Nitrites (no units) Date Value 03/27/2019 Negative WBC, Urine (/HPF) Date Value 03/27/2019 0-5 MEDICATIONS: metFORMIN ER (GLUCOPHAGE XR) 500 mg 24 hr tablet Take 2 tablets by mouth two times a day before meals. levothyroxine (SYNTHROID) 25 mcg tablet Take 1 tablet by mouth daily before breakfast. amLODIPine (NORVASC) 10 mg tablet Take 1 tablet by mouth once daily. atorvastatin (LIPITOR) 20 mg tablet Take 1 tablet by mouth daily at bedtime. For cholesterol. sildenafil (VIAGRA) 100 mg tablet Take 1 tablet PO daily as needed for erectile dysfunction Insulin Monaca, Disposable, (BD ULTRA-FINE SIRISHA PEN NEEDLE) 32 gauge x 5/32 Use one needle for each dose. 4x/day. blood sugar diagnostic (BLOOD GLUCOSE TEST) test strip Pt has One Touch Ultra Meter. Test blood sugar(s) 3 times daily. Dx: Type 2 DM - Controlled E11.9 Insulin: Yes blood sugar diagnostic (BLOOD GLUCOSE TEST) test strip Pt has One Touch Ultra Meter. Test blood sugar(s) 4 times daily. Dx: Type 2 DM - Controlled E11.9 Insulin: Yes lancets (Hyasynth BioUCH DELICA LANCETS) 30 gauge testing 4 times daily DX E11.65 Insulin Yes insulin lispro (HUMALOG KWIKPEN INSULIN) 100 unit/mL Inject 5 Units subcutaneously daily with breakfast AND 5 Units daily with lunch AND 10 Units daily with dinner. blood sugar diagnostic (BLOOD GLUCOSE TEST) test strip Patient has one touch ultra glucometer. Test blood sugar(s) 4 times daily. Dx: Type 2 DM - Controlled E11.9 Insulin: yes alcohol swabs (ALCOHOL PADS) Test blood sugar(s) 4 times daily. Dx: Type 2 DM - Controlled E11.9 Insulin: yes insulin glargine (LANTUS SOLOSTAR U-100 INSULIN) 100 unit/mL (3 mL) Inject 10 Units subcutaneously daily at bedtime. Blood-Glucose Meter (ONETOUCH ULTRA2 METER) monitoring kit 1 Each as needed. One Touch Meter Kit Diagnosis: Type 2 DM - Uncontrolled E11.65 REVIEW OF SYSTEMS Review of Systems Constitutional: Negative. Respiratory: Negative. Cardiovascular: Negative. Gastrointestinal: Negative. Genitourinary: Negative. Skin: Negative. Neurological: Negative. Psychiatric/Behavioral: Negative. HISTORIES PAST MEDICAL HISTORY Diagnosis Date Acquired hypothyroidism 10/21/2015 Adhesive capsulitis of left shoulder 05/07/2022 Arthritis Back pain ED (erectile dysfunction) of organic origin 10/18/2020 Essential hypertension 09/05/2014 Familial combined hyperlipidemia 07/29/2015 Onychomycosis of multiple toenails with type 2 diabetes mellitus (HCC) 02/08/2017 Personal history of colonic polyps 02/20/2016 Prostate cancer (HCC) PSA elevation 09/26/2019 Skin cancer unknown type 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d by mild nonproliferative retinopathy without macular edema, without long-term current use of insulin (HCC) 02/27/2019 Exam 02/10/[address] Fuentes. Type 2 diabetes mellitus without complication (HCC) 07/29/2015 FAMILY HISTORY Problem Relation Age of Onset Dementia Mother Kidney Disease Mother other (hypoglycemia) Mother Heart Father of [place] Diabetes Father Lung Cancer Father lung cancer Diabetes Sister Diabetes Sister Diabetes Brother type 1 diabetes Lung Cancer Brother No Known Problems Brother Diabetes Brother SOCIAL HISTORY Social History Tobacco Use Smoking status: Former Packs/day: 2.00 Years: 35.00 Additional pack years: 0.00 Total pack (more content not included)...[facility]10-25-2023 History of Present illness Narrative* Kamran Gordon Jr., MD - 06/30/2023 1:35 PM EDT ESTABLISHED PATIENT OFFICE VISIT HPI Tuan Vallejo is a 68 year old male who presents s/p RALP with bilateral PLND on 11/30/22 who presents for postoperative follow up visit. On 12/07/22, patient had his Allred catheter removed. 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 States that he is having issues with incontinence. Going through 3 pads everyday. Worse with physical activity. Denies any issues with erections. 04/01/23 - 3 months sp ralp. Doing great. + arabella but improving. Psa 0.02. no fever. No uti. 06/30/23 - 6 months sp ralp. Psa 0.02. arabella much improved. Still some leakage with exercise. No erections. No fever. Co urgency LAB: Creatinine Date Value Ref Range Status 05/04/2023 0.92 0.73 - 1.22 mg/dL Final PSA (ng/mL) Date Value 06/17/2023 0.02 03/29/2023 0.02 12/31/2022 0.14 08/03/2022 32.22 10/27/2021 12.95 07/13/2020 6.02 04/06/2020 6.23 09/26/2019 4.04 PSA Screening (ng/mL) Date Value 03/27/2019 4.05 Glucose, Urine (mg/dL) Date Value 03/27/2019 50 Bilirubin, Urine (no units) Date Value 03/27/2019 Negative Ketones, Urine (no units) Date Value 03/27/2019 Negative Specific [place], Ur (no units) Date Value 03/27/2019 1.014 Hemoglobin/Blood,Ur ( ) Date Value 03/27/2019 Negative pH, Urine (no units) Date Value 03/27/2019 6.0 Protein, Urine (mg/dL) Date Value 03/27/2019 Negative Nitrites (no units) Date Value 03/27/2019 Negative WBC, Urine (/HPF) Date Value 03/27/2019 0-5 MEDICATIONS: metFORMIN ER (GLUCOPHAGE XR) 500 mg 24 hr tablet Take 2 tablets by mouth two times a day before meals. levothyroxine (SYNTHROID) 25 mcg tablet Take 1 tablet by mouth daily before breakfast. amLODIPine (NORVASC) 10 mg tablet Take 1 tablet by mouth once daily. atorvastatin (LIPITOR) 20 mg tablet Take 1 tablet by mouth daily at bedtime. For cholesterol. sildenafil (VIAGRA) 100 mg tablet Take 1 tablet PO daily as needed for erectile dysfunction Insulin Monaca, Disposable, (BD ULTRA-FINE SIRISHA PEN NEEDLE) 32 gauge x Use one needle for each dose. 4x/day. blood sugar diagnostic (BLOOD GLUCOSE TEST) test strip Pt has One Touch Ultra Meter. Test blood sugar(s) 3 times daily. Dx: Type 2 DM - Controlled E11.9 Insulin: Yes blood sugar diagnostic (BLOOD GLUCOSE TEST) test strip Pt has One Touch Ultra Meter. Test blood sugar(s) 4 times daily. Dx: Type 2 DM - Controlled E11.9 Insulin: Yes lancets (ONETOUCH DELICA LANCETS) 30 gauge testing 4 times daily DX E11.65 Insulin Yes insulin lispro (HUMALOG KWIKPEN INSULIN) 100 unit/mL Inject 5 Units subcutaneously daily with breakfast AND 5 Units daily with lunch AND 10 Units daily with dinner. blood sugar diagnostic (BLOOD GLUCOSE TEST) test strip Patient has one touch ultra glucometer. Testblood sugar(s) 4 times daily. Dx: Type 2 DM - Controlled E11.9 Insulin: yes alcohol swabs (ALCOHOL PADS) Test blood sugar(s) 4 times daily. Dx: Type 2 DM - Controlled E11.9 Insulin: yes insulin glargine (LANTUS SOLOSTAR U-100 INSULIN) 100 unit/mL (3 mL) Inject 10 Units subcutaneously daily at bedtime. Blood-Glucose Meter (ONETOUCH ULTRA2 METER) monitoring kit 1 Each as needed. One Touch Meter Kit Diagnosis: Type 2 DM - Uncontrolled E11.65 REVIEW OF SYSTEMS Review of Systems Constitutional: Negative. Respiratory: Negative. Cardiovascular: Negative. Gastrointestinal: Negative. Genitourinary: Negative. Skin: Negative. Neurological: Negative. Psychiatric/Behavioral: Negative. HISTORIES PAST MEDICAL HISTORY Diagnosis Date Acquired hypothyroidism 10/21/2015 Adhesive capsulitis of left shoulder 05/07/2022 Arthritis Back pain ED (erectile dysfunction) of organic origin 10/18/2020 Essential hypertension 09/05/2014 Familial combined hyperlipidemia 07/29/2015 Onychomycosis of multiple toenails with type 2 diabetes mellitus (HCC) 02/08/2017 Personal history of colonic polyps 02/20/2016 Prostate cancer ([facility]) PSA elevation 09/26/2019 Skin cancer unknown type 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d by mild nonproliferative retinopathy without macular edema, without long-term current use of insulin ([facility]) 02/27/2019 Exam 02/10/[address] Fuentes. Type 2 diabetes mellitus without complication ([facility]) 07/29/2015 FAMILY HISTORY Problem Relation Age of Onset Dementia Mother Kidney Disease Mother other (hypoglycemia) Mother Heart Father of [place] Diabetes Father Lung Cancer Father lung cancer Diabetes Sister Diabetes Sister Diabetes Brother type 1 diabetes Lung Cancer Brother No Known Problems Brother Diabetes Brother SOCIAL HISTORY Social History Tobacco Use Smoking status: Former Packs/day: 2.00 Years: 35.00 Additional pack years: 0.00 Total pack years: 70.00 Types: Cigarettes Quit date: 02/24/2002 Years since quittin.3 Smokeless tobacco: Never Tobacco comments: started 8 years old Vaping Use Vaping Use: Never used Substance Use Topics Alcohol use: Yes Alcohol/week: 17.5 standard drinks of alcohol Types: 7 Glasses of Wine (5oz) per week Comment: Pt drinks 1 glass of wine a day Drug use: No PHYSICAL EXAMINATION General appearance: Well appearing, alert, in no acute distress, and well- hydrated, well nourished Skin: Skin color, texture, turgor normal, no suspicious rashes or lesions Respiratory:+ effort Cardiovascular: Not examined GI: Normal abdominal exam, Abdomen soft, non-tender. No masses, organomegaly Musculoskeletal: Negative Neuro: Negative Genitourinary: not examined Impression: (C61) Prostate cancer (HCC) (primary encounter diagnosis) Plan: 3 months Psa prior PFT Kamran Gordon Jr, MD 06/30/2023 documented in this encounterPromedica [facility] Hospital09-21-2023 Miscellaneous Notes* Telephone Encounter - Bonnie Miles - 05/27/2023 11:19 AM EDT states patient asked that the [facility]vast[facility], but it was sent to [facility]. * Telephone Encounter - Bonnie Miles - 05/27/2023 11:18 AM EDT Pharmacy verified in [facility] Patient has been identified by name and date of : Yes Patient requesting a call when RX is approved and sent to the pharmacy. Please call patient at: [phone] Spouse phones for refill(s): Requested Prescriptions Pending Prescriptions Disp Refills atorvastatin (LIPITOR) 20 mg tablet 90 tablet 1 Sig: Take 1 tablet by mouth daily at bedtime. For cholesterol. Date of last office visit : 05/13/2023 Date of next office visit : 11/11/2023 Last 2 Encounter Wt Readings: Date: Wt: 05/13/2023 67.1 kg (148 lb) 03/20/2023 62.6 kg (138 lb) Not applicable Please advise. Bonnie Haro * Telephone Encounter - Bonnie Miles - 05/27/2023 11:17 AM EDT Pharmacy verified in [facility] Patient has been identified by name and date of : Yes Patient aware RX will be sent to pharmacy. No need to notify patient. Patient phones for refill(s): Requested Prescriptions Pending Prescriptions Disp Refills atorvastatin (LIPITOR) 20 mg tablet 90 tablet 1 Sig: Take 1 tablet by mouth daily at bedtime. For cholesterol. Date of last office visit : 05/13/2023 Date of next office visit : 11/11/2023 Last 2 Encounter Wt Readings: Date: Wt: 05/13/2023 67.1 kg (148 lb) 03/20/2023 62.6 kg (138 lb) Not applicable Please advise. Bonnie Haro documented in this encounterPromedica Memorial Hospital09-15-2023 Miscellaneous Notes* Telephone Encounter - Meri Lozano LPN - 05/21/2023 12:55 PM EDT Last office visit: 05/13/23 Next appointment scheduled: 11/11/23 Last labs: 05/04/23 last lipid panel Patient phones requesting refills as follows: Requested Prescriptions Pending Prescriptions Disp Refills atorvastatin (LIPITOR) 20 mg tablet 90 tablet 1 Sig: Take 1 tablet by mouth daily at bedtime. For cholesterol. Please review and advise. Meri Lozano LPN * Telephone Encounter - Rosa Hughes - 05/21/2023 10:44 AM EDT Patient has been identified by name and date of : Yes Last office visit in this department: 04/10/2020 RX INSTRUCTIONS: Patient aware RX will be sent to pharmacy. No need to notify patient. Patient phones requesting refills as follows: Requested Prescriptions Pending Prescriptions Disp Refills atorvastatin (LIPITOR) 20 mg tablet 90 tablet 1 Sig: Take 1 tablet by mouth daily at bedtime. For cholesterol. Please review and advise. Rosa Hughes documented in this encounterPromedica Memorial Hospital09-08-2023 Miscellaneous Notes* Telephone Encounter - Bonnie Miles - 05/14/2023 12:11 PM EDT Jennifer is calling on behalf of Tuan. Sildenafil was called in for him yesterday for 5 tablets. However, the bloom for 5 was the same forthe bloom for 20 tablet, which was prescribed before, so they are asking if the script can be changed for a quantity of 20. Please call her back at [phone] documented in this encounterPromedica Memorial Hospital09-07-2023 NoteHNO ID: [id number] Author: Nahun Jeffrey MD Service: ? Author Type: Physician Type: Progress Notes Filed: 05/13/2023 7:32 PM Note Text: This note was created using [employer]. Subjective Tuan Vallejo is a 68 year old male. He still had urine incontinence and ED since prostate surgery. He was still trying Viagra, so far with no result. His diabetes mellitus, hypertension, and lipids were stable. Review of Systems Constitutional: Negative for fatigue and fever. Respiratory: Negative for cough and shortness of breath. Cardiovascular: Negative for chest pain, palpitations and leg swelling. Gastrointestinal: Negative for constipation, diarrhea, nausea and vomiting. Genitourinary: Negative for difficulty urinating and dysuria. Musculoskeletal: Negative. Neurological: Negative for dizziness and headaches. ACTIVE PROBLEM LIST Essential Hypertension Family History of Ischemic Heart Disease Familial Combined Hyperlipidemia Acquired Hypothyroidism Personal History of Colonic Polyps Type 2 Diabetes Mellitus With Hyperglycemia, Without Long-Term Current Use of Insulin (Hcc) Ed (Erectile Dysfunction) of Organic Origin Prostate Cancer (Hcc) Urinary Incontinence Current Outpatient Medications Medication Sig Insulin Monaca, Disposable, (BD ULTRA-FINE SIRISHA PEN NEEDLE) 32 gauge x Use one needle for each dose. 4x/day. lancets (Hyasynth BioUCH DELICA LANCETS) 30 gauge testing 4 times daily DX E11.65 Insulin Yes insulin lispro (HUMALOG KWIKPEN INSULIN) 100 unit/mL Inject 5 Units subcutaneously daily with breakfast AND 5 Units daily with lunch AND 10 Units daily with dinner. alcohol swabs (ALCOHOL PADS) Test blood sugar(s) 4 times daily. Dx: Type 2 DM - Controlled E11.9 Insulin: yes insulin glargine (LANTUS SOLOSTAR U-100 INSULIN) 100 unit/mL (3 mL) Inject 10 Units subcutaneously daily at bedtime. amLODIPine (NORVASC) 10 mg tablet Take 1 tablet by mouth once daily. levothyroxine (SYNTHROID) 25 mcg tablet Take 1 tablet by mouth daily before breakfast. metFORMIN ER (GLUCOPHAGE XR) 500 mg 24 hr tablet Take 2 tablets by mouth twice daily before meals. Blood-Glucose Meter (ONETOUCH ULTRA2 METER) monitoring kit 1 Each as needed. One Touch Meter Kit Diagnosis: Type 2 DM - Uncontrolled E11.65 sildenafil (VIAGRA) 100 mg tablet Take 1 tablet PO daily as needed for erectile dysfunction blood sugar diagnostic (BLOOD GLUCOSE TEST) test strip Pt has One Touch Ultra Meter. Test blood sugar(s) 3 times daily. Dx: Type 2 DM - Controlled E11.9 Insulin: Yes blood sugar diagnostic (BLOOD GLUCOSE TEST) test strip Pt has One Touch Ultra Meter. Test blood sugar(s) 4 times daily. Dx: Type 2 DM - Controlled E11.9 Insulin: Yes blood sugar diagnostic (BLOOD GLUCOSE TEST) test strip Patient has one touch ultra glucometer. Test blood sugar(s) 4 times daily. Dx: Type 2 DM - Controlled E11.9 Insulin: yes atorvastatin (LIPITOR) 20 mg tablet Take 1 tablet by mouth daily at bedtime. For cholesterol. No current facility-administered medications for this visit. Objective BP 126/72 (BP Site: Left Arm, BP Position: Sitting, BP Cuff Size: Large Adult) Pulse 60 Temp 36.4 ?C (97.6 ?F) (Temporal) Resp 16 Ht 170.2 cm (5' 7) Wt 67.1 kg (148 lb) BMI 23.18 kg/m? Physical Exam Constitutional: General: He is not in acute distress. Appearance: He is not ill-appearing. HENT: Head: Normocephalic. Eyes: General: No scleral icterus. Conjunctiva/sclera: Conjunctivae normal. Cardiovascular: Rate and Rhythm: Normal rate and regular rhythm. Heart sounds: No murmur heard. No gallop. Pulmonary: Effort: Pulmonary effort is normal. Breath sounds: Normal breath sounds. Abdominal: Palpations: Abdomen is soft. There is no mass. Tenderness: There is no abdominal tenderness. Musculoskeletal: Right lower leg: No edema. Left lower leg: No edema. Neurological: Mental Status: He is alert. Gait: Gait normal. Component Latest Ref Rng AND Units 05/04/2023 Glucose 74 - 99 mg/dL 81 BUN 9 - 24 mg/dL 18 Creatinine 0.73 - 1.22 mg/dL 0.92 Sodium 136 - 144 mmol/L 142 Potassium 3.7 - 5.1 mmol/L 5.0 Chloride 97 - 105 mmol/L 106 (H) CO2 22 - 30 mmol/L 26 Anion Gap 9 - 18 mmol/L 10 Calcium 8.5 - 10.2 mg/dL 9.4 eGFR >=60 mL/min/1.73mA? 91 Cholesterol, Total <200 mg/dL 184 Triglyceride <150 mg/dL 60 HDL Cholesterol >39 mg/dL 74 Non HDL Cholesterol <130 mg/dL 110 Fasting Time hrs 17 VLDL Cholesterol <30 mg/dL 12 TC:HDL Ratio <5.10 2.49 LDL Cholesterol <100 mg/dL 98 LDL:HDL Ratio <2.54 1.32 Hemoglobin A1C 4.3 - 5.6 % 6.3 (H) Estimated Average Glucose mg/dL 134 Assessment and Plan 1. Medicare annual wellness visit, initial - ICD9: V70.0, ICD10: Z00.00 (primary diagnosis) See wellness note. 2. ED (erectile dysfunction) of organic origin - ICD9: 607.84, ICD10: N52.9 Options discussed. We agreed to refill. He will discuss this with urology. - SILDENAFIL 1 (more content not included)...[facility] 05-13-2023 NoteHNO ID: [id number] Author: Nahun Jeffrey MD Service: ? Author Type: Physician Type: Progress Notes Filed: 05/13/2023 7:32 PM Note Text: Tuan Vallejo is a 68 year old male here for a Medicare wellness visit. Health Risk Assessment In general, health is: Good Concerns with balance:Not at all Concerns with teeth or dentures:Not at all Concerns with sexual function:More than half the days Donie anxious, stressed, angry, irritable, lonely, isolated, or had thoughts of hurting themself: Not at all Has little interest or pleasure in doing things: Not at all Bothered by feeling down, depressed, or hopeless: Not at all Needs help with grocery shopping, cooking, housework, bathing, grooming, dressing, eating, sitting or standing, walking, using the toilet, handling finances, taking medications, using the telephone, or driving: No Following safety precautions in the home environment and vehicle: removed throw rugs from floors, installed grab bars in the bathroom, handrails in stairwells, having adequate lighting, wearing seatbelt at all times?: Yes Smokes cigarettes, vapes, or chew tobacco: No Eats healthy foods including fruits, vegetables, whole grains, and fiber-rich foods: More than half the days Number of days per week engages in exercise: 7 days Average alcohol consumption: 4 or more times a week Current Providers Specialists: I have reviewed specialist-related care of the patient in the medical record. Current care team: Patient Care Team: Nahun Jeffrey MD as PCP - General (Internal Medicine) Outside specialists seen: Johnathon Fuentes OD. Dr. Rebekah Gordon urology. Medical/Family history review Reviewed and updated problem list, medical/surgical/family/social history, medications, and allergies. Opioid use review Patient is not currently using opioids. Depression screening Depression Screening PHQ-2 Score 01/05/2023 0 Depression screening tool completed and reviewed. Based on score and interview, patient is not at risk for depression. Screening tool discussed with patient, and I recommended no further intervention at this time. Cognitive screening Mini Cog Score: 5 Functional Observation Was the patient's timed Up AND Go test unsteady or ? 12 seconds? No Advance Care Planning End of Life planning discussed, including patient's advanced directive wishes: Yes Measurements BP 126/72 Pulse 60 Temp (Src) 97.6 (Temporal) Resp 16 Ht 5' 7 (1.70m) Wt 148 lb (67.1kg) BMI 23.17 kg/(m2). Visual acuity (required for Welcome to Medicare): follows with optometry/ophthalmology and Right: 20/40 Left: 20/ 50 Both: 20/25 Hearing Evaluation: within normal limits Assessment/Plan Medicare annual wellness visit, subsequent (Z00.00) - Counseled on healthy diet and regular exercise - Fall avoidance - Vaccines recommended Pneumococcal and Influenza - Depression screening - Alcohol misuse screening and counselingMemorial [facility]09-07-2023 Instructions* Patient Instructions* Nahun Jeffrey MD - 05/13/2023 1:35 PM EDT Advance Directive Forms Advanced Directives Forms ([place] Citizen) FORMS: [email or web address] INFORMATIONAL BROCHURE: [email or web address] Advance Directives (non-[place] Citizen) FORMS: [email or web address] [email or web address] Please bring completed forms to your next appointment or email them to [email or web address]. Patient Resources How to Get Started Talking with Loved Ones about your Wishes at the End of Life [email or web address]-content/[email or web address] [email or web address]-[email or web address] How to Navigate Conversations with your Care Team around your Preferences [email or web address] documented in this encounterPromedica Memorial Hospital09-07-2023 History of Present illness Narrative* Nahun Jeffrey MD - 05/13/2023 1:26 PM EDT This note was created using [employer]. Subjective Tuan Vallejo is a 68 year old male. He still had urine incontinence and ED since prostate surgery.He was still trying Viagra, so far with no result. His diabetes mellitus, hypertension, and lipids were stable. Review of Systems Constitutional: Negative for fatigue and fever. Respiratory: Negative for cough and shortness of breath. Cardiovascular: Negative for chest pain, palpitations and leg swelling. Gastrointestinal: Negative for constipation, diarrhea, nausea and vomiting. Genitourinary: Negative for difficulty urinating and dysuria. Musculoskeletal: Negative. Neurological: Negative for dizziness and headaches. ACTIVE PROBLEM LIST Essential Hypertension Family History of Ischemic Heart Disease Familial Combined Hyperlipidemia Acquired Hypothyroidism Personal History of Colonic Polyps Type 2 Diabetes Mellitus With Hyperglycemia, Without Long-Term Current Use of Insulin (Hcc) Ed (Erectile Dysfunction) of Organic Origin Prostate Cancer (Hcc) Urinary Incontinence Current Outpatient Medications Medication Sig Insulin [place], Disposable, (BD ULTRA-FINE SIRISHA PEN NEEDLE) 32 gauge x Use one needle for each dose. 4x/day. lancets (SecureWaters DELApeniMED LANCETS) 30 gauge testing 4 times daily DX E11.65 Insulin Yes insulin lispro (HUMALOG KWIKPEN INSULIN) 100 unit/mL Inject 5 Units subcutaneously daily with breakfast AND 5 Units daily with lunch AND 10 Units daily with dinner. alcohol swabs (ALCOHOL PADS) Test blood sugar(s) 4 times daily. Dx: Type 2 DM - Controlled E11.9 Insulin: yes insulin glargine (LANTUS SOLOSTAR U-100 INSULIN) 100 unit/mL (3 mL) Inject 10 Units subcutaneously daily at bedtime. amLODIPine (NORVASC) 10 mg tablet Take 1 tablet by mouth once daily. levothyroxine (SYNTHROID) 25 mcg tablet Take 1 tablet by mouth daily before breakfast. metFORMIN ER (GLUCOPHAGE XR) 500 mg 24 hr tablet Take 2 tablets by mouth twice daily before meals. Blood-Glucose Meter (Hyasynth BioUCH ULTRA2 METER) monitoring kit 1 Each as needed. One Touch Meter Kit Diagnosis: Type 2 DM - Uncontrolled E11.65 sildenafil (VIAGRA) 100 mg tablet Take 1 tablet PO daily as needed for erectile dysfunction blood sugar diagnostic (BLOOD GLUCOSE TEST) test strip Pt has One Touch Ultra Meter. Test blood sugar(s) 3 times daily. Dx: Type 2 DM - Controlled E11.9 Insulin: Yes blood sugar diagnostic (BLOOD GLUCOSE TEST) test strip Pt has One Touch Ultra Meter. Test blood sugar(s) 4 times daily. Dx: Type 2 DM - Controlled E11.9 Insulin: Yes blood sugar diagnostic (BLOOD GLUCOSE TEST) test strip Patient has one touch ultra glucometer. Testblood sugar(s) 4 times daily. Dx: Type 2 DM - Controlled E11.9 Insulin: yes atorvastatin (LIPITOR) 20 mg tablet Take 1 tablet by mouth daily at bedtime. For cholesterol. No current facility-administered medications for this visit. Objective BP 126/72 (BP Site: Left Arm, BP Position: Sitting, BP Cuff Size: Large Adult) Pulse 60 Temp 36.4 C (97.6 F) (Temporal) Resp 16 Ht 170.2 cm (5' 7) Wt 67.1 kg (148 lb) BMI 23.18 kg/m Physical Exam Constitutional: General: He is not in acute distress. Appearance: He is not ill-appearing. HENT: Head: Normocephalic. Eyes: General: No scleral icterus. Conjunctiva/sclera: Conjunctivae normal. Cardiovascular: Rate and Rhythm: Normal rate and regular rhythm. Heart sounds: No murmur heard. No gallop. Pulmonary: Effort: Pulmonary effort is normal. Breath sounds: Normal breath sounds. Abdominal: Palpations: Abdomen is soft. There is no mass. Tenderness: There is no abdominal tenderness. Musculoskeletal: Right lower leg: No edema. Left lower leg: No edema. Neurological: Mental Status: He is alert. Gait: Gait normal. Component Latest Ref Rng & Units 05/04/2023 Glucose 74 - 99 mg/dL 81 BUN 9 - 24 mg/dL 18 Creatinine 0.73 - 1.22 mg/dL 0.92 Sodium 136 - 144 mmol/L 142 Potassium 3.7 - 5.1 mmol/L 5.0 Chloride 97 - 105 mmol/L 106 (H) CO2 22 - 30 mmol/L 26 Anion Gap 9 - 18 mmol/L 10 Calcium 8.5 - 10.2 mg/dL 9.4 eGFR >=60 mL/min/1.73m 91 Cholesterol, Total <200 mg/dL 184 Triglyceride <150 mg/dL 60 HDL Cholesterol >39 mg/dL 74 Non HDL Cholesterol <130 mg/dL 110 Fasting Time hrs 17 VLDL Cholesterol <30 mg/dL 12 TC:HDL Ratio <5.10 2.49 LDL Cholesterol <100 mg/dL 98 LDL:HDL Ratio <2.54 1.32 Hemoglobin A1C 4.3 - 5.6 % 6.3 (H) Estimated Average Glucose mg/dL 134 Assessment and Plan 1. Medicare annual wellness visit, initial - ICD9: V70.0, ICD10: Z00.00 (primary diagnosis) See wellness note. 2. ED (erectile dysfunction) of organic origin - ICD9: 607.84, ICD10: N52.9 Options discussed. We agreed to refill. He will discuss this with urology. - SILDENAFIL 100 MG TABLET 3. Need for influenza vaccination - ICD9: V04.81, ICD10: Z23 - INFLUENZA VACCINE, PRSV FREE, AGE 65+ YR, HIGH DOSE, QUADRIVALENT (FLUZONE HIGH-DOSE) 4. Need for vaccination - ICD9: V05.9, ICD10: Z23 - PNEUMOCOCCAL VACCINE (PREVNAR 20) 5. Acquired hypothyroidism - ICD9: 244.9, ICD10: E03.9 - Instructed patient on importance of taking on an empty stomach either first thing in the morning or at bedtime. Stable - Continue medication. - TSH BLD 6. Type 2 diabetes mellitus with hyperglycemia, without long-term current use of insulin (HCC) - ICD9: 250.00, 790.29, ICD10: E11.65 - Controlled - Continue current medications - COMP METABOLIC PANEL - HGB A1C - LIPID PANEL BASIC - ALBUMIN/CREAT RATIO RND UR 7. Essential hypertension - ICD9: 401.9, ICD10: I10 - Controlled - Continue current medications - Recommend regular aerobic exercise - CBC Nahun Jeffrey MD * Nahun Jeffrey MD - 05/13/2023 1:20 PM EDT Tuan Vallejo is a 68 year old male here for a Medicare wellness visit. Health Risk Assessment In general, health is: Good Concerns with balance:Not at all Concerns with teeth or dentures:Not at all Concerns with sexual function:More than half the days Donie anxious, stressed, angry, irritable, lonely, isolated, or had thoughts of hurting themself: Not at all Has little interest or pleasure in doing things: Not at all Bothered by feeling down, depressed, or hopeless: Not at all Needs help with grocery shopping, cooking, housework, bathing, grooming, dressing, eating, sitting or standing, walking, using the toilet, handling finances, taking medications, using the telephone, or driving: No Following safety precautions in the home environment and vehicle: removed throw rugs from floors, installed grab bars in the bathroom, handrails in stairwells, having adequate lighting, wearing seatbelt at all times?: Yes Smokes cigarettes, vapes, or chew tobacco: No Eats healthy foods including fruits, vegetables, whole grains, and fiber-rich foods: More than halfthe days Number of days per week engages in exercise: 7 days Average alcohol consumption: 4 or more times a week Current Providers Specialists: I have reviewed specialist-related care of the patient in the medical record. Current care team: Patient Care Team: Nahun Jeffrey MD as PCP - General (Internal Medicine) Outside specialists seen: Johnathon Fuentes OD. Dr. Rebekah Gordon urology. Medical/Family history review Reviewed and updated problem list, medical/surgical/family/social history, medications, and allergies. Opioid use review Patient is not currently using opioids. Depression screening Depression Screening PHQ-2 Score 01/05/2023 0 Depression screening tool completed and reviewed. Based on score and interview, patient is not at risk for depression. Screening tool discussed with patient, and I recommended no further interventionat this time. Cognitive screening Mini Cog Score: 5 Functional Observation Was the patient's timed Up & Go test unsteady or ? 12 seconds? No Advance Care Planning End of Life planning discussed, including patient's advanced directive wishes: Yes Measurements BP 126/72 Pulse 60 Temp (Src) 97.6 (Temporal) Resp 16 Ht 5' 7 (1.70m) Wt 148 lb (67.1kg) BMI 23.17 kg/(m^2). Visual acuity (required for Welcome to Medicare): follows with optometry/ophthalmology and Right: 20/40 Left: 20/ 50 Both: 20/25 Hearing Evaluation: within normal limits Assessment/Plan Medicare annual wellness visit, subsequent (Z00.00) - Counseled on healthy diet and regular exercise - Fall avoidance - Vaccines recommended Pneumococcal and Influenza - Depression screening - Alcohol misuse screening and counseling documented in this encounterPromedica [facility]08-30-2023 Miscellaneous Notes* Telephone Encounter - Brittanie Chase RN - 05/05/2023 7:58 PM EDT Patient calling to request change in needle size to 32 gauge x 5/32. Says the script sent on 04/14/23 was not the needles he usually uses. There are 90/box. To [facility]. Pended per request. Brittanie Chase RN documented in this encounterPromedica Memorial Hospital08-21-2023 Miscellaneous Notes* Telephone Encounter - Bere Stringer LPN - 04/26/2023 3:30 PM EDT Pt's reports they have not received rx from [facility] and pt is going to run out of test strips. is requesting rx be sent to [facility] for test strips. Patient has been identified by name and date of : Yes Requested Prescriptions Pending Prescriptions Disp Refills blood sugar diagnostic (BLOOD GLUCOSE TEST) test strip 200 Strip 0 Sig: Pt has One Touch Ultra Meter. Test blood sugar(s) 4 times daily. Dx: Type 2 DM - Controlled E11.9 Insulin: Yes RX INSTRUCTIONS: Patient aware RX will be sent to pharmacy. No need to notify patient. Bere Stringer LPN documented in this encounterPromedica Memorial Hospital08-17-2023 Miscellaneous Notes* Telephone Encounter - Barbie Meyer RN - 04/22/2023 9:11 AM EDT Called Pt to see if they had talked to pharmacy to see what else need to be sent. He said his had called them and he thinks they had everything they needed. He will have her call back if necessary. * Telephone Encounter - Barbie Meyer RN - 04/21/2023 10:17 AM EDT Pts called in and reports that [facility] called her and told him that they had been trying to reach the provider. They said there was information they needed and provider was not gettingback to them. I told her he had sent all the medications in, he changed him to checking his BS 4x aday, and the lancets to the One Touch Delcia. She didn't know what they needed to know. She was going to call Marcy back and find out, and will call us back when she knows. The # they gave her was [phone], but they didn't know if it was a fax of phone. Did not know if providers office had received a fax from them. documented in this encounterPromedica Memorial Hospital08-11-2023 Miscellaneous Notes* Telephone Encounter - Gina Bennett LPN - 04/16/2023 10:51 AM EDT [facility] pharmacy calling the wrong lancets were sent to pharmacy for the patient. Patient uses One touch Delica lancets. Pending rx to file. Please advise Patient has been identified by name and date of : Pharmacy phones for refill(s): Requested Prescriptions Pending Prescriptions Disp Refills lancets (ONETOUCH DELICA LANCETS) 30 gauge 200 Each 3 Sig: testing 4 times daily DX E11.65 Insulin Yes Date of last office visit in primary care: 03/20/2023, has appt 05/13/2023 Last 2 Encounter Wt Readings: Date: Wt: 03/20/2023 62.6 kg (138 lb) 01/05/2023 64 kg (141 lb) Previous labs/tests for medication: Diabetes: Hemoglobin A1C (%) Date Value 08/03/2022 6.1 04/29/2022 6.0 10/27/2021 6.4 01/11/2021 7.0 Hemoglobin A1C (POCT) (%) Date Value 01/05/2023 6.2 05/06/2021 6.2 Please advise. Thank you. Gina Bennett LPN documented in this encounterPromedica Memorial Hospital08-09-2023 Miscellaneous Notes* Telephone Encounter - Jaclyn Metcalf LPN - 04/14/2023 2:21 PM EDT Pharmacy is asking for clarification on qty per day. Did enter this in note to the pharmacy. Last seen 03/20/23 documented in this encounterPromedica Memorial Hospital08-09-2023 Miscellaneous Notes* Telephone Encounter - Flores Dumont RN - 04/14/2023 11:07 AM EDT Talking with both pt and his and they are asking for new prescriptions and refills for his insulin and all his supplies due to cost. Now using mail order [facility] pharmacy instead of local pharmacy. They will need 90 day supplies. Next OV is 05/[address] Jeffrey Call pt only if problem. Patient has been identified by name and date of : Yes, Provider Dr. Jeffrey Date 04/14/23 [id number] Patient phones for refill(s): Requested Prescriptions Pending Prescriptions Disp Refills insulin lispro (HUMALOG KWIKPEN INSULIN) 100 unit/mL 0 Sig: Inject 5 Units subcutaneously daily with breakfast AND 5 Units daily with lunch AND 10 Units daily with dinner. blood sugar diagnostic (BLOOD GLUCOSE TEST) test strip 100 Strip Sig: Patient has one touch ultra glucometer. Test blood sugar(s) 4 times daily. Dx: Type 2 DM - Controlled E11.9 Insulin: yes Lancets (ONETOUCH ULTRASOFT LANCETS) lancets 100 Each Sig: Test blood sugar(s) 4 times daily. Dx: Type 2 DM - Uncontrolled E11.65 , Insulin: yes alcohol swabs (ALCOHOL PADS) 300 Each 1 Sig: Test blood sugar(s) 4 times daily. Dx: Type 2 DM - Controlled E11.9 Insulin: yes insulin needles, DISPOSABLE, (PEN NEEDLE) 31 gauge x 5/16 200 Each 3 Sig: Use one needle per dose. 1 per day. insulin glargine (LANTUS SOLOSTAR U-100 INSULIN) 100 unit/mL (3 mL) Sig: Inject 10 Units subcutaneously daily at bedtime. Date of last office visit in primary care: 03/20/23 Last 2 Encounter Wt Readings: Date: Wt: 03/20/2023 62.6 kg (138 lb) 01/05/2023 64 kg (141 lb) Previous labs/tests for medication: Diabetes: Hemoglobin A1C (%) Date Value 08/03/2022 6.1 04/29/2022 6.0 10/27/2021 6.4 01/11/2021 7.0 Hemoglobin A1C (POCT) (%) Date Value 01/05/2023 6.2 05/06/2021 6.2 Please advise and call pt only if problem. Thank you. Flores Dumont, RN documented in this encounterPromedica Memorial Hospital08-07-2023 Miscellaneous Notes* Telephone Encounter - Ze Nj - 04/12/2023 10:04 AM EDT Insurance provider called on behalf of pt to request dosage change quantity of pen needles to 200 for 90 days Please advise and contact pt. Ze Nj documented in this encounterPromedica Memorial Hospital07-28-2023 NoteHNO ID: [id number] Author: Kamran Gordon Jr., MD Service: ? Author Type: Physician Type: Progress Notes Filed: 04/02/2023 9:38 AM Note Text: ESTABLISHED PATIENT OFFICE VISIT HPI Tuan Vallejo is a 68 year old male who presents s/p RALP with bilateral PLND on 11/30/22 who presents for postoperative follow up visit. On 12/07/22, patient had his Allred catheter removed. 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 States that he is having issues with incontinence. Going through 3 pads everyday. Worse with physical activity. Denies any issues with erections. 04/01/23 - 3 months sp ralp. Doing great. + arabella but improving. Psa 0.02. no fever. No uti. LAB: Creatinine Date Value Ref Range Status 12/31/2022 0.91 0.73 - 1.22 mg/dL Final PSA (ng/mL) Date Value 03/29/2023 0.02 12/31/2022 0.14 08/03/2022 32.22 10/27/2021 12.95 07/13/2020 6.02 04/06/2020 6.23 09/26/2019 4.04 PSA Screening (ng/mL) Date Value 03/27/2019 4.05 Glucose, Urine (mg/dL) Date Value 03/27/2019 50 Bilirubin, Urine (no units) Date Value 03/27/2019 Negative Ketones, Urine (no units) Date Value 03/27/2019 Negative Specific [place], Ur (no units) Date Value 03/27/2019 1.014 Hemoglobin/Blood,Ur ( ) Date Value 03/27/2019 Negative pH, Urine (no units) Date Value 03/27/2019 6.0 Protein, Urine (mg/dL) Date Value 03/27/2019 Negative Nitrites (no units) Date Value 03/27/2019 Negative WBC, Urine (/HPF) Date Value 03/27/2019 0-5 MEDICATIONS: insulin lispro (HUMALOG KWIKPEN INSULIN) 100 unit/mL Inject 10 Units subcutaneously daily with dinner. insulin glargine (LANTUS SOLOSTAR U-100 INSULIN) 100 unit/mL (3 mL) Inject 10 Units subcutaneously daily at bedtime. amLODIPine (NORVASC) 10 mg tablet Take 1 tablet by mouth once daily. atorvastatin (LIPITOR) 20 mg tablet Take 1 tablet by mouth daily at bedtime. For cholesterol. levothyroxine (SYNTHROID) 25 mcg tablet Take 1 tablet by mouth daily before breakfast. metFORMIN ER (GLUCOPHAGE XR) 500 mg 24 hr tablet Take 2 tablets by mouth twice daily before meals. sildenafil (VIAGRA) 100 mg tablet Take 1 tablet PO daily as needed for erectile dysfunction insulin needles, DISPOSABLE, (PEN NEEDLE) 31 gauge x 5/16 Use one needle per dose. 1 per day. blood sugar diagnostic (BLOOD GLUCOSE TEST) test strip Patient has one touch ultra glucometer. Test blood sugar(s) 2 times daily. Dx: Type 2 DM - Controlled E11.9 Insulin: No Lancets (ONETOUCH ULTRASOFT LANCETS) lancets Test blood sugar(s) 1-2 times daily. Dx: Type 2 DM - Uncontrolled E11.65 , Insulin: No alcohol swabs (ALCOHOL PADS) Test blood sugar(s) 2 times daily. Dx: Type 2 DM - Controlled E11.9 Insulin: No Blood-Glucose Meter (ONETOUCH ULTRA2 METER) monitoring kit 1 Each as needed. One Touch Meter Kit Diagnosis: Type 2 DM - Uncontrolled E11.65 REVIEW OF SYSTEMS Review of Systems Constitutional: Negative. Respiratory: Negative. Cardiovascular: Negative. Gastrointestinal: Negative. Genitourinary: Negative. Skin: Negative. Neurological: Negative. Psychiatric/Behavioral: Negative. HISTORIES PAST MEDICAL HISTORY Diagnosis Date Acquired hypothyroidism 10/21/2015 Arthritis Back pain ED (erectile dysfunction) of organic origin 10/18/2020 Essential hypertension 09/05/2014 Familial combined hyperlipidemia 07/29/2015 Onychomycosis of multiple toenails with type 2 diabetes mellitus (HCC) 02/08/2017 Personal history of colonic polyps 02/20/2016 Prostate cancer ([facility]) PSA elevation 09/26/2019 Skin cancer unknown type 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d by mild nonproliferative retinopathy without macular edema, without long-term current use of insulin ([facility]) 02/27/2019 Exam 02/10/[address] Fuentes. Type 2 diabetes mellitus without complication ([facility]) 07/29/2015 FAMILY HISTORY Problem Relation Age of Onset Dementia Mother Kidney Disease Mother other (hypoglycemia) Mother Heart Father of [place] Diabetes Father Lung Cancer Father lung cancer Diabetes Sister Diabetes Sister Diabetes Brother type 1 diabetes Lung Cancer Brother No Known Problems Brother Diabetes Brother SOCIAL HISTORY Social History Tobacco Use Smoking status: Former Packs/day: 2.00 Years: 35.00 Total pack years: 70.00 Types: Cigarettes Quit date: 02/24/2002 Years since quittin.1 Smokeless tobacco: Never Tobacco comments: started 8 years old Vaping Use Vaping Use: Never used Substance Use Topics Alcohol use: Yes Alcohol/week: 17.5 standard drinks of alcohol Types: 7 Glasses of Wine (5oz) per week Comment: Pt drinks 1 glass of wine a day Drug use: No PHYSICAL EXAMINATION General appearance: Well appearing, alert, in no acute distress, and well-hydrated, well nourished Skin: Skin color, texture, turgor normal, no suspicious rashes or lesions Respiratory:+ effort Cardiovas (more content not included)...[facility]07-28-2023 History of Present illness Narrative* Kamran Gordon Jr., MD - 04/02/2023 9:36 AM EDT ESTABLISHED PATIENT OFFICE VISIT HPI Tuan Vallejo is a 68 year old male who presents s/p RALP with bilateral PLND on 11/30/22 who presents for postoperative follow up visit. On 12/07/22, patient had his Allred catheter removed. 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 States that he is having issues with incontinence. Going through 3 pads everyday. Worse with physical activity. Denies any issues with erections. 04/01/23 - 3 months sp ralp. Doing great. + arabella but improving. Psa 0.02. no fever. No uti. LAB: Creatinine Date Value Ref Range Status 12/31/2022 0.91 0.73 - 1.22 mg/dL Final PSA (ng/mL) Date Value 03/29/2023 0.02 12/31/2022 0.14 08/03/2022 32.22 10/27/2021 12.95 07/13/2020 6.02 04/06/2020 6.23 09/26/2019 4.04 PSA Screening (ng/mL) Date Value 03/27/2019 4.05 Glucose, Urine (mg/dL) Date Value 03/27/2019 50 Bilirubin, Urine (no units) Date Value 03/27/2019 Negative Ketones, Urine (no units) Date Value 03/27/2019 Negative Specific [place], Ur (no units) Date Value 03/27/2019 1.014 Hemoglobin/Blood,Ur ( ) Date Value 03/27/2019 Negative pH, Urine (no units) Date Value 03/27/2019 6.0 Protein, Urine (mg/dL) Date Value 03/27/2019 Negative Nitrites (no units) Date Value 03/27/2019 Negative WBC, Urine (/HPF) Date Value 03/27/2019 0-5 MEDICATIONS: insulin lispro (HUMALOG KWIKPEN INSULIN) 100 unit/mL Inject 10 Units subcutaneously daily with dinner. insulin glargine (LANTUS SOLOSTAR U-100 INSULIN) 100 unit/mL (3 mL) Inject 10 Units subcutaneously daily at bedtime. amLODIPine (NORVASC) 10 mg tablet Take 1 tablet by mouth once daily. atorvastatin (LIPITOR) 20 mg tablet Take 1 tablet by mouth daily at bedtime. For cholesterol. levothyroxine (SYNTHROID) 25 mcg tablet Take 1 tablet by mouth daily before breakfast. metFORMIN ER (GLUCOPHAGE XR) 500 mg 24 hr tablet Take 2 tablets by mouth twice daily before meals. sildenafil (VIAGRA) 100 mg tablet Take 1 tablet PO daily as needed for erectile dysfunction insulin needles, DISPOSABLE, (PEN NEEDLE) 31 gauge x 5/16 Use one needle per dose. 1 per day. blood sugar diagnostic (BLOOD GLUCOSE TEST) test strip Patient has one touch ultra glucometer. Testblood sugar(s) 2 times daily. Dx: Type 2 DM - Controlled E11.9 Insulin: No Lancets (ONETOUCH ULTRASOFT LANCETS) lancets Test blood sugar(s) 1-2 times daily. Dx: Type 2 DM - Uncontrolled E11.65 , Insulin: No alcohol swabs (ALCOHOL PADS) Test blood sugar(s) 2 times daily. Dx: Type 2 DM - Controlled E11.9 Insulin: No Blood-Glucose Meter (ONETOUCH ULTRA2 METER) monitoring kit 1 Each as needed. One Touch Meter Kit Diagnosis: Type 2 DM - Uncontrolled E11.65 REVIEW OF SYSTEMS Review of Systems Constitutional: Negative. Respiratory: Negative. Cardiovascular: Negative. Gastrointestinal: Negative. Genitourinary: Negative. Skin: Negative. Neurological: Negative. Psychiatric/Behavioral: Negative. HISTORIES PAST MEDICAL HISTORY Diagnosis Date Acquired hypothyroidism 10/21/2015 Arthritis Back pain ED (erectile dysfunction) of organic origin 10/18/2020 Essential hypertension 09/05/2014 Familial combined hyperlipidemia 07/29/2015 Onychomycosis of multiple toenails with type 2 diabetes mellitus ([facility]) 02/08/2017 Personal history of colonic polyps 02/20/2016 Prostate cancer ([facility]) PSA elevation 09/26/2019 Skin cancer unknown type 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d by mild nonproliferative retinopathy without macular edema, without long-term current use of insulin ([facility]) 02/27/2019 Exam 02/10/[address] Fuentes. Type 2 diabetes mellitus without complication ([facility]) 07/29/2015 FAMILY HISTORY Problem Relation Age of Onset Dementia Mother Kidney Disease Mother other (hypoglycemia) Mother Heart Father of [place] Diabetes Father Lung Cancer Father lung cancer Diabetes Sister Diabetes Sister Diabetes Brother type 1 diabetes Lung Cancer Brother No Known Problems Brother Diabetes Brother SOCIAL HISTORY Social History Tobacco Use Smoking status: Former Packs/day: 2.00 Years: 35.00 Total pack years: 70.00 Types: Cigarettes Quit date: 02/24/2002 Years since quittin.1 Smokeless tobacco: Never Tobacco comments: started 8 years old Vaping Use Vaping Use: Never used Substance Use Topics Alcohol use: Yes Alcohol/week: 17.5 standard drinks of alcohol Types: 7 Glasses of Wine (5oz) per week Comment: Pt drinks 1 glass of wine a day Drug use: No PHYSICAL EXAMINATION General appearance: Well appearing, alert, in no acute distress, and well- hydrated, well nourished Skin: Skin color, texture, turgor normal, no suspicious rashes or lesions Respiratory:+ effort Cardiovascular: Not examined GI: Normal abdominal exam, Abdomen soft, non-tender. No masses, organomegaly Musculoskeletal: Negative Neuro: Negative Genitourinary: not examined Impression: (C61) Prostate cancer (HCC) (primary encounter diagnosis) Plan: 3 months Psa prior Kamran Gordon Jr, MD 04/02/2023 documented in this encounterPromedica [facility] Hospital07-18-2023 Miscellaneous Notes* Telephone Encounter - Calvin Mosqueda Ma - 03/23/2023 9:35 AM EDT Patient's notified, verbalized understanding. * Telephone Encounter - Nahun Jeffrey MD - 03/22/2023 5:41 PM EDT One pen lasts for 30 days, so 3 pens is 90 days. I sent prescription for one box of 5 pens, so thisis their insurance determining pen numbers. * Telephone Encounter - Joan Townsend LPN - 03/22/2023 5:11 PM EDT Jennifer/, asking for 90 day supply for Humalog & Lantus to go to [facility]/[place]. Joan Townsend LPN * Telephone Encounter - Bonnie Miles - 03/22/2023 3:31 PM EDT is calling to say that the script was for only 3 pens for the insulin pens, which is not enough. Please call Jennifer back at [phone] * Telephone Encounter - Cassia Urena LPN - 03/22/2023 3:22 PM EDT called and they picked up the insulins and the qty was for 28 day only on both of them. reports all his prescriptions are to be for 90 days. Pt is doing well so far on the insulin per . Please advise. Cassia Urena LPN documented in this encounterPromed[facility]07-[facility]23 NoteHNO ID: [id number] Author: Nahun Jeffrey MD Service: ? Author Type: Physician Type: Progress Notes Filed: 03/20/2023 9:46 AM Note Text: This note was created using [employer]. Subjective Tuan Vallejo is a 68 year old male here with his . He wanted to increase the variety of his diet. His glucoses have been shooting up after his main meal which was dinner. Fasting glucoses have been good. We tried Trulicity, but he found the injection painful, and he lost his appetite. He started bedtime insulin and this was better tolerated. They were now interested in adding fast acting insulin. Review of Systems Constitutional: Positive for appetite change and unexpected weight change. Respiratory: Negative for shortness of breath. Cardiovascular: Negative for chest pain. Gastrointestinal: Negative for abdominal pain, diarrhea, nausea and vomiting. 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 insulin needles, DISPOSABLE, (PEN NEEDLE) 31 gauge x 5/16 Use one needle per dose. 1 per day. blood sugar diagnostic (BLOOD GLUCOSE TEST) test strip Patient has one touch ultra glucometer. Test blood sugar(s) 2 times daily. Dx: Type 2 DM - Controlled E11.9 Insulin: No amLODIPine (NORVASC) 10 mg tablet Take 1 tablet by mouth once daily. Lancets (ONETOUCH ULTRASOFT LANCETS) lancets Test blood sugar(s) 1-2 times daily. Dx: Type 2 DM - Uncontrolled E11.65 , Insulin: No atorvastatin (LIPITOR) 20 mg tablet Take 1 tablet by mouth daily at bedtime. For cholesterol. levothyroxine (SYNTHROID) 25 mcg tablet Take 1 tablet by mouth daily before breakfast. metFORMIN ER (GLUCOPHAGE XR) 500 mg 24 hr tablet Take 2 tablets by mouth twice daily before meals. glimepiride (AMARYL) 4 mg tablet Take 1 tablet by mouth every evening. With food. sildenafil (VIAGRA) 100 mg tablet Take 1 tablet PO daily as needed for erectile dysfunction alcohol swabs (ALCOHOL PADS) Test blood sugar(s) 2 times daily. Dx: Type 2 DM - Controlled E11.9 Insulin: No Blood-Glucose Meter (ONETOUCH ULTRA2 METER) monitoring kit 1 Each as needed. One Touch Meter Kit Diagnosis: Type 2 DM - Uncontrolled E11.65 oxybutynin ER (DITROPAN XL) 10 mg 24 hr tablet Take 1 tablet by mouth once daily. (Patient not taking: Reported on 03/20/2023) dulaglutide (TRULICITY) 0.75 mg/0.5 mL pen injector Inject 0.75 mg subcutaneously one time a week. Inject dose once per week. Discard Pen After (Patient not taking: Reported on 03/20/2023) No current facility-administered medications for this visit. Objective BP 110/64 (BP Site: Left Arm, BP Position: Sitting, BP Cuff Size: Large Adult) Pulse 60 Resp 16 Wt 62.6 kg (138 lb) BMI 21.61 kg/m? Physical Exam Constitutional: General: He is not in acute distress. Appearance: He is not ill-appearing. Pulmonary: Effort: Pulmonary effort is normal. Neurological: General: No focal deficit present. Mental Status: He is alert and oriented to person, place, and time. Gait: Gait normal. Glucose meter data or log was reviewed for the past month. Range: 99-434. Average: n/a. Patient was testing BID. Higher frequency of testing needed: yes. Reason: medication adjustment, uncontrolled DM, labile blood sugars. Assessment and Plan 1. Type 2 diabetes mellitus with hyperglycemia, without long-term current use of insulin ([facility]) - ICD9: 250.00, 790.29, ICD10: E11.65 Labile. Side effects from TRULICITY. - Stop glimepiride - Stop dulaglutide (Trulicity) - Start INSULIN LISPRO (U-100) 100 UNIT/ML SUBCUTANEOUS PEN. 10 units with supper. Call for hypoglycemia. - Continue METFORMIN ER and LANTUS at bedtime. Patient and spouse indicated understanding and willingness to follow recommendations. Nahun Jeffrey [facility]07-15-2023 History of Present illness Narrative* Nahun Jeffrey MD - 03/20/2023 9:23 AM EDT This note was created using [employer]. Subjective Tuan Vallejo is a 68 year old male here with his . He wanted to increase the variety of his diet. His glucoses have been shooting up after his main meal which was dinner. Fasting glucoses have been good. We tried Trulicity, but he found the injection painful, and he lost his appetite. He started bedtime insulin and this was better tolerated. They were now interested in adding fast acting insulin. Review of Systems Constitutional: Positive for appetite change and unexpected weight change. Respiratory: Negative for shortness of breath. Cardiovascular: Negative for chest pain. Gastrointestinal: Negative for abdominal pain, diarrhea, nausea and vomiting. 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 insulin needles, DISPOSABLE, (PEN NEEDLE) 31 gauge x 5/16 Use one needle per dose. 1 per day. blood sugar diagnostic (BLOOD GLUCOSE TEST) test strip Patient has one touch ultra glucometer. Testblood sugar(s) 2 times daily. Dx: Type 2 DM - Controlled E11.9 Insulin: No amLODIPine (NORVASC) 10 mg tablet Take 1 tablet by mouth once daily. Lancets (roomlinxTOUCH ULTRASOFT LANCETS) lancets Test blood sugar(s) 1-2 times daily. Dx: Type 2 DM - Uncontrolled E11.65 , Insulin: No atorvastatin (LIPITOR) 20 mg tablet Take 1 tablet by mouth daily at bedtime. For cholesterol. levothyroxine (SYNTHROID) 25 mcg tablet Take 1 tablet by mouth daily before breakfast. metFORMIN ER (GLUCOPHAGE XR) 500 mg 24 hr tablet Take 2 tablets by mouth twice daily before meals. glimepiride (AMARYL) 4 mg tablet Take 1 tablet by mouth every evening. With food. sildenafil (VIAGRA) 100 mg tablet Take 1 tablet PO daily as needed for erectile dysfunction alcohol swabs (ALCOHOL PADS) Test blood sugar(s) 2 times daily. Dx: Type 2 DM - Controlled E11.9 Insulin: No Blood-Glucose Meter (ONETOUCH ULTRA2 METER) monitoring kit 1 Each as needed. One Touch Meter Kit Diagnosis: Type 2 DM - Uncontrolled E11.65 oxybutynin ER (DITROPAN XL) 10 mg 24 hr tablet Take 1 tablet by mouth once daily. (Patient not taking: Reported on 03/20/2023) dulaglutide (TRULICITY) 0.75 mg/0.5 mL pen injector Inject 0.75 mg subcutaneously one time a week. Inject dose once per week. Discard Pen After (Patient not taking: Reported on 03/20/2023) No current facility-administered medications for this visit. Objective BP 110/64 (BP Site: Left Arm, BP Position: Sitting, BP Cuff Size: Large Adult) Pulse 60 Resp 16 Wt 62.6 kg (138 lb) BMI 21.61 kg/m Physical Exam Constitutional: General: He is not in acute distress. Appearance: He is not ill-appearing. Pulmonary: Effort: Pulmonary effort is normal. Neurological: General: No focal deficit present. Mental Status: He is alert and oriented to person, place, and time. Gait: Gait normal. Glucose meter data or log was reviewed for the past month. Range: 99-434. Average: n/a. Patient wastesting BID. Higher frequency of testing needed: yes. Reason: medication adjustment, uncontrolled DM, labile blood sugars. Assessment and Plan 1. Type 2 diabetes mellitus with hyperglycemia, without long-term current use of insulin ([facility]) - ICD9: 250.00, 790.29, ICD10: E11.65 Labile. Side effects from TRULICITY. - Stop glimepiride - Stop dulaglutide (Trulicity) - Start INSULIN LISPRO (U-100) 100 UNIT/ML SUBCUTANEOUS PEN. 10 units with supper. Call for hypoglycemia. - Continue METFORMIN ER and LANTUS at bedtime. Patient and spouse indicated understanding and willingness to follow recommendations. Nahun Jeffrey MD documented in this encounterPromedica [facility]07-10-2023 Miscellaneous Notes* Telephone Encounter - Joan Tonwsend LPN - 03/15/2023 6:38 PM EDT notified of below recommendation, verbalized understanding. Joan Townsend LPN * Telephone Encounter - Nahun Jeffrey MD - 03/15/2023 6:27 PM EDT No other medication changes till reevaluation. Bring glucose meter for appointment. * Telephone Encounter - Christiana Miner RN - 03/15/2023 10:24 AM EDT Patient's calls back and is notified that prescription was sent in to pharmacy as well as thatpatient needs to set up appointment to see provider in regards to discussing blood sugar issues. Appointment set up for 03/20/2023. is still concerned about patient's insulins. states that patient needs to either have Humalog or Novolog short acting insulins to help patient better control sugars. asking if providercan send in a prescription for this? Advised that this would be discussed during appointment. asking if this can be sent in prior to appointment? Please review and advise, Christiana Miner RN * Telephone Encounter - Calvin Mosqueda Ma - 03/15/2023 9:25 AM EDT Left message to call office. 03/15/2023 9:26 AM * Telephone Encounter - Nahun Jeffrey MD - 03/12/2023 5:44 PM EDT Patient's request for medication is as follows Requested Prescriptions Signed Prescriptions Disp Refills insulin glargine (LANTUS SOLOSTAR U-100 INSULIN) 100 unit/mL (3 mL) 15 mL 0 Sig: Inject 10 Units subcutaneously daily at bedtime. Authorizing Provider: NAHUN JEFFREY insulin needles, DISPOSABLE, (PEN NEEDLE) 31 gauge x 5/16 50 Each 2 Sig: Use one needle per dose. 1 per day. Authorizing Provider: NAHUN JEFFREY Follow up with me or Leigh in 1-2 weeks.. Nahun Jeffrey MD * Telephone Encounter - Christiana Miner RN - 03/12/2023 11:32 AM EDT Patient's calls and is concerned because patient's fasting blood sugars have been elevated. Patient was started on Trulicity on 01/05/2023. reports that patient has been eating salads and grilled chicken. Patient's fasting blood sugars have been 300s. Patient's family has a history of Diabetes. is concerned that Trulicity is not working for patient. Patient's brothers are diabetic and they had told patient and that patient should be on a long acting insulin such as Lantus tobetter control patient's blood sugars. asking if provider can send in order for insulin to [facility]. Please review and advise, Christiana Miner RN documented in this encounterPromedica [facility] Hospital07-10-2023 Miscellaneous Notes* Telephone Encounter - Christiana Miner RN - 03/15/2023 10:27 AM EDT Patient's calls back, see telephone encounter for 03/12/2023 in regards to insulin requests. Christiana Miner, RN * Telephone Encounter - Yoana Wynn LPN - 03/15/2023 8:18 AM EDT Pt's calling states pt never picked up trulicity because it does no Good . She states they are asking for a fast acting insulin.She also states when the Lantus solo star was just sent in it was sent in for ayaan 1 pen with no refills. Pt uses [facility] here in town. documented in this encounterPromedica [facility]06-01-2023 Miscellaneous Notes* Telephone Encounter - Joan Townsend LPN - 02/04/2023 10:32 AM EDT Patient has been identified by name and date of : Yes, Patient phones for refill(s): Requested Prescriptions Pending Prescriptions Disp Refills blood sugar diagnostic (BLOOD GLUCOSE TEST) test strip 100 Strip 3 Sig: Patient has one touch ultra glucometer. Test blood sugar(s) 2 times daily. Dx: Type 2 DM - Controlled E11.9 Insulin: No Date of last office visit in primary care: 01/05/2023 Annual: 05/13/2023 Last 2 Encounter Wt Readings: Date: Wt: 01/05/2023 64 kg (141 lb) 12/09/2022 65.8 kg (145 lb) Previous labs/tests for medication: Diabetes: Hemoglobin A1C (%) Date Value 08/03/2022 6.1 04/29/2022 6.0 10/27/2021 6.4 01/11/2021 7.0 Hemoglobin A1C (POCT) (%) Date Value 01/05/2023 6.2 05/06/2021 6.2 Please advise. Thank you. Joan Townsend LPN * Telephone Encounter - Bonnie Gaitan Pss - 02/04/2023 9:36 AM EDT Pharmacy verified in Epic Patient has been identified by name and date of : Yes Patient aware RX will be sent to pharmacy. No need to notify patient. Patient phones for refill(s): Requested Prescriptions Pending Prescriptions Disp Refills blood sugar diagnostic (BLOOD GLUCOSE TEST) test strip 100 Strip 3 Sig: Patient has one touch ultra glucometer. Test blood sugar(s) 2 times daily. Dx: Type 2 DM - Controlled E11.9 Insulin: No Date of last office visit : 01/05/2023 Date of next office visit : 05/13/2023 Last 2 Encounter Wt Readings: Date: Wt: 01/05/2023 64 kg (141 lb) 12/09/2022 65.8 kg (145 lb) Not applicable Please advise. Bonnie Gaitan Pss documented in this encounterPromedica [facility] Hospital05-02-2023 NoteHNO ID: [id number] Author: Nahun Jeffrey MD Service: ? Author Type: Physician Type: Progress Notes Filed: 01/05/2023 9:34 AM Note Text: This note was created using [employer]. Subjective Tuan Vallejo is a 67 year old male. His glucose had been elevated since he was diagnosed with cancer. He tried Jardiance but had orthostatic dizziness that was intolerable. He was now on medication for urinary incontinence following prostate cancer surgery. Review of Systems Constitutional: Negative for chills and fever. Respiratory: Negative for shortness of breath. Cardiovascular: Negative for chest pain, palpitations and leg swelling. Gastrointestinal: Negative for abdominal pain, nausea and vomiting. Genitourinary: Negative for difficulty urinating. Psychiatric/Behavioral: Negative for dysphoric mood. 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 pravastatin (PRAVACHOL) 40 mg tablet Take 1 tablet by mouth once daily. levothyroxine (SYNTHROID) 25 mcg tablet Take 1 tablet by mouth daily before breakfast. blood sugar diagnostic (BLOOD GLUCOSE TEST) test strip Patient has one touch ultra glucometer. Test blood sugar(s) 2 times daily. Dx: Type 2 DM - Controlled E11.9 Insulin: No metFORMIN ER (GLUCOPHAGE XR) 500 mg 24 hr tablet Take 2 tablets by mouth twice daily before meals. glimepiride (AMARYL) 4 mg tablet Take 1 tablet by mouth every evening. With food. sildenafil (VIAGRA) 100 mg tablet Take 1 tablet PO daily as needed for erectile dysfunction alcohol swabs (ALCOHOL PADS) Test blood sugar(s) 2 times daily. Dx: Type 2 DM - Controlled E11.9 Insulin: No amLODIPine (NORVASC) 10 mg tablet Take 1 tablet by mouth once daily. Blood-Glucose Meter (ONETOUCH ULTRA2 METER) monitoring kit 1 Each as needed. One Touch Meter Kit Diagnosis: Type 2 DM - Uncontrolled E11.65 Lancets (ONETOUCH ULTRASOFT LANCETS) lancets Test blood sugar(s) 1-2 times daily. Dx: Type 2 DM - Uncontrolled E11.65 , Insulin: No empagliflozin (JARDIANCE) 10 mg tablet Take 1 tablet by mouth once daily. Take 1 tablet once daily in the morning (Patient not taking: No sig reported) No current facility-administered medications for this visit. Objective BP 126/70 (BP Site: Right Arm, BP Position: Sitting, BP Cuff Size: Large Adult) Pulse 76 Resp 16 Wt 64 kg (141 lb) BMI 22.08 kg/m? Physical Exam Constitutional: Appearance: He is not ill-appearing. Pulmonary: Effort: Pulmonary effort is normal. Musculoskeletal: Right lower leg: No edema. Left lower leg: No edema. Neurological: Mental Status: He is alert. Depression Screening 01/14/2021 05/07/2022 08/06/2022 01/05/2023 PHQ-2 Score 0 0 0 0 Depression screening tool completed and reviewed. Based on score and interview, patient is not at risk for depression. Screening tool discussed with patient, and I recommended no further intervention at this time. Component Latest Ref Rng AND Units 12/31/2022 Glucose 74 - 99 mg/dL 192 (H) BUN 9 - 24 mg/dL 22 Creatinine 0.73 - 1.22 mg/dL 0.91 Sodium 136 - 144 mmol/L 136 Potassium 3.7 - 5.1 mmol/L 4.7 Chloride 97 - 105 mmol/L 101 CO2 22 - 30 mmol/L 24 Anion Gap 9 - 18 mmol/L 11 Calcium 8.5 - 10.2 mg/dL 9.7 eGFR >=60 mL/min/1.73mA? 93 Cholesterol, Total <200 mg/dL 234 (H) Triglyceride <150 mg/dL 109 HDL Cholesterol >39 mg/dL 56 Non HDL Cholesterol <130 mg/dL 178 (H) Fasting Time hrs 13 VLDL Cholesterol <30 mg/dL 22 TC:HDL Ratio <5.10 4.18 LDL Cholesterol <100 mg/dL 156 (H) LDL:HDL Ratio <2.54 2.79 (H) Creatinine, Ur Random (UCRR) 20.0 - 300.0 mg/dL 123.1 Albumin, Urine Random mg/L 118.7 Albumin/Creat Ratio <30 mg/g 96 (H) TSH 0.270 - 4.200 mIU/L 2.160 PSA <2.60 ng/mL 0.14 Hemoglobin A1C (%) Date Value 10/27/2021 6.4 Hemoglobin A1C (POCT) (%) Date Value 01/05/2023 6.2 Assessment and Plan 1. Familial combined hyperlipidemia - ICD9: 272.2, ICD10: E78.49 (primary diagnosis) - DC Pravastatin. - ATORVASTATIN 20 MG TABLET - LIPID PANEL BASIC 2. Essential hypertension - ICD9: 401.9, ICD10: I10 - good control - AMLODIPINE 10 MG TABLET 3. Type 2 diabetes mellitus with hyperglycemia, without long-term current use of insulin (HCC) - ICD9: 250.00, 790.29, ICD10: E11.65 - Worsening control. Shared medical decision making was done. We discussed option of bedtime insulin. - Continue current medications - Start dulaglutide (Trulicity) - LANCETS - HEMOGLOBIN A1C (POC) - TRULICITY 0 (more content not included)...[facility]05-02-2023 Instructions* Patient Instructions* Nahun Jeffrey MD - 01/05/2023 9:31 AM EDT SEE MEDICATION LIST FOR CHANGES. FASTING BLOOD WORK IN 4 MONTHS. documented in this encounterPromedica Memorial Hospital05-02-2023 History of Present illness Narrative* Nahun Jeffrey MD - 01/05/2023 9:03 AM EDT This note was created using [employer]. Subjective Tuan Vallejo is a 67 year old male. His glucose had been elevated since he was diagnosed with cancer. He tried Jardiance but had orthostatic dizziness that was intolerable. He was now on medication for urinary incontinence following prostate cancer surgery. Review of Systems Constitutional: Negative for chills and fever. Respiratory: Negative for shortness of breath. Cardiovascular: Negative for chest pain, palpitations and leg swelling. Gastrointestinal: Negative for abdominal pain, nausea and vomiting. Genitourinary: Negative for difficulty urinating. Psychiatric/Behavioral: Negative for dysphoric mood. 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 pravastatin (PRAVACHOL) 40 mg tablet Take 1 tablet by mouth once daily. levothyroxine (SYNTHROID) 25 mcg tablet Take 1 tablet by mouth daily before breakfast. blood sugar diagnostic (BLOOD GLUCOSE TEST) test strip Patient has one touch ultra glucometer. Testblood sugar(s) 2 times daily. Dx: Type 2 DM - Controlled E11.9 Insulin: No metFORMIN ER (GLUCOPHAGE XR) 500 mg 24 hr tablet Take 2 tablets by mouth twice daily before meals. glimepiride (AMARYL) 4 mg tablet Take 1 tablet by mouth every evening. With food. sildenafil (VIAGRA) 100 mg tablet Take 1 tablet PO daily as needed for erectile dysfunction alcohol swabs (ALCOHOL PADS) Test blood sugar(s) 2 times daily. Dx: Type 2 DM - Controlled E11.9 Insulin: No amLODIPine (NORVASC) 10 mg tablet Take 1 tablet by mouth once daily. Blood-Glucose Meter (ONETOUCH ULTRA2 METER) monitoring kit 1 Each as needed. One Touch Meter Kit Diagnosis: Type 2 DM - Uncontrolled E11.65 Lancets (ONETOUCH ULTRASOFT LANCETS) lancets Test blood sugar(s) 1-2 times daily. Dx: Type 2 DM - Uncontrolled E11.65 , Insulin: No empagliflozin (JARDIANCE) 10 mg tablet Take 1 tablet by mouth once daily. Take 1 tablet once daily in the morning (Patient not taking: No sig reported) No current facility-administered medications for this visit. Objective BP 126/70 (BP Site: Right Arm, BP Position: Sitting, BP Cuff Size: Large Adult) Pulse 76 Resp 16 Wt 64 kg (141 lb) BMI 22.08 kg/m Physical Exam Constitutional: Appearance: He is not ill-appearing. Pulmonary: Effort: Pulmonary effort is normal. Musculoskeletal: Right lower leg: No edema. Left lower leg: No edema. Neurological: Mental Status: He is alert. Depression Screening 01/14/2021 05/07/2022 08/06/2022 01/05/2023 PHQ-2 Score 0 0 0 0 Depression screening tool completed and reviewed. Based on score and interview, patient is not at risk for depression. Screening tool discussed with patient, and I recommended no further interventionat this time. Component Latest Ref Rng & Units 12/31/2022 Glucose 74 - 99 mg/dL 192 (H) BUN 9 - 24 mg/dL 22 Creatinine 0.73 - 1.22 mg/dL 0.91 Sodium 136 - 144 mmol/L 136 Potassium 3.7 - 5.1 mmol/L 4.7 Chloride 97 - 105 mmol/L 101 CO2 22 - 30 mmol/L 24 Anion Gap 9 - 18 mmol/L 11 Calcium 8.5 - 10.2 mg/dL 9.7 eGFR >=60 mL/min/1.73m 93 Cholesterol, Total <200 mg/dL 234 (H) Triglyceride <150 mg/dL 109 HDL Cholesterol >39 mg/dL 56 Non HDL Cholesterol <130 mg/dL 178 (H) Fasting Time hrs 13 VLDL Cholesterol <30 mg/dL 22 TC:HDL Ratio <5.10 4.18 LDL Cholesterol <100 mg/dL 156 (H) LDL:HDL Ratio <2.54 2.79 (H) Creatinine, Ur Random (UCRR) 20.0 - 300.0 mg/dL 123.1 Albumin, Urine Random mg/L 118.7 Albumin/Creat Ratio <30 mg/g 96 (H) TSH 0.270 - 4.200 mIU/L 2.160 PSA <2.60 ng/mL 0.14 Hemoglobin A1C (%) Date Value 10/27/2021 6.4 Hemoglobin A1C (POCT) (%) Date Value 01/05/2023 6.2 Assessment and Plan 1. Familial combined hyperlipidemia - ICD9: 272.2, ICD10: E78.49 (primary diagnosis) - DC Pravastatin. - ATORVASTATIN 20 MG TABLET - LIPID PANEL BASIC 2. Essential hypertension - ICD9: 401.9, ICD10: I10 - good control - AMLODIPINE 10 MG TABLET 3. Type 2 diabetes mellitus with hyperglycemia, without long-term current use of insulin (HCC) - ICD9: 250.00, 790.29, ICD10: E11.65 - Worsening control. Shared medical decision making was done. We discussed option of bedtime insulin. - Continue current medications - Start dulaglutide (Trulicity) - LANCETS - HEMOGLOBIN A1C (POC) - TRULICITY 0.75 MG/0.5 ML SUBCUTANEOUS PEN INJECTOR - BASIC METABOLIC PNL - HGB A1C Discussed medication dosage, usage, goals of therapy, and side effects. 4. Urinary incontinence, unspecified type - ICD9: 788.30, ICD10: R32 Noted. - OXYBUTYNIN CHLORIDE ER 10 MG TABLET,EXTENDED RELEASE 24 HR Nahun Jeffrey MD documented in this encounterPromedica Memorial Hospital04-13-2023 Miscellaneous Notes* Telephone Encounter - Kamran Gordon Jr., MD - 12/17/2022 11:31 PM EDT sent documented in this encounterPromedica Memorial Hospital04-13-2023 Miscellaneous Notes* Telephone Encounter - Charisma Nevarez RN - 12/17/2022 8:57 AM EDT Can you please renew Rx? Pt said the medication has been helping. Charisma Nevarez, RN * Telephone Encounter - Archana Addison MA - 12/16/2022 11:05 AM EDT Patient called requesting the following refill. Requested Prescriptions Pending Prescriptions Disp Refills oxybutynin ER (DITROPAN XL) 10 mg 24 hr tablet 14 tablet 0 Sig: Take 1 tablet by mouth once daily for 14 days. Patient last appointment: Visit date not found Patient Phone numbers: [phone] (home) Request is for script(s) to be escript to pharmacy. Archana Addison MA documented in this encounterPromedica Memorial Hospital04-12-2023 Miscellaneous Notes* Telephone Encounter - Archana Addison MA - 12/16/2022 11:11 AM EDT Pt called stating that he would like a refill of Oxybutynin 10mg/request has beenP sent to Dr Heidi Addison MA documented in this encounterPromedica Memorial Hospital04-05-2023 NoteHNO ID: [id number] Author: Kamran Gordon Jr., MD Service: ? Author Type: Physician Type: Progress Notes Filed: 12/09/2022 1:04 PM Note Text: ESTABLISHED PATIENT OFFICE VISIT HPI Tuan Vallejo is a 67 year old male s/p RALP with bilateral PLND on 11/30/22 who presents for postoperative follow up visit. On 12/07/22, patient had his Allred catheter removed. 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 States that he is having issues with incontinence. Going through 3 pads everyday. Worse with physical activity. Denies any issues with erections. MEDICATIONS: oxybutynin ER (DITROPAN XL) 10 mg 24 hr tablet Take 1 tablet by mouth once daily for 14 days. docusate sodium (COLACE) 100 mg capsule Take 1 capsule by mouth twice daily. pravastatin (PRAVACHOL) 40 mg tablet Take 1 tablet by mouth once daily. levothyroxine (SYNTHROID) 25 mcg tablet Take 1 tablet by mouth daily before breakfast. blood sugar diagnostic (BLOOD GLUCOSE TEST) test strip Patient has one touch ultra glucometer. Test blood sugar(s) 2 times daily. Dx: Type 2 DM - Controlled E11.9 Insulin: No metFORMIN ER (GLUCOPHAGE XR) 500 mg 24 hr tablet Take 2 tablets by mouth twice daily before meals. glimepiride (AMARYL) 4 mg tablet Take 1 tablet by mouth every evening. With food. sildenafil (VIAGRA) 100 mg tablet Take 1 tablet PO daily as needed for erectile dysfunction alcohol swabs (ALCOHOL PADS) Test blood sugar(s) 2 times daily. Dx: Type 2 DM - Controlled E11.9 Insulin: No amLODIPine (NORVASC) 10 mg tablet Take 1 tablet by mouth once daily. Blood-Glucose Meter (ONETOUCH ULTRA2 METER) monitoring kit 1 Each as needed. One Touch Meter Kit Diagnosis: Type 2 DM - Uncontrolled E11.65 Lancets (ONETOUCH ULTRASOFT LANCETS) lancets Test blood sugar(s) 1-2 times daily. Dx: Type 2 DM - Uncontrolled E11.65 , Insulin: No empagliflozin (JARDIANCE) 10 mg tablet Take 1 tablet by mouth once daily. Take 1 tablet once daily in the morning (Patient not taking: Reported on 12/09/2022) Review of Systems HISTORIES PAST MEDICAL HISTORY Diagnosis Date Acquired hypothyroidism 10/21/2015 Arthritis Back pain ED (erectile dysfunction) of organic origin 10/18/2020 Essential hypertension 09/05/2014 Familial combined hyperlipidemia 07/29/2015 Onychomycosis of multiple toenails with type 2 diabetes mellitus (HCC) 02/08/2017 Personal history of colonic polyps 02/20/2016 Prostate cancer ([facility]) PSA elevation 09/26/2019 Skin cancer unknown type 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d by mild nonproliferative retinopathy without macular edema, without long-term current use of insulin ([facility]) 02/27/2019 Exam 02/10/[address] Fuentes. Type 2 diabetes mellitus without complication ([facility]) 07/29/2015 FAMILY HISTORY Problem Relation Age of Onset Dementia Mother Kidney Disease Mother other (hypoglycemia) Mother Heart Father of [place] Diabetes Father Lung Cancer Father lung cancer Diabetes Sister Diabetes Sister Diabetes Brother type 1 diabetes Lung Cancer Brother No Known Problems Brother Diabetes Brother SOCIAL HISTORY Social History Tobacco Use Smoking status: Former Packs/day: 2.00 Years: 35.00 Pack years: 70.00 Types: Cigarettes Quit date: 02/24/2002 Years since quittin.8 Smokeless tobacco: Never Tobacco comments: started 8 years old Vaping Use Vaping Use: Never used Substance Use Topics Alcohol use: Yes Alcohol/week: 17.5 standard drinks Types: 7 Glasses of Wine (5oz) per week Comment: Pt drinks 1 glass of wine a day Drug use: No PHYSICAL EXAMINATION BP 132/84 Ht 170.2 cm (5' 7) Wt 65.8 kg (145 lb) BMI 22.71 kg/m? General appearance: Well appearing, alert, in no acute distress, and well-hydrated, well nourished Skin: Skin color, texture, turgor normal, no suspicious rashes or lesions HEENT: NCAT. Sclera anicteric. Respiratory: no increased work of breathing Cardiovascular: no cyanosis Gastrointestinal: Normal abdominal exam, Abdomen soft, non-tender ASSESSMENT 67 year old male with pT3b prostate cancer s/p RALP and PLND on 11/30/2022. PLAN -Reviewed pathologic stage of prostate cancer with patient and spouse; patient is at high-risk for requiring radiation therapy in the near future -Follow up in approximately 3 months with PSA prior Naseem Hayden PGY-3, Urology December 09, 2022 Pager #[phone] I saw and evaluated the patient. Discussed with resident and agree with resident's findings and plan as documented in the resident's note. Kamran Gordon Jr, [facility]04-05-2023 History of Present illness Narrative* Kamran Gordon Jr., MD - 12/09/2022 12:20 PM EDT ESTABLISHED PATIENT OFFICE VISIT HPI Tuan Vallejo is a 67 year old male s/p RALP with bilateral PLND on 11/30/22 who presents for postoperative follow up visit. On 12/07/22, patient had his Allred catheter removed. 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 States that he is having issues with incontinence. Going through 3 pads everyday. Worse with physical activity. Denies any issues with erections. MEDICATIONS: oxybutynin ER (DITROPAN XL) 10 mg 24 hr tablet Take 1 tablet by mouth once daily for 14 days. docusate sodium (COLACE) 100 mg capsule Take 1 capsule by mouth twice daily. pravastatin (PRAVACHOL) 40 mg tablet Take 1 tablet by mouth once daily. levothyroxine (SYNTHROID) 25 mcg tablet Take 1 tablet by mouth daily before breakfast. blood sugar diagnostic (BLOOD GLUCOSE TEST) test strip Patient has one touch ultra glucometer. Testblood sugar(s) 2 times daily. Dx: Type 2 DM - Controlled E11.9 Insulin: No metFORMIN ER (GLUCOPHAGE XR) 500 mg 24 hr tablet Take 2 tablets by mouth twice daily before meals. glimepiride (AMARYL) 4 mg tablet Take 1 tablet by mouth every evening. With food. sildenafil (VIAGRA) 100 mg tablet Take 1 tablet PO daily as needed for erectile dysfunction alcohol swabs (ALCOHOL PADS) Test blood sugar(s) 2 times daily. Dx: Type 2 DM - Controlled E11.9 Insulin: No amLODIPine (NORVASC) 10 mg tablet Take 1 tablet by mouth once daily. Blood-Glucose Meter (ONETOUCH ULTRA2 METER) monitoring kit 1 Each as needed. One Touch Meter Kit Diagnosis: Type 2 DM - Uncontrolled E11.65 Lancets (ONETOUCH ULTRASOFT LANCETS) lancets Test blood sugar(s) 1-2 times daily. Dx: Type 2 DM - Uncontrolled E11.65 , Insulin: No empagliflozin (JARDIANCE) 10 mg tablet Take 1 tablet by mouth once daily. Take 1 tablet once daily in the morning (Patient not taking: Reported on 12/09/2022) Review of Systems HISTORIES PAST MEDICAL HISTORY Diagnosis Date Acquired hypothyroidism 10/21/2015 Arthritis Back pain ED (erectile dysfunction) of organic origin 10/18/2020 Essential hypertension 09/05/2014 Familial combined hyperlipidemia 07/29/2015 Onychomycosis of multiple toenails with type 2 diabetes mellitus (HCC) 02/08/2017 Personal history of colonic polyps 02/20/2016 Prostate cancer ([facility]) PSA elevation 09/26/2019 Skin cancer unknown type 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d by mild nonproliferative retinopathy without macular edema, without long-term current use of insulin ([facility]) 02/27/2019 Exam 02/10/[address] Fuentes. Type 2 diabetes mellitus without complication ([facility]) 07/29/2015 FAMILY HISTORY Problem Relation Age of Onset Dementia Mother Kidney Disease Mother other (hypoglycemia) Mother Heart Father of [place] Diabetes Father Lung Cancer Father lung cancer Diabetes Sister Diabetes Sister Diabetes Brother type 1 diabetes Lung Cancer Brother No Known Problems Brother Diabetes Brother SOCIAL HISTORY Social History Tobacco Use Smoking status: Former Packs/day: 2.00 Years: 35.00 Pack years: 70.00 Types: Cigarettes Quit date: 02/24/2002 Years since quittin.8 Smokeless tobacco: Never Tobacco comments: started 8 years old Vaping Use Vaping Use: Never used Substance Use Topics Alcohol use: Yes Alcohol/week: 17.5 standard drinks Types: 7 Glasses of Wine (5oz) per week Comment: Pt drinks 1 glass of wine a day Drug use: No PHYSICAL EXAMINATION BP 132/84 Ht 170.2 cm (5' 7) Wt 65.8 kg (145 lb) BMI 22.71 kg/m General appearance: Well appearing, alert, in no acute distress, and well- hydrated, well nourished Skin: Skin color, texture, turgor normal, no suspicious rashes or lesions HEENT: NCAT. Sclera anicteric. Respiratory: no increased work of breathing Cardiovascular: no cyanosis Gastrointestinal: Normal abdominal exam, Abdomen soft, non-tender ASSESSMENT 67 year old male with pT3b prostate cancer s/p RALP and PLND on 11/30/2022. PLAN -Reviewed pathologic stage of prostate cancer with patient and spouse; patient is at high-risk for requiring radiation therapy in the near future -Follow up in approximately 3 months with PSA prior Naseem Hayden PGY-3, Urology December 09, 2022 Pager #[phone] I saw and evaluated the patient. Discussed with resident and agree with resident's findings and plan as documented in the resident's note. Kamran Gordon Jr, MD documented in this encounterPromedica Memorial Hospital03-31-2023 Miscellaneous Notes* Telephone Encounter - Kamran Gordon Jr., MD - 12/04/2022 11:25 AM EDT Sounds good I will discuss pathology at fu visit * Telephone Encounter - Mariluz Ewing RN - 12/04/2022 11:10 AM EDT called because patient has bruising on his back behind left hip area. I instructed that this can happen from pooling of fluid from the surgery. Instructed to use warm heat in increments no longer than 20 minutes at a time. Patient denies fever or chills. Instructed to continue fluids. They were wondering if you were going to call about the pathology. I told them that because he knows he has prostate cancer that most likely you would wait the go over results and plan at the office appointment as patient needs time to heal so nothing can be started before that time. Verbalized understanding. Please advise. Janelle documented in this encounterPromedica Memorial Hospital03-28-2023 Miscellaneous Notes* Telephone Encounter - Lashae Khan PSS - 12/01/2022 11:30 AM EDT Cath removal schedule with the nurse on 12/07/22. Follow up scheduled with Dr. Gordon on 12/24/22. Lashae Khan PSS * Telephone Encounter - Kamran Gordon Jr., MD - 12/01/2022 8:42 AM EDT [facility] or 11/30/22 Cath removal with nursing Wednesday Fu with me 2-3 weeks documented in this encounterPromedica Memorial Hospital03-28-2023 Miscellaneous Notes* Telephone Encounter - Barbie Castro - 12/01/2022 8:52 AM EDT Pt called and notified of rx sent to pharmacy. Barbie Castro RN * Telephone Encounter - Kamran Gordon Jr., MD - 12/01/2022 8:43 AM EDT sent * Telephone Encounter - Barbie Castro - 12/01/2022 8:34 AM EDT Pt's called and states he is having severe bladder spasms after surgery yesterday. They would like a medication sent to [facility] in [place]. Pt encouraged to continue drinking fluids. Barbie Castro RN documented in this encounterPromedica Memorial Hospital03-28-2023 Miscellaneous Notes* Telephone Encounter - Bonnie Vela - 12/01/2022 8:40 AM EDT December 01, 2022 8:41 AM Patients called to schedule post up and allred removal. Please advise. Bonnie Vela documented in this encounterPromedica Memorial Hospital03-27-2023 NoteHNO ID: [id number] Author: Regi Adam RN Service: ? Author Type: Registered Nurse Type: Nursing Progress Note Filed: 11/30/2022 1:48 PM Note Text: Other: Dr. Quinteros at bedside to speak with pt re: home going.[facility]03-27-2023 NoteHNO ID: [id number] Author: Regi Adam RN Service: ? Author Type: Registered Nurse Type: Nursing Progress Note Filed: 11/30/2022 1:19 PM Note Text: Other: Dr. Finley notified of pt's glucose and BP at this time, no new orders.[facility]03-27-2023 NoteHNO ID: [id number] Author: Regi Adam RN Service: ? Author Type: Registered Nurse Type: Nursing Progress Note Filed: 11/30/2022 11:47 AM Note Text: Other: FSBS = [phone] Dr. Finley notified, awaiting orders.[facility]03-27-2023 Note HNO ID: [id number] Author: Diane Kuhn APRN.[employer]ST[employer] HANDLER Service: Nursing Author Type: Nurse Marketing Information Analyst Type: Anesthesia Procedure Notes Filed: 11/30/2022 8:47 AM Note Text: ANESTHESIOLOGY PROCEDURE NOTE Airway General Information Procedure Start Time/Medication Administration: 11/30/2022 8:16 AM Patient location during procedure: OR Timeout Performed Pre-procedure: timeout performed Consent Obtained: Yes Patient identity confirmed: patient and arm band Staffing Anesthesiologist: Naseem Finley MD ASBESTOS HANDLER: Diane Kuhn APRN.[employer]BEST[employer] HANDLER Performed by: ASBESTOS HANDLER Indications and Patient Condition Indications for airway management: anesthesia Preoxygenated: yes anesthesia circuit Patient position: sniffing Method: asleep Difficult Mask: Yes Airway Accessory: oral airway Final Airway Details Final airway type: endotracheal airway Final Endotracheal Airway: ETT Cuffed: yes Successful intubation technique: direct laryngoscopy Endotracheal tube insertion site: oral Blade: Mikayla Blade size: #4 ETT size (mm): 8.0 Measured from: lips Measurement (cm): 23 Placement verified by: chest auscultation and capnometry Cormack-Lehane Classification: grade IIb - view of arytenoids or posterior of glottis only Number of attempts at approach: 1 Airway not difficult SIGNATURE: Diane Kuhn APRN.[employer]BESTOS HANDLER PATIENT NAME: Tuan Vallejo DATE: November 30, 2022 TIME: 8:45 AM CSN: [id number] [facility] Hospital03-22-2023 Miscellaneous Notes* Telephone Encounter - Adrien Maki RN - 11/25/2022 9:31 AM EDT Called patient and answered questions and they verbalized understanding. * Telephone Encounter - Bonnie Peterson - 11/25/2022 9:15 AM EDT Pt called again and stated that she missed the call from this office and is returning the call. Please see note below. Thanks! * Telephone Encounter - Ced Valentine - 11/25/2022 8:04 AM EDT called on behalf of the patient Requesting to speak with the office regarding the results of the bone scan Please contact patient and his , they can be reached at [phone] documented in this encounterPromedica Memorial Hospital03-16-2023 NoteHNO ID: [id number] Author: RT Je(R) Service: Nuclear Medicine Author Type: Technologist Type: Progress Notes Filed: 11/19/2022 8:24 AM Note Text: RADIOLOGY SERVICE PROGRESS NOTE SERVICE DATE: 11/19/2022 SERVICE TIME: 8:00 AM PATIENT IDENTITY VERIFICATION COMPLETED USING TWO (2) STANDARD IDENTIFIERS: Name and Date of confirmed by patient verbally FALL SCREENING: Has the patient had 2 falls in the last year or 1 fall with injury or currently using an Ambulatory Assistive Device (Walker, Cane, Wheelchair, Crutches, etc.)? No PATIENT GENDER DATA: .male ALLERGIES: Reviewed and unchanged MEDICATIONS REVIEWED: No PATIENT RELEVANT IMPLANT DATA REVIEWED: Not Applicable CREATININE: Creatinine Date Value Ref Range Status 11/16/2022 0.77 0.73 - 1.22 mg/dL Final 08/03/2022 0.87 0.73 - 1.22 mg/dL Final 04/29/2022 0.89 0.73 - 1.22 mg/dL Final Estimated Glomerular Filtration Rate Date Value Ref Range Status 11/16/2022 99 >=60 mL/min/1.73m? Final Comment: Estimated Glomerular Filtration Rate (eGFR) is calculated using the 2020 CKD-EPI creatinine equation. This equation utilizes serum creatinine, sex, and age as parameters. The creatinine assay has traceable calibration to isotope dilution-mass spectrometry. Refer to KDIGO guidelines for clinical interpretation. In patients with unstable renal function, e.g. those with acute kidney injury, the eGFR may not accurately reflect actual GFR. eGFR- Date Value Ref Range Status 10/27/2021 >60 Final P.O.C.T. RESULTS: N/A November 19, [address] PERFORMED: No IV SITE: Ambulatory: A peripheral IV was started in the Left antecubital site with a Angio cath: 24 gauge. POST EXAM PIV STATUS: Discontinued PROCEDURE TYPE: NM INJECT: Whole Body Bone Scan. 23.1 mCi Tc99m MDP. No other medications given.. ADMINISTRATION TIME: 08:05 PATIENT DISCHARGED TO: Ambulatory patient, left NM department area. A Diagnostic radioactive procedure has taken place, with no further precautions necessary other than routine body substance precautions. More information regarding radiation safety can be found using this link: [email or web address] SIGNATURE: RT Je(R) PATIENT NAME: Tuan Vallejo DATE: November 19, 2022 TIME: 8:05 AM PAGER/CONTACT #:[facility]03-13-2023 History and physical note* Ronda Orona APRN.AUTOMOTIVE GLASS TECHNICIAN - 11/16/2022 9:20 AM EDT HISTORY AND PHYSICAL EXAMINATION SERVICE DATE: 11/16/2022 SERVICE TIME: 9:20 AM PRIMARY CARE PHYSICIAN: Nahun Jeffrey MD REASON FOR VISIT: Tuan Vallejo is a 67 year old male who is scheduled for Procedure(s): XI ROBOTIC LAPAROSCOPIC RETROPUBIC RADICAL PROSTATECTOMY W/ NERVE SPARING (N/A) XI ROBOTIC LAPAROSCOPIC SURGICAL W/BILATERAL TOTAL PELVIC LYMPHADENECTOMY (Bilateral) at the request of Dr. Kamran Gordon Jr. for routine H&P. My final recommendation will be communicated back to the requesting physician by way of shared medical record or letter. The reason for this visit is to perform a comprehensive review of the patient's past medical history, assess their current health status and obtain any additional testing required based on anesthesiaguidelines. We will also identify any potential anesthesia problems or contraindications to the planned procedure. Subjective The patient has the following: ACTIVE PROBLEM LIST Essential Hypertension Family History of Ischemic Heart Disease Familial Combined Hyperlipidemia Acquired Hypothyroidism Personal History of Colonic Polyps Type 2 Diabetes Mellitus With Both Eyes Affected By Mild Nonproliferative Retinopathy Without Macular Edema, Without Long-Term Current Use of Insulin (Hcc) Psa Elevation Ed (Erectile Dysfunction) of Organic Origin Adhesive Capsulitis of Left Shoulder Preop Testing COVID-19 Immunization Status Postponed - COVID-19 VACCINE (3 - Booster for Anson series) Postponed until 08/06/2023 08/06/2022 Postponed until 08/06/2023 by Joan Townsend LPN (Declined at this time) 08/27/2021 Imm Admin: COVID-19 vaccine ([facility]SON) 02/24/2021 Imm Admin: COVID-19 vaccine ([facility]SON) CHIEF COMPLAINT: Prostate cancer HPI: Patient reports he had elevated PSA levels that has gradually increased increased over the past couple years. He further reports he was diagnosed with prostate cancer many months ago. Today, he denies pain, rating 0 out of 10 on the numeric pain scale. He states he does experience occasional pain in pelvic area. He complains of urinary urgency and frequency, weak stream. He denies dysuria orhematuria at this time. After discussion with surgeon patient agreeable to surgical intervention. REVIEW OF SYSTEMS: General: No weight loss, malaise or fevers. Neurological: Negative for: headaches, seizures and strokes. Respiratory: Negative for: asthma, COPD, current cough, pneumonia within 6 weeks and obstructive sleep apnea. Cardiovascular: Positive for: hyperlipidemia and hypertension Negative for: arrhythmia, CAD, chest pain, CHF, DVT/PE and murmur/valvular heart disease. GI: No history of GI symptoms or problems. No history of esophageal varices, recent ascites, or ETOH greater than 2 drinks per day. : See HPI. Endocrine: Positive for: diabetes mellitus and hypothyroidism. Patient's diabetes mellitus is controlled by diet and oral agents. Hematology: No history of bleeding or clotting disorder. Patient is not taking anti-coagulation or platelet medications. No history of hematological symptoms or problems. Negative for: anemia and factor V Leiden. Oncology: No history of CA metastasis, chemo within 30 days, or radiotherapy within 90 days. No history of oncological symptoms or problems. Psych: No history of psychiatric symptoms or problems. Musculoskeletal: Negative for joint pain or swelling, back pain or muscle pain. Skin: Negative for lesions, rash and itching. PAST MEDICAL HISTORY Diagnosis Date Acquired hypothyroidism 10/21/2015 Arthritis Back pain ED (erectile dysfunction) of organic origin 10/18/2020 Essential hypertension 09/05/2014 Familial combined hyperlipidemia 07/29/2015 Onychomycosis of multiple toenails with type 2 diabetes mellitus (HCC) 02/08/2017 Personal history of colonic polyps 02/20/2016 Prostate cancer (HCC) PSA elevation 09/26/2019 Skin cancer unknown type 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d by mild nonproliferative retinopathy without macular edema, without long-term current use of insulin (HCC) 02/27/2019 Exam 02/10/[address] Fuentes. Type 2 diabetes mellitus without complication (HCC) 07/29/2015 PAST SURGICAL HISTORY Procedure Laterality Date COLONOSCOPY FLX DX W/COLLJ SPEC WHEN PFRMD 03/11/2018 10 year follow-up COLSC FLX W/RMVL OF TUMOR POLYP LESION SNARE TQ 03/07/2013 5mm polyp adenomatous - 3 year follow up HERNIA REPAIR HX Bilateral 1982 bilateral inguinal PROSTATE BIOPSY 12/02/2021 FAMILY HISTORY Problem Relation Age of Onset Dementia Mother Kidney Disease Mother other (hypoglycemia) Mother Heart Father of [place] Diabetes Father Lung Cancer Father lung cancer Diabetes Sister Diabetes Sister Diabetes Brother type 1 diabetes Lung Cancer Brother No Known Problems Brother Diabetes Brother Social History Tobacco Use Smoking status: Former Packs/day: 2.00 Years: 35.00 Pack years: 70.00 Types: Cigarettes Quit date: 02/24/2002 Years since quittin.7 Smokeless tobacco: Never Tobacco comments: started 8 years old Vaping Use Vaping Use: Never used Substance Use Topics Alcohol use: Yes Alcohol/week: 17.5 standard drinks Types: 7 Glasses of Wine (5oz) per week Comment: Pt drinks 1 glass of wine a day Drug use: No Prior to Admission medications as of 11/16/22 0938 Medication Sig Last Dose Taking pravastatin (PRAVACHOL) 40 mg tablet Take 1 tablet by mouth once daily. Taking Yes levothyroxine (SYNTHROID) 25 mcg tablet Take 1 tablet by mouth daily before breakfast. Taking Yes blood sugar diagnostic (BLOOD GLUCOSE TEST) test strip Patient has one touch ultra glucometer. Testblood sugar(s) 2 times daily. Dx: Type 2 DM - Controlled E11.9 Insulin: No Taking Yes metFORMIN ER (GLUCOPHAGE XR) 500 mg 24 hr tablet Take 2 tablets by mouth twice daily before meals. Taking Yes glimepiride (AMARYL) 4 mg tablet Take 1 tablet by mouth every evening. With food. Taking Yes sildenafil (VIAGRA) 100 mg tablet Take 1 tablet PO daily as needed for erectile dysfunction Taking Yes alcohol swabs (ALCOHOL PADS) Test blood sugar(s) 2 times daily. Dx: Type 2 DM - Controlled E11.9 Insulin: No Taking Yes amLODIPine (NORVASC) 10 mg tablet Take 1 tablet by mouth once daily. Taking Yes Blood-Glucose Meter (ONETOUCH ULTRA2 METER) monitoring kit 1 Each as needed. One Touch Meter Kit Diagnosis: Type 2 DM - Uncontrolled E11.65 Taking Yes Lancets (ONETOUCH ULTRASOFT LANCETS) lancets Test blood sugar(s) 1-2 times daily. Dx: Type 2 DM - Uncontrolled E11.65 , Insulin: No Taking Yes empagliflozin (JARDIANCE) 10 mg tablet Take 1 tablet by mouth once daily. Take 1 tablet once daily in the morning Patient not taking: Reported on 11/16/2022 Not Taking No medication comments found. ALLERGIES Allergen Reactions Bee Sting Anaphylaxis, Angioedema Peanuts Vomiting Tamsulosin Mental Status Change Penicillins Other: See Comments headaches- childhood Jardiance [Empaglif* Other: See Comments Dizziness and lightheadedness Objective PHYSICAL EXAM: General: alert and oriented and healthy appearance. Pertinent negatives noted - not distressed. Skin: normal color, no rash or lesions. HEENT: EOM intact. Cardiovascular: regular rate and rhythm, normal S1 and S2, no rub, murmurs, or gallop. Respiratory: normal breath sounds, no wheezes or crackles. No chest wall deformity or tenderness. Abdomen: bowel sounds present. Extremities: no deformity, no edema or tenderness, no joint swelling or clubbing. Neurological: normal cognition and motor skills. Gait normal. No weakness or sensory deficit. PAIN ASSESSMENT: Pain Pain Level: 0 VITALS: BP 135/75 Pulse 74 Temp 98.1 Resp 16 Ht 5' 7 (1.70m) Wt 144 lb 12.8 oz (65.7kg) SpO2 97% BMI 22.67 kg/(m^2). Diagnostic tests reviewed for today's visit: Lab Value Units Date High Low HB No results within date range. HCT No results within date range. WBC No results within date range. PLT No results within date range. NA 139 mmol/L 08/03/2022 144 136 K 4.8 mmol/L 08/03/2022 5.1 3.7 GLUC 172 mg/dL 08/03/2022 99 74 BUN 21 mg/dL 08/03/2022 24 9 CREAT 0.87 mg/dL 08/03/2022 1.22 0.73 PTSEC No results within date range. INR No results within date range. APTT No results within date range. ALT No results within date range. AST No results within date range. TBILI No results within date range. TSH No results within date range. Lab Value Units Date High Low HCGQT No results within date range. UHCG No results within date range. HCG, BODY* No results within date range. Lab Value Units Date High Low ABORHD No results within date range. ABSCREEN No results within date range. Hemoglobin A1C (%) Date Value 08/03/2022 6.1 04/29/2022 6.0 10/27/2021 6.4 01/11/2021 7.0 10/12/2020 7.4 07/13/2020 7.3 04/06/2020 8.0 Hemoglobin A1C (POCT) (%) Date Value 05/06/2021 6.2 No results found for this or any previous visit (from the past 8760 hour(s)). No results found for this or any previous visit (from the past 05131 hour(s)). Assessment Patient has the following medical conditions which may affect nelly-operative course: Preop testing Assessment: See Note for medical conditions which may affect nelly-operative course was addressed invisit today. Essential hypertension Assessment: Followed by PCP-taking amlodipine PLAN: Patient instructed to take meds day of surgery Familial combined hyperlipidemia Assessment: Followed by PCP-taking statin 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d by mild nonproliferative retinopathy without macular edema, without long-term current use of insulin (HCC) Assessment: Followed by PCP- 08/03/2022 A1c 6.1% - taking glipizide; metformin PLAN: Patient instructed to hold meds day of surgery Griffith Activity Status Index: METS: Climb a flight of stairs or walk up a hill (5.50 METs) DASI Score: 5.5 Patient denies any chest pain or undue shortness of breath with the above physical activity. Clinical Frailty Scale: 3. Well, with treated comorbid disease ARISCAT Score: Age: 51-80 Preoperative SpO2: >=96% Respiratory infection in the last month: No Preoperative anemia: No Surgical incision: peripheral Duration of surgery: >3 hrs Emergency procedure: No ARISCAT Score: 26 ANESTHESIA FINDINGS: Intubation History: No history of difficult intubation Significant Anesthesia Considerations: none Airway History: No history of difficult airway I - PHYSICAL EVALUATION AIRWAY Patient intubated: No. DENTAL Dentures, upper: complete. Dentures, lower: complete. II - ANESTHESIA PLAN Anesthetic Plan: general Beta Gabbi Monitoring Plan Post Procedure Analgesic Plan Prepared for Surgery: CONSULTS: Patient does not require consults for optimization at this time Planned Anesthetic: general The Following Tests/Procedures Have Been Initiated: Orders Placed This Encounter Confirm Blood Type Order Comments: Draw separate from TSCR Standing Status: Future Standing Expiration Date: 01/13/2023 Order Specific Question: Did Blood Bank direct you to place this order: Answer: Yes Implantable Devices: None Assessment/Plan Prostate cancer (HCC) [C61] PLAN Planned Procedure: Procedure(s): XI ROBOTIC LAPAROSCOPIC RETROPUBIC RADICAL PROSTATECTOMY W/ NERVE SPARING (N/A) XI ROBOTIC LAPAROSCOPIC SURGICAL W/BILATERAL TOTAL PELVIC LYMPHADENECTOMY (Bilateral) The Following Tests/Procedures Have Been Initiated: Urine culture, CBC, T&S and BMP ordered in [facility] by surgeon. Con abo ordered in [facility] by DERRICK. Instructions Given to Patient: Instructions located in the after visit summary. Hibiclens given and instructions provided. Patient given verbal and written preop instructions and voices comprehension and compliance. I spent a total of 40 minutes on the date of the service which included preparing to see the patient, [id number] patient care, completing clinical documentation, obtaining and/or reviewing separately obtained history, performing a medically appropriate examination, counseling and educating the pat ient/family/caregiver, and ordering medications, tests, or procedures. SIGNATURE: Ronda Orona APRN.CNP PATIENT NAME: Tuan Vallejo DATE: November 13, 2022 TIME: 4:38 PM PAGER/CONTACT #: documented in this encounterProm[facility] Instructions* Patient Instructions* Ronda Orona APRN.CNP - 11/13/2022 4:38 PM EST PATIENT PREOPERATIVE INSTRUCTIONS Your surgeon has scheduled you for your procedure at this surgery center: [facility] [phone] [address] [place], [place] [address] Please enter through the main entrance, and proceed to the blue elevators. The surgery center is located left of the blue elevators. Please read below carefully for your personalized instructions. Arrival Time for Surgery: DATE: 11/30/2022 - To obtain your ARRIVAL TIME for surgery, call your physician's office the day before your surgery. - If your surgery is scheduled for Wednesday, call the Wednesday before. Your surgeon s senior power scheduler will tell you what time to call the office. Dietary Restrictions: -Nothing to eat after midnight. Between midnight and four hours prior to your surgery time, you mayhave 12 ounces of clear liquids (Apple juice, carbonated beverages, Gatorade, black coffee or tea) unless your surgeon specifies otherwise. Blood Thinning Medications: - Stop NSAIDS (Ibuprofen, Advil, Aleve, Motrin, Celebrex, Mobic, Voltaren, Diclofenac, etc.) 7 daysbefore surgery, as directed by your surgeon. -You may take Tylenol or pain medications that do not contain Aspirin or NSAIDs. - Stop Vitamin E, fish oil, multivitamins, Marijuana, CBD oil and other over the counter herbals and dietary supplements 7 days before surgery. ?-This would not apply to cancer patients who are prescribed Marinol or any other prescription formon marijuana or CBD. -IF YOU TAKE ANY OF THE FOLLOWING BLOOD THINNERS, PLEASE CONTACT YOUR SURGEON AND THE PHYSICIAN WHOPRESCRIBES IT FOR YOU IN ORDER TO GET PERIOPERATIVE INSTRUCTIONS SOON POSSIBLE. BLOOD THINNERS: Aspirin , Coumadin, Plavix, Eliquis, Pradaxa, Xarelto, Lovenox, Brilinta, Effient, Savaysa, Arixtra, etc Medications: Approved medications to take the morning of surgery with a sip of water: BP, Heart, thyroid, psych,seizure, and pain medications excluding NSAIDS. Use inhalers as prescribed. Please bring inhalers. Medications to be taken with small amount of fluid on the morning of surgery: If these are morning medications, go ahead and take: Approved medications to take the morning of surgery with a sip of water: BP, Heart, thyroid, psych, seizure, and pain medications excluding NSAIDS. Use inhalers as prescribed. Please bring inhalers. Please follow up with the provider that manages your diabetes and how to prepare you for surgery. -If you are taking the following medications for Type 2 diabetes: Canagliflozin (INVOKANA), dapagliflozin (FARXIGA), and empagliflozin (JARDIANCE) should each be discontinued at least 3 days before scheduled surgery. Ertugliflozin (STEGLATRO) should be discontinued at least four days before scheduled surgery. If you start any new medications after today's visit, please contact the surgeon's office. Erectile Dysfunction If you take any medications for erectile dysfunction, please do not take these 48 hours prior to surgery. Important Reminders: - If you use CPAP/BIPAP, bring the machine with you to the surgery center. - If you are prescribed inhalers for breathing, continue using them AND bring them to the surgery center. - Candy, mints, gum and tobacco products are NOT permitted the morning of surgery. - Hearing aids, dentures and glasses may be worn the morning of surgery. - NO jewelry, body piercings, makeup, hairpins or contacts are to be worn the day of surgery. -Oral hygiene and a shower or bath is required the evening before or the morning of surgery. Use the Tipping Bucket body wash supplied to you along with the instruction. - NO lotion, creams, powders or deodorants on the skin the day of surgery -Wear loose, comfortable clothing that will accommodate bandages. -Your length of stay will be determined by your surgeon - You will need to have someone else (Family or friend) drive you home once discharged from the hospital. You are not allowed to drive yourself home after surgery. - YOU MUST HAVE A RESPONSIBLE SUPERVISOR [employer] ASSEMBLY TAKE YOU HOME. A BRAZER CONTROLLED ATMOSPHERIC FURNACE, CAB OR UBER SUPERVISOR [employer] ASSEMBLY CANNOT BE [place] RESPONSIBLE SUPERVISOR [employer] ASSEMBLY. - We recommend that a responsible person stays with you overnight to take care of you. - You cannot stay in a hotel alone after outpatient surgery. You will not be permitted to have yoursurgery, if you do not have someone to take care of you. - If you have a stimulator, implant or pump that requires a remote please bring the remote with youday of surgery. Given COVID 19 pandemic, 1-2 visitors are allowed to be in the hospital. You will enter at the mainentrance of the hospital and check in at the surgery welcome center, where you will provide points of contact. [facility] current visitor policy: may bring 1-2 visitors with you morning of surgery, they must wear a mask at all times while in the hospital, and during surgery they may be asked to wait in the car, andthe surgeon will call them with updates. Your surgeon office will contact you prior to surgery if you need COVID-19 testing. If you develop symptoms such as a fever, cold, or flu, or have other changes to your health within TWO DAYS of scheduled surgery or the morning of surgery, please contact the surgery center above. You should have a 72-hour period between getting your COVID vaccine and date of surgery. Personal Belongings: - Leave ALL valuables and money at home or with family members. - You will need a form of ID and insurance card to check in the morning of surgery. - You will have to wear a hospital gown during your stay but if you wish to bring undergarments forafter surgery you may. Ronda Orona APRN.CNP 11/16/22 documented in this encounterPromedica [facility]03-10-[facility] History of Past illness Narrative* Problem Noted Date Resolved Date Preop testing 11/13/2022 01/05/2023 Last Assessment & Plan: Assessment: See Note for medical conditions which may affect nelly-operative course was addressed in visit today. PSA elevation 09/26/2019 12/04/2022 Type 2 diabetes mellitus wit hout complication, without long-term current use of insulin 09/16/2018 07/17/2020 Uncontrolled type 2 diabetes mellitus without complication, without long-term current use of insulin 03/16/2018 07/17/2020 Rhus dermatitis 03/16/2018 07/17/2020 Well adult exam 06/07/2017 07/17/2020 Onychomycosis of multiple to enails with type 2 diabetes mellitus 02/08/2017 07/17/2020 Essential hypertension 07/29/2015 6 Type 2 diabetes mellitus without complication 07/17/2020 Diabetes 09/05/2014 10/21/2015 Atypical chest pain 09/05/2014 10/21/2015 documented as of this encounter (statuses as of 01/05/2023) [facility] of Past illness Narrative* Problem Noted Date Resolved Date Preop testing 11/13/2022 01/05/2023 Last Assessment & Plan: Assessment: See Note for medical conditions which may affect nelly-operative course was addressed in visit today. PSA elevation 09/26/2019 12/04/2022 Type 2 diabetes mellitus wit hout complication, without long-term current use of insulin 09/16/2018 07/17/2020 Uncontrolled type 2 diabetes mellitus without complication, without long-term current use of insulin 03/16/2018 07/17/2020 Rhus dermatitis 03/16/2018 07/17/2020 Well adult exam 06/07/2017 07/17/2020 Onychomycosis of multiple to enails with type 2 diabetes mellitus 02/08/2017 07/17/2020 Essential hypertension 07/29/2015 6 Type 2 diabetes mellitus without complication 07/17/2020 Diabetes 09/05/2014 10/21/2015 Atypical chest pain 09/05/2014 10/21/2015 documented as of this encounter (statuses as of 02/05/2023) [facility] History of Past illness Narrative* Problem Noted Date Diagnosed Date Resolved Date Preop testing 11/13/2022 01/05/2023 Last Assessment & Plan: Assessment: See Note for medical conditions which may affect nelly-operative course was addressed in visit today. PSA elevation 09/26/2019 12/04/2022 Type 2 diabetes mellitus wit hout complication, without long-term current use of insulin 09/16/2018 07/17/2020 Uncontrolled type 2 diabetes mellitus without complication, without long-term current use of insulin 03/16/2018 07/17/2020 Rhus dermatitis 03/16/2018 07/17/2020 Well adult exam 06/07/2017 07/17/2020 Onychomycosis of multiple to enails with type 2 diabetes mellitus 02/08/2017 07/17/2020 Essential hypertension 07/29/201510/21 Type 2 diabetes mellitus without complication 07/29/20 15 07/17/2020 Diabetes 09/05/2014 10/21/2015 Atypical chest pain 09/05/2014 10/21/19 16 documented as of this encounter (statuses as of 03/15/2023) [facility] of Past illness Narrative* Problem Noted Date Diagnosed Date Resolved Date Preop testing 11/13/2022 01/05/2023 Last Assessment & Plan: Assessment: See Note for medical conditions which may affect nelly-operative course was addressed in visit today. PSA elevation 09/26/2019 12/04/2022 Type 2 diabetes mellitus wit hout complication, without long-term current use of insulin 09/16/2018 07/17/2020 Uncontrolled type 2 diabetes mellitus without complication, without long-term current use of insulin 03/16/2018 07/17/2020 Rhus dermatitis 03/16/2018 07/17/2020 Well adult exam 06/07/2017 07/17/2020 Onychomycosis of multiple to enails with type 2 diabetes mellitus 02/08/2017 07/17/2020 Essential hypertension 07/29/201510/21 Type 2 diabetes mellitus without complication 07/29/20 15 07/17/2020 Diabetes 09/05/2014 10/21/2015 Atypical chest pain 09/05/2014 10/21/19 16 documented as of this encounter (statuses as of 03/16/2023) [facility] of Past illness Narrative* Problem Noted Date Diagnosed Date Resolved Date Preop testing 11/13/2022 01/05/2023 Last Assessment & Plan: Assessment: See Note for medical conditions which may affect nelly-operative course was addressed in visit today. PSA elevation 09/26/2019 12/04/2022 Type 2 diabetes mellitus wit hout complication, without long-term current use of insulin 09/16/2018 07/17/2020 Uncontrolled type 2 diabetes mellitus without complication, without long-term current use of insulin 03/16/2018 07/17/2020 Rhus dermatitis 03/16/2018 07/17/2020 Well adult exam 06/07/2017 07/17/2020 Onychomycosis of multiple to enails with type 2 diabetes mellitus 02/08/2017 07/17/2020 Essential hypertension 07/29/201510/21 Type 2 diabetes mellitus without complication 07/29/20 15 07/17/2020 Diabetes 09/05/2014 10/21/2015 Atypical chest pain 09/05/2014 10/21/19 16 documented as of this encounter (statuses as of 03/20/2023) [facility] of Past illness Narrative* Problem Noted Date Diagnosed Date Resolved Date Preop testing 11/13/2022 01/05/2023 Last Assessment & Plan: Assessment: See Note for medical conditions which may affect nelly-operative course was addressed in visit today. PSA elevation 09/26/2019 12/04/2022 Type 2 diabetes mellitus wit hout complication, without long-term current use of insulin 09/16/2018 07/17/2020 Uncontrolled type 2 diabetes mellitus without complication, without long-term current use of insulin 03/16/2018 07/17/2020 Rhus dermatitis 03/16/2018 07/17/2020 Well adult exam 06/07/2017 07/17/2020 Onychomycosis of multiple to enails with type 2 diabetes mellitus 02/08/2017 07/17/2020 Essential hypertension 07/29/201510/21 Type 2 diabetes mellitus without complication 07/29/20 15 07/17/2020 Diabetes 09/05/2014 10/21/2015 Atypical chest pain 09/05/2014 10/21/19 16 documented as of this encounter (statuses as of 03/23/2023) [facility] of Past illness Narrative* Problem Noted Date Diagnosed Date Resolved Date Preop testing 11/13/2022 01/05/2023 Last Assessment & Plan: Assessment: See Note for medical conditions which may affect nelly-operative course was addressed in visit today. PSA elevation 09/26/2019 12/04/2022 Type 2 diabetes mellitus wit hout complication, without long-term current use of insulin 09/16/2018 07/17/2020 Uncontrolled type 2 diabetes mellitus without complication, without long-term current use of insulin 03/16/2018 07/17/2020 Rhus dermatitis 03/16/2018 07/17/2020 Well adult exam 06/07/2017 07/17/2020 Onychomycosis of multiple to enails with type 2 diabetes mellitus 02/08/2017 07/17/2020 Essential hypertension 07/29/201510/21 Type 2 diabetes mellitus without complication 07/29/20 15 07/17/2020 Diabetes 09/05/2014 10/21/2015 Atypical chest pain 09/05/2014 10/21/19 16 documented as of this encounter (statuses as of 04/02/2023) [facility] of Past illness Narrative* Problem Noted Date Diagnosed Date Resolved Date Preop testing 11/13/2022 01/05/2023 Last Assessment & Plan: Assessment: See Note for medical conditions which may affect nelly-operative course was addressed in visit today. PSA elevation 09/26/2019 12/04/2022 Type 2 diabetes mellitus wit hout complication, without long-term current use of insulin 09/16/2018 07/17/2020 Uncontrolled type 2 diabetes mellitus without complication, without long-term current use of insulin 03/16/2018 07/17/2020 Rhus dermatitis 03/16/2018 07/17/2020 Well adult exam 06/07/2017 07/17/2020 Onychomycosis of multiple to enails with type 2 diabetes mellitus 02/08/2017 07/17/2020 Essential hypertension 07/29/201510/21 Type 2 diabetes mellitus without complication 07/29/20 15 07/17/2020 Diabetes 09/05/2014 10/21/2015 Atypical chest pain 09/05/2014 10/21/19 16 documented as of this encounter (statuses as of 04/12/2023) [facility] of Past illness Narrative* Problem Noted Date Diagnosed Date Resolved Date Preop testing 11/13/2022 01/05/2023 Last Assessment & Plan: Assessment: See Note for medical conditions which may affect nelly-operative course was addressed in visit today. PSA elevation 09/26/2019 12/04/2022 Type 2 diabetes mellitus wit hout complication, without long-term current use of insulin 09/16/2018 07/17/2020 Uncontrolled type 2 diabetes mellitus without complication, without long-term current use of insulin 03/16/2018 07/17/2020 Rhus dermatitis 03/16/2018 07/17/2020 Well adult exam 06/07/2017 07/17/2020 Onychomycosis of multiple to enails with type 2 diabetes mellitus 02/08/2017 07/17/2020 Essential hypertension 07/29/201510/21 Type 2 diabetes mellitus without complication 07/29/20 15 07/17/2020 Diabetes 09/05/2014 10/21/2015 Atypical chest pain 09/05/2014 10/21/19 16 documented as of this encounter (statuses as of 04/14/2023) [facility] of Past illness Narrative* Problem Noted Date Diagnosed Date Resolved Date Preop testing 11/13/2022 01/05/2023 Last Assessment & Plan: Assessment: See Note for medical conditions which may affect nelly-operative course was addressed in visit today. PSA elevation 09/26/2019 12/04/2022 Type 2 diabetes mellitus wit hout complication, without long-term current use of insulin 09/16/2018 07/17/2020 Uncontrolled type 2 diabetes mellitus without complication, without long-term current use of insulin 03/16/2018 07/17/2020 Rhus dermatitis 03/16/2018 07/17/2020 Well adult exam 06/07/2017 07/17/2020 Onychomycosis of multiple to enails with type 2 diabetes mellitus 02/08/2017 07/17/2020 Essential hypertension 07/29/201510/21 Type 2 diabetes mellitus without complication 07/29/20 15 07/17/2020 Diabetes 09/05/2014 10/21/2015 Atypical chest pain 09/05/2014 10/21/19 16 documented as of this encounter (statuses as of 04/15/2023) [address]23 History of Past illness Narrative* Problem Noted Date Diagnosed Date Resolved Date Preop testing 11/13/2022 01/05/2023 Last Assessment & Plan: Assessment: See Note for medical conditions which may affect nelly-operative course was addressed in visit today. PSA elevation 09/26/2019 12/04/2022 Type 2 diabetes mellitus wit hout complication, without long-term current use of insulin 09/16/2018 07/17/2020 Uncontrolled type 2 diabetes mellitus without complication, without long-term current use of insulin 03/16/2018 07/17/2020 Rhus dermatitis 03/16/2018 07/17/2020 Well adult exam 06/07/2017 07/17/2020 Onychomycosis of multiple to enails with type 2 diabetes mellitus 02/08/2017 07/17/2020 Essential hypertension 07/29/201510/21 Type 2 diabetes mellitus without complication 07/29/20 15 07/17/2020 Diabetes 09/05/2014 10/21/2015 Atypical chest pain 09/05/2014 10/21/19 16 documented as of this encounter (statuses as of 04/17/2023) [facility] of Past illness Narrative* Problem Noted Date Diagnosed Date Resolved Date Preop testing 11/13/2022 01/05/2023 Last Assessment & Plan: Assessment: See Note for medical conditions which may affect nelly-operative course was addressed in visit today. PSA elevation 09/26/2019 12/04/2022 Type 2 diabetes mellitus wit hout complication, without long-term current use of insulin 09/16/2018 07/17/2020 Uncontrolled type 2 diabetes mellitus without complication, without long-term current use of insulin 03/16/2018 07/17/2020 Rhus dermatitis 03/16/2018 07/17/2020 Well adult exam 06/07/2017 07/17/2020 Onychomycosis of multiple to enails with type 2 diabetes mellitus 02/08/2017 07/17/2020 Essential hypertension 07/29/201510/21 Type 2 diabetes mellitus without complication 07/29/20 15 07/17/2020 Diabetes 09/05/2014 10/21/2015 Atypical chest pain 09/05/2014 10/21/19 16 documented as of this encounter (statuses as of 04/22/2023) [address]23 History of Past illness Narrative* Problem Noted Date Diagnosed Date Resolved Date Preop testing 11/13/2022 01/05/2023 Last Assessment & Plan: Assessment: See Note for medical conditions which may affect nelly-operative course was addressed in visit today. PSA elevation 09/26/2019 12/04/2022 Type 2 diabetes mellitus wit hout complication, without long-term current use of insulin 09/16/2018 07/17/2020 Uncontrolled type 2 diabetes mellitus without complication, without long-term current use of insulin 03/16/2018 07/17/2020 Rhus dermatitis 03/16/2018 07/17/2020 Well adult exam 06/07/2017 07/17/2020 Onychomycosis of multiple to enails with type 2 diabetes mellitus 02/08/2017 07/17/2020 Essential hypertension 07/29/201510/21 Type 2 diabetes mellitus without complication 07/29/20 15 07/17/2020 Diabetes 09/05/2014 10/21/2015 Atypical chest pain 09/05/2014 10/21/19 16 documented as of this encounter (statuses as of 04/27/2023) [facility] of Past illness Narrative* Problem Noted Date Diagnosed Date Resolved Date Preop testing 11/13/2022 01/05/2023 Last Assessment & Plan: Assessment: See Note for medical conditions which may affect nelly-operative course was addressed in visit today. PSA elevation 09/26/2019 12/04/2022 Type 2 diabetes mellitus wit hout complication, without long-term current use of insulin 09/16/2018 07/17/2020 Uncontrolled type 2 diabetes mellitus without complication, without long-term current use of insulin 03/16/2018 07/17/2020 Rhus dermatitis 03/16/2018 07/17/2020 Well adult exam 06/07/2017 07/17/2020 Onychomycosis of multiple to enails with type 2 diabetes mellitus 02/08/2017 07/17/2020 Essential hypertension 07/29/201510/21 Type 2 diabetes mellitus without complication 07/29/20 15 07/17/2020 Diabetes 09/05/2014 10/21/2015 Atypical chest pain 09/05/2014 10/21/19 16 documented as of this encounter (statuses as of 05/06/2023) [facility]03-10-2023 History of Past illness Narrative* Problem Noted Date Diagnosed Date Resolved Date Preop testing 11/13/2022 01/05/2023 Last Assessment & Plan: Assessment: See Note for medical conditions which may affect nelly-operative course was addressed in visit today. Adhesive capsulitis of left shoulder 05/07/2022 05/13/2023 PSA elevation 09/26/2019 12/04/2022 Type 2 diabetes mellitus wit hout complication, without long-term current use of insulin 09/16/2018 07/17/2020 Uncontrolled type 2 diabetes mellitus without complication, without long-term current use of insulin 03/16/2018 07/17/2020 Rhus dermatitis 03/16/2018 07/17/2020 Well adult exam 06/07/2017 07/17/2020 Onychomycosis of multiple to enails with type 2 diabetes mellitus 02/08/2017 07/17/2020 Essential hypertension 07/29/201510/21 Type 2 diabetes mellitus without complication 07/29/20 15 07/17/2020 Diabetes 09/05/2014 10/21/2015 Atypical chest pain 09/05/2014 10/21/19 16 documented as of this encounter (statuses as of 05/14/2023) [facility]03-10[facility] History of Past illness Narrative* Problem Noted Date Diagnosed Date Resolved Date Preop testing 11/13/2022 01/05/2023 Last Assessment & Plan: Assessment: See Note for medical conditions which may affect nelly-operative course was addressed in visit today. Adhesive capsulitis of left shoulder 05/07/2022 05/13/2023 PSA elevation 09/26/2019 12/04/2022 Type 2 diabetes mellitus wit hout complication, without long-term current use of insulin 09/16/2018 07/17/2020 Uncontrolled type 2 diabetes mellitus without complication, without long-term current use of insulin 03/16/2018 07/17/2020 Rhus dermatitis 03/16/2018 07/17/2020 Well adult exam 06/07/2017 07/17/2020 Onychomycosis of multiple to enails with type 2 diabetes mellitus 02/08/2017 07/17/2020 Essential hypertension 07/29/201510/21 Type 2 diabetes mellitus without complication 07/29/20 15 07/17/2020 Diabetes 09/05/2014 10/21/2015 Atypical chest pain 09/05/2014 10/21/19 16 documented as of this encounter (statuses as of 05/14/2023) [facility]10[facility] History of Past illness Narrative* Problem Noted Date Diagnosed Date Resolved Date Preop testing 11/13/2022 01/05/2023 Last Assessment & Plan: Assessment: See Note for medical conditions which may affect nelly-operative course was addressed in visit today. Adhesive capsulitis of left shoulder 05/07/2022 05/13/2023 PSA elevation 09/26/2019 12/04/2022 Type 2 diabetes mellitus wit hout complication, without long-term current use of insulin 09/16/2018 07/17/2020 Uncontrolled type 2 diabetes mellitus without complication, without long-term current use of insulin 03/16/2018 07/17/2020 Rhus dermatitis 03/16/2018 07/17/2020 Well adult exam 06/07/2017 07/17/2020 Onychomycosis of multiple to enails with type 2 diabetes mellitus 02/08/2017 07/17/2020 Essential hypertension 07/29/201510/21 Type 2 diabetes mellitus without complication 07/29/2007/17/2020 Diabetes 09/05/2014 10/21/2015 Atypical chest pain 09/05/2014 10/21/19 16 documented as of this encounter (statuses as of 05/21/2023) [facility]03-10[facility] History of Past illness Narrative* Problem Noted Date Diagnosed Date Resolved Date Preop testing 11/13/2022 01/05/2023 Last Assessment & Plan: Assessment: See Note for medical conditions which may affect nelly-operative course was addressed in visit today. Adhesive capsulitis of left shoulder 05/07/2022 05/13/2023 PSA elevation 09/26/2019 12/04/2022 Type 2 diabetes mellitus wit hout complication, without long-term current use of insulin 09/16/2018 07/17/2020 Uncontrolled type 2 diabetes mellitus without complication, without long-term current use of insulin 03/16/2018 07/17/2020 Rhus dermatitis 03/16/2018 07/17/2020 Well adult exam 06/07/2017 07/17/2020 Onychomycosis of multiple to enails with type 2 diabetes mellitus 02/08/2017 07/17/2020 Essential hypertension 07/29/201510/21 Type 2 diabetes mellitus without complication 07/29/20 15 07/17/2020 Diabetes 09/05/2014 10/21/2015 Atypical chest pain 09/05/2014 10/21/19 16 documented as of this encounter (statuses as of 05/28/2023) [facility] History of Past illness Narrative* Problem Noted Date Diagnosed Date Resolved Date Preop testing 11/13/2022 01/05/2023 Last Assessment & Plan: Assessment: See Note for medical conditions which may affect nelly-operative course was addressed in visit today. Adhesive capsulitis of left shoulder 05/07/2022 05/13/2023 PSA elevation 09/26/2019 12/04/2022 Type 2 diabetes mellitus wit hout complication, without long-term current use of insulin 09/16/2018 07/17/2020 Uncontrolled type 2 diabetes mellitus without complication, without long-term current use of insulin 03/16/2018 07/17/2020 Rhus dermatitis 03/16/2018 07/17/2020 Well adult exam 06/07/2017 07/17/2020 Onychomycosis of multiple to enails with type 2 diabetes mellitus (HCC) 02/08/2017 07/17/2020 Essential hypertension 07/29/201510/21 Type 2 diabetes mellitus without complication 07/29/20 15 07/17/2020 Diabetes 09/05/2014 10/21/2015 Atypical chest pain 09/05/2014 10/21/19 16 documented as of this encounter (statuses as of 06/30/2023) [facility] History of Past illness Narrative* Problem Noted Date Diagnosed Date Resolved Date Preop testing 11/13/2022 01/05/2023 Last Assessment & Plan: Assessment: See Note for medical conditions which may affect nelly-operative course was addressed in visit today. Adhesive capsulitis of left shoulder 05/07/2022 05/13/2023 PSA elevation 09/26/2019 12/04/2022 Type 2 diabetes mellitus wit hout complication, without long-term current use of insulin 09/16/2018 07/17/2020 Uncontrolled type 2 diabetes mellitus without complication, without long-term current use of insulin 03/16/2018 07/17/2020 Rhus dermatitis 03/16/2018 07/17/2020 Well adult exam 06/07/2017 07/17/2020 Onychomycosis of multiple to enails with type 2 diabetes mellitus (HCC) 02/08/2017 07/17/2020 Essential hypertension 07/29/201510/21 Type 2 diabetes mellitus without complication 07/29/20 15 07/17/2020 Diabetes 09/05/2014 10/21/2015 Atypical chest pain 09/05/2014 10/21/19 16 documented as of this encounter (statuses as of 07/01/2023) [facility] History of Past illness Narrative* Problem Noted Date Diagnosed Date Resolved Date Preop testing 11/13/2022 01/05/2023 Last Assessment & Plan: Assessment: See Note for medical conditions which may affect nelly-operative course was addressed in visit today. Adhesive capsulitis of left shoulder 05/07/2022 05/13/2023 PSA elevation 09/26/2019 12/04/2022 Type 2 diabetes mellitus wit hout complication, without long-term current use of insulin 09/16/2018 07/17/2020 Uncontrolled type 2 diabetes mellitus without complication, without long-term current use of insulin 03/16/2018 07/17/2020 Rhus dermatitis 03/16/2018 07/17/2020 Well adult exam 06/07/2017 07/17/2020 Onychomycosis of multiple to enails with type 2 diabetes mellitus (HCC) 02/08/2017 07/17/2020 Essential hypertension 07/29/201510/21 Type 2 diabetes mellitus without complication 07/29/20 15 07/17/2020 Diabetes 09/05/2014 10/21/2015 Atypical chest pain 09/05/2014 10/21/19 16 documented as of this encounter (statuses as of 10/22/2023) [facility] History of Past illness Narrative* Problem Noted Date Diagnosed Date Resolved Date Preop testing 11/13/2022 01/05/2023 Last Assessment & Plan: Assessment: See Note for medical conditions which may affect nelly-operative course was addressed in visit today. Adhesive capsulitis of left shoulder 05/07/2022 05/13/2023 PSA elevation 09/26/2019 12/04/2022 Type 2 diabetes mellitus wit hout complication, without long-term current use of insulin 09/16/2018 07/17/2020 Uncontrolled type 2 diabetes mellitus without complication, without long-term current use of insulin 03/16/2018 07/17/2020 Rhus dermatitis 03/16/2018 07/17/2020 Well adult exam 06/07/2017 07/17/2020 Onychomycosis of multiple to enails with type 2 diabetes mellitus (HCC) 02/08/2017 07/17/2020 Essential hypertension 07/29/201510/21 Type 2 diabetes mellitus without complication 07/29/20 15 07/17/2020 Diabetes 09/05/2014 10/21/2015 Atypical chest pain 09/05/2014 10/21/19 16 documented as of this encounter (statuses as of 11/11/2023) [facility] History of Past illness Narrative* Problem Noted Date Diagnosed Date Resolved Date Preop testing 11/13/2022 01/05/2023 Last Assessment & Plan: Assessment: See Note for medical conditions which may affect nelly-operative course was addressed in visit today. Adhesive capsulitis of left shoulder 05/07/2022 05/13/2023 PSA elevation 09/26/2019 12/04/2022 Type 2 diabetes mellitus wit hout complication, without long-term current use of insulin 09/16/2018 07/17/2020 Uncontrolled type 2 diabetes mellitus without complication, without long-term current use of insulin 03/16/2018 07/17/2020 Rhus dermatitis 03/16/2018 07/17/2020 Well adult exam 06/07/2017 07/17/2020 Onychomycosis of multiple to enails with type 2 diabetes mellitus (HCC) 02/08/2017 07/17/2020 Essential hypertension 07/29/201510/21 Type 2 diabetes mellitus without complication 07/29/20 15 07/17/2020 Diabetes 09/05/2014 10/21/2015 Atypical chest pain 09/05/2014 10/21/19 16 documented as of this encounter (statuses as of 11/12/2023) [facility] History of Past illness Narrative* Problem Noted Date Diagnosed Date Resolved Date Preop testing 11/13/2022 01/05/2023 Last Assessment & Plan: Assessment: See Note for medical conditions which may affect nelly-operative course was addressed in visit today. Adhesive capsulitis of left shoulder 05/07/2022 05/13/2023 PSA elevation 09/26/2019 12/04/2022 Type 2 diabetes mellitus wit hout complication, without long-term current use of insulin 09/16/2018 07/17/2020 Uncontrolled type 2 diabetes mellitus without complication, without long-term current use of insulin 03/16/2018 07/17/2020 Rhus dermatitis 03/16/2018 07/17/2020 Well adult exam 06/07/2017 07/17/2020 Onychomycosis of multiple to enails with type 2 diabetes mellitus (HCC) 02/08/2017 07/17/2020 Essential hypertension 07/29/201510/21 Type 2 diabetes mellitus without complication 07/29/2007/17/2020 Diabetes 09/05/2014 10/21/2015 Atypical chest pain 09/05/2014 10/21/19 16 documented as of this encounter (statuses as of 11/18/2023) [facility] History of Past illness Narrative* Problem Noted Date Diagnosed Date Resolved Date Preop testing 11/13/2022 01/05/2023 Last Assessment & Plan: Assessment: See Note for medical conditions which may affect nelly-operative course was addressed in visit today. Adhesive capsulitis of left shoulder 05/07/2022 05/13/2023 PSA elevation 09/26/2019 12/04/2022 Type 2 diabetes mellitus wit hout complication, without long-term current use of insulin 09/16/2018 07/17/2020 Uncontrolled type 2 diabetes mellitus without complication, without long-term current use of insulin 03/16/2018 07/17/2020 Rhus dermatitis 03/16/2018 07/17/2020 Well adult exam 06/07/2017 07/17/2020 Onychomycosis of multiple to enails with type 2 diabetes mellitus (HCC) 02/08/2017 07/17/2020 Essential hypertension 07/29/201510/21 Type 2 diabetes mellitus without complication 07/29/2007/17/2020 Diabetes 09/05/2014 10/21/2015 Atypical chest pain 09/05/2014 10/21/19 16 documented as of this encounter (statuses as of 11/22/2023) [facility]03-09-2023 NoteHNO ID: [id number] Author: Fermin Peña Service: ? Author Type: ? Type: Progress Notes Filed: 11/18/2022 3:59 PM Note Text: Pt chart reviewed as part of population health initiative focused on statin use in patients with diabetes (DM) or cardiovascular disease (CVD). Tuan Vallejo is identified through data from [employer] (insurer) as a potential candidate for statin therapy with no prescriptions claims processed for a statin medication in this calendar year. Chart Review The following case components were reviewed for current or historic statin use: Confirmed diabetes and or CVD: yes Current/Active med list includes a statin: yes IF YES, Last order date and quantity: 07/10/22 100 ds Last pharmacy fill date: Per Epic: 07/10/22, Per pharmacy phone call: 07/10/22 IF NO, reason identified (contraindication, intolerance, exclusion, etc.): N/A ALLERGIES Allergen Reactions Bee Sting Anaphylaxis, Angioedema Peanuts Vomiting Tamsulosin Mental Status Change Penicillins Other: See Comments headaches- childhood PAST MEDICAL HISTORY Diagnosis Date Acquired hypothyroidism 10/21/2015 Arthritis Back pain ED (erectile dysfunction) of organic origin 10/18/2020 Essential hypertension 09/05/2014 Familial combined hyperlipidemia 07/29/2015 Onychomycosis of multiple toenails with type 2 diabetes mellitus (HCC) 02/08/2017 Personal history of colonic polyps 02/20/2016 Prostate cancer ([facility]) PSA elevation 09/26/2019 Skin cancer unknown type 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d by mild nonproliferative retinopathy without macular edema, without long-term current use of insulin ([facility]) 02/27/2019 Exam 02/10/[address] Fuentes. Type 2 diabetes mellitus without complication ([facility]) 07/29/2015 Cholesterol, Total (mg/dL) Date Value 04/29/2022 222 10/27/2021 243 HDL Cholesterol (mg/dL) Date Value 04/29/2022 83 10/27/2021 64 LDL Cholesterol (mg/dL) Date Value 04/29/2022 126 10/27/2021 163 Triglyceride (mg/dL) Date Value 04/29/2022 67 10/27/2021 82 No reason identified, Patient contacted: 11/13/22 Spoke with patient confirmed currently taking pravastatin and needs a refill. I reached out to [facility] and they are going to be filling the medication for the patient. Outcome of review: Confirmed being filled by [facility] for patient The patient verbalizes understanding and denies further questions/concerns at this time. [facility] NoteHNO ID: [id number] Author: Owen Kaba RPh Service: ? Author Type: Pharmacist Type: Progress Notes Filed: 11/18/2022 3:59 PM Note Text: Approving student documentation and outreach below. Owen Kaba RPh PharmD [facility] History of Present illness Narrative* Fermin Peña - 11/12/2022 3:25 PM EST Pt chart reviewed as part of population health initiative focused on statin use in patients with diabetes (DM) or cardiovascular disease (CVD). Tuan Vallejo is identified through data from [employer] (insurer) as a potential candidate for statin therapy with no prescriptions claims processed for a statin medication in this calendar year. Chart Review The following case components were reviewed for current or historic statin use: Confirmed diabetes and or CVD: yes Current/Active med list includes a statin: yes IF YES, Last order date and quantity: 07/10/22 100 ds Last pharmacy fill date: Per Epic: 07/10/22, Per pharmacy phone call: 07/10/22 IF NO, reason identified (contraindication, intolerance, exclusion, etc.): N/A ALLERGIES Allergen Reactions Bee Sting Anaphylaxis, Angioedema Peanuts Vomiting Tamsulosin Mental Status Change Penicillins Other: See Comments headaches- childhood PAST MEDICAL HISTORY Diagnosis Date Acquired hypothyroidism 10/21/2015 Arthritis Back pain ED (erectile dysfunction) of organic origin 10/18/2020 Essential hypertension 09/05/2014 Familial combined hyperlipidemia 07/29/2015 Onychomycosis of multiple toenails with type 2 diabetes mellitus ([facility]) 02/08/2017 Personal history of colonic polyps 02/20/2016 Prostate cancer ([facility]) PSA elevation 09/26/2019 Skin cancer unknown type 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d by mild nonproliferative retinopathy without macular edema, without long-term current use of insulin ([facility]) 02/27/2019 Exam 02/10/[address] Fuentes. Type 2 diabetes mellitus without complication ([facility]) 07/29/2015 Cholesterol, Total (mg/dL) Date Value 04/29/2022 222 10/27/2021 243 HDL Cholesterol (mg/dL) Date Value 04/29/2022 83 10/27/2021 64 LDL Cholesterol (mg/dL) Date Value 04/29/2022 126 10/27/2021 163 Triglyceride (mg/dL) Date Value 04/29/2022 67 10/27/2021 82 No reason identified, Patient contacted: 11/13/22 Spoke with patient confirmed currently taking pravastatin and needs a refill. I reached out to [facility] and they are going to be filling the medicationfor the patient. Outcome of review: Confirmed being filled by [facility] for patient The patient verbalizes understanding and denies further questions/concerns at this time. Fermin Peña * Owen Kaba RPh - 11/12/2022 3:24 PM EST Approving student documentation and outreach below. Owen Kaba [facility] PharmD BCACP documented in [facility] encounter[facility] Miscellaneous Notes* Telephone Encounter - Lily Rodney RN - 11/10/2022 2:07 PM EST Thank you. I let know none needed on Dr. Gordon ends. * Telephone Encounter - Kamran Gordon Jr., MD - 11/10/2022 12:45 PM EST Not necessary per me Mri of the prostate which he had in September is fine * Telephone Encounter - Lily Rodney RN - 11/10/2022 10:20 AM EST Patient's calling and wanted to make sure that he did not need also a CT of Chest and abdomen along with the bone scan prior to surgery? She was just concerned about it and wanted to double check? Please advise, also routing to Dr. Gordon as well since he is doing Surgery. documented in this encounterProm[facility] History of Present illness Narrative* Bonnie Vela - 11/03/2022 11:39 AM EST November 03, 2022 11:39 AM Patient is scheduled for surgery at [facility] with Dr. Barragan and Dr. Gordon on 11/30/2022 at 8:00 am.PAT in [place] on 11/16/2022 at 9:20 am. Patient is aware of date, time, location, and pre op instructions. Patient had no further questions at this time. Surgical information has been handed to patient and his in the [place] office. Bonnie Vela * Uriel Barragan DO - 11/03/2022 11:12 AM EST Images from the original note were not included. [facility] LOCATION: [address] [place] [address] ESTABLISHED PATIENT PATIENT INFO: Tuan Vallejo 67 year old Chief Complaint: Prostate Cancer HPI S/P MRI Fusion biopsy. No post biopsy issues. PREVIOUS HX: Here for elevated PSA. S/P Negative prostate biopsy on December 02, 2021. PSA was 12.95 at that time now 32 No change in symptoms. 1-Duration: 2022 2-Location: prostate 3-Severity: N/A 4-Quality: Not applicable 5-Context: N/A 6-Timing: N/A 7-Modifying factors: No treatment prior to referral 8-Associated signs & symptoms: no additional symptoms PATHOLOGY: FINAL DIAGNOSIS A. Prostate, right lateral base, biopsy: - Benign prostatic tissue. B. Prostate, right lateral mid, biopsy: - Prostatic adenocarcinoma. See comment. C. Prostate, right lateral apex, biopsy: - Prostatic adenocarcinoma [place] score 3+4 = 7 (grade group 2) involving 25% of 1 core (3 mm tumor length). 5% pattern 4. D. Prostate, left lateral base, biopsy: - Benign prostatic tissue. E. Prostate, left lateral mid, biopsy: - Benign prostatic tissue. F. Prostate, left lateral apex, biopsy: - Benign prostatic tissue. G. Prostate, right, biopsy: - Prostatic adenocarcinoma [place] score 3+4 = 7 (grade group 2) involving 7 of 8 cores (60%, 80%, 25%, 100%, 15%, 60%, and 15%). 29 mm total tumor length. 10% pattern 4. Prostate Cancer Biopsy Summary Number of cores examined: 14 Number of cores positive: 9 Highest Grade Group: 2 Highest % of core involvement: 100 % Cribriform pattern 4: Absent Intraductal carcinoma: Absent Premix Operator Concentrate tumor block to use for additional studies: G1 FINAL DIAGNOSIS A. Prostate, right base, biopsy: - Benign prostatic tissue. B. Prostate, right mid, biopsy: - Benign prostatic tissue. C. Prostate, right apex, biopsy: - Benign prostatic tissue. D. Prostate, right lateral base, biopsy: - Benign prostatic tissue. E. Prostate, right lateral mid, biopsy: - Benign prostatic tissue. F. Prostate, right lateral apex, biopsy: - Benign prostatic tissue. G. Prostate, left base, biopsy: - Benign prostatic tissue. H. Prostate, left mid, biopsy: - Benign prostatic tissue. I. Prostate, left apex, biopsy: - Benign prostatic tissue. J. Prostate, left lateral base, biopsy: - Benign prostatic tissue. K. Prostate, left lateral mid, biopsy: - Benign prostatic tissue. L. Prostate, left lateral apex, biopsy: - Benign prostatic tissue. : WBC (k/uL) Date Value 10/27/2021 5.13 RBC (m/uL) Date Value 10/27/2021 4.55 Hemoglobin (g/dL) Date Value 10/27/2021 14.5 Hematocrit (%) Date Value 10/27/2021 44.9 MCV (fL) Date Value 10/27/2021 98.7 MCH (pG) Date Value 10/27/2021 31.9 MCHC (g/dL) Date Value 10/27/2021 32.3 RDW-CV (%) Date Value 10/27/2021 12.4 Platelet Count (k/uL) Date Value 10/27/2021 255 MPV (fL) Date Value 10/27/2021 10.6 Neut% (%) Date Value 07/13/2020 68.6 Lymph% (%) Date Value 07/13/2020 18.9 Flathead% (%) Date Value 07/13/2020 7.4 Eosin% (%) Date Value 07/13/2020 4.6 Baso% (%) Date Value 07/13/2020 0.5 Abs Neut (ANC) (k/uL) Date Value 07/13/2020 5.17 Abs Flathead (k/uL) Date Value 07/13/2020 0.56 Abs Eosin (k/uL) Date Value 07/13/2020 0.35 Abs Baso (k/uL) Date Value 07/13/2020 0.04 Creatinine Date Value Ref Range Status 08/03/2022 0.87 0.73 - 1.22 mg/dL Final 04/29/2022 0.89 0.73 - 1.22 mg/dL Final 10/27/2021 0.94 0.73 - 1.22 mg/dL Final 02/01/2021 0.76 0.73 - 1.22 mg/dL Final PSA (ng/mL) Date Value 08/03/2022 32.22 10/27/2021 12.95 07/13/2020 6.02 04/06/2020 6.23 09/26/2019 4.04 URINE POC GLUCOSE UA (POCT) Negative 12/02/2021 BILIRUBIN UA (POCT) Negative 12/02/2021 KETONE UA (POCT) 40 12/02/2021 SPECIFIC GRAVITY UA (POCT) 1.025 12/02/2021 HEMOGLOBIN/BLOOD UA (POCT) Negative 12/02/2021 PH UA (POCT) 5.5 12/02/2021 PROTEIN UA (POCT) Trace 12/02/2021 UROBILINOGEN UA (POCT) 0.2 12/02/2021 NITRITE UA (POCT) Negative 12/02/2021 LEUKOCYTES UA (POCT) Negative 12/02/2021 COLOR UA (POCT) Yellow 12/02/2021 CLARITY UA (POCT) Clear 12/02/2021 IMAGING: MRI: MRI PROSTATE WO/W IVCON (Order [id number]) Patient Info Patient Name Sex Tuan Siddiqui ([id number]) Male 1955 09/23/2022 11:48 AM - Radiology, [place] In Impression IMPRESSION: 1. PIRADS 5 right transition zone prostatic lesion (very high likelihood of clinically significant cancer), with equivocal extraprostatic extension. 2. No suspicious lymphadenopathy. 3. Prostatomegaly. 4. Indeterminate nonenhancing presacral lobulated soft tissue lesion resembling the red marrow signal, may represent a focus of extraosseous hematopoiesis. Attention on follow-up is recommended. I have independently reviewed films and my findings are the same. ALLERGIES: ALLERGIES Allergen Reactions Bee Sting Anaphylaxis, Angioedema Peanuts Vomiting Tamsulosin Mental Status Change Penicillins Other: See Comments headaches- childhood MEDICATIONS: pravastatin (PRAVACHOL) 40 mg tablet Take 1 tablet by mouth once daily. levothyroxine (SYNTHROID) 25 mcg tablet Take 1 tablet by mouth daily before breakfast. blood sugar diagnostic (BLOOD GLUCOSE TEST) test strip Patient has one touch ultra glucometer. Testblood sugar(s) 2 times daily. Dx: Type 2 DM - Controlled E11.9 Insulin: No metFORMIN ER (GLUCOPHAGE XR) 500 mg 24 hr tablet Take 2 tablets by mouth twice daily before meals. glimepiride (AMARYL) 4 mg tablet Take 1 tablet by mouth every evening. With food. empagliflozin (JARDIANCE) 10 mg tablet Take 1 tablet by mouth once daily. Take 1 tablet once daily in the morning (Patient not taking: Reported on 10/01/2022) sildenafil (VIAGRA) 100 mg tablet Take 1 tablet PO daily as needed for erectile dysfunction alcohol swabs (ALCOHOL PADS) Test blood sugar(s) 2 times daily. Dx: Type 2 DM - Controlled E11.9 Insulin: No amLODIPine (NORVASC) 10 mg tablet Take 1 tablet by mouth once daily. Blood-Glucose Meter (ONETOUCH ULTRA2 METER) monitoring kit 1 Each as needed. One Touch Meter Kit Diagnosis: Type 2 DM - Uncontrolled E11.65 Lancets (ONETOUCH ULTRASOFT LANCETS) lancets Test blood sugar(s) 1-2 times daily. Dx: Type 2 DM - Uncontrolled E11.65 , Insulin: No Does the patient take any herbal medications?: No HISTORIES PAST MEDICAL HISTORY Diagnosis Date Acquired hypothyroidism 10/21/2015 Arthritis Back pain ED (erectile dysfunction) of organic origin 10/18/2020 Essential hypertension 09/05/2014 Familial combined hyperlipidemia 07/29/2015 Onychomycosis of multiple toenails with type 2 diabetes mellitus (HCC) 02/08/2017 Personal history of colonic polyps 02/20/2016 PSA elevation 09/26/2019 Skin cancer unknown type 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d by mild nonproliferative retinopathy without macular edema, without long-term current use of insulin (HCC) 02/27/2019 Exam 02/10/[address] Fuentes. Type 2 diabetes mellitus without complication ([facility]) 07/29/2015 Smoking Status Reviewed: Yes REVIEW OF SYSTEMS GENERAL: No fever, chills, weight loss, or fatigue. HEAD & NECK: No blurred vision or Sjogren's syndrome CARDIOVASCULAR: NO CHEST PAIN, PALPITATIONS, ANKLE EDEMA RESPIRATORY: No chronic cough, wheezing, dyspnea, hemoptysis. MUSCULOSKELETAL: NO CHRONIC BACK PAIN, ARTHRITIS, CHRONIC NECK PAIN SKIN: NO VARICOSE VEINS, RASH, ABNORMAL ITCHING BLOOD/LYMPHATIC: No easy bleeding, easy bruising, transfusion Hx NEUROLOGICAL: NO HEADACHES, NUMBNESS, SEIZURES, STROKE PSYCHIATRIC: No depression or inordinate anxiety The remainder of the ROS was negative. PHYSICAL EXAMINATION BP 157/88 Ht 170.2 cm (5' 7) Wt 65.8 kg (145 lb) BMI 22.71 kg/m General appearance: Well appearing, alert, in no acute distress, and well- hydrated, well nourished Skin: Skin color, texture, turgor normal, no suspicious rashes or lesions Head: Normocephalic, no masses, lesions, tenderness or abnormalities Abdomen: Normal abdominal exam, Abdomen soft, non-tender. Bowel sounds normal. No masses, organomegaly Genitourinary: MALE EXAM: Exam NOT Indicated PVR: NA IMPRESSION/PLAN: Elevated PSA - 12.95 ==> 32.2 S/P Negative Prostate Biopsy 11/2021 MRI Prostate - PIRADS 5 lesion - S/P MRI fusion biopsy with Dr. Baron [place] 7 prostate cancer found. Options reviewed. Check bone scan. Proceed to [facility] with PLND. Schedule with Dr. Gordon. Risks Benefits Radical Prostatectomy The natural history of this disease was explained to the patient at length and the treatment options discussed including radical prostatectomy by open or robotic-assisted laparoscopic approach, external-beam radiotherapy, brachytherapy, and watchful waiting, including the probability of success and complications associated with these approaches. With respect to watchful waiting or active surveillance, we discussed the difficulties of estimating the extent of disease preoperatively, the risk of cancer progression, and risk that salvage might not be possible with progression. However, the favorable 10-year outcomes of active surveillance in a ppropriately selected patients was conveyed. With respect to seed implants, we discussed risks including but not limited to cancer recurrence, exacerbation of voiding symptoms or hematuria, urinary retention, induction of 2nd malignancy, and risks of rectal symptoms or bleeding. We also discussed risks of the anesthesia including but not limited to NV, CVA, DVT, and PE. With respect to EBRT, we discussed we discussed risks including but not limited to cancer recurrence, exacerbation of voiding symptoms or hematuria, urinary retention, incontinence, stricture of the urinary tract, induction of 2nd malignancy, and risks of rectal symptoms or bleeding. We discussed fact that rectal symptoms may be more common with EBRT than with other treatment modalities. With radiation therapy, we discussed the difficulties in diagnosing recurrent disease at an early stage due to variability in PSA levels and the fact that most patients are not candidates for local salvage therapy when biochemical recurrence is declared. We also discussed the significant morbidity of local salvage therapy in terms of perioperative complications, erectile dysfunction and urinary incontinence. With respect to radical prostatectomy, the pros and cons of open vs robotic- assisted laparoscopic prostatectomy were discussed. The complications of this procedure were reviewed with the patient and include (but not limited to) urinary incontinence, erectile dysfunction, infertility, anastomotic stricture, lymphocele, hemorrhage requiring transfusion, rectal, ureteral, or nerve injury, infection,cardiovascular, pulmonary, thromboembolic, and anesthetic complications. For robotic prostatectomy,the additional complications of anastomotic urine leak and small bowel obstruction from adhesions was conveyed. With surgery, we also discussed the potential advantage over radiation therapy in that biochemical recurrence can be detected at a relatively earlier stage and that salvage radiotherapy is successfulin controlling recurrent disease in a substantial proportion of patients. I also conveyed that salvage radiotherapy was associated with a considerably more favorable morbidity profile compared to local salvage therapies for radiorecurent disease. We also discussed prostate cryotherapy in detail, including aspects related to the procedure and the outcomes with respect to cancer control, urinary dysfunction, impotence, and morbidity. All questions were answered. I asked him to call if any additional questions or concerns or if he wanted to proceed with therapy with us. The patient is agreeable to proceed with robotic prostatectomy after thorough discussion of the rationale, risks, benefits, alternatives and personnel. I spent 30 minutes in the visit, with more than 50% of the total [id number] time of the visit in counseling / coordination of care. Uriel Barragan DO MBA documented in this encounterPromedica [facility] Hospital02-24-2023 Miscellaneous Notes* Telephone Encounter - Lily Rodney RN - 10/30/2022 9:23 AM EST Patient has appt 11-03-2022 to discuss results. Closing. * Telephone Encounter - Lily Rodney RN - 10/23/2022 9:23 AM EST Called and left a generalized message that Pathology is not back yet. Pathology takes sometimes 7-10 days for final results and provider will advise based on results. Postponing til next week to check status. * Telephone Encounter - Ced Valentine - 10/23/2022 8:57 AM EST called on behalf of the patient today Called requesting the results of the biopsy Please contact Jennifer (), she can be reached at [phone] documented in this encounterPromedica Memorial Hospital02-09-2023 Miscellaneous Notes* Telephone Encounter - Daphne PLAZA - 10/15/2022 8:35 AM EST Pt is scheduled for MRI Fusion Bx MAC with Dr Baron at [facility] on 10/21/22 @ 10:00 (8:00 arrival). Follow up with Dr Barragan on 11/03/22 @ 10:45. Pt and Jennifer given date, time, prep and arrival instructions over the phone on 10/13/22. [employer] [place] message sent also. Daphne PLAZA documented in this encounterPromedica Memorial Hospital02-07-2023 Instructions* Patient Instructions* Mohit Baron MD - 10/13/2022 8:34 AM EST PATIENT INFORMATION: For prostate biopsy You may take Baby aspirin if you are on it Do not take high dose aspirin ,ibuprofen or other blood thinner type products for 1 week prior to the biopsy: Blood thinners can include also Advil, Motrin, Naprosyn, naproxen, Aleve, Plavix, Coumadin, etc. MEDICATION INFORMATION ASPIRIN and ADVIL can make you more prone to bleeding after surgery. Please STOP taking these medications at least (7) days before surgery or procedure. Medications can be resumed (1) days after the Prostate Biopsy procedure. NOTE: Please obtain approval to stop any prescribed medication from the prescribing doctor. Some common medications that contain ASPIRIN or act like Aspirin are to be avoided are as follows: This is a list of the medications you should avoid: Advil Clinoril (Sulindac) Naprosyn (Naproxen) Aggrenox Ecotrin NSAID (Non-Steroidal Agrylin Excedrin Anti-Inflammatory Drugs) Aleve (Naproxen) Fish Oil Pepto-Bismol Kristin-Altmar Gingko [place] Persantine (Dipyridamole) Anacin Glucosamine Chondroitin Plavix (Clopidogrel) Ascriptin Green Tea Plaquenil (Hydroxychloroquine) Aspergum Heparin Pletal (Cilostazol) Aspirin Herbals Ticlid (Ticlopidine) Klaus Ibuprofen Trental (Pentoxyfylline) Bextra Indocin (Indomethacin) Vanquish Bufferin Midol Vitamin E (MVI) Coumadin (warfarin) Mobic/Meloxicam Multivitamin (MVI) MEDICATIONS you may SUBSTITUTE: Anacin 3 Plenadol Percocet* Datril Sine-Aide Excedrin PM Tylenol Fioricet* Tylenol with codeine* (*Denotes prescription needed to obtain these medications) documented in this encounterPromedica Memorial Hospital02-07-2023 History of Present illness Narrative* Mohit Baron MD - 10/13/2022 8:12 AM EST TELEPHONE VISIT PROGRESS NOTE This is a telephone encounter initiated for an established patient, parent or guardian not originating from a related Evaluation & Management service provided within the previous 7 days nor leading to an Evaluation & Management service or procedure within the next 24 hours or soonest available appointment. PATIENT INFO: Tuan Vallejo has consented to this telephone encounter. Consent for this telehealth visit obtained from the patient prior to initiation of the encounter. The patient acknowledges the limitations of telehealth and agrees to proceed. The patient understandsthat this visit will be documented in the medical record as any other patient encounter. Persons Present: patient HPI 10/13/2022 -VV/Tele Pt CC: bx Patient had MRI done at [facility] September 22, 2022 showing PI-RADS 5 lesion Scheduled in November for MRI fusion biopsy but would like to move up if possible and we will try to do that Okay under local anesthetic with initial biopsy with Dr. Barragan but tough enough where now he wants twilight anesthetic for the fusion biopsy Not on blood thinners We will schedule Data Reviewed: Most recent labs and imaging results. Past Uology History: October 01, 2022-seen by Dr. Barragan- Here for elevated PSA. S/P Negative prostate biopsy on December 02, 2021. PSA was 12.95 at that time now 32 No change in symptoms. IMAGING: MRI: MRI PROSTATE WO/W IVCON (Order [id number]) Patient Info Patient Name Sex Tuan Siddiqui ([id number]) Male 1955 09/23/2022 11:48 AM - Radiology, [place] In Impression IMPRESSION: 1. PIRADS 5 right transition zone prostatic lesion (very high likelihood of clinically significant cancer), with equivocal extraprostatic extension. 2. No suspicious lymphadenopathy. 3. Prostatomegaly. 4. Indeterminate nonenhancing presacral lobulated soft tissue lesion resembling the red marrow signal, may represent a focus of extraosseous hematopoiesis. Attention on follow-up is recommended. IMPRESSION/PLAN: Elevated PSA - 12.95 ==> 32.2 S/P Negative Prostate Biopsy 11/2021 MRI Prostate - PIRADS 5 lesion - needs MRI fusion biopsy with Dr. Baron. Uriel Barragan DO CARLA Labs/Radiology/Procedures: Creatinine Date Value Ref Range Status 08/03/2022 0.87 0.73 - 1.22 mg/dL Final PSA (ng/mL) Date Value 08/03/2022 32.22 10/27/2021 12.95 07/13/2020 6.02 04/06/2020 6.23 09/26/2019 4.04 PSA Screening (ng/mL) Date Value 03/27/2019 4.05 Color (no units) Date Value 03/27/2019 Yellow Clarity (no units) Date Value 03/27/2019 Clear Glucose, Urine (mg/dL) Date Value 03/27/2019 50 Bilirubin, Urine (no units) Date Value 03/27/2019 Negative Ketones, Urine (no units) Date Value 03/27/2019 Negative Specific [place], Ur (no units) Date Value 03/27/2019 1.014 Hemoglobin/Blood,Ur ( ) Date Value 03/27/2019 Negative pH, Urine (no units) Date Value 03/27/2019 6.0 Protein, Urine (mg/dL) Date Value 03/27/2019 Negative Urobilinogen (no units) Date Value 03/27/2019 Normal Nitrites (no units) Date Value 03/27/2019 Negative Leukest (no units) Date Value 03/27/2019 Negative Review of Systems Constitutional: Negative for activity change. HISTORIES PAST MEDICAL HISTORY Diagnosis Date Acquired hypothyroidism 10/21/2015 Arthritis Back pain ED (erectile dysfunction) of organic origin 10/18/2020 Essential hypertension 09/05/2014 Familial combined hyperlipidemia 07/29/2015 Onychomycosis of multiple toenails with type 2 diabetes mellitus (HCC) 02/08/2017 Personal history of colonic polyps 02/20/2016 PSA elevation 09/26/2019 Skin cancer unknown type 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d by mild nonproliferative retinopathy without macular edema, without long-term current use of insulin ([facility]) 02/27/2019 Exam 02/10/[address] Fuentes. Type 2 diabetes mellitus without complication ([facility]) 07/29/2015 FAMILY HISTORY Problem Relation Age of Onset Dementia Mother Kidney Disease Mother other (hypoglycemia) Mother Heart Father of [place] Diabetes Father Lung Cancer Father lung cancer Diabetes Sister Diabetes Sister Diabetes Brother type 1 diabetes Lung Cancer Brother No Known Problems Brother Diabetes Brother SOCIAL HISTORY Social History Tobacco Use Smoking status: Former Packs/day: 2.00 Years: 35.00 Pack years: 70.00 Types: Cigarettes Quit date: 02/24/2002 Years since quittin.6 Smokeless tobacco: Never Tobacco comments: started 8 years old Vaping Use Vaping Use: Never used Substance Use Topics Alcohol use: Yes Alcohol/week: 17.5 standard drinks Types: 7 Glasses of Wine (5oz) per week Comment: Pt drinks 1 glass of wine a day Drug use: No MEDICATIONS: pravastatin (PRAVACHOL) 40 mg tablet Take 1 tablet by mouth once daily. levothyroxine (SYNTHROID) 25 mcg tablet Take 1 tablet by mouth daily before breakfast. blood sugar diagnostic (BLOOD GLUCOSE TEST) test strip Patient has one touch ultra glucometer. Testblood sugar(s) 2 times daily. Dx: Type 2 DM - Controlled E11.9 Insulin: No metFORMIN ER (GLUCOPHAGE XR) 500 mg 24 hr tablet Take 2 tablets by mouth twice daily before meals. glimepiride (AMARYL) 4 mg tablet Take 1 tablet by mouth every evening. With food. empagliflozin (JARDIANCE) 10 mg tablet Take 1 tablet by mouth once daily. Take 1 tablet once daily in the morning (Patient not taking: Reported on 10/01/2022) sildenafil (VIAGRA) 100 mg tablet Take 1 tablet PO daily as needed for erectile dysfunction alcohol swabs (ALCOHOL PADS) Test blood sugar(s) 2 times daily. Dx: Type 2 DM - Controlled E11.9 Insulin: No amLODIPine (NORVASC) 10 mg tablet Take 1 tablet by mouth once daily. Blood-Glucose Meter (ONETOUCH ULTRA2 METER) monitoring kit 1 Each as needed. One Touch Meter Kit Diagnosis: Type 2 DM - Uncontrolled E11.65 Lancets (ONETOUCH ULTRASOFT LANCETS) lancets Test blood sugar(s) 1-2 times daily. Dx: Type 2 DM - Uncontrolled E11.65 , Insulin: No From Discussion: Physical Exam Neurological: Mental Status: He is alert and oriented to person, place, and time. Risk/Benefit Discussion: Prostate Ultrasound With Needle Biopsy Prostate Patient was instructed to stop all aspirin type products 7 days prior to the procedure. I explainedthe options concerning the findings of a prostatic nodule both with and without an elevated PSA, aswell as an elevated PSA without a prostate nodule. I specifically explained the possible complications, and the fact that a negative prostate biopsy does not definitely indicate that there is no prostate cancer present, but only that there was no malignancy found in the biopsy specimens. I explained the possibility of impotency and some incontinence, blood in the urine, stool/possible severe and admition to hospital , and/or semen. He may also experience frequency, urgency, and dysuria after the procedure. I explained the remote possibility of blood loss and the possibility of infection of the prostate and rectum post operatively/sepsis risk. The patient expressed an understanding with regard to possible benefits, risks, complications and outcome. FOLLOW UP: Return if symptoms worsen or fail to improve. ASSESSMENT/PLAN: 1. PSA elevation - ICD9: 790.93, ICD10: R97.20 Health and wellness-MRI fusion biopsy of prostate/ROMA Baron Total Time Spent: 25 min Mohit Baron MD Please note: This note has been produced using speech recognition software and may contain errors related to that system including grammar, punctuation, spelling, gender and words and phrases that may be inappropriate. documented in this encounterPromedica Memorial Hospital01-26-2023 History of Present illness Narrative* Uriel Barragan, DO - 10/01/2022 10:40 AM EST Images from the original note were not included. [facility] LOCATION: [address] [place] [address] ESTABLISHED PATIENT PATIENT INFO: Tuan Vallejo 67 year old Chief Complaint: Elevated PSA HPI Here for elevated PSA. S/P Negative prostate biopsy on December 02, 2021. PSA was 12.95 at that time now 32 No change in symptoms. 1-Duration: 2022 2-Location: prostate 3-Severity: N/A 4-Quality: Not applicable 5-Context: N/A 6-Timing: N/A 7-Modifying factors: No treatment prior to referral 8-Associated signs & symptoms: no additional symptoms No question data found. PATHOLOGY: FINAL DIAGNOSIS A. Prostate, right base, biopsy: - Benign prostatic tissue. B. Prostate, right mid, biopsy: - Benign prostatic tissue. C. Prostate, right apex, biopsy: - Benign prostatic tissue. D. Prostate, right lateral base, biopsy: - Benign prostatic tissue. E. Prostate, right lateral mid, biopsy: - Benign prostatic tissue. F. Prostate, right lateral apex, biopsy: - Benign prostatic tissue. G. Prostate, left base, biopsy: - Benign prostatic tissue. H. Prostate, left mid, biopsy: - Benign prostatic tissue. I. Prostate, left apex, biopsy: - Benign prostatic tissue. J. Prostate, left lateral base, biopsy: - Benign prostatic tissue. K. Prostate, left lateral mid, biopsy: - Benign prostatic tissue. L. Prostate, left lateral apex, biopsy: - Benign prostatic tissue. : WBC (k/uL) Date Value 10/27/2021 5.13 RBC (m/uL) Date Value 10/27/2021 4.55 Hemoglobin (g/dL) Date Value 10/27/2021 14.5 Hematocrit (%) Date Value 10/27/2021 44.9 MCV (fL) Date Value 10/27/2021 98.7 MCH (pG) Date Value 10/27/2021 31.9 MCHC (g/dL) Date Value 10/27/2021 32.3 RDW-CV (%) Date Value 10/27/2021 12.4 Platelet Count (k/uL) Date Value 10/27/2021 255 MPV (fL) Date Value 10/27/2021 10.6 Neut% (%) Date Value 07/13/2020 68.6 Lymph% (%) Date Value 07/13/2020 18.9 Flat[place]% (%) Date Value 07/13/2020 7.4 Eosin% (%) Date Value 07/13/2020 4.6 Baso% (%) Date Value 07/13/2020 0.5 Abs Neut (ANC) (k/uL) Date Value 07/13/2020 5.17 Abs [place] (k/uL) Date Value 07/13/2020 0.56 Abs Eosin (k/uL) Date Value 07/13/2020 0.35 Abs Baso (k/uL) Date Value 07/13/2020 0.04 Creatinine Date Value Ref Range Status 08/03/2022 0.87 0.73 - 1.22 mg/dL Final 04/29/2022 0.89 0.73 - 1.22 mg/dL Final 10/27/2021 0.94 0.73 - 1.22 mg/dL Final 02/01/2021 0.76 0.73 - 1.22 mg/dL Final PSA (ng/mL) Date Value 08/03/2022 32.22 10/27/2021 12.95 07/13/2020 6.02 04/06/2020 6.23 09/26/2019 4.04 URINE POC GLUCOSE UA (POCT) Negative 12/02/2021 BILIRUBIN UA (POCT) Negative 12/02/2021 KETONE UA (POCT) 40 12/02/2021 SPECIFIC GRAVITY UA (POCT) 1.025 12/02/2021 HEMOGLOBIN/BLOOD UA (POCT) Negative 12/02/2021 PH UA (POCT) 5.5 12/02/2021 PROTEIN UA (POCT) Trace 12/02/2021 UROBILINOGEN UA (POCT) 0.2 12/02/2021 NITRITE UA (POCT) Negative 12/02/2021 LEUKOCYTES UA (POCT) Negative 12/02/2021 COLOR UA (POCT) Yellow 12/02/2021 CLARITY UA (POCT) Clear 12/02/2021 IMAGING: MRI: MRI PROSTATE WO/W IVCON (Order [id number]) Patient Info Patient Name Sex Tuan Siddiqui ([id number]) Male 1955 09/23/2022 11:48 AM - Radiology, [place] In Impression IMPRESSION: 1. PIRADS 5 right transition zone prostatic lesion (very high likelihood of clinically significant cancer), with equivocal extraprostatic extension. 2. No suspicious lymphadenopathy. 3. Prostatomegaly. 4. Indeterminate nonenhancing presacral lobulated soft tissue lesion resembling the red marrow signal, may represent a focus of extraosseous hematopoiesis. Attention on follow-up is recommended. I have independently reviewed films and my findings are the same. ALLERGIES: ALLERGIES Allergen Reactions Bee Sting Anaphylaxis, Angioedema Peanuts Vomiting Tamsulosin Mental Status Change Penicillins Other: See Comments headaches- childhood MEDICATIONS: pravastatin (PRAVACHOL) 40 mg tablet Take 1 tablet by mouth once daily. levothyroxine (SYNTHROID) 25 mcg tablet Take 1 tablet by mouth daily before breakfast. blood sugar diagnostic (BLOOD GLUCOSE TEST) test strip Patient has one touch ultra glucometer. Testblood sugar(s) 2 times daily. Dx: Type 2 DM - Controlled E11.9 Insulin: No metFORMIN ER (GLUCOPHAGE XR) 500 mg 24 hr tablet Take 2 tablets by mouth twice daily before meals. glimepiride (AMARYL) 4 mg tablet Take 1 tablet by mouth every evening. With food. sildenafil (VIAGRA) 100 mg tablet Take 1 tablet PO daily as needed for erectile dysfunction alcohol swabs (ALCOHOL PADS) Test blood sugar(s) 2 times daily. Dx: Type 2 DM - Controlled E11.9 Insulin: No amLODIPine (NORVASC) 10 mg tablet Take 1 tablet by mouth once daily. Blood-Glucose Meter (Hyasynth BioUCH ULTRA2 METER) monitoring kit 1 Each as needed. One Touch Meter Kit Diagnosis: Type 2 DM - Uncontrolled E11.65 Lancets (ONETOUCH ULTRASOFT LANCETS) lancets Test blood sugar(s) 1-2 times daily. Dx: Type 2 DM - Uncontrolled E11.65 , Insulin: No empagliflozin (JARDIANCE) 10 mg tablet Take 1 tablet by mouth once daily. Take 1 tablet once daily in the morning (Patient not taking: Reported on 10/01/2022) Does the patient take any herbal medications?: No HISTORIES PAST MEDICAL HISTORY Diagnosis Date Acquired hypothyroidism 10/21/2015 Arthritis Back pain ED (erectile dysfunction) of organic origin 10/18/2020 Essential hypertension 09/05/2014 Familial combined hyperlipidemia 07/29/2015 Onychomycosis of multiple toenails with type 2 diabetes mellitus (HCC) 02/08/2017 Personal history of colonic polyps 02/20/2016 PSA elevation 09/26/2019 Skin cancer unknown type 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d by mild nonproliferative retinopathy without macular edema, without long-term current use of insulin ([facility]) 02/27/2019 Exam 02/10/[address] Fuentes. Type 2 diabetes mellitus without complication ([facility]) 07/29/2015 Smoking Status Reviewed: Yes REVIEW OF SYSTEMS GENERAL: No fever, chills, weight loss, or fatigue. HEAD & NECK: No blurred vision or Sjogren's syndrome CARDIOVASCULAR: NO CHEST PAIN, PALPITATIONS, ANKLE EDEMA RESPIRATORY: No chronic cough, wheezing, dyspnea, hemoptysis. MUSCULOSKELETAL: NO CHRONIC BACK PAIN, ARTHRITIS, CHRONIC NECK PAIN SKIN: NO VARICOSE VEINS, RASH, ABNORMAL ITCHING BLOOD/LYMPHATIC: No easy bleeding, easy bruising, transfusion Hx NEUROLOGICAL: NO HEADACHES, NUMBNESS, SEIZURES, STROKE PSYCHIATRIC: No depression or inordinate anxiety The remainder of the ROS was negative. PHYSICAL EXAMINATION There were no vitals taken for this visit. General appearance: Well appearing, alert, in no acute distress, and well- hydrated, well nourished Skin: Skin color, texture, turgor normal, no suspicious rashes or lesions Head: Normocephalic, no masses, lesions, tenderness or abnormalities Abdomen: Normal abdominal exam, Abdomen soft, non-tender. Bowel sounds normal. No masses, organomegaly Genitourinary: MALE EXAM: Exam NOT Indicated PVR: NA IMPRESSION/PLAN: Elevated PSA - 12.95 ==> 32.2 S/P Negative Prostate Biopsy 11/2021 MRI Prostate - PIRADS 5 lesion - needs MRI fusion biopsy with Dr. Baron. I spent 30 minutes in the visit, with more than 50% of the total [id number] time of the visit in counseling / coordination of care. Uriel Barragan DO MBA documented in this encounterPromedica [facility] Hospital01-20-2023 Miscellaneous Notes* Telephone Encounter - Adrien Maki RN - 09/25/2022 2:09 PM EST Called patient back and explained a little of the MRI to them and they will be in for the appointment with Dr Barragan to discuss the MRI and plan of care * Telephone Encounter - Ced Valentine - 09/24/2022 2:53 PM EST called on behalf of the patient today MRI results were released to [facility]Up yesterday Patient and have questions and concerns regarding the MRI results Requesting a return call to go over the results Please contact the patient, he can be reached at [phone] documented in this encounterPromedica Memorial Hospital01-17-2023 NoteHNO ID: [id number] Author: RT Price(R) Service: Radiology Author Type: Technologist Type: Progress Notes Filed: 09/22/2022 8:25 AM Note Text: Summary: MRI PROSTATE W/WO CONTRAST Radiology Service Progress Note DATE OF SERVICE: September 22, 2022 TIME: 8:24 AM PATIENT IDENTITY VERIFICATION COMPLETED USING TWO (2) STANDARD IDENTIFIERS: Name and Date of confirmed by patient verbally and Name and Date of confirmed by identification band. FALL SCREENING: Has the patient had 2 falls in the last year or 1 fall with injury or currently using an Ambulatory Assistive Device (Walker, Cane, Wheelchair, Crutches, etc.)? No PATIENT GENDER DATA: Male PATIENT RELEVANT IMPLANT DATA REVIEWED: Not Applicable ALLERGIES: Reviewed and unchanged CONTRAST ALLERGY: NO. EXAM: MRI - CONTRAST TYPE: GROUP II PERIPHERAL IV DATA: Ambulatory: A peripheral IV was started in the Right antecubital site with a Angio cath: 22 gauge. RADIOLOGY DEPARTMENT: MR; Exam(s) Completed: Body: Prostate SIGNATURE: RT Price(R) PATIENT NAME: Tuan Vallejo DATE: September 22, 2022 TIME: 8:24 [facility] History of Present illness Narrative * RT Price(R) - 09/22/2022 7:30 AM ESTSummary: MRI PROSTATE W/WO CONTRAST Radiology Service Progress Note DATE OF SERVICE: September 22, 2022 TIME: 8:24 AM PATIENT IDENTITY VERIFICATION COMPLETED USING TWO (2) STANDARD IDENTIFIERS: Name and Date of confirmed by patient verbally and Name and Date of confirmed by identification band. FALL SCREENING: Has the patient had 2 falls in the last year or 1 fall with injury or currently using an Ambulatory Assistive Device (Walker, Cane, Wheelchair, Crutches, etc.)? No PATIENT GENDER DATA: Male PATIENT RELEVANT IMPLANT DATA REVIEWED: Not Applicable ALLERGIES: Reviewed and unchanged CONTRAST ALLERGY: NO. EXAM: MRI - CONTRAST TYPE: GROUP II PERIPHERAL IV DATA: Ambulatory: A peripheral IV was started in the Right antecubital site with a Angio cath: 22 gauge. RADIOLOGY DEPARTMENT: MR; Exam(s) Completed: Body: Prostate SIGNATURE: RT Price(R) PATIENT NAME: Tuan Vallejo DATE: September 22, 2022 TIME: 8:24 AM documented in this encounterPromedica Memorial Hospital12-01-2022 Instructions* Patient Instructions* Nahun Jeffrey MD - 08/06/2022 10:25 AM EST FASTING BLOOD WORK IN JANUARY. documented in this encounterPromedica Memorial Hospital12-01-2022 History of Present illness Narrative* Nahun Jeffrey MD - 08/06/2022 10:06 AM EST This note was created using [employer]. Subjective Tuan Vallejo is a 67 year old male. His glucose readings did not change much with Jardiance. He had no side effects from Jardiance. Review of Systems Constitutional: Negative. Respiratory: Negative. Cardiovascular: Negative. Gastrointestinal: Negative. Genitourinary: Negative. Neurological: Negative. 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 Take 1 tablet once daily in the morning sildenafil (VIAGRA) 100 mg tablet Take 1 tablet PO daily as needed for erectile dysfunction glimepiride (AMARYL) 4 mg tablet Take 1 tablet by mouth daily with breakfast. alcohol swabs (ALCOHOL PADS) Test blood sugar(s) 2 times daily. Dx: Type 2 DM - Controlled E11.9 Insulin: No blood sugar diagnostic (BLOOD GLUCOSE TEST) test strip Patient has one touch ultra glucometer. Testblood sugar(s) 2 times daily. Dx: Type 2 DM - Controlled E11.9 Insulin: No amLODIPine (NORVASC) 10 mg tablet Take 1 tablet by mouth once daily. metFORMIN ER (GLUCOPHAGE XR) 500 mg 24 hr tablet Take 2 tablets by mouth twice daily before meals. pravastatin (PRAVACHOL) 40 mg tablet Take 1 tablet by mouth once daily. levothyroxine (SYNTHROID) 25 mcg tablet Take 1 tablet by mouth daily before breakfast. Blood-Glucose Meter (roomlinxTOUCH ULTRA2 METER) monitoring kit 1 Each as needed. One Touch Meter Kit Diagnosis: Type 2 DM - Uncontrolled E11.65 Lancets (ONETOUCH ULTRASOFT LANCETS) lancets Test blood sugar(s) 1-2 times daily. Dx: Type 2 DM - Uncontrolled E11.65 , Insulin: No iv contrast (will be provided with radiology test) MRI Prostate Inject, intravenously, once for 1 dose. No IV access, insert saline lock prior to the beginning of sedation, infusion, injection of imaging exam. Discontinue saline lock post exam. If Pt. has a central line or IVAD, may access for administration according to line specific nursing protocol. Once exam is complete flush line and de-access according to line specific nursing protocol in the MR contrast administration guidelines link. (Patient not taking: Reported on 08/06/2022) No current facility-administered medications for this visit. Objective BP 130/68 (BP Site: Right Arm, BP Position: Sitting, BP Cuff Size: Large Adult) Pulse 72 Temp (!) 35.8 C (96.4 F) (Temporal) Resp 16 Wt 65.8 kg (145 lb) BMI 22.71 kg/m Physical Exam Constitutional: General: He is not in acute distress. Appearance: He is not ill-appearing. Cardiovascular: Rate and Rhythm: Normal rate and regular rhythm. Heart sounds: No murmur heard. No gallop. Pulmonary: Breath sounds: Normal breath sounds. Musculoskeletal: Right lower leg: No edema. Left lower leg: No edema. Neurological: Mental Status: He is alert. Gait: Gait normal. Feet:Shoes and socks removed, No deformities, ulcers, calluses, normal distal pulses, sensitive to 10 gm monofilament, and nails notable for Crumbly, Deformed, Hypertrophic, or Yellowish Component Latest Ref Rng & Units 08/03/2022 Glucose 74 - 99 mg/dL 172 (H) BUN 9 - 24 mg/dL 21 Creatinine 0.73 - 1.22 mg/dL 0.87 Sodium 136 - 144 mmol/L 139 Potassium 3.7 - 5.1 mmol/L 4.8 Chloride 97 - 105 mmol/L 103 CO2 22 - 30 mmol/L 25 Anion Gap 9 - 18 mmol/L 11 Calcium 8.5 - 10.2 mg/dL 9.7 eGFR >=60 mL/min/1.73m 95 Hemoglobin A1C 4.3 - 5.6 % 6.1 (H) Estimated Average Glucose mg/dL 128 PSA <2.60 ng/mL 32.22 (H) Assessment and Plan 1. PSA elevation - ICD9: 790.93, ICD10: R97.20 (primary diagnosis) To see urology. 2. Acquired hypothyroidism - ICD9: 244.9, ICD10: E03.9 - continue current dose of Synthroid - LEVOTHYROXINE 25 MCG TABLET - TSH BLD 3. 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d by mild nonproliferative retinopathy without macular edema, without long-term current use of insulin (HCC) - ICD9: 250.50, 362.04, ICD10: E11.3293 - METFORMIN ER 500 MG TABLET,EXTENDED RELEASE 24 HR - GLIMEPIRIDE 4 MG TABLET. Change to evening with snack. - BASIC METABOLIC PNL - LIPID PANEL BASIC - ALBUMIN/CREAT RATIO RND UR 4. Essential hypertension - ICD9: 401.9, ICD10: I10 - fair control - Continue current medication(s) - Reviewed risks of HTN and principles of treatment - Goal of BP <130/80 Nahun Jeffrey MD documented in this encounterPromedica Memorial Hospital11-09-2022 Miscellaneous Notes* Telephone Encounter - Calvin Mosqueda Ma - 07/15/2022 3:00 PM EST Notified via GIGAS. * Telephone Encounter - Leigh Clements APRN.CNP - 07/15/2022 2:54 PM EST Ordered, he has labs due around 08/06 can just get them all done at once. Does not need to fast Leigh Clements APRN.CNP * Telephone Encounter - Florence Jacobsen - 07/15/2022 2:07 PM EST Patient's spouse called to request lab order for PSA to recheck levels since his previous results were high. Please contact patient's once submitted. Thank you. documented in this encounterPromedica Memorial Hospital09-27-2022 Miscellaneous Notes* Telephone Encounter - Joan Townsend LPN - 06/02/2022 10:24 AM EDT Patient has been identified by name and date of : Yes Patient phones for refill(s): Requested Prescriptions Pending Prescriptions Disp Refills empagliflozin (JARDIANCE) 10 mg tablet 90 tablet 1 Sig: Take 1 tablet by mouth once daily. Take 1 tablet once daily in the morning Date of last office visit in primary care: 05/07/2022 3 month follow-up 08/06/2022 Last 2 Encounter Wt Readings: Date: Wt: 05/07/2022 64.9 kg (143 lb) 12/02/2021 63.5 kg (140 lb) Previous labs/tests for medication: Diabetes: Hemoglobin A1C (%) Date Value 04/29/2022 6.0 10/27/2021 6.4 01/11/2021 7.0 Hemoglobin A1C (POCT) (%) Date Value 05/06/2021 6.2 Please advise. Thank you. Joan Townsend LPN * Telephone Encounter - Mariluz Haro - 06/01/2022 9:15 AM EDT Patient has been identified by name and date of : Yes Requested Prescriptions Pending Prescriptions Disp Refills empagliflozin (JARDIANCE) 10 mg tablet 30 tablet 2 Sig: Take 1 tablet by mouth once daily. Take 1 tablet once daily in the morning RX INSTRUCTIONS: patient requesting 90 day supply Patient aware RX will be sent to pharmacy. No need to notify patient. Mariluz Haro documented in this encounterPromedica Memorial Hospital09-01-2022 History of Present illness Narrative* Nahun Jeffrey MD - 05/07/2022 10:35 AM EDT This note was created using [employer]ote[employer]. Subjective Tuan Vallejo is a 67 year old male. He was doing well. He developed pain and stiffness in both shoulders after his prostate biopsy. He stopped lifting weights overhead and symptoms were improving. Diabetes was fair. Hypertension was controlled. Review of Systems Constitutional: Negative. Respiratory: Negative. Cardiovascular: Negative. Gastrointestinal: Negative. Genitourinary: Negative. Musculoskeletal: Positive for arthralgias. Negative for joint swelling and neck pain. 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 Dx: Type 2 DM - Controlled E11.9 Insulin: No blood sugar diagnostic (BLOOD GLUCOSE TEST) test strip Patient has one touch ultra glucometer. Testblood sugar(s) 2 times daily. Dx: Type 2 DM - Controlled E11.9 Insulin: No amLODIPine (NORVASC) 10 mg tablet Take 1 tablet by mouth once daily. iv contrast (will be provided with radiology test) MRI Prostate Inject, intravenously, once for 1 dose. No IV access, insert saline lock prior to the beginning of sedation, infusion, injection of imaging exam. Discontinue saline lock post exam. If Pt. has a central line or IVAD, may access for administration according to line specific nursing protocol. Once exam is complete flush line and de-access according to line specific nursing protocol in the MR contrast administration guidelines link. metFORMIN ER (GLUCOPHAGE XR) 500 mg 24 hr tablet Take 2 tablets by mouth twice daily before meals. pravastatin (PRAVACHOL) 40 mg tablet Take 1 tablet by mouth once daily. levothyroxine (SYNTHROID) 25 mcg tablet Take 1 tablet by mouth daily before breakfast. Blood-Glucose Meter (Hyasynth BioUCH ULTRA2 METER) monitoring kit 1 Each as needed. One Touch Meter Kit Diagnosis: Type 2 DM - Uncontrolled E11.65 Lancets (ONETOUCH ULTRASOFT LANCETS) lancets Test blood sugar(s) 1-2 times daily. Dx: Type 2 DM - Uncontrolled E11.65 , Insulin: No sildenafil (VIAGRA) 100 mg tablet Take 1 tablet PO daily as needed for erectile dysfunction glimepiride (AMARYL) 4 mg tablet Take 1 tablet by mouth daily with breakfast. empagliflozin (JARDIANCE) 10 mg tablet Take 1 tablet by mouth once daily. Take 1 tablet once daily in the morning No current facility-administered medications for this visit. Objective BP 122/72 (BP Site: Right Arm, BP Position: Sitting, BP Cuff Size: Large Adult) Pulse (!) 56 Temp (!) 35.9 C (96.6 F) (Temporal) Resp (!) 56 Wt 64.9 kg (143 lb) BMI 22.40 kg/m Physical Exam Constitutional: Appearance: Normal appearance. Cardiovascular: Rate and Rhythm: Regular rhythm. Bradycardia present. Heart sounds: No murmur heard. No gallop. Pulmonary: Breath sounds: Normal breath sounds. Abdominal: Palpations: Abdomen is soft. Tenderness: There is no abdominal tenderness. Musculoskeletal: Right shoulder: Normal. No tenderness. Left shoulder: Tenderness present. No swelling, deformity, bony tenderness or crepitus. Decreased range of motion. Normal strength. Right lower leg: No edema. Left lower leg: No edema. Neurological: Mental Status: He is alert. Component Latest Ref Rng & Units 04/29/2022 Protein, Total 6.3 - 8.0 g/dL 7.2 Albumin 3.9 - 4.9 g/dL 4.7 Calcium 8.5 - 10.2 mg/dL 9.6 Bilirubin, Total 0.2 - 1.3 mg/dL 0.4 Alkaline Phosphatase 38 - 113 U/L 60 AST 14 - 40 U/L 23 ALT 10 - 54 U/L 15 Glucose 74 - 99 mg/dL 163 (H) BUN 9 - 24 mg/dL 18 Creatinine 0.73 - 1.22 mg/dL 0.89 Sodium 136 - 144 mmol/L 141 Potassium 3.7 - 5.1 mmol/L 5.2 (H) Chloride 97 - 105 mmol/L 103 CO2 22 - 30 mmol/L 23 Anion Gap 9 - 18 mmol/L 15 eGFR >=60 mL/min/1.73m 95 Cholesterol, Total <200 mg/dL 222 (H) Triglyceride <150 mg/dL 67 HDL Cholesterol >39 mg/dL 83 Non HDL Cholesterol <130 mg/dL 139 (H) Fasting Time hrs 12 VLDL Cholesterol <30 mg/dL 13 TC:HDL Ratio <5.10 2.67 LDL Cholesterol <100 mg/dL 126 (H) LDL:HDL Ratio <2.54 1.52 Hemoglobin A1C 4.3 - 5.6 % 6.0 (H) Estimated Average Glucose mg/dL 126 Glucose meter data or log was reviewed for the past month. Range: 85-191. Average: 127. Patient wastesting BID. Higher frequency of testing needed: N/A. Assessment and Plan 1. Medicare annual wellness visit, initial - ICD9: V70.0, ICD10: Z00.00 (primary diagnosis) - ADVANCE CARE PLAN DISCUSSION 2. ED (erectile dysfunction) of organic origin - ICD9: 607.84, ICD10: N52.9 Refilled. Rx printed. - SILDENAFIL 100 MG TABLET 3. Need for influenza vaccination - ICD9: V04.81, ICD10: Z23 - INFLUENZA SEASONAL QUADRIVALENT HIGH DOSE AGE 65+ 4. Essential hypertension - ICD9: 401.9, ICD10: I10 - good control - Continue current medication(s) - Reviewed risks of HTN and principles of treatment - Goal of BP <130/80 5. 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d by mild nonproliferative retinopathy without macular edema, without long-term current use of insulin (HCC) - ICD9: 250.50, 362.04, ICD10: E11.3293 Improved control. - GLIMEPIRIDE 4 MG TABLET. Reduce to once daily in the AM. - EMPAGLIFLOZIN 10 MG TABLET. New medication. Discussed medication dosage, usage, goals of therapy,and side effects. Shared Medical Decision Making was done: Possible interactions: glimepiride. Warnings: genital gangrene, rare. Options: others. Cost: high. Prior approval may be needed. - BASIC METABOLIC PNL - HGB A1C 6. Acquired hypothyroidism - ICD9: 244.9, ICD10: E03.9 - continue current dose of Synthroid 7. Adhesive capsulitis of left shoulder - ICD9: 726.0, ICD10: M75.02 This was improving. ROM exercises recommended. Call for PT if not better. Nahun Jeffrey MD * Nahun Jeffrey MD - 05/07/2022 9:51 AM EDT Medicare Yearly Visit Medical B eligibilty date 03/06/2021 Date of last exam 05/06/2021 PAST MEDICAL HISTORY Diagnosis Date Acquired hypothyroidism 10/21/2015 Arthritis Back pain ED (erectile dysfunction) of organic origin 10/18/2020 Essential hypertension 09/05/2014 Familial combined hyperlipidemia 07/29/2015 Onychomycosis of multiple toenails with type 2 diabetes mellitus (HCC) 02/08/2017 Personal history of colonic polyps 02/20/2016 PSA elevation 09/26/2019 Skin cancer unknown type 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d by mild nonproliferative retinopathy without macular edema, without long-term current use of insulin (HCC) 02/27/2019 Exam 02/10/[address] Fuentes. Type 2 diabetes mellitus without complication (HCC) 07/29/2015 PAST SURGICAL HISTORY Procedure Laterality Date COLONOSCOPY FLX DX W/COLLJ SPEC WHEN PFRMD 03/11/2018 10 year follow-up COLSC FLX W/RMVL OF TUMOR POLYP LESION SNARE TQ 03/07/2013 5mm polyp adenomatous - 3 year follow up HERNIA REPAIR HX Bilateral 1983 bilateral inguinal PROSTATE BIOPSY 12/02/2021 ALLERGIES: Bee Sting, Peanuts, Tamsulosin, and Penicillins Medications reviewed: Yes FAMILY HISTORY Problem Relation Age of Onset Dementia Mother Kidney Disease Mother other (hypoglycemia) Mother Heart Father of [place] Diabetes Father Lung Cancer Father lung cancer Diabetes Sister Diabetes Sister Diabetes Brother type 1 diabetes Lung Cancer Brother No Known Problems Brother Diabetes Brother SOCIAL HISTORY: Social History Tobacco Use Smoking status: Former Packs/day: 2.00 Years: 35.00 Pack years: 70.00 Types: Cigarettes Quit date: 02/24/2002 Years since quittin.2 Smokeless tobacco: Never Tobacco comments: started 8 years old Vaping Use Vaping Use: Never used Substance Use Topics Alcohol use: Yes Alcohol/week: 17.5 standard drinks Types: 7 Glasses of Wine (5oz) per week Comment: Pt drinks 1 glass of wine a day Drug use: No [place] works out regularly 7 times per week with walking on treadmill and light weights. He watcheshis diet for sodium, low fat and low cholesterol most of the time. List of current specialists seen: Johnathon Fuentes OD. Dr. Radha Barragan, urology. End of Live Planning discussed including patients advanced directive wishes: Yes. None made. PHQ-2 / Depression screen He in the past two weeks denies having felt down, depressed, hopeless, or with little interest or pleasure in doing things. PHQ-2 Score: 0 Functional Ability/Safety Screen 1. Was the patient's timed Up and Go test unsteady or longer than 30 seconds? No 2. Does the patient need help with the phone, transportation, shopping,preparing meals, housework, laundry, medications or managing money? No 3. Does your home have rugs in the hallway, lack of grab bars in the bathroom, lack of handrails onthe stairs or have poor lighting? No Hearing Evaluation: normal PHYSICAL EXAM BP 122/72 (BP Site: Right Arm, BP Position: Sitting, BP Cuff Size: Large Adult) Pulse (!) 56 Temp (!) 35.9 C (96.6 F) (Temporal) Resp (!) 56 Wt 64.9 kg (143 lb) BMI 22.40 kg/m Alert and oriented X 3: YES Body mass index is 22.4 kg/m . Visual acuity: sees optometry. ASSESSMENT/PLAN: 67 year old male The following prevention plan was discussed during the office visit and provided to the patient: - Vaccines recommended COVID-19, Pneumococcal, and Influenza - Depression screening - Alcohol misuse screening and counseling - Glaucoma screening Nahun Jeffrey MD documented in this encounterPromedica Memorial Hospital09-01-2022 Instructions* Patient Instructions* Nahun Jeffrey MD - 05/07/2022 9:58 AM EDT Advance Directive Forms Advanced Directives Forms ([place] Citizen) FORMS: [email or web address] INFORMATIONAL BROCHURE: [email or web address]?la=en Advance Directives (non-[place] Citizen) FORMS: [email or web address] [email or web address] Please bring completed forms to your next appointment or email them to [email or web address]. Patient Resources How to Get Started Talking with Loved Ones about your Wishes at the End of Life [email or web address]://[email or web address]/wp-content/uploads//ConversationProjec e-MdjkvIfhhawtJcf-Eynluul.pdf How to Navigate Conversations with your Care Team around your Preferences [email or web address] SEE MEDICATION LIST FOR CHANGES. documented in this encounterPromedica Memorial Hospital07-28-2022 Miscellaneous Notes* Telephone Encounter - Mariluz Haro - 04/02/2022 2:52 PM EDT Patient Tuan spouse called, pharmacy suggested getting an order for alcohol pads when he tests his BS. Please send to [facility]. documented in this encounterPromedica Memorial Hospital06-20-2022 Miscellaneous Notes* Telephone Encounter - Akilah Salgado - 02/23/2022 9:30 AM EDT Patient spouse calling in today, Wednesday02/23/2022 noting patient is completely out of test strips and can provider please call these in today to [facility]. Advise patient when RX has been sent at [phone]. Thank you * Telephone Encounter - Karoline Jensen - 02/19/2022 3:45 PM EDT Patient has been identified by name and date of : Yes Pending Prescriptions Disp Refills BLOOD GLUCOSE TEST STRIPS 100 Strip 3 Sig: Patient has one touch ultra glucometer. Test blood sugar(s) 2 times daily. Dx: Type 2 DM - Controlled E11.9 Insulin: No MARY: No RX INSTRUCTIONS: Patient aware RX will be sent to pharmacy. No need to notify patient. Karoline Jensen documented in this encounterPromedica Memorial Hospital04-25-2022 Miscellaneous Notes* Telephone Encounter - Jaclyn Metcalf LPN - 12/29/2021 11:08 AM EDT Last appt with pcp 11/03/21 Next appt 05/07/22. * Telephone Encounter - Honey Kumar Pss - 12/29/2021 9:40 AM EDT Patient has been identified by name and date of : Yes Pending Prescriptions Disp Refills GLIMEPIRIDE 4 MG TABLET 180 tablet 3 Sig: Take 1 tablet by mouth twice daily with meals. MARY: No AMLODIPINE 10 MG TABLET 90 tablet 3 Sig: Take 1 tablet by mouth once daily. MARY: No RX INSTRUCTIONS: Patient aware RX will be sent to pharmacy. No need to notify patient. Honey Kumar Pss documented in this encounterPromedica Memorial Hospital04-01-2022 Miscellaneous Notes* Telephone Encounter - Uriel Barragan DO - 12/05/2021 12:05 AM EDT No prostate cancer found on biopsy. Needs PSA and prostate MRI in 6 months then appointment with myself. documented in this encounterPromedica Memorial Hospital03-29-2022 Procedure note* Uriel Barragan DO - 12/02/2021 9:05 AM EDT Procedure(s): PROSTATE BIOPSY Pre-Procedure Diagnose(s): Elevated prostate specific antigen (PSA) Post-Procedure Diagnose(s): Elevated prostate specific antigen (PSA) PHYSICIANS NOTE: TRANSRECTAL ULTRASOUND AND BIOPSY PROCEDURE: December 02, 2021 Sign In History and Physical Exam reviewed and is unchanged. Primary Diagnosis: Psa elevation (primary encounter diagnosis) Informed Consent Discussed: Yes. Risks, benefits, alternatives and personnel discussed with patientwho consents to proceed. Sign in Communication: Completed Time Out: Team Confirms the Correct Patient, Correct Procedure; Transrectal Ultrasound and Biopsy, Correct Site and Site Marking (not applicable), Correct Position. Affirmation of Time Out: YES Sign Out: Sign Out Discussion: Completed Patient history and ROS confirmed unchanged from last office visit. Family history for prostate cancer is: negative Audible Time Out: Yes TRUS PROCEDURE WITH BIOPSY Number of Prior Biopsies: 0 Highest Number of Cores on a Prior Biopsy: Not applicable (this is first biopsy) The patient was placed in the lateral decubitus position. Digital rectal exam was normal. The ultrasound probe was placed into the rectum and the prostate visualized. Approximately 10 cc plain lidocaine was injected bilaterally into the perioprostatic nerves. The prostate was visualized in both planes and no hypoechoic lesion identified. The total prostate volume was 37 gm The patient underwent biopsy removing 12 total cores. Prostate biopsies taken from the site below using ultrasound guidance: Right Base: 2 Right Mid: 2 Right Bronson: 2 Left Base: 2 Left Mid: 2 Left Bronson: 2 PSA (ng/mL) Date Value 10/27/2021 12.95 07/13/2020 6.02 04/06/2020 6.23 09/26/2019 4.04 PSA Screening (ng/mL) Date Value 03/27/2019 4.05 Complications: None Follow-up: Patient already has appointment scheduled ONE WEEK. Uriel Barragan DO documented [facility] Miscellaneous Notes* Telephone Encounter - Joan Townsend LPN - 12/01/2021 4:54 PM EDT notified of below recommendation, verbalized understanding. Joan Townsend LPN * Telephone Encounter - Leigh Clements APRN.CNP - 12/01/2021 4:40 PM EDT Continue with same dose of amlodipine. In regards to pedal edema make sure to keep legs elevated atrest, avoid prolonged sitting/standing. Call office if edema worsens or persists Leigh Clements APRN.CNP * Telephone Encounter - Moni Bowers LPN - 12/01/2021 9:13 AM EDT Manual Readin/76 Pulse: 62 Reason for blood pressure check - Last BP elevated and Medication adjustment Patient is: Taking medication as prescribed Yes Took medication today Yes If no, date medication last taken N/A Experiencing side effects Yes BP was elevated at last appt 11/03/21. Amlodipine was increased to 10mg daily. Reports that he has noticed some intermittent pedal edema since increasing dose. Mostly will occur in evenings when it does happen. Denies any chest pain, shortness of breath, dizziness, or headaches. Drinks decaf. Past personal history of tobacco use; no current exposure. Alert and oriented. Pt has been identified by name and birthdate: Yes Allergies reviewed: Yes Latex allergy: no. Medication - prescribed and OTC reviewed and updated: Yes Do you need any prescription refills prior to your next visit: No Health Maintenance: Reviewed and not up to date and provider notified Patient advised that he would be contacted after review by PCP. Moni Bowers LPN documented in this encounterProm[facility] History of Present illness Narrative* Moni Bowers LPN - 12/01/2021 9:11 AM EDT Manual Readin/76 Pulse: 62 Reason for blood pressure check - Last BP elevated and Medication adjustment Patient is: Taking medication as prescribed Yes Took medication today Yes If no, date medication last taken N/A Experiencing side effects Yes BP was elevated at last appt 11/03/21. Amlodipine was increased to 10mg daily. Reports that he has noticed some intermittent pedal edema since increasing dose. Mostly will occur in evenings when it does happen. Denies any chest pain, shortness of breath, dizziness, or headaches. Drinks decaf. Past personal history of tobacco use; no current exposure. Alert and oriented. Pt has been identified by name and birthdate: Yes Allergies reviewed: Yes Latex allergy: no. Medication - prescribed and OTC reviewed and updated: Yes Do you need any prescription refills prior to your next visit: No Health Maintenance: Reviewed and not up to date and provider notified Patient advised that he would be contacted after review by PCP. Moni Bowers LPN documented in this encounterProm[facility] History of Past illness Narrative* Problem Noted Date Resolved Date PSA elevation 09/26/2019 12/04/2022 Type 2 diabetes mellitus wit hout complication, without long-term current use of insulin 09/16/2018 07/17/2020 Uncontrolled type 2 diabetes mellitus without complication, without long-term current use of insulin 03/16/2018 07/17/2020 Rhus dermatitis 03/16/2018 07/17/2020 Well adult exam 06/07/2017 07/17/2020 Onychomycosis of multiple to enails with type 2 diabetes mellitus 02/08/2017 07/17/2020 Essential hypertension 07/29/2015 6 Type 2 diabetes mellitus without complication 07/17/2020 Diabetes 09/05/2014 10/21/2015 Atypical chest pain 09/05/2014 10/21/2015 documented as of this encounter (statuses as of 12/04/2022) [facility] Narrative* Problem Noted Date Resolved Date PSA elevation 09/26/2019 12/04/2022 Type 2 diabetes mellitus wit hout complication, without long-term current use of insulin 09/16/2018 07/17/2020 Uncontrolled type 2 diabetes mellitus without complication, without long-term current use of insulin 03/16/2018 07/17/2020 Rhus dermatitis 03/16/2018 07/17/2020 Well adult exam 06/07/2017 07/17/2020 Onychomycosis of multiple to enails with type 2 diabetes mellitus 02/08/2017 07/17/2020 Essential hypertension 07/29/2015 6 Type 2 diabetes mellitus without complication 07/17/2020 Diabetes 09/05/2014 10/21/2015 Atypical chest pain 09/05/2014 10/21/2015 documented as of this encounter (statuses as of 12/09/2022) [facility] Narrative* Problem Noted Date Resolved Date PSA elevation 09/26/2019 12/04/2022 Type 2 diabetes mellitus wit hout complication, without long-term current use of insulin 09/16/2018 07/17/2020 Uncontrolled type 2 diabetes mellitus without complication, without long-term current use of insulin 03/16/2018 07/17/2020 Rhus dermatitis 03/16/2018 07/17/2020 Well adult exam 06/07/2017 07/17/2020 Onychomycosis of multiple to enails with type 2 diabetes mellitus 02/08/2017 07/17/2020 Essential hypertension 07/29/2015 6 Type 2 diabetes mellitus without complication 07/17/2020 Diabetes 09/05/2014 10/21/2015 Atypical chest pain 09/05/2014 10/21/2015 documented as of this encounter (statuses as of 12/17/2022) [facility] Narrative* Problem Noted Date Resolved Date PSA elevation 09/26/2019 12/04/2022 Type 2 diabetes mellitus wit hout complication, without long-term current use of insulin 09/16/2018 07/17/2020 Uncontrolled type 2 diabetes mellitus without complication, without long-term current use of insulin 03/16/2018 07/17/2020 Rhus dermatitis 03/16/2018 07/17/2020 Well adult exam 06/07/2017 07/17/2020 Onychomycosis of multiple to enails with type 2 diabetes mellitus 02/08/2017 07/17/2020 Essential hypertension 07/29/2015 6 Type 2 diabetes mellitus without complication 07/17/2020 Diabetes 09/05/2014 10/21/2015 Atypical chest pain 09/05/2014 10/21/2015 documented as of this encounter (statuses as of 12/18/2022) [facility] Narrative* Problem Noted Date Resolved Date Type 2 diabetes mellitus wit hout complication, without long-term current use of insulin 09/16/2018 07/17/2020 Uncontrolled type 2 diabetes mellitus without complication, without long-term current use of insulin 03/16/2018 07/17/2020 Rhus dermatitis 03/16/2018 07/17/2020 Well adult exam 06/07/2017 07/17/2020 Onychomycosis of multiple to enails with type 2 diabetes mellitus 02/08/2017 07/17/2020 Essential hypertension 07/29/2015 6 Type 2 diabetes mellitus without complication 07/17/2020 Diabetes 09/05/2014 10/21/2015 Atypical chest pain 09/05/2014 10/21/2015 documented as of this encounter (statuses as of 12/01/2021) [facility] Narrative* Problem Noted Date Resolved Date Type 2 diabetes mellitus wit hout complication, without long-term current use of insulin 09/16/2018 07/17/2020 Uncontrolled type 2 diabetes mellitus without complication, without long-term current use of insulin 03/16/2018 07/17/2020 Rhus dermatitis 03/16/2018 07/17/2020 Well adult exam 06/07/2017 07/17/2020 Onychomycosis of multiple to enails with type 2 diabetes mellitus 02/08/2017 07/17/2020 Essential hypertension 07/29/2015 6 Type 2 diabetes mellitus without complication 07/17/2020 Diabetes 09/05/2014 10/21/2015 Atypical chest pain 09/05/2014 10/21/2015 documented as of this encounter (statuses as of 12/01/2021) [facility] Narrative* Problem Noted Date Resolved Date Type 2 diabetes mellitus wit hout complication, without long-term current use of insulin 09/16/2018 07/17/2020 Uncontrolled type 2 diabetes mellitus without complication, without long-term current use of insulin 03/16/2018 07/17/2020 Rhus dermatitis 03/16/2018 07/17/2020 Well adult exam 06/07/2017 07/17/2020 Onychomycosis of multiple to enails with type 2 diabetes mellitus 02/08/2017 07/17/2020 Essential hypertension 07/29/2015 6 Type 2 diabetes mellitus without complication 07/17/2020 Diabetes 09/05/2014 10/21/2015 Atypical chest pain 09/05/2014 10/21/2015 documented as of this encounter (statuses as of 12/02/2021) [facility] Narrative* Problem Noted Date Resolved Date Type 2 diabetes mellitus wit hout complication, without long-term current use of insulin 09/16/2018 07/17/2020 Uncontrolled type 2 diabetes mellitus without complication, without long-term current use of insulin 03/16/2018 07/17/2020 Rhus dermatitis 03/16/2018 07/17/2020 Well adult exam 06/07/2017 07/17/2020 Onychomycosis of multiple to enails with type 2 diabetes mellitus 02/08/2017 07/17/2020 Essential hypertension 07/29/2015 6 Type 2 diabetes mellitus without complication 07/17/2020 Diabetes 09/05/2014 10/21/2015 Atypical chest pain 09/05/2014 10/21/2015 documented as of this encounter (statuses as of 12/05/2021) [facility] Narrative* Problem Noted Date Resolved Date Type 2 diabetes mellitus wit hout complication, without long-term current use of insulin 09/16/2018 07/17/2020 Uncontrolled type 2 diabetes mellitus without complication, without long-term current use of insulin 03/16/2018 07/17/2020 Rhus dermatitis 03/16/2018 07/17/2020 Well adult exam 06/07/2017 07/17/2020 Onychomycosis of multiple to enails with type 2 diabetes mellitus 02/08/2017 07/17/2020 Essential hypertension 07/29/2015 6 Type 2 diabetes mellitus without complication 07/17/2020 Diabetes 09/05/2014 10/21/2015 Atypical chest pain 09/05/2014 10/21/2015 documented as of this encounter (statuses as of 12/29/2021) [facility] Narrative* Problem Noted Date Resolved Date Type 2 diabetes mellitus wit hout complication, without long-term current use of insulin 09/16/2018 07/17/2020 Uncontrolled type 2 diabetes mellitus without complication, without long-term current use of insulin 03/16/2018 07/17/2020 Rhus dermatitis 03/16/2018 07/17/2020 Well adult exam 06/07/2017 07/17/2020 Onychomycosis of multiple to enails with type 2 diabetes mellitus 02/08/2017 07/17/2020 Essential hypertension 07/29/2015 6 Type 2 diabetes mellitus without complication 07/17/2020 Diabetes 09/05/2014 10/21/2015 Atypical chest pain 09/05/2014 10/21/2015 documented as of this encounter (statuses as of 02/24/2022) [facility]* Problem Noted Date Resolved Date Type 2 diabetes mellitus wit hout complication, without long-term current use of insulin 09/16/2018 07/17/2020 Uncontrolled type 2 diabetes mellitus without complication, without long-term current use of insulin 03/16/2018 07/17/2020 Rhus dermatitis 03/16/2018 07/17/2020 Well adult exam 06/07/2017 07/17/2020 Onychomycosis of multiple to enails with type 2 diabetes mellitus 02/08/2017 07/17/2020 Essential hypertension 07/29/2015 6 Type 2 diabetes mellitus without complication 07/17/2020 Diabetes 09/05/2014 10/21/2015 Atypical chest pain 09/05/2014 10/21/2015 documented as of this encounter (statuses as of 04/03/2022) [facility] Narrative* Problem Noted Date Resolved Date Type 2 diabetes mellitus wit hout complication, without long-term current use of insulin 09/16/2018 07/17/2020 Uncontrolled type 2 diabetes mellitus without complication, without long-term current use of insulin 03/16/2018 07/17/2020 Rhus dermatitis 03/16/2018 07/17/2020 Well adult exam 06/07/2017 07/17/2020 Onychomycosis of multiple to enails with type 2 diabetes mellitus 02/08/2017 07/17/2020 Essential hypertension 07/29/2015 6 Type 2 diabetes mellitus without complication 07/17/2020 Diabetes 09/05/2014 10/21/2015 Atypical chest pain 09/05/2014 10/21/2015 documented as of this encounter (statuses as of 05/07/2022) [facility]* Problem Noted Date Resolved Date Type 2 diabetes mellitus wit hout complication, without long-term current use of insulin 09/16/2018 07/17/2020 Uncontrolled type 2 diabetes mellitus without complication, without long-term current use of insulin 03/16/2018 07/17/2020 Rhus dermatitis 03/16/2018 07/17/2020 Well adult exam 06/07/2017 07/17/2020 Onychomycosis of multiple to enails with type 2 diabetes mellitus 02/08/2017 07/17/2020 Essential hypertension 07/29/2015 6 Type 2 diabetes mellitus without complication 07/17/2020 Diabetes 09/05/2014 10/21/2015 Atypical chest pain 09/05/2014 10/21/2015 documented as of this encounter (statuses as of 06/02/2022) [facility]ative* Problem Noted Date Resolved Date Type 2 diabetes mellitus wit hout complication, without long-term current use of insulin 09/16/2018 07/17/2020 Uncontrolled type 2 diabetes mellitus without complication, without long-term current use of insulin 03/16/2018 07/17/2020 Rhus dermatitis 03/16/2018 07/17/2020 Well adult exam 06/07/2017 07/17/2020 Onychomycosis of multiple to enails with type 2 diabetes mellitus 02/08/2017 07/17/2020 Essential hypertension 07/29/2015 6 Type 2 diabetes mellitus without complication 07/17/2020 Diabetes 09/05/2014 10/21/2015 Atypical chest pain 09/05/2014 10/21/2015 documented as of this encounter (statuses as of 07/15/2022) [facility]* Problem Noted Date Resolved Date Type 2 diabetes mellitus wit hout complication, without long-term current use of insulin 09/16/2018 07/17/2020 Uncontrolled type 2 diabetes mellitus without complication, without long-term current use of insulin 03/16/2018 07/17/2020 Rhus dermatitis 03/16/2018 07/17/2020 Well adult exam 06/07/2017 07/17/2020 Onychomycosis of multiple to enails with type 2 diabetes mellitus 02/08/2017 07/17/2020 Essential hypertension 07/29/2015 6 Type 2 diabetes mellitus without complication 07/17/2020 Diabetes 09/05/2014 10/21/2015 Atypical chest pain 09/05/2014 10/21/2015 documented as of this encounter (statuses as of 08/06/2022) [facility] Narrative* Problem Noted Date Resolved Date Type 2 diabetes mellitus wit hout complication, without long-term current use of insulin 09/16/2018 07/17/2020 Uncontrolled type 2 diabetes mellitus without complication, without long-term current use of insulin 03/16/2018 07/17/2020 Rhus dermatitis 03/16/2018 07/17/2020 Well adult exam 06/07/2017 07/17/2020 Onychomycosis of multiple to enails with type 2 diabetes mellitus 02/08/2017 07/17/2020 Essential hypertension 07/29/2015 6 Type 2 diabetes mellitus without complication 07/17/2020 Diabetes 09/05/2014 10/21/2015 Atypical chest pain 09/05/2014 10/21/2015 documented as of this encounter (statuses as of 09/23/2022) [facility]* Problem Noted Date Resolved Date Type 2 diabetes mellitus wit hout complication, without long-term current use of insulin 09/16/2018 07/17/2020 Uncontrolled type 2 diabetes mellitus without complication, without long-term current use of insulin 03/16/2018 07/17/2020 Rhus dermatitis 03/16/2018 07/17/2020 Well adult exam 06/07/2017 07/17/2020 Onychomycosis of multiple to enails with type 2 diabetes mellitus 02/08/2017 07/17/2020 Essential hypertension 07/29/2015 6 Type 2 diabetes mellitus without complication 07/17/2020 Diabetes 09/05/2014 10/21/2015 Atypical chest pain 09/05/2014 10/21/2015 documented as of this encounter (statuses as of 09/25/2022) [facility]* Problem Noted Date Resolved Date Type 2 diabetes mellitus wit hout complication, without long-term current use of insulin 09/16/2018 07/17/2020 Uncontrolled type 2 diabetes mellitus without complication, without long-term current use of insulin 03/16/2018 07/17/2020 Rhus dermatitis 03/16/2018 07/17/2020 Well adult exam 06/07/2017 07/17/2020 Onychomycosis of multiple to enails with type 2 diabetes mellitus 02/08/2017 07/17/2020 Essential hypertension 07/29/2015 6 Type 2 diabetes mellitus without complication 07/17/2020 Diabetes 09/05/2014 10/21/2015 Atypical chest pain 09/05/2014 10/21/2015 documented as of this encounter (statuses as of 10/01/2022) [facility]* Problem Noted Date Resolved Date Type 2 diabetes mellitus wit hout complication, without long-term current use of insulin 09/16/2018 07/17/2020 Uncontrolled type 2 diabetes mellitus without complication, without long-term current use of insulin 03/16/2018 07/17/2020 Rhus dermatitis 03/16/2018 07/17/2020 Well adult exam 06/07/2017 07/17/2020 Onychomycosis of multiple to enails with type 2 diabetes mellitus 02/08/2017 07/17/2020 Essential hypertension 07/29/2015 6 Type 2 diabetes mellitus without complication 07/17/2020 Diabetes 09/05/2014 10/21/2015 Atypical chest pain 09/05/2014 10/21/2015 documented as of this encounter (statuses as of 10/13/2022) [facility]arr[facility]* Problem Noted Date Resolved Date Type 2 diabetes mellitus wit hout complication, without long-term current use of insulin 09/16/2018 07/17/2020 Uncontrolled type 2 diabetes mellitus without complication, without long-term current use of insulin 03/16/2018 07/17/2020 Rhus dermatitis 03/16/2018 07/17/2020 Well adult exam 06/07/2017 07/17/2020 Onychomycosis of multiple to enails with type 2 diabetes mellitus 02/08/2017 07/17/2020 Essential hypertension 07/29/2015 6 Type 2 diabetes mellitus without complication 07/17/2020 Diabetes 09/05/2014 10/21/2015 Atypical chest pain 09/05/2014 10/21/2015 documented as of this encounter (statuses as of 10/15/2022) [facility]arrative* Problem Noted Date Resolved Date Type 2 diabetes mellitus wit hout complication, without long-term current use of insulin 09/16/2018 07/17/2020 Uncontrolled type 2 diabetes mellitus without complication, without long-term current use of insulin 03/16/2018 07/17/2020 Rhus dermatitis 03/16/2018 07/17/2020 Well adult exam 06/07/2017 07/17/2020 Onychomycosis of multiple to enails with type 2 diabetes mellitus 02/08/2017 07/17/2020 Essential hypertension 07/29/2015 6 Type 2 diabetes mellitus without complication 07/17/2020 Diabetes 09/05/2014 10/21/2015 Atypical chest pain 09/05/2014 10/21/2015 documented as of this encounter (statuses as of 10/30/2022) [facility]arrative* Problem Noted Date Resolved Date Type 2 diabetes mellitus wit hout complication, without long-term current use of insulin 09/16/2018 07/17/2020 Uncontrolled type 2 diabetes mellitus without complication, without long-term current use of insulin 03/16/2018 07/17/2020 Rhus dermatitis 03/16/2018 07/17/2020 Well adult exam 06/07/2017 07/17/2020 Onychomycosis of multiple to enails with type 2 diabetes mellitus 02/08/2017 07/17/2020 Essential hypertension 07/29/2015 6 Type 2 diabetes mellitus without complication 07/17/2020 Diabetes 09/05/2014 10/21/2015 Atypical chest pain 09/05/2014 10/21/2015 documented as of this encounter (statuses as of 11/03/2022) [facility]arrative* Problem Noted Date Resolved Date Type 2 diabetes mellitus wit hout complication, without long-term current use of insulin 09/16/2018 07/17/2020 Uncontrolled type 2 diabetes mellitus without complication, without long-term current use of insulin 03/16/2018 07/17/2020 Rhus dermatitis 03/16/2018 07/17/2020 Well adult exam 06/07/2017 07/17/2020 Onychomycosis of multiple to enails with type 2 diabetes mellitus 02/08/2017 07/17/2020 Essential hypertension 07/29/2015 6 Type 2 diabetes mellitus without complication 07/17/2020 Diabetes 09/05/2014 10/21/2015 Atypical chest pain 09/05/2014 10/21/2015 documented as of this encounter (statuses as of 11/11/2022) [facility]arrative* Problem Noted Date Resolved Date Type 2 diabetes mellitus wit hout complication, without long-term current use of insulin 09/16/2018 07/17/2020 Uncontrolled type 2 diabetes mellitus without complication, without long-term current use of insulin 03/16/2018 07/17/2020 Rhus dermatitis 03/16/2018 07/17/2020 Well adult exam 06/07/2017 07/17/2020 Onychomycosis of multiple to enails with type 2 diabetes mellitus 02/08/2017 07/17/2020 Essential hypertension 07/29/2015 6 Type 2 diabetes mellitus without complication 07/17/2020 Diabetes 09/05/2014 10/21/2015 Atypical chest pain 09/05/2014 10/21/2015 documented as of this encounter (statuses as of 11/16/2022) [facility]* Problem Noted Date Resolved Date Type 2 diabetes mellitus wit hout complication, without long-term current use of insulin 09/16/2018 07/17/2020 Uncontrolled type 2 diabetes mellitus without complication, without long-term current use of insulin 03/16/2018 07/17/2020 Rhus dermatitis 03/16/2018 07/17/2020 Well adult exam 06/07/2017 07/17/2020 Onychomycosis of multiple to enails with type 2 diabetes mellitus 02/08/2017 07/17/2020 Essential hypertension 07/29/2015 6 Type 2 diabetes mellitus without complication 07/17/2020 Diabetes 09/05/2014 10/21/2015 Atypical chest pain 09/05/2014 10/21/2015 documented as of this encounter (statuses as of 11/18/2022) [address]2019 History of Past illness Narrative* Problem Noted Date Resolved Date Type 2 diabetes mellitus wit hout complication, without long-term current use of insulin 09/16/2018 07/17/2020 Uncontrolled type 2 diabetes mellitus without complication, without long-term current use of insulin 03/16/2018 07/17/2020 Rhus dermatitis 03/16/2018 07/17/2020 Well adult exam 06/07/2017 07/17/2020 Onychomycosis of multiple to enails with type 2 diabetes mellitus 02/08/2017 07/17/2020 Essential hypertension 07/29/2015 6 Type 2 diabetes mellitus without complication 07/17/2020 Diabetes 09/05/2014 10/21/2015 Atypical chest pain 09/05/2014 10/21/2015 documented as of this encounter (statuses as of 11/25/2022) [facility] Narrative* Problem Noted Date Resolved Date Type 2 diabetes mellitus wit hout complication, without long-term current use of insulin 09/16/2018 07/17/2020 Uncontrolled type 2 diabetes mellitus without complication, without long-term current use of insulin 03/16/2018 07/17/2020 Rhus dermatitis 03/16/2018 07/17/2020 Well adult exam 06/07/2017 07/17/2020 Onychomycosis of multiple to enails with type 2 diabetes mellitus 02/08/2017 07/17/2020 Essential hypertension 07/29/2015 6 Type 2 diabetes mellitus without complication 07/17/2020 Diabetes 09/05/2014 10/21/2015 Atypical chest pain 09/05/2014 10/21/2015 documented as of this encounter (statuses as of 12/01/2022) [facility] Narrative* Problem Noted Date Resolved Date Type 2 diabetes mellitus wit hout complication, without long-term current use of insulin 09/16/2018 07/17/2020 Uncontrolled type 2 diabetes mellitus without complication, without long-term current use of insulin 03/16/2018 07/17/2020 Rhus dermatitis 03/16/2018 07/17/2020 Well adult exam 06/07/2017 07/17/2020 Onychomycosis of multiple to enails with type 2 diabetes mellitus 02/08/2017 07/17/2020 Essential hypertension 07/29/2015 6 Type 2 diabetes mellitus without complication 07/17/2020 Diabetes 09/05/2014 10/21/2015 Atypical chest pain 09/05/2014 10/21/2015 documented as of this encounter (statuses as of 12/01/2022) [facility] Diagnosis Hypertension goal BP (blood pressure) < 140/90- Primary Unspecified essential hypertension PSA elevation- Primary Elevated prostate specific antigen (PSA) [facility] PSA elevation- Primary Elevated prostate specific antigen (PSA) [facility] Diagnosis Elevated prostate specific antigen (PSA)- Primary [facility] Diagnosis Essential hypertension Unspecified essential hypertension [facility] Diagnosis Medicare annual wellness visit, initial- Primary Routine general medical examination at a health care facility ED (erectile dysfunction) of organic origin Impotence of organic origin Need for influenza vaccination Need for prophylactic vaccination and inoculation against influenza Essential hypertension Unspecified essential hypertension 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d by mild nonproliferative retinopathy without macular edema, without long-term current use of insulin (HCC) Acquired hypothyroidism Unspecified hypothyroidism Adhesive capsulitis of left shoulder Adhesive capsulitis of shoulder [facility] Diagnosis 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d by mild nonproliferative retinopathy without macular edema, without long-term current use of insulin (HCC) [facility] Diagnosis Elevated PSA- Primary Elevated prostate specific antigen (PSA) [facility] Diagnosis PSA elevation- Primary Elevated prostate specific antigen (PSA) Acquired hypothyroidism Unspecified hypothyroidism 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d by mild nonproliferative retinopathy without macular edema, without long-term current use of insulin (HCC) Essential hypertension Unspecified essential hypertension [facility] Diagnosis Elevated prostate specific antigen (PSA) [facility]* Diagnosis Elevated prostate specific antigen (PSA)- Primary [facility] Diagnosis PSA elevation- Primary Elevated prostate specific antigen (PSA) [facility] Diagnosis Prostate cancer (HCC)- Primary Malignant neoplasm of prostate Prostate cancer (HCC) Malignant neoplasm of prostate [facility] Diagnosis Preop testing- Primary Preoperative examination, unspecified Essential hypertension Unspecified essential hypertension Familial combined hyperlipidemia Mixed hyperlipidemia 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d by mild nonproliferative retinopathy without macular edema, without long-term current use of insulin (HCC) Prostate cancer (HCC) [C61 (ICD-10-CM)] Malignant neoplasm of prostate Prostate cancer (HCC) Malignant neoplasm of prostate documented in this encounter [facility]* Diagnosis Prostate cancer (HCC)- Primary Malignant neoplasm of prostate [facility] Diagnosis Familial combined hyperlipidemia- Primary Mixed hyperlipidemia Essential hypertension Unspecified essential hypertension Type 2 diabetes mellitus with hyperglycemia, without long-term current use of insulin (HCC) Urinary incontinence, unspecified type [facility]* Diagnosis Type 2 diabetes mellitus with hyperglycemia, without long-term current use of insulin (HCC)- Primary [facility]* Diagnosis Type 2 diabetes mellitus with hyperglycemia, without long-term current use of insulin (HCC)- Primary [facility] Diagnosis Type 2 diabetes mellitus with hyperglycemia, without long-term current use of insulin (HCC) [facility]* Diagnosis Prostate cancer (HCC)- Primary Malignant neoplasm of prostate [facility] Diagnosis Type 2 diabetes mellitus with hyperglycemia, without long-term current use of insulin (HCC) [facility] Diagnosis Type 2 diabetes mellitus with hyperglycemia, without long-term current use of insulin (HCC) [facility]* Diagnosis Type 2 diabetes mellitus with hyperglycemia, without long-term current use of insulin (HCC)- Primary [facility]* Diagnosis Medicare annual wellness visit, initial- Primary Routine general medical examination at a health care facility ED (erectile dysfunction) of organic origin Impotence of organic origin Need for influenza vaccination Need for prophylactic vaccination and inoculation against influenza Need for vaccination Need for prophylactic vaccination and inoculation against unspecified single disease Acquired hypothyroidism Unspecified hypothyroidism Type 2 diabetes mellitus with hyperglycemia, without long-term current use of insulin (HCC) Essential hypertension Unspecified essential hypertension [facility]* Diagnosis ED (erectile dysfunction) of organic origin Impotence of organic origin documented in this encounter [facility] note* Diagnosis Familial combined hyperlipidemia Mixed hyperlipidemia documented in this encounter [facility]* Diagnosis Familial combined hyperlipidemia Mixed hyperlipidemia documented in this encounter [facility] note* Diagnosis Prostate cancer (HCC)- Primary Malignant neoplasm of prostate documented in this encounter [facility] note* Diagnosis Type 2 diabetes mellitus with hyperglycemia, without long-term current use of insulin (HCC) Familial combined hyperlipidemia Mixed hyperlipidemia documented in this encounter [facility] note* Diagnosis Type 2 diabetes mellitus with hyperglycemia, without long-term current use of insulin (HCC)- Primary Essential hypertension Unspecified essential hypertension Acquired hypothyroidism Unspecified hypothyroidism Prostate cancer (HCC) Malignant neoplasm of prostate Familial combined hyperlipidemia Mixed hyperlipidemia documented in this encounter [facility] note* Diagnosis Prostate cancer (HCC)- Primary Malignant neoplasm of prostate documented in this encounter [facility] note* Diagnosis Type 2 diabetes mellitus with hyperglycemia, without long-term current use of insulin (HCC) documented in this encounter [facility] note* Diagnosis Preop testing- Primary Preoperative examination, unspecified Essential hypertension Unspecified essential hypertension Familial combined hyperlipidemia Mixed hyperlipidemia 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d by mild nonproliferative retinopathy without macular edema, without long-term current use of insulin (HCC) Prostate cancer (HCC) [C61 (ICD-10-CM)] Malignant neoplasm of prostate Familial combined hyperlipidemia Mixed hyperlipidemia documented in this encounter [facility] for referral (narrative)* Diagnostic Procedure Only (Routine) - Authorized Specialty Diagnoses / Procedures Referred By Manny t Referred To Contact MOLECULAR & FUNCTIONAL IMAGING Diagnoses Prostate cancer (HCC) Procedures NM BONE WHOLE BODY BONE &/JOINT IMAGING WHOLE BODY Uriel Barragan DO [facility] [place] [address] Molecular & Functional Imaging [address] [place] [address] Referral ID Status Reason Start Date Expiration Date Visits Requested Visits Authorized [id number] Authorized Auto-Generat ed Referral 11/03/2022 12/03/2023 1 [facility]No reason for referral information availableWCoshoct[facility] Work Phone: Advance Directives Documents on File Type Date Recorded Patient Premix Operator Concentrate Expl anation Advance Directive(s) 03/11/2018 6:03 AM Documents on File Type Date Recorded Patient Premix Operator Concentrate Expl anation Advance Directive(s) 03/11/2018 6:03 AM Reason for Referral Specialty Diagnoses / Procedures Referred By Contac t Referred To Contact MR IMAGING Diagnoses Elevated prostate specific antigen (PSA) Procedures MRI PROSTATE WO/W IVCON MRI PELVIS W/O & W/CONTRAST MATERIAL Uriel Barragan DO [address] [place] [address] Mr Imaging Referral ID Status Reason Start Date Expiration Date Visits Requested Visits Authorized [id number] Pending Review Auto-Generat ed Referral 12/05/2021 01/04/2023 1 1 Referral ID Status Reason Start Date Expiration Date V isits Requested Visits Authorized [id number] Closed Auto-Generate d Referral 12/05/2021 01/04/2023 1 1 Specialty Diagnoses / Procedures Referred By Contac t Referred To Contact [facility] Diagnoses Prostate cancer (HCC) Procedures CONSULT TO PHYSICAL THERAPY PHYSICAL THERAPY EVALUATION HIGH COMPLEX 45 MINS Kamran Gordon Jr., MD [address] [place] [address] [facility] [place] [address] [place] [address] Referral ID Status Reason Start Date Expiration Date Visits Requested Visits Authorized [id number] Pending Review Auto-Generat ed Referral 3 06/29/2024 1 1 Specialty Diagnoses / Procedures Referred By Contac t Referred To Contact Diagnoses Type 2 diabetes mellitus with hyperglycemia, without long-term current use of insulin (HCC) Leigh Lima, CLINICAL RESEARCH TECHNICIAN.AUTOMOTIVE GLASS TECHNICIAN [address] [place] [address] Referral ID Status Reason Start Date Expiration Date Visits Re quested Visits Authorized [id number] Closed 1 1 Summary Purpose Family History Relationship Condition Age at Onset Recorded Date/T jey father Malignant neoplasm Unknown Myocardial infarction Unknown Diabetes mellitus Unknown brother Malignant neoplasm Unknown mother Diabetes mellitus Unknown sister Diabetes mellitus Unknown Chief Complaint and Reason for Visit Chief Complaint Admit Date 3 m August 08, 2024 1 0:38am 3 M FU November 14, 2024 9:5 6am Reason for Visit Admit Date History of prostate cancer August 08, 2024 10:38am Hypothyroid August 08, 2024 1 0:38am Type 2 diabetes mellitus August 08 024 10:38am Erectile dysfunction November 14, 2024 9: 56am History of prostate cancer November 14 025 9:56am Hypothyroid November 14, 2024 9:5 6am Type 2 diabetes mellitus November 14 9:56am Chief Complaint Admit Date 3 M FU November 14, 2024 9:5 6am 3 M FU February 13, 2025 11:2 3am Reason for Visit Admit Date Erectile dysfunction November 14, 2024 9: 56am History of prostate cancer November 14 9:56am Hypothyroid November 14, 2024 9:5 6am Type 2 diabetes mellitus November 14 9:56am Erectile dysfunction February 13, 2025 11: 23am History of prostate cancer February 13 11:23am Hypothyroid February 13, 2025 11:2 3am Type 2 diabetes mellitus February 13, 2025 11:23am Additional Source Comments Source Comments (unrecognize d section and content) In the event this informatio n is protected by the Federal Confidentiality of Alcohol and Drug Abuse Patient Records regulations: The Federal rules restrict any use of the information to criminally investigate or prosecute any alcohol or drug abuse patient.[facility] the event this information is protected by the Federal Confidentiality of Alcohol and Drug Abuse Patient Records regulations: The Federal rules restrict any use of the information to criminally investigate or prosecute any alcohol or drug abuse patient.[facility] the event this information is protected by the Federal Confidentiality of Alcohol and Drug Abuse Patient Records regulations: The Federal rules restrict any use of the information to criminally investigate or prosecute any alcohol or drug abuse patient.[facility] the event this information is protected by the Federal Confidentiality of Alcohol and Drug Abuse Patient Records regulations: The Federal rules restrict any use of the information to criminally investigate or prosecute any alcohol or drug abuse patient.[facility] the event this information is protected by the Federal Confidentiality of Alcohol and Drug Abuse Patient Records regulations: The Federal rules restrict any use of the information to criminally investigate or prosecute any alcohol or drug abuse patient.[facility] the event this information is protected by the Federal Confidentiality of Alcohol and Drug Abuse Patient Records regulations: The Federal rules restrict any use of the information to criminally investigate or prosecute any alcohol or drug abuse patient.[facility] the event this information is protected by the Federal Confidentiality of Alcohol and Drug Abuse Patient Records regulations: The Federal rules restrict any use of the information to criminally investigate or prosecute any alcohol or drug abuse patient.[facility] the event this information is protected by the Federal Confidentiality of Alcohol and Drug Abuse Patient Records regulations: The Federal rules restrict any use of the information to criminally investigate or prosecute any alcohol or drug abuse patient.[facility]In the event this information is protected by the Federal Confidentiality of Alcohol and Drug Abuse Patient Records regulations: The Federal rules restrict any use of the information to criminally investigate or prosecute any alcohol or drug abuse patient.[facility]In the event this information is protected by the Federal Confidentiality of Alcohol and Drug Abuse Patient Records regulations: The Federal rules restrict any use of the information to criminally investigate or prosecute any alcohol or drug abuse patient.[facility] the event this information is protected by the Federal Confidentiality of Alcohol and Drug Abuse Patient Records regulations: The Federal rules restrict any use of the information to criminally investigate or prosecute any alcohol or drug abuse patient.[facility] the event this information is protected by the Federal Confidentiality of Alcohol and Drug Abuse Patient Records regulations: The Federal rules restrict any use of the information to criminally investigate or prosecute any alcohol or drug abuse patient.[facility]In the event this information is protected by the Federal Confidentiality of Alcohol and Drug Abuse Patient Records regulations: The Federal rules restrict any use of the information to criminally investigate or prosecute any alcohol or drug abuse patient.[facility]In the event this information is protected by the Federal Confidentiality of Alcohol and Drug Abuse Patient Records regulations: The Federal rules restrict any use of the information to criminally investigate or prosecute any alcohol or drug abuse patient.[facility]In the event this information is protected by the Federal Confidentiality of Alcohol and Drug Abuse Patient Records regulations: The Federal rules restrict any use of the information to criminally investigate or prosecute any alcohol or drug abuse patient.[facility]In the event this information is protected by the Federal Confidentiality of Alcohol and Drug Abuse Patient Records regulations: The Federal rules restrict any use of the information to criminally investigate or prosecute any alcohol or drug abuse patient.[facility]In the event this information is protected by the Federal Confidentiality of Alcohol and Drug Abuse Patient Records regulations: The Federal rules restrict any use of the information to criminally investigate or prosecute any alcohol or drug abuse patient.[facility] HospitalIn the event this information is protected by the Federal Confidentiality of Alcohol and Drug Abuse Patient Records regulations: The Federal rules restrict any use of the information to criminally investigate or prosecute any alcohol or drug abuse patient.[facility]In the event this information is protected by the Federal Confidentiality of Alcohol and Drug Abuse Patient Records regulations: The Federal rules restrict any use of the information to criminally investigate or prosecute any alcohol or drug abuse patient.[facility]In the event this information is protected by the Federal Confidentiality of Alcohol and Drug Abuse Patient Records regulations: The Federal rules restrict any use of the information to criminally investigate or prosecute any alcohol or drug abuse patient.[facility]In the event this information is protected by the Federal Confidentiality of Alcohol and Drug Abuse Patient Records regulations: The Federal rules restrict any use of the information to criminally investigate or prosecute any alcohol or drug abuse patient.[facility]In the event this information is protected by the Federal Confidentiality of Alcohol and Drug Abuse Patient Records regulations: The Federal rules restrict any use of the information to criminally investigate or prosecute any alcohol or drug abuse patient.[facility]In the event this information is protected by the Federal Confidentiality of Alcohol and Drug Abuse Patient Records regulations: The Federal rules restrict any use of the information to criminally investigate or prosecute any alcohol or drug abuse patient.[facility]In the event this information is protected by the Federal Confidentiality of Alcohol and Drug Abuse Patient Records regulations: The Federal rules restrict any use of the information to criminally investigate or prosecute any alcohol or drug abuse patient.[facility]In the event this information is protected by the Federal Confidentiality of Alcohol and Drug Abuse Patient Records regulations: The Federal rules restrict any use of the information to criminally investigate or prosecute any alcohol or drug abuse patient.[facility]In the event this information is protected by the Federal Confidentiality of Alcohol and Drug Abuse Patient Records regulations: The Federal rules restrict any use of the information to criminally investigate or prosecute any alcohol or drug abuse patient.[facility]In the event this information is protected by the Federal Confidentiality of Alcohol and Drug Abuse Patient Records regulations: The Federal rules restrict any use of the information to criminally investigate or prosecute any alcohol or drug abuse patient.[facility] HospitalIn the event this information is protected by the Federal Confidentiality of Alcohol and Drug Abuse Patient Records regulations: The Federal rules restrict any use of the information to criminally investigate or prosecute any alcohol or drug abuse patient.[facility] HospitalIn the event this information is protected by the Federal Confidentiality of Alcohol and Drug Abuse Patient Records regulations: The Federal rules restrict any use of the information to criminally investigate or prosecute any alcohol or drug abuse patient.[facility]In the event this information is protected by the Federal Confidentiality of Alcohol and Drug Abuse Patient Records regulations: The Federal rules restrict any use of the information to criminally investigate or prosecute any alcohol or drug abuse patient.[facility]In the event this information is protected by the Federal Confidentiality of Alcohol and Drug Abuse Patient Records regulations: The Federal rules restrict any use of the information to criminally investigate or prosecute any alcohol or drug abuse patient.[facility]In the event this information is protected by the Federal Confidentiality of Alcohol and Drug Abuse Patient Records regulations: The Federal rules restrict any use of the information to criminally investigate or prosecute any alcohol or drug abuse patient.[facility] HospitalIn the event this information is protected by the Federal Confidentiality of Alcohol and Drug Abuse Patient Records regulations: The Federal rules restrict any use of the information to criminally investigate or prosecute any alcohol or drug abuse patient.[facility]In the event this information is protected by the Federal Confidentiality of Alcohol and Drug Abuse Patient Records regulations: The Federal rules restrict any use of the information to criminally investigate or prosecute any alcohol or drug abuse patient.[facility]In the event this information is protected by the Federal Confidentiality of Alcohol and Drug Abuse Patient Records regulations: The Federal rules restrict any use of the information to criminally investigate or prosecute any alcohol or drug abuse patient.[facility]In the event this information is protected by the Federal Confidentiality of Alcohol and Drug Abuse Patient Records regulations: The Federal rules restrict any use of the information to criminally investigate or prosecute any alcohol or drug abuse patient.[facility] HospitalIn the event this information is protected by the Federal Confidentiality of Alcohol and Drug Abuse Patient Records regulations: The Federal rules restrict any use of the information to criminally investigate or prosecute any alcohol or drug abuse patient.[facility] HospitalIn the event this information is protected by the Federal Confidentiality of Alcohol and Drug Abuse Patient Records regulations: The Federal rules restrict any use of the information to criminally investigate or prosecute any alcohol or drug abuse patient.[facility] HospitalIn the event this information is protected by the Federal Confidentiality of Alcohol and Drug Abuse Patient Records regulations: The Federal rules restrict any use of the information to criminally investigate or prosecute any alcohol or drug abuse patient.[facility]In the event this information is protected by the Federal Confidentiality of Alcohol and Drug Abuse Patient Records regulations: The Federal rules restrict any use of the information to criminally investigate or prosecute any alcohol or drug abuse patient.[facility]In the event this information is protected by the Federal Confidentiality of Alcohol and Drug Abuse Patient Records regulations: The Federal rules restrict any use of the information to criminally investigate or prosecute any alcohol or drug abuse patient.[facility] HospitalIn the event this information is protected by the Federal Confidentiality of Alcohol and Drug Abuse Patient Records regulations: The Federal rules restrict any use of the information to criminally investigate or prosecute any alcohol or drug abuse patient.[facility] HospitalIn the event this information is protected by the Federal Confidentiality of Alcohol and Drug Abuse Patient Records regulations: The Federal rules restrict any use of the information to criminally investigate or prosecute any alcohol or drug abuse patient.[facility] HospitalIn the event this information is protected by the Federal Confidentiality of Alcohol and Drug Abuse Patient Records regulations: The Federal rules restrict any use of the information to criminally investigate or prosecute any alcohol or drug abuse patient.[facility] HospitalIn the event this information is protected by the Federal Confidentiality of Alcohol and Drug Abuse Patient Records regulations: The Federal rules restrict any use of the information to criminally investigate or prosecute any alcohol or drug abuse patient.[facility] HospitalIn the event this information is protected by the Federal Confidentiality of Alcohol and Drug Abuse Patient Records regulations: The Federal rules restrict any use of the information to criminally investigate or prosecute any alcohol or drug abuse patient.[facility] the event this information is protected by the Federal Confidentiality of Alcohol and Drug Abuse Patient Records regulations: The Federal rules restrict any use of the information to criminally investigate or prosecute any alcohol or drug abuse patient.[facility] Hospital[facility] the event this information is protected by the Federal Confidentiality of Alcohol and Drug Abuse Patient Records regulations: The Federal rules restrict any use of the information to criminally investigate or prosecute any alcohol or drug abuse patient.[facility] HospitalIn the event this information is protected by the Federal Confidentiality of Alcohol and Drug Abuse Patient Records regulations: The Federal rules restrict any use of the information to criminally investigate or prosecute any alcohol or drug abuse patient.[facility] Hospital[facility] the event this information is protected by the Federal Confidentiality of Alcohol and Drug Abuse Patient Records regulations: The Federal rules restrict any use of the information to criminally investigate or prosecute any alcohol or drug abuse patient.[facility] HospitalIn the event this information is protected by the Federal Confidentiality of Alcohol and Drug Abuse Patient Records regulations: The Federal rules restrict any use of the information to criminally investigate or prosecute any alcohol or drug abuse patient.[facility] HospitalIn the event this information is protected by the Federal Confidentiality of Alcohol and Drug Abuse Patient Records regulations: The Federal rules restrict any use of the information to criminally investigate or prosecute any alcohol or drug abuse patient.[facility] Hospital[facility] the event this information is protected by the Federal Confidentiality of Alcohol and Drug Abuse Patient Records regulations: The Federal rules restrict any use of the information to criminally investigate or prosecute any alcohol or drug abuse patient.[facility] HospitalIn the event this information is protected by the Federal Confidentiality of Alcohol and Drug Abuse Patient Records regulations: The Federal rules restrict any use of the information to criminally investigate or prosecute any alcohol or drug abuse patient.[facility] HospitalIn the event this information is protected by the Federal Confidentiality of Alcohol and Drug Abuse Patient Records regulations: The Federal rules restrict any use of the information to criminally investigate or prosecute any alcohol or drug abuse patient.[facility] HospitalIn the event this information is protected by the Federal Confidentiality of Alcohol and Drug Abuse Patient Records regulations: The Federal rules restrict any use of the information to criminally investigate or prosecute any alcohol or drug abuse patient.[facility] HospitalIn the event this information is protected by the Federal Confidentiality of Alcohol and Drug Abuse Patient Records regulations: The Federal rules restrict any use of the information to criminally investigate or prosecute any alcohol or drug abuse patient.[facility] HospitalIn the event this information is protected by the Federal Confidentiality of Alcohol and Drug Abuse Patient Records regulations: The Federal rules restrict any use of the information to criminally investigate or prosecute any alcohol or drug abuse patient.[facility] Reason for Visit (unrecogniz ed section and content) Reason Comments Blood Pressure Check Reason Comments Prostate Biopsy Reason Comments Results Reason Onset Date Comments Refill Request 12/29/2021 Reason Onset Date Comments Refill Request 02/19/2022 Reason Comments Patient Question Reason Onset Date Comments F/U 6 months Immunizations 05/07/2022 Flu vaccination Reason Onset Date Comments Refill Request 06/01/2022 Reason Comments Lab Orders Reason Comments F/U 3 Month Specialty Diagnoses / Procedures Referred By Contac t Referred To Contact MR IMAGING Diagnoses Elevated prostate specific antigen (PSA) Procedures MRI PROSTATE WO/W IVCON MRI PELVIS W/O & W/CONTRAST MATERIAL Uriel Barragan DO [address] [place] [address] Mr Imaging Referral ID Status Reason Start Date Expiration Date V isits Requested Visits Authorized [id number] Closed Auto-Generate d Referral 12/05/2021 01/04/2023 1 1 Reason Comments Results Reason Comments Established Patient 6 month follow up/PS A Reason Comments Follow Up Reason Comments Surgery Scheduled Reason Comments Prostate Problem Reason Comments Imaging Question Reason Onset Date Comments Medication Update 11/12/2022 Statin use rev iew Reason Comments Post Op Reason Comments Appointment Reason Comments Patient Update Reason Comments Post-Op Visit Urinary Incontinence Reason Comments Patient Question Pt called stating th at he would like a refill of Oxybutynin 10mg/request has beenP sent to Dr Gordon Reason Onset Date Comments Refill Request 12/16/2022 out of medicatio n Reason Comments Orders Reason Comments 5 month follow-up Reason Onset Date Comments Refill Request 02/04/2023 Reason Onset Date Comments Refill Request 03/15/2023 Reason Comments Medication review Reason Onset Date Comments Refill Request 03/22/2023 Reason Comments PSA Reason Comments Refill Request Reason Onset Date Comments Refill Request 04/14/2023 Reason Comments Med Change Request Reason Comments wrong lancet rx sent to pharmacy Reason Comments Medication Problem Reason Onset Date Comments Refill Request 04/26/2023 Refill Request 04/27/2023 Reason Onset Date Comments Refill Request 05/05/2023 Reason Onset Date Comments Medicare Wellness Exam 4 month follow-up Immunizations 05/13/2023 Flu vaccination Reason Comments Medication Request Reason Onset Date Comments Refill Request 05/21/2023 Reason Onset Date Comments Refill Request 05/27/2023 Reason Comments Prostate Cancer Erectile Dysfunction Reason Onset Date Comments Refill Request 10/21/2023 Reason Comments F/U 6 months Reason Comments Patient Update Orders Reason Comments Prostate Cancer Groin Pain Comes and goes Reason Onset Date Comments Refill Request 11/22/2023 Reason Onset Date Comments Allied Health Visit 06/01/2024 Medication A dherence Outreach Reason Onset Date Comments Refill Request 06/01/2024 Care Teams (unrecognized sec tion and content) Rn Clinical Research Relationship Specialty Start Date End Date Nahun Jeffrey MD [address] [place] [address] PCP - General Internal Medicine 07/19/20 Rn Clinical Research Relationship Specialty Start Date End Date Nahun Jeffrey MD [address] [facility] [place] [place] [address] PCP - General Internal Medicine 07/19/20 Rn Clinical Research Relationship Specialty Start Date End Date Nahun Jeffrey MD [facility] [place] [address] PCP - General Internal Medicine 07/19/20 Rn Clinical Research Relationship Specialty Start Date End Date Nahun Jeffrey MD [facility] [place] [address] PCP - General Internal Medicine 07/19/20 Rn Clinical Research Relationship Specialty Start Date End Date Nahun Jeffrey MD [address] [place] [address], [place] [address] PCP - General Internal Medicine 07/19/20 Rn Clinical Research Relationship Specialty Start Date End Date Nahun Jeffrey MD [facility] [place] [address] PCP - General Internal Medicine 07/19/20 Rn Clinical Research Relationship Specialty Start Date End Date Nahun Jeffrey MD [facility] [place] [place] [address] PCP - General Internal Medicine 07/19/20 Rn Clinical Research Relationship Specialty Start Date End Date Nahun Jeffrey MD [address] [place] [address], [place] [address] PCP - General Internal Medicine 07/19/20 Rn Clinical Research Relationship Specialty Start Date End Date Nahun Jeffrey MD [address] [place] [address], [place] [address] PCP - General Internal Medicine 07/19/20 Rn Clinical Research Relationship Specialty Start Date End Date Nahun Jeffrey MD [address] [facility] [place] [place] [address] PCP - General Internal Medicine 07/19/20 Rn Clinical Research Relationship Specialty Start Date End Date Nahun Jeffrey MD [address] [facility] [place] [place] [address] PCP - General Internal Medicine 07/19/20 Rn Clinical Research Relationship Specialty Start Date End Date Nahun Jeffrey MD [facility] [place] [place] [address] PCP - General Internal Medicine 07/19/20 Rn Clinical Research Relationship Specialty Start Date End Date Nahun Jeffrey MD [facility] [place] [address] PCP - General Internal Medicine 07/19/20 Rn Clinical Research Relationship Specialty Start Date End Date Nahun Jeffrey MD [facility] [place] [place] [address] PCP - General Internal Medicine 07/19/20 Rn Clinical Research Relationship Specialty Start Date End Date Nahun Jeffrey MD [facility] [place] [place] [address] PCP - General Internal Medicine 07/19/20 Rn Clinical Research Relationship Specialty Start Date End Date Nahun Jeffrey MD [facility] [place] [place] [address] PCP - General Internal Medicine 07/19/20 Rn Clinical Research Relationship Specialty Start Date End Date Nahun Jeffrey MD [facility] [place] [place] [address] PCP - General Internal Medicine 07/19/20 Rn Clinical Research Relationship Specialty Start Date End Date Nahun Jeffrey MD [facility] [place] [address] PCP - General Internal Medicine 07/19/20 Rn Clinical Research Relationship Specialty Start Date End Date Nahun Jeffrey MD [address] [place] [address] PCP - General Internal Medicine 07/19/20 Rn Clinical Research Relationship Specialty Start Date End Date Nahun Jeffrey MD [address] [place] [address] PCP - General Internal Medicine 07/19/20 Rn Clinical Research Relationship Specialty Start Date End Date Nahun Jeffrey MD [address] [place] [address] PCP - General Internal Medicine 07/19/20 Rn Clinical Research Relationship Specialty Start Date End Date Nahun Jeffrey MD [address] [place] [address] PCP - General Internal Medicine 07/19/20 Rn Clinical Research Relationship Specialty Start Date End Date Nahun Jeffrey MD [address] [place] [address] PCP - General Internal Medicine 07/19/20 Rn Clinical Research Relationship Specialty Start Date End Date Nahun Jeffrey MD [address] [place] [address] PCP - General Internal Medicine 07/19/20 Rn Clinical Research Relationship Specialty Start Date End Date Nahun Jeffrey MD [address] [place] [address] PCP - General Internal Medicine 07/19/20 Rn Clinical Research Relationship Specialty Start Date End Date Nahun Jeffrey MD [address] [place] [address] PCP - General Internal Medicine 07/19/20 Rn Clinical Research Relationship Specialty Start Date End Date Nahun Jeffrey MD [address] [facility] [place] [place] [address] PCP - General Internal Medicine 07/19/20 Rn Clinical Research Relationship Specialty Start Date End Date Nahun Jeffrey MD [address] [facility] [place] [place] [address] PCP - General Internal Medicine 07/19/20 Rn Clinical Research Relationship Specialty Start Date End Date Nahun Jeffrey MD [address] [facility] [place] [address] PCP - General Internal Medicine 07/19/20 Rn Clinical Research Relationship Specialty Start Date End Date Nahun Jeffrey MD [address] [facility] [place] [address] PCP - General Internal Medicine 07/19/20 Rn Clinical Research Relationship Specialty Start Date End Date Nahun Jeffrey MD [address] [facility] [place] [address] PCP - General Internal Medicine 07/19/20 Rn Clinical Research Relationship Specialty Start Date End Date Nahun Jeffrey MD [address] [facility] [place] [place] [address] PCP - General Internal Medicine 07/19/20 Rn Clinical Research Relationship Specialty Start Date End Date Nahun Jeffrey MD [address] [facility] [place] [address] PCP - General Internal Medicine 07/19/20 Rn Clinical Research Relationship Specialty Start Date End Date Mohit Pittman DO [address] [place], [place] [address] PCP - General Family Medicine 12/01/23 Rn Clinical Research Relationship Specialty Start Date End Date Mohit Pittman DO [address] [place], [place] [id number] PCP - General Family Medicine 12/01/23 Team Status: Active Member Role Status Dates Dr. Mohit Pittman DO Primary Care Provider Active Team Status: Inactive Member Role Status Dates Dr. Mohit Pittman DO Primary Care Provider Active Start: August 08, 2024 End: August 08, 2024 Dr. Mohit Pittman DO Attending Provider Active Start: August 08, 2024 End: August 08, 2024 Dr. Mohit Pittman DO Referring Provider Active Start: August 08, 2024 End: August 08, 2024 Team Status: Inactive Member Role Status Dates Dr. Mohit Pittman DO Primary Care Provider Active Start: November 14, 2024 End: November 14, 2024 Dr. Mohit Pittman DO Attending Provider Active Start: November 14, 2024 End: November 14, 2024 Dr. Mohit Pittman DO Referring Provider Active Start: November 14, 2024 End: November 14, 2024 Team Status: Inactive Member Role Status Dates Dr. Mohit Pittman DO Primary Care Provider Active Start: February 13, 2025 End: February 13, 2025 Dr. Mohit Pittman DO Attending Provider Active Start: February 13, 2025 End: February 13, 2025 Dr. Mohit Pittman DO Referring Provider Active Start: February 13, 2025 End: February 13, 2025 Team Status: Active Member Role Status Dates Dr. Mohit Pittman DO Primary Care Provider Active Start: February 13, 2025 Dr. Mohit Pittman DO Attending Provider Active Start: February 13, 2025 Dr. Mohit Pittman DO Referring Provider Active Start: February 13, 2025 (unrecognized sect ion and content) No Status Records FoundNo Status Records FoundNo Status Records FoundNo Status Records Found INFORMATION SOURCE (unrecogn ized section and content) DATE CREATED AUTHOR 09/29/2022 [facility] DATE CREATED AUTHOR AUTHOR'S ORGANIZ ATION 11/12/2023 [facility] DATE CREATED AUTHOR AUTHOR'S ORGANIZ ATION 11/19/2023 [facility] DATE CREATED AUTHOR AUTHOR'S ORGANIZ ATION 02/10/2025 [facility] Goals (unrecognized section and content) Goals may be documented in a n alternate sectionGoals may be documented in an alternate section FOR RECORDS PERTAINING TO PATIENTS WHO ARE OR HAVE BEEN ENROLLED IN A CHEMICAL DEPENDENCY/SUBSTANCEABUSE PROGRAM, SOME INFORMATION MAY BE OMITTED. This clinical summary was aggregated from multiple sources. Caution should be exercised in using it in the provision of clinical care. This summary normalizes information from multiple sources, and as a consequence, information in this document may materially change the coding, format and clinical context of patient data. In addition, data may be omitted in some cases. CLINICAL DECISIONS SHOULD BE BASED ON THE PRIMARY CLINICAL RECORDS. [facility] [employer] provides no warranty or guarantee of the accuracy or completeness of information in this document.
== END | disposition home or self-care (01) ==
LOC: BIMLAB 11:55
PROVIDERS: PCP Family Medicine; Referring Provider Family Medicine; Visit Provider Family Medicine
DX: Z85.46 Personal history of malignant neoplasm of prostate (principal)
CPT/HCPCS: 36415; 84153